=== PATIENT | female | born 1945 | race Caucasian/White ===

== ENCOUNTER 2016-08-26 15:31 | Inpatient (IN) ==
--- NOTE | 2016-08-26 15:42 | Emergency Department Note ---
Disposition Clinical Impression: Atrial fibrillation with RVR Disposition: Admitted As Inpatient Condition: Fair Referrals: Liliana Pedro MD [Primary Care Provider] - Time of Disposition: 17:05 Arrhythmia/Palpitations HPI - General Stated Complaint: [place], tachy Time Seen by Provider: 08/26/16 15:34 Source: patient, family Mode of arrival: ambulatory Limitations: no limitations Nursing Notes Reviewed: Yes Vital Signs Reviewed: Yes - History of Present Illness HPI Narrative: 70-year-old who comes in stating that she hasn't felt well for a day or 2 and she had her a pulse ox on her today and noted her heart rate to be 130s. Had A. fib twice in the past was converted medically. She presents now for evaluation. Pt Subjective Complaint: rapid heart beat Onset (ago): Just BRONC BREAKER Associated symptoms: Reports: shortness of breath - Related Data Home Medications Medication Instructions Recorded Confirmed Aspirin Enteric Coated [Aspirin EC] 81 mg PO DAILY 11/23/14 11/29/15 Cholecalciferol (D-3) [Vitamin D] 2,000 unit PO DAILY 11/23/14 11/29/15 Citalopram Hydrobromide [Celexa] 40 mg PO DAILY 11/23/14 11/29/15 Cyclobenzaprine [Flexeril] 10 mg PO HS 11/23/14 11/29/15 Gabapentin [Neurontin] 300 mg PO TID 11/23/14 11/29/15 Meloxicam [Mobic] 15 mg PO DAILY 11/23/14 11/29/15 Metoprolol [Lopressor] 50 mg PO BID 11/23/14 11/29/15 metFORMIN [Glucophage] 500 mg PO DAILY 11/23/14 11/29/15 [place]-3/Dha/Epa/Fish Oil [Fish Oil 1 each PO DAILY 05/31/15 11/29/15 1,000 mg Softgel] Cetirizine HCl [Zyrtec] 10 mg PO DAILY 05/30/16 05/30/16 Previous Rx's Medication Instructions Recorded Amlodipine/Atorvastatin [Caduet 10 1 each PO DAILY #30 tablet 08/28/15 mg-40 mg Tablet] Clopidogrel [Plavix] 75 mg PO DAILY #30 tablet 08/28/15 Allergies Allergy/AdvReac Type Severity Reaction Status Date / Time Erythromycin Base AdvReac Abdominal Verified 05/31/15 12:06 [From Erythrocin] Pain All systems ED: reviewed and negative except as stated. Constitutional: Denies: fever, chills, weakness, weight change Eyes: Denies: eye pain, eye discharge, vision change ENT ED: Denies: ear pain, throat pain, dental pain, hearing loss, epistaxis, congestion, dysphagia Cardiovascular: Reports: palpitations, dyspnea on exertion. Denies: chest pain , edema, syncope Respiratory: Denies: cough, wheezes, hemoptysis, stridor Gastrointestinal: Denies: abdominal pain, nausea, vomiting, diarrhea, constipation, hematemesis, melena, hematochezia Genitourinary: Denies: dysuria, frequency, hematuria, discharge Musculoskeletal: Denies: back pain, neck pain, arthralgia, myalgia Integumentary: Denies: rash, abrasion, lesions Neurological: Denies: headache, weakness, numbness, paresthesias, confusion, abnormal gait, vertigo Psychiatric: Denies: anxiety, depression, suicidal thoughts, homicidal thoughts , auditory hallucinations, visual hallucinations Endocrine: Denies: fatigue Hematological/Lymphatic: Denies: easy bleeding, easy bruising Allergic/Immunologic: Denies: facial swelling, urticaria Past Medical History - Past Medical History Medical history: Reports: atrial fibrillation, cancer, coronary artery disease, diabetes, hyperlipidemia, hypertension Surgical history: Reports: cholecystectomy, REMINGTON/BSO Psychiatric history: Reports: no psych history - Social History Smoking Status: Former smoker Smokeless Tobacco Status: No Alcohol use: Reports: none Drug use: Reports: none Physical Exam - General Limitations: no limitations General appearance: alert, in no apparent distress - Head Head exam: atraumatic, normocephalic, normal inspection - Eye Eye exam: Present: normal appearance, PERRL, EOMI - ENT ENT exam: normal exam, normal oropharynx, mucous membranes moist - Neck Neck exam: Present: normal inspection, full ROM, trachea midline - Chest Chest inspection: Present: normal inspection, symmetric chest wall rise - Respiratory Respiratory exam: Present: normal lung sounds bilaterally - Cardiovascular Cardiovascular exam: Present: tachycardia, irregular rhythm, normal heart sounds - Abdominal Exam Abdominal exam: Present: soft, Non-Tender. Absent: tenderness, distention, guarding, rebound, rigidity - Extremities Exam Extremities exam: Present: normal inspection, full ROM. Absent: tenderness, pedal edema - Expanded Lower Extremity Exam Neurovascular/Tendon exam: Absent: motor deficit, sensory deficit, tendon deficit Gait: observed and normal - Back Exam Back exam: Present: normal inspection, full ROM. Absent: tenderness - Neurological Exam Neurological exam: Present: alert, oriented X3 - Psychiatric Psychiatric exam: Present: normal affect, normal mood - Skin Skin exam: Present: warm, dry, intact, normal color Course - Reevaluation(s) Reevaluation #1: 70-year-old with a history of A. fib in the past and noticed that she wasn't feeling well last couple of days took her heart rate is in the 130s 140s. EKG does show A. fib RVR she started on a Cardizem drip current heart rate is between 100 and 110. Time: 17:04 - Consultations Consultation #1: Discussed with , admit Time: 17:12 Vital Signs Temperature 97.9 F 08/26/16 15:38 Pulse Rate 138 08/26/16 15:38 Respiratory Rate 18 08/26/16 15:38 Blood Pressure 138/98 08/26/16 15:38 O2 Sat by Pulse Oximetry 95 08/26/16 15:38 Temperature 97.9 F 08/26/16 15:38 Pulse Rate 109 08/26/16 16:30 Respiratory Rate 16 08/26/16 16:30 Blood Pressure 113/94 08/26/16 16:30 O2 Sat by Pulse Oximetry 97 08/26/16 16:30 Oxygen Delivery Oxygen Delivery Room Air Arrhythmia/Palpitations - Lab Data Lab results reviewed: Yes I reviewed the patient's lab results. Result diagrams: 08/26/16 16:07 08/26/16 16:07 Lab Results 08/26/16 08/26/16 08/26/16 Range/Units 16:07 16:07 16:07 WBC 8.9 (4.3-11.1) K/mcL RBC 3.97 (3.82-4.97) M/mcL Hgb 11.7 (11.5-15.4) g/dL Hct 35.7 (35.3-44.9) % MCV 89.9 (83.0-100.0) fL MCH 29.5 (28.0-33.3) pg MCHC 32.8 (31.6-35.5) g/dL RDW 13.3 (11.5-14.5) % Plt Count 264 (140-400) K/mcL MPV 9.1 L (9.4-12.4) fL Immature Gran % 0.5 (0-4) % Seg Neutrophils % 67.0 % Lymphocytes % 25.4 % Monocytes % 5.3 % Eosinophils % 1.2 % Basophils % 0.6 % Neutrophils # 6.0 (1.6-8.9) K/mcL Lymphocytes # 2.3 (0.6-4.6) K/mcL Monocytes # 0.5 (0.0-1.3) K/mcL Eosinophils # 0.1 (0.0-0.6) K/mcL Basophils # 0.1 (0.0-0.2) K/mcL Sodium 139 (136-145) mEq/L Potassium 3.9 (3.5-4.5) mEq/L Chloride 109 (98-109) mEq/L Carbon Dioxide 20 (19-29) mEq/L BUN 15 (7-20) mg/dL Creatinine 0.82 (0.57-1.11) mg/dL Est GFR ( Amer) > 60 (> 60) Est GFR (Non-Af Amer) > 60 (> 60) BUN/Creatinine Ratio 18 (6-26) Glucose 151 H (70-99) mg/dL Calculated Osmolality 292 (280-300) Lactic Acid 1.9 (0.5-2.2) mmol/L Calcium 8.8 (8.6-10.8) mg/dL Troponin I (0-0.03) ng/mL B-Natriuretic Peptide (0-100) pg/mL 08/26/16 08/26/16 Range/Units 16:07 16:07 WBC (4.3-11.1) K/mcL RBC (3.82-4.97) M/mcL Hgb (11.5-15.4) g/dL Hct (35.3-44.9) % MCV (83.0-100.0) fL MCH (28.0-33.3) pg MCHC (31.6-35.5) g/dL RDW (11.5-14.5) % Plt Count (140-400) K/mcL MPV (9.4-12.4) fL Immature Gran % (0-4) % Seg Neutrophils % % Lymphocytes % % Monocytes % % Eosinophils % % Basophils % % Neutrophils # (1.6-8.9) K/mcL Lymphocytes # (0.6-4.6) K/mcL Monocytes # (0.0-1.3) K/mcL Eosinophils # (0.0-0.6) K/mcL Basophils # (0.0-0.2) K/mcL Sodium (136-145) mEq/L Potassium (3.5-4.5) mEq/L Chloride (98-109) mEq/L Carbon Dioxide (19-29) mEq/L BUN (7-20) mg/dL Creatinine (0.57-1.11) mg/dL Est GFR ( Amer) (> 60) Est GFR (Non-Af Amer) (> 60) BUN/Creatinine Ratio (6-26) Glucose (70-99) mg/dL Calculated Osmolality (280-300) Lactic Acid (0.5-2.2) mmol/L Calcium (8.6-10.8) mg/dL Troponin I 0.03 (0-0.03) ng/mL B-Natriuretic Peptide 579 H (0-100) pg/mL - Radiology Data Radiology results reviewed: Yes I reviewed the patient's radiology results. Chest X-Ray 08/26/16 15:34 IMPRESSION: Minimal left basilar atelectasis or pneumonitis. Sequela of granulomatous disease. D/ / Bradley Calderon MD / Bradley Calderon MD Interpreting Provider: Bradley Calderon MD - EKG Data EKG attestation: Yes I reviewed and interpreted this EKG. Rate: tachycardia Rhythm: A.Fib Interpretation: other (A. fib RVR) Critical Care Time Critical Care Time: Yes Total Critical Care Time: 30 Attestation: The high probability of a clinically significant, sudden or life threatening deterioration of the [cardiovascular] system(s) required my full and direct attention, intervention and personal management. The aggregate critical care time was [30] minutes. This time is in addition to time spent performing reported procedures but includes the following: [x] Data Review and interpretation [x] Patient assessment and monitoring of vital signs [x] Documentation [x] Medication orders and management
[2016-08-26 16:16] LABS: Basophils # 0.1 K/mcL (0.0-0.2); Basophils % 0.6 %; Eosinophils # 0.1 K/mcL (0.0-0.6); Eosinophils % 1.2 %; Hematocrit 35.7 % (35.3-44.9); Hemoglobin 11.7 g/dL (11.5-15.4); Immature Granulocytes % 0.5 % (0-4); Lymphocytes # 2.3 K/mcL (0.6-4.6); Lymphocytes % 25.4 %; Mean Corpuscular HGB Conc 32.8 g/dL (31.6-35.5); Mean Corpuscular Hemoglobin 29.5 pg (28.0-33.3); Mean Corpuscular Volume 89.9 fL (83.0-100.0); Mean Platelet Volume 9.1 fL (9.4-12.4); Monocytes # 0.5 K/mcL (0.0-1.3); Monocytes % 5.3 %; Platelet Count 264 K/mcL (140-400); Red Blood Count 3.97 M/mcL (3.82-4.97); Red Cell Distribution Width 13.3 % (11.5-14.5)
[2016-08-26 16:30] LABS: BUN/Creatinine Ratio 18 (6-26); Blood Urea Nitrogen 15 mg/dL (7-20); Calcium 8.8 mg/dL (8.6-10.8); Carbon Dioxide 20 mEq/L (19-29); Chloride 109 mEq/L (98-109); Glucose 151 mg/dL (70-99); Osmolality,Calculated 292 (280-300); Potassium 3.9 mEq/L (3.5-4.5); Sodium 139 mEq/L (136-145); eGFR For African Americans > 60 (> 60); eGFR For Non-African Americans > 60 (> 60)
[2016-08-26] MEDS ORDERED: Naloxone 0.4 MG/ML INJ IVP PRN (17:08)
[2016-08-26] MEDS ORDERED: Ondansetron 4 MG/2 ML VIAL IVP PRN (17:08)
[2016-08-26] MEDS ORDERED: Acetaminophen 325 MG TABLET PO PRN (17:08)
[2016-08-26] MEDS ORDERED: D5% in Water 1,000 ML IVC PRN (20:30)
[2016-08-26] MEDS ORDERED: *HR* Dextrose 50 % in Water (Syg) 50 ML SYRINGE IVP PRN (20:30)
[2016-08-26] MEDS ORDERED: Dextrose Gel 15 GM PO PRN ×2 (20:30)
--- NOTE | 2016-08-26 20:42 | Internal Med History&Physical ---
Date of Encounter: 08/26/16 Time of Encounter: 20:35 Assessment and Plan (1) Atrial fibrillation with RVR Current visit: Yes Status: Acute 1 patient has history of paroxysmal atrial fibrillation which seems to been introduced during chemotherapy. She presented today with A. fib RVR rate of 145 shortness of breath. She was given Cardizem boluses of Cardizem drip. She is normally on metoprolol and aspirin. Presently heart rate is between 90 and jumping to 134 we will continue with Cardizem drip. Continue metoprolol 2 will start heparin gtt 3. Consult Cardiology- patient is followed by Dr. Kumar 4 continuous cardiac monitoring 5 and oxygen as needed to maintain SPO2 greater than 92% 6 cardiac echo (2) Breast cancer Current visit: No Status: Chronic 1patient has a history of breast cancer. She has received chemotherapy and radiation she has been in remission. Outpatient follow-up with oncology as outpatient. Qualifiers: Breast location: unspecified site of breast Patient sex: female Laterality: unspecified laterality Qualified Code(s): C50.919 - Malignant neoplasm of unspecified site of unspecified female breast (3) CAD (coronary artery disease) Current visit: No Status: Acute 1 patient has history of coronary disease with 2 drug-eluting stents. We will continue with dual antiplatelet statin beta saroj Imdur Qualifiers: Coronary Disease-Associated Artery/Lesion type: [place] artery [place] vs. transplanted heart: [place] heart Associated angina: without angina Qualified Code(s): I25.10 - Atherosclerotic heart disease of [place] coronary artery without angina pectoris (4) Hypertension Current visit: No Status: Chronic 1 presents controlled, patient is on Cardizem drip hold amlodipine for now Qualifiers: Hypertension type: essential hypertension Qualified Code(s): I10 - Essential (primary) hypertension (5) Diabetes Current visit: No Status: Chronic 1 patient is on metformin we will hold oral antidiabetics for now Accu-Cheks before meals at bedtime with sliding scale insulin goal postprandial is 180 2 diabetic diet Qualifiers: Diabetes mellitus type: type 2 Diabetes mellitus complication status: without complication Diabetes mellitus correction insulin use: without correction use Qualified Code(s): E11.9 - Type 2 diabetes mellitus without complications (6) DVT prophylaxis Current visit: Yes Status: Acute 1heparin gtt Internal Medicine - H&P: HPI Chief complaint: SOB Admitted From: Emergency Dept Plans for Post Hospital Care: Home History of present illness: Ms. Amin is a 70 year old female with history diabetes high blood pressure ( 1 atrial fibrillation with cancer coronary artery disease with stent placement. According to the patient's experiencing increasing shortness of breath on exertion for the past 3-4 days she denies any chest pain or palpitations. She is also noticed lower extremity swelling as well as a nonproductive cough. Denies any fever or chills or sputum production. Today patient states she was sleeping has been noticing she was breathing strangely. He checked her SPO2 and tenderness that her heart rate was erratic and not registering. She is brought to the ER for evaluation. Upon presentation EKG did reveal atrial fibrillation with RVR heart rate of 145. Patient was given Cardizem bolus as well as started on Cardizem drip which did bring her rate down to 90-100. Lab work was obtained and was unremarkable. Troponins 0.03. Chest x-ray was obtained which revealed minimal blood atelectasis or pneumonitis. Patient was admitted for further workup and evaluation. Presently patient does not appear to be in any respiratory distress. She denies any chest pain or shortness of breath at this time. Her lung sounds are clear heart sounds are irregular S1 and S2 no clicks rubs murmurs or gallops noted. She does have +1 edema to her extremities. Presently she is atrophic on the monitor with a rate of 99-134. Blood pressure systolic 124 Cardizem 7.5 increased to 10. SPO2 is 93% place patient on 2 L nasal cannula.I reviewed this case with Dr Adler who agrees with plan Past Med Surg Social Fam HX - Past Medical History Medical history: atrial fibrillation, cancer, coronary artery disease, diabetes , hyperlipidemia, hypertension Psychiatric history: no psych history - Past Surgical History Surgical History: cholecystectomy, REMINGTON/BSO - Social History Smoking Status: Former smoker Smokeless Tobacco Status: No Alcohol use: none Drug use: none - Family History Mother Age: 86 Living Status: Age at : 86 Cause of : throat cancer Hx Family Cardiac Disorders: Yes (htn) Hx Family Cancer: Yes (throat cancer) Hx Family Endocrine Disorder: Yes (diabetic) Internal Medicine - H&P: Meds Aspirin Enteric Coated [Aspirin EC] 81 mg PO DAILY 11/23/14 [History] Cholecalciferol (D-3) [Vitamin D] 2,000 unit PO DAILY 11/23/14 [History] Citalopram Hydrobromide [Celexa] 40 mg PO DAILY 11/23/14 [History] Cyclobenzaprine [Flexeril] 10 mg PO HS 11/23/14 [History] Gabapentin [Neurontin] 300 mg PO TID 11/23/14 [History] Meloxicam [Mobic] 15 mg PO DAILY 11/23/14 [History] Metoprolol [Lopressor] 50 mg PO BID 11/23/14 [History] metFORMIN [Glucophage] 500 mg PO DAILY 11/23/14 [History] [place]-3/Dha/Epa/Fish Oil [Fish Oil 1,000 mg Softgel] 1 each PO DAILY 05/31/15 [ History] Amlodipine/Atorvastatin [Caduet 10 mg-40 mg Tablet] 1 each PO DAILY #30 tablet 08/28/15 [Rx] Clopidogrel [Plavix] 75 mg PO DAILY #30 tablet 08/28/15 [Rx] Cetirizine HCl [Zyrtec] 10 mg PO DAILY 05/30/16 [History] Isosorbide MONOnitrate (24 HR) [Imdur] 30 mg PO DAILY 08/26/16 [History] Allergies Erythromycin Base [From Erythrocin] Adverse Reaction (Verified 08/26/16 17:53) Gastrointestinal Upset All Systems PM: A 10-system review of systems was performed and is negative for pertinent findings except as documented above in the HPI. - Constitutional Constitutional: no chills, no fever(s), no night sweats - EENT Eyes: no change in vision, no discharge, no pain, no photophobia Nose, mouth and throat: no dysphagia, no nasal discharge, no neck pain, no sore throat - Cardiovascular Cardiovascular ROS IM: dyspnea on exertion, edema - Respiratory Respiratory: cough, dyspnea on exertion - Gastrointestinal Gastrointestinal: no abdominal pain, no diarrhea, no hematemesis, no hematochezia, no melena, no nausea, no vomiting - Genitourinary Genitourinary: no change in urinary stream, no dysuria, no flank pain, no hematuria - Musculoskeletal Musculoskeletal ROS IM: no numbness, no tingling - Integumentary Integumentary IM: no rash, no unusual bruising - Neurological Neurological ROS: no confusion, no convulsions, no focal weakness, no numbness, no tingling, no tremor(s) - Hematologic/Lymphatic Hematologic/Lymphatic: no easy bruising - Constitutional Vitals: Temp Pulse Resp BP Pulse Ox 98.1 F 107 15 129/99 94 08/26/16 17:50 08/26/16 17:50 08/26/16 17:50 08/26/16 17:50 08/26/16 20:13 General appearance: Present: A&O X 3, answers questions appropriately - Head Head exam: Present: atraumatic, normocephalic - Eye Eye exam: Present: PERRL, conjuntiva pink, sclera anicteric Pupils: Present: PERRL - Neck Neck exam general surgery: Present: supple, trachea midline. Absent: lymphadenopathy - Respiratory Respiratory exam: Present: CTAB. Absent: accessory muscle use, rales, rhonchi, wheezes - Cardiovascular Cardiovascular exam: Present: RRR, +S1, +S2. Absent: diastolic murmur, gallop, rubs, systolic murmur - GI/Abdominal GI/Abdominal exam: Present: normal bowel sounds, soft, no peritoneal signs. Absent: distended, tenderness - Extremities Exam Extremities exam: Present: pedal edema, warm, radial pulses palpable and symetrical. Absent: calf tenderness, cyanotic - Neurological Exam Neurological exam: Present: CN II-XII intact, oriented X3, no focal deficits. Absent: pronater drift, facial droop, speech deficit - Skin Skin exam: Present: dry, intact Internal Med - H&P Results - Labs CBC & Chem 7: 08/26/16 16:07 08/26/16 16:07 - EKG Data EKG comments: 08/26/16 20:43 Atrial fibrillation with rapid ventricular response rate [address] changes
[2016-08-26] MEDS ORDERED: *HR* Heparin 5,000 UNIT/ML VIAL IVP ONE (21:02)
[2016-08-26] MEDS ORDERED: *HR* Heparin 5,000 UNIT/ML VIAL IVP PRN (21:02)
[2016-08-26 22:06] LABS: Hematocrit 35.8 % (35.3-44.9); Hemoglobin 11.5 g/dL (11.5-15.4); Mean Corpuscular HGB Conc 32.1 g/dL (31.6-35.5); Mean Corpuscular Hemoglobin 28.8 pg (28.0-33.3); Mean Corpuscular Volume 89.7 fL (83.0-100.0); Mean Platelet Volume 9.1 fL (9.4-12.4); Platelet Count 262 K/mcL (140-400); Red Blood Count 3.99 M/mcL (3.82-4.97); Red Cell Distribution Width 13.2 % (11.5-14.5)
[2016-08-26] MEDS: Insulin LISPRO 300 UNITS/3 ML VIAL SQ SCH (22:14)
[2016-08-26] MEDS: Gabapentin 300 MG CAPSULE PO SCH (22:14)
[2016-08-26 22:15] LABS: INR 1.2; Prothrombin Time 13.1 Seconds (9.4-12.1)
[2016-08-26 22:18] LABS: Activated Partial Thrombo Time 31.7 Seconds (26.0-36.0)
--- NOTE | 2016-08-26 22:27 | Event Note ---
Date of Encounter: 08/26/16 Time of Encounter: 21:45 Patient seen and evaluated along with nurse practitioner. Agree with Detailed assessment and plan according to nurse practitioners H&P, except to the extent set forth below. 70-year-old female with history of paroxysmal atrial fibrillation, breast cancer , was admitted with worsening exertional dyspnea, palpitations, associated with leg swelling and moist cough for the last 2-3 days. Patient was noted to be in atrial fibrillation with rapid ventricular response and received a dose of IV Cardizem push and has been started on IV Cardizem drip in the emergency room. Patient seen and examined at bedside. Awake, alert and oriented 3 Chest-S1, S2 heard, irregular rate and rhythm, tachycardia Lungs are clear to auscultation Bilateral lower extremity 1+ pitting pedal edema Reviewed labs-CBC, BMP within normal limits. BNP slightly elevated at 579. EKG shows narrow complex irregular tachycardia, ventricular rate in 140s Atrial fibrillation with rapid ventricular response-patient did have 2 episodes of atrial fibrillation in the past, that were associated with chemotherapy and radiation and has been previously on anticoagulation with Xarelto which has since been discontinued. Continue IV Cardizem drip for rate control with goal heart rate 90-110. Continue metoprolol. We will start anticoagulation with IV heparin drip, patient is agreeable to this and she does understand the risks and benefits of anticoagulation. Check 2-D echocardiogram and consult cardiology for further recommendations. Right breast invasive ductal cancer-status post lumpectomy and external beam radiation, chemotherapy was aborted due to complications. No further treatments planned at this time, follows with oncology as outpatient. Continue other medications for chronic comorbidities.
[2016-08-26] MEDS: Heparin 25,000 UNIT/500 ML D5W 25,000 UNIT/500 ML MLS IVC SCH (23:12)
[2016-08-27 06:07] LABS: Alanine Aminotransferase 22 Units/L (0-55); Albumin 3.5 g/dL (3.5-5.0); Albumin/Globulin Ratio 1.1 (1.1-2.2); Alkaline Phosphatase 92 Units/L (38-126); Aspartate Amino Transferase 22 Units/L (5-34); BUN/Creatinine Ratio 17 (6-26); Bilirubin,Total 1.3 mg/dL (0.2-1.2); Blood Urea Nitrogen 14 mg/dL (7-20); Calcium 8.8 mg/dL (8.6-10.8); Carbon Dioxide 21 mEq/L (19-29); Chloride 109 mEq/L (98-109); Globulin 3.1 g/dL (2.4-3.5); Glucose 134 mg/dL (70-99); Magnesium 1.8 mg/dL (1.6-2.6); Osmolality,Calculated 294 (280-300); Potassium 3.8 mEq/L (3.5-4.5); Sodium 141 mEq/L (136-145); Total Protein 6.6 g/dL (6.0-8.3); eGFR For African Americans > 60 (> 60); eGFR For Non-African Americans > 60 (> 60)
[2016-08-27 06:09] LABS: Activated Partial Thrombo Time 242.7 Seconds (26.0-36.0)
[2016-08-27 06:16] LABS: Heparin anti-factor XA UFH 1.11 IU/mL (0.30-0.70)
--- NOTE | 2016-08-27 06:43 | Cardiology Consult Note ---
Date of Encounter: 08/27/16 Time of Encounter: 06:40 Assessment and Plan (1) Paroxysmal atrial fibrillation Current Visit: No Status: Chronic Presented with atrial fibrillation with RVR. heart rate as high as 145. Continue to titrate Cardizem drip until rate controlled is obtained. Heart rate currently 100-120. Continue metoprolol. She has a history of developing atrial fibrillation during a chemotherapy treatment that quickly resolved. TTE 2013-EF 65%moderate diastolic dysfunction, mild to moderate aortic regurgitation, mild mitral regurgitation. She has been maintained on metoprolol and aspirin therapy. Mild ankle edema noted. Patient recently started on diuretic an outpatient setting by PCP. Will add Lasix 20 mg PRN edema. CHADS VASc= 5 (gender, age, DM, HTN, CAD). She is high risk for thromboembolism / CVA. Anticoagulation with coumadin or NOAC is recommended. I had a long discussion about anticoagulation including indication, adverse effects, and benefits. She is agreeable to start. TTE ordered. Further recommendation pending results. (2) CAD (coronary artery disease) Current Visit: No Status: Acute History of CAD status post previous PCI. H/o PCI to her Lcx artery and OM in August 2015. Continue aspirin, Plavix, beta saroj, and statin. Will consider stopping plavix to avoid triple therapy. DESx 2 placed one year ago. Troponins are negative 3. She denies chest pain. Previous testing: Cardiac catheterization 08/27/15: EF 60% 15% stenosis in the LMCA, 30% stenosis in the Proximal LAD, 30% stenosis in the Mid LAD. 30% stenosis in the Proximal Circumflex artery, 14 mm long, 99% stenosis in the Mid Circumflex and PTCA/ ALISON recieved.. 10 mm long, 90% stenosis in the 1st Marginal and [employer] ALISON recieved. 90% stenosis in the Ramus. 30% stenosis in the Proximal RCA. 30% stenosis in the Mid RCA. Stress test 07/30/15: Exercise ECG is non-diagnostic due to baseline ST-T changes. Worsening of baseline changes noted, especially in recovery. The exercise capacity was poor. Gated EF = 75%. Small size, moderate intensity, reversible inferolateral defect suggestive of ischemia. Qualifiers: Coronary Disease-Associated Artery/Lesion type: [place] artery [place] vs. transplanted heart: [place] heart Associated angina: without angina Qualified Code(s): I25.10 - Atherosclerotic heart disease of [place] coronary artery without angina pectoris Discussion w patient/family: The assessment and plan as outlined above was discussed with the patient and/or family members who expressed understanding and agreement. All questions were answered. Thank you for involving us in the care of your patient. Please call with any questions. History of Present Illness Consult date: 08/27/16 Requesting physician: Karen Adler Consult reason: afib with RVR Chief complaint: SOB History of present illness: Ms. Amin is a 70 year old female who presented with a complain of tachycardia. She reports overall not feeling well and increasing shortness of breath. Her took a pulse ox at home that showed her heart rate in the 130s. She presented to the ER where she was given IV Cardizem and started on Cardizem drip and heparin drip. She has a history of paroxysmal atrial fibrillation, coronary artery disease status post previous PCI, breast cancer status post chemotherapy and radiation, diabetes, and hypertension. She follows with Dr. Erwin Kumar in the [place] [facility] office. Past Med Surg Social Fam HX - Past Medical History Medical history: atrial fibrillation, cancer, coronary artery disease, diabetes , hyperlipidemia, hypertension Psychiatric history: no psych history - Past Surgical History Surgical History: cholecystectomy, REM[place]/BSO - Social History Smoking Status: Former smoker Smokeless Tobacco Status: No Alcohol use: none Drug use: none - Family History Mother Age: 86 Living Status: Age at : 86 Cause of : throat cancer Hx Family Cardiac Disorders: Yes (htn) Hx Family Cancer: Yes (throat cancer) Hx Family Endocrine Disorder: Yes (diabetic) Medications and Allergies Aspirin Enteric Coated [Aspirin EC] 81 mg PO DAILY 11/23/14 [History] Cholecalciferol (D-3) [Vitamin D] 2,000 unit PO DAILY 11/23/14 [History] Citalopram Hydrobromide [Celexa] 40 mg PO DAILY 11/23/14 [History] Cyclobenzaprine [Flexeril] 10 mg PO HS 11/23/14 [History] Gabapentin [Neurontin] 300 mg PO TID 11/23/14 [History] Meloxicam [Mobic] 15 mg PO DAILY 11/23/14 [History] Metoprolol [Lopressor] 50 mg PO BID 11/23/14 [History] metFORMIN [Glucophage] 500 mg PO DAILY 11/23/14 [History] [place]-3/Dha/Epa/Fish Oil [Fish Oil 1,000 mg Softgel] 1 each PO DAILY 05/31/15 [ History] Amlodipine/Atorvastatin [Caduet 10 mg-40 mg Tablet] 1 each PO DAILY #30 tablet 08/28/15 [Rx] Clopidogrel [Plavix] 75 mg PO DAILY #30 tablet 08/28/15 [Rx] Cetirizine HCl [Zyrtec] 10 mg PO DAILY 05/30/16 [History] Isosorbide MONOnitrate (24 HR) [Imdur] 30 mg PO DAILY 08/26/16 [History] Allergies Erythromycin Base [From Erythrocin] Adverse Reaction (Verified 08/26/16 17:53) Gastrointestinal Upset All Systems Review: A 10-system review of systems was performed and is negative for pertinent findings except as documented above in the HPI. Physical Examination Vital Signs, Last 4 Hours Temp Pulse Resp BP Pulse Ox 08/27/16 04:00 97.9 F 110 18 139/84 94 General: Conversant, No Apparent Distress HEENT: Atraumatic, Normocephaly, Mucus Membranes Moist Neck: No JVD, Normal carotid pulses Cardiac: Other (Irregularly irregular) Lungs: Normal Breath Sounds, No Wheeze, Rales, Rhonchi Neuro: Alert and responsive, No focal deficits noted Abdomen: Soft, Non-Tender Skin: No rashes noted on visualized skin Musculoskeletal: No Chest Wall Tenderness Extremities: No Clubbing, No Cyanosis, Normal Pulses, Other (Trace BLE edema. ) Results 08/26/16 21:22 08/27/16 04:27 Lab Results 08/26/16 08/26/16 08/26/16 21:22 21:22 21:22 WBC 7.6 Hgb 11.5 Hct 35.8 Plt Count 262 INR 1.2 APTT 31.7 Sodium Potassium Chloride Carbon Dioxide BUN Creatinine Glucose Calcium Magnesium Total Bilirubin AST ALT Alkaline Phosphatase Troponin I 0.02 08/27/16 08/27/16 08/27/16 04:27 04:27 04:27 WBC Hgb Hct Plt Count INR APTT 242.7 H* D Sodium 141 Potassium 3.8 Chloride 109 Carbon Dioxide 21 BUN 14 Creatinine 0.82 Glucose 134 H Calcium 8.8 Magnesium 1.8 Total Bilirubin 1.3 H AST 22 ALT 22 Alkaline Phosphatase 92 Troponin I 0.02 Consult Discharge Plan - Plan Referrals: Liliana Pedro MD [Primary Care Provider] -
[2016-08-27] MEDS: Aspirin Enteric Coated 81 MG Tablet PO SCH (07:42)
[2016-08-27] MEDS: Gabapentin 300 MG CAPSULE PO SCH ×3 (07:42→20:25)
[2016-08-27] MEDS: Insulin LISPRO 300 UNITS/3 ML VIAL SQ SCH ×4 (07:42→20:25)
[2016-08-27] MEDS: Isosorbide MONOnitrate (24 HR) 30 MG TAB.ER.24H PO SCH (07:42)
[2016-08-27] MEDS ORDERED: Furosemide 20 MG TABLET PO PRN (08:40)
[2016-08-27] MEDS ORDERED: Furosemide 20 MG TABLET PO ONE (08:45)
--- NOTE | 2016-08-27 10:49 | Internal Med Progress Note ---
<Conner Garza - Last Filed: 08/27/16 11:15> Date of Encounter: 08/27/16 Time of Encounter: 10:47 - Assessment and plan (1) Atrial fibrillation with RVR Current Visit: Yes Status: Resolved Assessment and plan: 70 y/o female presents with sob, and states her HR has been erratic on her home pluse ox. Patient has had a. fib twice in the past when undergoing chemotheraphy which was converted to sinus rhythm medically. Patient was found to be in A. fib RVR with rate of 145. She is on metoprolol at home for CAD. She is not on angicoagulation. Patent was started on heparin and cardizem drip and metoprolol was continued. Troponin within normal limits. BNP 579. Currently patient's rate is between 90 and 110. States her shortness of breath is improved. Echocardiogram pending. Previous TTE: 65% EF with moderate diastolic dysfunction , [id number] aortic regurgitation and mild mitral regurgitation. Appreciate cardiology input: Continue to titrate Cardizem drip until rate less than 85. (Currently at 10 mg an hour) CHADS VASc= 5 for gender, age, DM, HTN, CAD. Continue heparin and transition to NOAC depending on insurance. (2) Paroxysmal atrial fibrillation Current Visit: Yes Status: Chronic Assessment and plan: Titrate Cardizem until HR <85. Transition to NOAC from heparin drip. Continue metoprolol. awaiting echocardiogram CHADS VASc score 5. (3) CAD (coronary artery disease) Current Visit: Yes Status: Acute Assessment and plan: Denies CP, but did have sob on admission which has improved. hx of PCI of in left circumflex arery and OM in 2016 Stress test 07/30/15: Exercise ECG non diagnostic due to baseline ST-T changes: poor exercise capacity, Gated ER: 75% Small size, moderate intensity reversible inferolateral defect suggestive of ischemia. Continue aspirin, Plavix, beta saroj, statin. Cardiology states since patient has had DS 2 placed one year ago, negative troponins and consider discontinuing Plavix when starting anticoagulation for atrial fibrillation. Qualifiers: Coronary Disease-Associated Artery/Lesion type: [place] artery [place] vs. transplanted heart: [place] heart Associated angina: without angina Qualified Code(s): I25.10 - Atherosclerotic heart disease of [place] coronary artery without angina pectoris (4) Breast cancer Current Visit: Yes Status: Chronic Assessment and plan: Patient has right breast invasive ductal adenocarcinoma, status post lumpectomy by Dr. Mcrae in 2013. Status post chemotherapy and radiation. In remission. Followed by Dr. Smyth outpatient. Qualifiers: Breast location: unspecified site of breast Patient sex: female Laterality: unspecified laterality Qualified Code(s): C50.919 - Malignant neoplasm of unspecified site of unspecified female breast (5) Hypertension Current Visit: Yes Status: Chronic Assessment and plan: Controlled. We will hold home amlodipine as patient is on Cardizem drip. Qualifiers: Hypertension type: essential hypertension Qualified Code(s): I10 - Essential (primary) hypertension (6) Diabetes Current Visit: Yes Status: Chronic Assessment and plan: Controlled.on metformin at home. Continue SSI Cardiac ADA diet. Qualifiers: Diabetes mellitus type: type 2 Diabetes mellitus complication status: without complication Diabetes mellitus termite renewal inspector insulin use: without termite renewal inspector use Qualified Code(s): E11.9 - Type 2 diabetes mellitus without complications (7) DVT prophylaxis Current Visit: Yes Status: Acute Assessment and plan: On heparin drip. (8) Diastolic CHF Current Visit: Yes Status: Chronic Assessment and plan: Patient has hx of moderate diastolic CHF. BNP 579. States her shortness of breath improved after resolution of A. fib RVR. Patient put on when necessary Lasix due to history of mild pulmonary edema. Qualifiers: Congestive heart failure chronicity: chronic Qualified Code(s): I50.32 - Chronic diastolic (congestive) heart failure - Subjective Interval history: 70 y/o female admitted for A. fib RVR. Currently she denies chest pain, states her shortness of breath has improved. She does not have any palpitations. She denies nausea, sweating, lower extremity swelling. - Constitutional Vitals: Temp Pulse Resp BP Pulse Ox 97.4 F L 91 18 124/93 94 08/27/16 07:26 08/27/16 09:00 08/27/16 09:00 08/27/16 09:00 08/27/16 09:00 General appearance: Present: A&O X 3, answers questions appropriately - Respiratory Respiratory exam: Present: CTAB. Absent: accessory muscle use, rales, rhonchi, wheezes - Cardiovascular Cardiovascular exam: Present: irregular rhythm, +S1, +S2, tachycardia - GI/Abdominal GI/Abdominal exam: Present: normal bowel sounds, soft, no peritoneal signs. Absent: distended, tenderness - Extremities Exam Extremities exam: Present: warm, radial pulses palpable and symetrical. Absent : calf tenderness, cyanotic, pedal edema - Skin Skin exam: Present: dry, intact Internal Medicine: Result - Labs CBC & Chem 7: 08/26/16 21:22 08/27/16 04:27 Labs: Short CBC 08/26/16 Range/Units 21:22 WBC 7.6 (4.3-11.1) K/mcL Hgb 11.5 (11.5-15.4) g/dL Hct 35.8 (35.3-44.9) % Plt Count 262 (140-400) K/mcL BMP 08/27/16 04:27 Sodium 141 Potassium 3.8 Chloride 109 Carbon Dioxide 21 BUN 14 Creatinine 0.82 Glucose 134 H Calcium 8.8 Cardiac Enzymes 08/26/16 08/27/16 Range/Units 21:22 04:27 Troponin I 0.02 0.02 (0-0.03) ng/mL Liver Function 08/27/16 Range/Units 04:27 Total Bilirubin 1.3 H (0.2-1.2) mg/dL AST 22 (5-34) Units/L ALT 22 (0-55) Units/L Alkaline Phosphatase 92 (38-126) Units/L Albumin 3.5 (3.5-5.0) g/dL - ABG Interpretation ABG results: PT/INR, D-dimer PT 13.1 Seconds (9.4-12.1) H 08/26/16 21:22 Consult Discharge Plan - Plan Referrals: Liliana Pedro MD [Primary Care Provider] - <Mark Benites - Last Filed: 08/27/16 14:14> Date of Encounter: 08/27/16 - Assessment and plan (1) Paroxysmal atrial fibrillation Current Visit: Yes Status: Chronic (2) CAD (coronary artery disease) Current Visit: Yes Status: Acute Qualifiers: Coronary Disease-Associated Artery/Lesion type: [place] artery [place] vs. transplanted heart: [place] heart Associated angina: without angina Qualified Code(s): I25.10 - Atherosclerotic heart disease of [place] coronary artery without angina pectoris (3) Diastolic CHF Current Visit: Yes Status: Chronic Qualifiers: Congestive heart failure chronicity: chronic Qualified Code(s): I50.32 - Chronic diastolic (congestive) heart failure (4) Diabetes Current Visit: Yes Status: Chronic Qualifiers: Diabetes mellitus type: type 2 Diabetes mellitus complication status: without complication Diabetes mellitus termite renewal inspector insulin use: without termite renewal inspector use Qualified Code(s): E11.9 - Type 2 diabetes mellitus without complications (5) Hypertension Current Visit: Yes Status: Chronic Qualifiers: Hypertension type: essential hypertension Qualified Code(s): I10 - Essential (primary) hypertension (6) Breast cancer Current Visit: Yes Status: Chronic Qualifiers: Breast location: unspecified site of breast Patient sex: female Laterality: unspecified laterality Qualified Code(s): C50.919 - Malignant neoplasm of unspecified site of unspecified female breast (7) Obesity (BMI 30-39.9) Current Visit: Yes Status: Chronic - Constitutional Vitals: Temp Pulse Resp BP Pulse Ox 97.5 F L 98 18 136/85 94 08/27/16 11:54 08/27/16 13:23 08/27/16 11:54 08/27/16 13:23 08/27/16 11:54 Internal Medicine: Result - Labs CBC & Chem 7: 08/26/16 21:22 08/27/16 04:27 Labs: Short CBC 08/26/16 Range/Units 21:22 WBC 7.6 (4.3-11.1) K/mcL Hgb 11.5 (11.5-15.4) g/dL Hct 35.8 (35.3-44.9) % Plt Count 262 (140-400) K/mcL BMP 08/27/16 04:27 Sodium 141 Potassium 3.8 Chloride 109 Carbon Dioxide 21 BUN 14 Creatinine 0.82 Glucose 134 H Calcium 8.8 Cardiac Enzymes 08/26/16 08/27/16 Range/Units 21:22 04:27 Troponin I 0.02 0.02 (0-0.03) ng/mL Liver Function 08/27/16 Range/Units 04:27 Total Bilirubin 1.3 H (0.2-1.2) mg/dL AST 22 (5-34) Units/L ALT 22 (0-55) Units/L Alkaline Phosphatase 92 (38-126) Units/L Albumin 3.5 (3.5-5.0) g/dL - ABG Interpretation ABG results: PT/INR, D-dimer PT 13.1 Seconds (9.4-12.1) H 08/26/16 21:22 - Attending Attestation I examined this patient and my medical decision-making was reviewed with the Resident Physician on 08/27/16. I agree with the documented findings, disposition and treatment plan as described except to the extent set forth below. Ms. Amin is currently admitted for acute rapid atrial fibrillation with comorbidities of CAD, DM and CHF. She is moderate to high risk due to potential for worsening cardiac status. Ms. Amin is resting comfortably. Denies chest pain. No fever or chills. Currently on heparin and Cardizem drips. Echo pending. Cardiology input appreciated. Exam Alert. Comfortable Heart irreg and tachy No wheeze Murmur heard I/P 1. Parox a fib - persistent. Rapid. On Cardizem and heparin 2. DM 3. Diastolic CHF Further diagnoses and plan as above.
[2016-08-27] MEDS: *HR* Heparin 5,000 UNIT/ML VIAL IVP PRN (15:02)
[2016-08-27] MEDS: Heparin 25,000 UNIT/500 ML D5W 25,000 UNIT/500 ML MLS IVC SCH (17:10)
--- NOTE | 2016-08-27 19:27 | ECHO - Doppler Report ---
Echocardiogram Name: Lakeshia Amin Date of Study: 08/27/2016 Date: 1945 Ht: 63.0 in Medical Record#: [id number] Age: 70 Wt: 209.0 lb Gender: Female BSA: 1.97 Order #: [id number] Location: [facility] Room #: [id number] Reading Physician: Segundo Wolf MD, [facility] Filter Cloth Maker: Mauro Barajas RDCS Ordering Physician: Veronica Melendez CNP Primary Physician: Liliana Pedro MD Indications: Atrial fibrillation Impressions: LVEF 35-45%, new cardiomyopathy compared to previous EF assessment by ventriculogram on 08/27/2015 Moderate global left ventricular systolic dysfunction. Severely dilated left atrium. No pulmonary hypertension. Left Ventricular Wall Motion: Rest Echo Findings The apex, apical inferior, mid inferior, basal inferior, apical anterior, mid anterior, basal anterior, apical septal, mid inferior septal, basal inferior septal, apical lateral, mid anterior lateral, basal anterior lateral, mid anterior septal, mid inferior lateral, basal anterior septal and basal inferior lateral prince were hypokinetic. Findings: Study Quality * Technically adequate exam. Right Ventricle * Normal right ventricular structure and function. Right Atrium * Normal right atrial size. Aorta * Normally sized aortic root. Pericardium * The pericardium appears normal. Mitral Valve * Mild mitral annular calcification * No mitral stenosis. * Mild mitral regurgitation. Aortic Valve * Normal aortic valve structure. * No aortic stenosis. * Trileaflet aortic valve. * Mild-moderate aortic regurgitation. ECG Findings * Atrial fibrillation. Left Ventricle * Indeterminate diastolic function. * LVEF 35-45%. * Moderate global left ventricular systolic dysfunction. Left Atrium * Severely dilated left atrium. IVC * Normal IVC dimensions and inspiratory collapse. Tricuspid Valve * Trace tricuspid regurgitation. * No tricuspid stenosis. * Estimated RVSP is 24 mmHg. * Estimated RA pressure is 3-5 mmHg. * No pulmonary hypertension. History Hypertension Diabetes Hypercholesteremia Family History of CAD History of CAD/PTCA 11/10/13 a Previous Echo was performed. Measurements: BP: 139/ 84 2D Normal Values RVIDd: 1.72 cm <2.7 cm IVSd: 1.01 cm 0.6 - 1.0 cm LVIDd: 4.58 cm 3.7 - 5.6 cm LVPWd: .94 cm 0.6 - 1.1 cm LVIDs: 3.78 cm 1.5 - 3.6 cm AO: 2.80 cm < 4.0 cm LA: 5.60 cm 2.0 - 4.0cm %FS: 17.50 cm >25 % LA volume: 79 Mitral Valve Peak E:1.00 m/sec Peak E' Lat Cy:12.3 cm/s Peak E' Med Cy:7.29 cm/s E/E' Lat Ratio:8.1 E/E' Med Ratio:13.7 Aortic Valve AI pressure Half-time: 416.00 msec Tricuspid Valve TV Regurg Peak Grad: 24.00mmHg TV Regurg Peak Cy: 2.38m/sec Updated by Segundo Wolf MD, FACC on 08/27/2016 7:13:39 PM electronically signed on 08/27/2016 7:20:35 PM with status of Final Wall Motion [place]: 1=Normal, 2=Hypokinesis, 3=Akinesis, 4=Dyskinesis, 5=Aneurysmal, 6=Hyperkinetic, X=Not Visualized (Blank)=Missing
[2016-08-27 22:30] LABS: Activated Partial Thrombo Time 112.8 Seconds (26.0-36.0)
[2016-08-27 22:33] LABS: Heparin anti-factor XA UFH 0.6 IU/mL (0.30-0.70)
[2016-08-28 06:02] LABS: Basophils % 0.5 %; Eosinophils # 0.1 K/mcL (0.0-0.6); Eosinophils % 1.4 %; Hematocrit 38.5 % (35.3-44.9); Hemoglobin 12.6 g/dL (11.5-15.4); Immature Granulocytes % 0.5 % (0-4); Lymphocytes # 2.4 K/mcL (0.6-4.6); Lymphocytes % 27.9 %; Mean Corpuscular HGB Conc 32.7 g/dL (31.6-35.5); Mean Corpuscular Hemoglobin 29.2 pg (28.0-33.3); Mean Corpuscular Volume 89.3 fL (83.0-100.0); Mean Platelet Volume 9.1 fL (9.4-12.4); Monocytes # 0.5 K/mcL (0.0-1.3); Monocytes % 5.3 %; Neutrophils # 5.5 K/mcL (1.6-8.9); Platelet Count 257 K/mcL (140-400); Red Blood Count 4.31 M/mcL (3.82-4.97); Red Cell Distribution Width 13.4 % (11.5-14.5); Segmented Neutrophils % 64.4 %
[2016-08-28 06:26] LABS: BUN/Creatinine Ratio 16 (6-26); Blood Urea Nitrogen 13 mg/dL (7-20); Carbon Dioxide 24 mEq/L (19-29); Chloride 107 mEq/L (98-109); Glucose 136 mg/dL (70-99); Magnesium 1.5 mg/dL (1.6-2.6); Osmolality,Calculated 292 (280-300); Potassium 3.4 mEq/L (3.5-4.5); Sodium 140 mEq/L (136-145); eGFR For African Americans > 60 (> 60); eGFR For Non-African Americans > 60 (> 60)
[2016-08-28] MEDS: *HR* Heparin 5,000 UNIT/ML VIAL IVP PRN (06:51)
[2016-08-28] MEDS ORDERED: Magnesium Sulfate 1 GM in D5% in Water 100 ML IVPB ONE (09:21)
[2016-08-28] MEDS: Insulin LISPRO 300 UNITS/3 ML VIAL SQ SCH ×4 (09:27→20:23)
[2016-08-28] MEDS: Metoprolol XL (24 HR) Succ 50 MG TAB.ER.24H PO SCH ×2 (09:27→20:19)
[2016-08-28] MEDS: Isosorbide MONOnitrate (24 HR) 30 MG TAB.ER.24H PO SCH (09:27)
[2016-08-28] MEDS: Aspirin Enteric Coated 81 MG Tablet PO SCH (09:27)
[2016-08-28] MEDS: Gabapentin 300 MG CAPSULE PO SCH ×3 (09:27→20:19)
--- NOTE | 2016-08-28 09:48 | Cardiology Progress Note ---
Date of Encounter: 08/28/16 Time of Encounter: 09:45 Assessment and Plan (1) Paroxysmal atrial fibrillation Current Visit: Yes Status: Chronic Presented with atrial fibrillation with RVR. heart rate as high as 145. She has a history of developing atrial fibrillation during a chemotherapy treatment that quickly resolved. Currently avg HR 102 bpm over 24 hours. HR 80-112 this morning. TTE 2013-EF 65%moderate diastolic dysfunction, mild to moderate aortic regurgitation, mild mitral regurgitation. TTE this stay shows new cardiomyoapthy with EF 35-40%, moderate global systolic dysfunction, no pulmonary hypertension. Severely dilated left atrium. She has been maintained on metoprolol and aspirin therapy. D/c cardizem gtt and change lopressor to toprol xl increased at 100 mg BID. Avoid cardizem d/t cardiomyopathy. CHADS VASc= 5 (gender, age, DM, HTN, CAD). She is high risk for thromboembolism / CVA. Anticoagulation with coumadin or NOAC is recommended. I had a long discussion about anticoagulation including indication, adverse effects, and benefits. She is agreeable to start. Eliquis and xarelto both priced checked and not affordable. She is now agreeable to coumadin. Will start with pharmacy to dose. Ok to d/c plavix. Last ALISON over one year ago. INR monitoring per [place] [facility]. I will send referral. If we are unable to obtain rate control I will discuss AMANDA with [facility] with Dr. Wolf. (2) CAD (coronary artery disease) Current Visit: Yes Status: Acute History of CAD status post previous PCI. H/o PCI to her Lcx artery and OM in August 2015. Continue aspirin, beta saroj, and statin. DESx 2 placed one year ago. plavix now stopped. Troponins are negative 3. She denies chest pain. Previous testing: Cardiac catheterization 08/27/15: EF 60% 15% stenosis in the LMCA, 30% stenosis in the Proximal LAD, 30% stenosis in the Mid LAD. 30% stenosis in the Proximal Circumflex artery, 14 mm long, 99% stenosis in the Mid Circumflex and PTCA/ ALISON recieved.. 10 mm long, 90% stenosis in the 1st Marginal and [employer] ALISON recieved. 90% stenosis in the Ramus. 30% stenosis in the Proximal RCA. 30% stenosis in the Mid RCA. Stress test 07/30/15: Exercise ECG is non-diagnostic due to baseline ST-T changes. Worsening of baseline changes noted, especially in recovery. The exercise capacity was poor. Gated EF = 75%. Small size, moderate intensity, reversible inferolateral defect suggestive of ischemia. Qualifiers: Coronary Disease-Associated Artery/Lesion type: [place] artery [place] vs. transplanted heart: [place] heart Associated angina: without angina Qualified Code(s): I25.10 - Atherosclerotic heart disease of [place] coronary artery without angina pectoris (3) Cardiomyopathy Current Visit: Yes Status: Acute TTE shows newly reduced EF at 35-40%. Global systolic dysfunction. EF on [facility] 2015 was 65%. She denies chest pain. Troponins negative. 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 Discussed with Dr. Wolf. Medical management with rate control recommended at this time. Re-evaluate EF in out-pt setting. Lopressor changed to toprol xl at increased dose. Will add lisinopril if b/p allows. Started PRN lasix yesterday for ankle edema. Edema now resolved. CHF education reviewed including low sodium diet and daily weights. Strict I&O during stay. Qualifiers: Cardiomyopathy type: unspecified Qualified Code(s): I42.9 - Cardiomyopathy , unspecified Discussion w patient/family: The assessment and plan as outlined above was discussed with the patient and/or family members who expressed understanding and agreement. All questions were answered. Thank you for involving us in the care of your patient. Please call with any questions. Subjective Principal diagnosis: afib with RVR Interval history: No complaints overnight. BLE edema resolved. Objective Vital Signs, Last 4 Hours Temp Pulse Resp BP Pulse Ox 08/28/16 07:11 97.9 F 96 17 134/110 95 General: Conversant, No Apparent Distress HEENT: Atraumatic, Normocephaly, Mucus Membranes Moist Neck: No JVD, Normal carotid pulses Cardiac: Other (Irregularly irregular) Lungs: Normal Breath Sounds, No Wheeze, Rales, Rhonchi Neuro: Alert and responsive, No focal deficits noted Abdomen: Soft, Non-Tender Skin: No rashes noted on visualized skin Musculoskeletal: No Chest Wall Tenderness Extremities: No Clubbing, No Cyanosis, No Edema, Normal Pulses Results 08/28/16 05:43 08/28/16 05:43 Lab Results 08/27/16 08/27/16 08/28/16 14:17 21:51 05:43 WBC 8.5 Hgb 12.6 Hct 38.5 Plt Count 257 APTT 52.7 H D 112.8 H* D Sodium Potassium Chloride Carbon Dioxide BUN Creatinine Glucose Calcium Magnesium 08/28/16 08/28/16 05:43 05:43 WBC Hgb Hct Plt Count APTT 55.8 H D Sodium 140 Potassium 3.4 L Chloride 107 Carbon Dioxide 24 BUN 13 Creatinine 0.80 Glucose 136 H Calcium 9.0 Magnesium 1.5 L - Imaging and Cardiology Echo: report reviewed - EKG Interpretation EKG results cardiology: other (24 hour telemetry review shos Avg HR 102 bpm. Atrial fibrillation with mild RVR.) Consult Discharge Plan - Plan Referrals: Liliana Pedro MD [Primary Care Provider] -
--- NOTE | 2016-08-28 14:12 | Internal Med Progress Note ---
<Faith Gilbert - Last Filed: 08/28/16 15:34> Date of Encounter: 08/28/16 Time of Encounter: 13:30 - Assessment and plan (1) Paroxysmal atrial fibrillation Current Visit: Yes Status: Chronic Assessment and plan: - With A-fib RVR at rate as high as 145 on initial presentation. - Cardizem was started and rate better controlled but still in A-fib. - Cardiology plans to discontinue Cardizem (due to cardiomyopathy) and change Lopressor to Toprol XL 100 mg BID. - CHADS VASc score 5 (gender, age, DM, HTN & CAD) so anticoagulation with Coumadin or NOAC is recommended. Patient elects to be on Coumadin. - Will start Coumadin pharmacy dosing with routine INR while continuing heparin drip. Will switch heparin to Lovenox if patient is ready to be discharged before she reaches therapeutic INR. - Per cardiology, may consider AMANDA and cardioversion if patient fails rate control. (2) Cardiomyopathy Current Visit: Yes Status: Acute Assessment and plan: - Echo on 08/27/16 found LVEF 35-45% with new cardiomyopathy compared to prior study last year. - Likely tachycardia-induced cardiomyopathy. - No chest pain and negative troponin. - Continue Lasix prn edema - Strict I&O, daily weight, cardiac diet. - Cardiology recommends to add lisinopril if BP allows. Qualifiers: Cardiomyopathy type: unspecified Qualified Code(s): I42.9 - Cardiomyopathy , unspecified (3) CAD (coronary artery disease) Current Visit: Yes Status: Acute Assessment and plan: - Shortness of breath on admission which has improved. Patient denies chest pain. - Stress test 07/30/15: Exercise ECG non diagnostic due to baseline ST-T changes : poor exercise capacity, Gated ER: 75% Small size, moderate intensity reversible inferolateral defect suggestive of ischemia. - C 08/27/15: EF 60%, single vessel CAD with 2 ALISON placed (mid circumflex and OM1). - Continue aspirin, Plavix, beta saroj, statin. - Per cardiology, okay to discontinue Plavix since ALISON 2 were placed one year ago. Qualifiers: Coronary Disease-Associated Artery/Lesion type: craig artery [place] vs. transplanted heart: craig heart Associated angina: without angina Qualified Code(s): I25.10 - Atherosclerotic heart disease of craig coronary artery without angina pectoris (4) Breast cancer Current Visit: Yes Status: Chronic Assessment and plan: - History of right breast invasive ductal adenocarcinoma, status post lumpectomy by Dr. Mcrae in 2014 and radiating therapy. Chemotherapy was aborted due to complication. - Patient sees Dr. Smyth outpatiently - Currently in remission. Qualifiers: Breast location: unspecified site of breast Patient sex: female Laterality: unspecified laterality Qualified Code(s): C50.919 - Malignant neoplasm of unspecified site of unspecified female breast (5) Hypertension Current Visit: Yes Status: Chronic Assessment and plan: - Blood pressure within normal range. - Continue current antihypertensive regimen. Qualifiers: Hypertension type: essential hypertension Qualified Code(s): I10 - Essential (primary) hypertension (6) Diabetes Current Visit: Yes Status: Chronic Assessment and plan: - Controlled with metformin at home. - Continue Cardiac ADA diet and insulin sliding scale with routine glucose monitoring. Qualifiers: Diabetes mellitus type: type 2 Diabetes mellitus complication status: without complication Diabetes mellitus fdc insulin use: without intermediate manager use Qualified Code(s): E11.9 - Type 2 diabetes mellitus without complications (7) DVT prophylaxis Current Visit: Yes Status: Acute Assessment and plan: - On heparin drip. - Subjective Interval history: No significant event noted overnight. Patient was seen and examined this afternoon. Patient has no complaint at this time except occasional shortness of breath and lightheadedness. Patient denies chest pain, palpitation, abdominal pain, nausea, vomiting, diarrhea. Patient is still in A-fib at rate fluctuating between 60s to 120s on bedside monitor. - Constitutional Vitals: Temp Pulse Resp BP Pulse Ox 98.0 F 97 17 124/70 94 08/28/16 11:01 08/28/16 11:01 08/28/16 11:01 08/28/16 11:01 08/28/16 11:01 General appearance: Present: cooperative, A&O X 3, no acute distress, answers questions appropriately - Head Head exam: Present: atraumatic, normocephalic - Eye Eye exam: Present: EOMI, PERRL, conjuntiva pink, sclera anicteric - Neck Neck exam general surgery: Present: supple, trachea midline. Absent: lymphadenopathy - Respiratory Respiratory exam: Present: CTAB. Absent: accessory muscle use, rales, rhonchi, wheezes - Cardiovascular Cardiovascular exam: Present: irregular rhythm, +S1, +S2, tachycardia. Absent: diastolic murmur, gallop, rubs, systolic murmur - GI/Abdominal GI/Abdominal exam: Present: normal bowel sounds, soft, no peritoneal signs. Absent: distended, tenderness - Extremities Exam Extremities exam: Present: warm, radial pulses palpable and symetrical. Absent : calf tenderness, cyanotic, pedal edema - Neurological Exam Neurological exam: Present: CN II-XII intact, oriented X3, no focal deficits. Absent: pronater drift, facial droop, speech deficit - Skin Skin exam: Present: dry, intact, warm Internal Medicine: Result - Labs CBC & Chem 7: 08/28/16 05:43 08/28/16 05:43 Labs: Short CBC 08/28/16 Range/Units 05:43 WBC 8.5 (4.3-11.1) K/mcL Hgb 12.6 (11.5-15.4) g/dL Hct 38.5 (35.3-44.9) % Plt Count 257 (140-400) K/mcL Neutrophils # 5.5 (1.6-8.9) K/mcL BMP 08/28/16 05:43 Sodium 140 Potassium 3.4 L Chloride 107 Carbon Dioxide 24 BUN 13 Creatinine 0.80 Glucose 136 H Calcium 9.0 - ABG Interpretation ABG results: PT/INR, D-dimer PT 13.1 Seconds (9.4-12.1) H 08/26/16 21:22 Consult Discharge Plan - Plan Referrals: Liliana Pedro MD [Primary Care Provider] - <Mark Benites - Last Filed: 08/28/16 16:34> Date of Encounter: 08/28/16 - Assessment and plan (1) Paroxysmal atrial fibrillation Current Visit: Yes Status: Chronic (2) CAD (coronary artery disease) Current Visit: Yes Status: Acute Qualifiers: Coronary Disease-Associated Artery/Lesion type: craig artery [place] vs. transplanted heart: craig heart Associated angina: without angina Qualified Code(s): I25.10 - Atherosclerotic heart disease of craig coronary artery without angina pectoris (3) Diastolic CHF Current Visit: Yes Status: Chronic Qualifiers: Congestive heart failure chronicity: chronic Qualified Code(s): I50.32 - Chronic diastolic (congestive) heart failure (4) Systolic heart failure Current Visit: Yes Status: Acute Qualifiers: Heart failure chronicity: acute on chronic Qualified Code(s): I50.23 - Acute on chronic systolic (congestive) heart failure (5) Diabetes Current Visit: Yes Status: Chronic Qualifiers: Diabetes mellitus type: type 2 Diabetes mellitus complication status: without complication Diabetes mellitus intermediate manager insulin use: without intermediate manager use Qualified Code(s): E11.9 - Type 2 diabetes mellitus without complications (6) Hypertension Current Visit: Yes Status: Chronic Qualifiers: Hypertension type: essential hypertension Qualified Code(s): I10 - Essential (primary) hypertension (7) Breast cancer Current Visit: Yes Status: Chronic Qualifiers: Breast location: unspecified site of breast Patient sex: female Laterality: unspecified laterality Qualified Code(s): C50.919 - Malignant neoplasm of unspecified site of unspecified female breast (8) Obesity (BMI 30-39.9) Current Visit: Yes Status: Chronic (9) Hypomagnesemia Current Visit: Yes Status: Acute Assessment and plan: Replace - Constitutional Vitals: Temp Pulse Resp BP Pulse Ox 97.8 F 105 17 122/84 95 08/28/16 15:51 08/28/16 15:51 08/28/16 15:51 08/28/16 15:51 08/28/16 15:51 Internal Medicine: Result - Labs CBC & Chem 7: 08/28/16 05:43 08/28/16 05:43 Labs: Short CBC 08/28/16 Range/Units 05:43 WBC 8.5 (4.3-11.1) K/mcL Hgb 12.6 (11.5-15.4) g/dL Hct 38.5 (35.3-44.9) % Plt Count 257 (140-400) K/mcL Neutrophils # 5.5 (1.6-8.9) K/mcL BMP 08/28/16 05:43 Sodium 140 Potassium 3.4 L Chloride 107 Carbon Dioxide 24 BUN 13 Creatinine 0.80 Glucose 136 H Calcium 9.0 - ABG Interpretation ABG results: PT/INR, D-dimer PT 13.1 Seconds (9.4-12.1) H 08/26/16 21:22 - Attending Attestation I examined this patient and my medical decision-making was reviewed with the Resident Physician on 08/28/16. I agree with the documented findings, disposition and treatment plan as described except to the extent set forth below. Ms. Amin is currently admitted for acute atrial fib with RVR and echo with decreased EF. She is moderate to high risk due to need for IV medications and heparin. Ms. Amin feels OK today. No new issues overnight. No CP or SOB. No fever or chills. No GI symptoms. Exam alert. Comfortable Heart irreg - intermittently tachy Lungs clear I/P 1. A fib with RVR 2. cardiomyopathy Further diagnoses and plan as above.
--- NOTE | 2016-08-28 14:36 | Cardiology Consult Note ---
Date of Encounter: 08/28/16 Time of Encounter: 14:35 Assessment and Plan (1) Paroxysmal atrial fibrillation Current Visit: Yes Status: Chronic Presented with atrial fibrillation with RVR. Hx of A-Fib during a chemotherapy treatment that quickly resolved. Currently avg HR 103 bpm over 24 hours. HR 80-low 110s at bedside TTE 2013-EF 65%, moderate diastolic dysfunction, mild to moderate aortic regurgitation, mild mitral regurgitation. TTE this stay shows new cardiomyoapthy with EF 35-40%, moderate global systolic dysfunction, severely dilated left atrium. CMP possibly tachycardia induced. Recheck echo as outpt. She has been maintained on metoprolol and aspirin therapy previously. Agree with discontinuing cardizem gtt and change lopressor to toprol xl, increased at 100 mg BID. Avoid cardizem d/t cardiomyopathy. CHADS VASc= 5 (gender, age, DM, HTN, CAD). She is high risk for thromboembolism / CVA. Anticoagulation with coumadin or NOAC is recommended. Eliquis and xarelto both priced checked and not affordable. Agreeable to coumadin. Pharmacy dosing with INR monitoring per [facility] as outpt. On heparin gtt currently. Discussed with Dr. Erwin Kumar. Since pt is currently asymptomatic, recommend rate control and anticoagulation during current stay. If unable to rate control , will proceed with AMANDA/DCCV. Discussion w patient/family: The assessment and plan as outlined above was discussed with the patient and/or family members who expressed understanding and agreement. All questions were answered. Thank you for involving us in the care of your patient. Please call with any questions. I will discuss all the above with Dr. Erwin Kumar and make changes as necessary. History of Present Illness Consult date: 08/28/16 Requesting physician: Sen Moffett Consult reason: A-Fib History of present illness: EP CONSULT NOTE Ms. Amin is a 70 year old female who presented with a complain of tachycardia. She reports overall not feeling well and increasing shortness of breath. Her took a pulse ox at home that showed her heart rate in the 130s. She presented to the ER where she was given IV Cardizem and started on Cardizem drip and heparin drip. She has a history of paroxysmal atrial fibrillation, coronary artery disease status post previous PCI, breast cancer status post chemotherapy and radiation, diabetes, and hypertension. She follows with Dr. Erwin Kumar in the [facility] cardiology office. Cardiology was consulted and has seen the past 2 days. HR not well controlled on Cardizem gtt, requested EP consult for further recommendations. Pt currently denies any cardiac complaints. Echo resulted--EF mildly reduced EF 35-40%, moderate global systolic dysfunction, no pulmonary hypertension. Severely dilated left atrium. This is a new CMP, possibly tachycardia induced. Prior CV testing: TTE 2013-EF 65%, moderate diastolic dysfunction, mild to moderate AR, mild MR. TTE 08/2016 this stay shows new cardiomyoapthy with EF 35-40%, moderate global systolic dysfunction, no pulmonary hypertension. C 08/27/15: EF 60%. Single vessel CAD. Successful PTCA/ALISON to mid circ and OM1. Stress test 07/30/15: Gated EF = 75%. Small size, moderate intensity, reversible inferolateral defect suggestive of ischemia. Past Med Surg Social Fam HX - Past Medical History Medical history: atrial fibrillation, cancer, coronary artery disease, diabetes , hyperlipidemia, hypertension Psychiatric history: no psych history - Past Surgical History Surgical History: cholecystectomy, REMINGTON/BSO - Social History Smoking Status: Former smoker Smokeless Tobacco Status: No Alcohol use: none Drug use: none - Family History Mother Age: 86 Living Status: Age at : 86 Cause of : throat cancer Hx Family Cardiac Disorders: Yes (htn) Hx Family Cancer: Yes (throat cancer) Hx Family Endocrine Disorder: Yes (diabetic) Medications and Allergies Aspirin Enteric Coated [Aspirin EC] 81 mg PO DAILY 11/23/14 [History] Cholecalciferol (D-3) [Vitamin D] 2,000 unit PO DAILY 11/23/14 [History] Citalopram Hydrobromide [Celexa] 40 mg PO DAILY 11/23/14 [History] Cyclobenzaprine [Flexeril] 10 mg PO HS 11/23/14 [History] Gabapentin [Neurontin] 300 mg PO TID 11/23/14 [History] Meloxicam [Mobic] 15 mg PO DAILY 11/23/14 [History] Metoprolol [Lopressor] 50 mg PO BID 11/23/14 [History] metFORMIN [Glucophage] 500 mg PO DAILY 11/23/14 [History] [place]-3/Dha/Epa/Fish Oil [Fish Oil 1,000 mg Softgel] 1 each PO DAILY 05/31/15 [ History] Amlodipine/Atorvastatin [Caduet 10 mg-40 mg Tablet] 1 each PO DAILY #30 tablet 08/28/15 [Rx] Clopidogrel [Plavix] 75 mg PO DAILY #30 tablet 08/28/15 [Rx] Cetirizine HCl [Zyrtec] 10 mg PO DAILY 05/30/16 [History] Isosorbide MONOnitrate (24 HR) [Imdur] 30 mg PO DAILY 08/26/16 [History] Allergies Erythromycin Base [From Erythrocin] Adverse Reaction (Verified 08/26/16 17:53) Gastrointestinal Upset All Systems Review: A 10-system review of systems was performed and is negative for pertinent findings except as documented above in the HPI. - Cardiovascular Cardiovascular: as per HPI Physical Examination Vital Signs, Last 4 Hours Temp Pulse Resp BP Pulse Ox 08/28/16 11:01 98.0 F 97 17 124/70 94 Vital Signs Temp Pulse Resp BP Pulse Ox 08/28/16 11:01 98.0 F 97 17 124/70 94 08/28/16 07:11 97.9 F 96 17 134/110 95 08/28/16 04:00 97.7 F 94 16 149/90 95 08/27/16 20:00 97.6 F 93 16 144/89 95 08/27/16 19:00 94 08/27/16 15:17 97 18 139/95 94 Intake and Output 08/27/16 08/28/16 08/28/16 23:59 07:59 15:59 Intake Total 574.4 / 574.4 118.1 / 118.1 530 / 530 Output Total 500 / 500 800 / 800 900 / 900 Balance 74.4 / 74.4 -681.9 / -681.9 -370 / -370 Intake: IV Fluids 334.4 / 334.4 118.1 / 118.1 50 / 50 Cardizem 125 MG In 62.4 / 62.4 21.1 / 21.1 Dextrose 5% 100 ML @ 5 MG /HR 5 mls/hr IVC .Q24H [facility] Rx#:[id number] Heparin 25,000 UNIT/500 272 / 272 97 / 97 50 / 50 ML D5W 25,000 unit In 500 ml @ 14 UNIT/KG/HR 27. 188 mls/hr IVC .[id number] [place] Rx#:[id number] Oral 240 / 240 480 / 480 Output: Urine 500 / 500 800 / 800 900 / 900 Other: Meal Dinner Lunch Percent of Meal Consumed 100% 100% # Voids 1 1 3 Weight 94.1 kg Blood Glucose* 179 132 217 Patient Weight 08/28/16 23:59 Weight 94.1 kg General: Conversant, No Apparent Distress HEENT: Atraumatic, Normocephaly, Mucus Membranes Moist Neck: No JVD, Normal carotid pulses Cardiac: Other (irregularly irregular) Lungs: Normal Breath Sounds Neuro: Alert and responsive, No focal deficits noted Abdomen: Soft, Non-Tender Skin: No rashes noted on visualized skin Musculoskeletal: No Chest Wall Tenderness Extremities: No Clubbing, No Cyanosis, No Edema, Normal Pulses Results 08/28/16 05:43 08/28/16 05:43 Lab Results 08/27/16 08/27/16 08/28/16 14:17 21:51 05:43 WBC 8.5 Hgb 12.6 Hct 38.5 Plt Count 257 APTT 52.7 H D 112.8 H* D Sodium Potassium Chloride Carbon Dioxide BUN Creatinine Glucose Calcium Magnesium 08/28/16 08/28/16 08/28/16 05:43 05:43 12:22 WBC Hgb Hct Plt Count APTT 55.8 H D 103.9 H D Sodium 140 Potassium 3.4 L Chloride 107 Carbon Dioxide 24 BUN 13 Creatinine 0.80 Glucose 136 H Calcium 9.0 Magnesium 1.5 L Short CBC 08/28/16 Range/Units 05:43 WBC 8.5 (4.3-11.1) K/mcL Hgb 12.6 (11.5-15.4) g/dL Hct 38.5 (35.3-44.9) % Plt Count 257 (140-400) K/mcL Neutrophils # 5.5 (1.6-8.9) K/mcL BMP 08/28/16 Range/Units 05:43 Sodium 140 (136-145) mEq/L Potassium 3.4 L (3.5-4.5) mEq/L Chloride 107 (98-109) mEq/L Carbon Dioxide 24 (19-29) mEq/L BUN 13 (7-20) mg/dL Creatinine 0.80 (0.57-1.11) mg/dL Glucose 136 H (70-99) mg/dL Calcium 9.0 (8.6-10.8) mg/dL Active Medications Acetaminophen (Tylenol) 650 mg PO Q6HR PRN PRN Reason: Mild Pain (1-3) Stop: 02/25/17 17:09 Last Admin: 08/26/16 20:00 Dose: 650 mg Aspirin (Aspirin Ec) 81 mg PO DAILY [facility] Stop: 02/26/17 09:01 Last Admin: 08/28/16 09:27 Dose: 81 mg Citalopram Hydrobromide (Celexa) 40 mg PO DAILY [facility] Stop: 02/26/17 09:01 Last Admin: 08/28/16 09:27 Dose: 40 mg Cyclobenzaprine HCl (Flexeril) 10 mg PO HS [facility] Stop: 02/25/17 21:01 Last Admin: 08/27/16 20:25 Dose: 10 mg Dextrose/Water (Dextrose 50% (Syg)) 25 ml IVP AD PRN PRN Reason: Hypoglycemia Stop: 02/25/17 20:31 Furosemide (Lasix) 20 mg PO DAILY PRN PRN Reason: Edema Stop: 02/26/17 08:41 Gabapentin (Neurontin) 300 mg PO TID [facility] Stop: 02/25/17 21:01 Last Admin: 08/28/16 09:27 Dose: 300 mg Glucagon (Glucagen) 1 mg IM ONCE PRN PRN Reason: Hypoglycemia Stop: 02/25/17 20:31 Glucose (Gluctose) 15 gm PO ONCE PRN PRN Reason: Hypoglycemia Stop: 02/25/17 20:31 Glucose (Gluctose) 30 gm PO ONCE PRN PRN Reason: Hypoglycemia Stop: 02/25/17 20:31 Heparin Sodium (Porcine) (Heparin) 6,800 unit 70 unit/kg (6800 unit) IVP Q6HR PRN PRN Reason: SEE COMMENTS Stop: 02/25/17 21:03 Heparin Sodium (Porcine) (Heparin) 3,400 unit 35 unit/kg (3400 unit) IVP Q6H PRN PRN Reason: SEE COMMENTS Stop: 02/25/17 21:03 Last Admin: 08/28/16 06:51 Dose: 3,400 unit Dextrose (Dextrose 5%) 1,000 mls @ 100 mls/hr IVC .Q10H PRN PRN Reason: HYPOGLYCEMIA Stop: 02/25/17 20:31 Heparin Sodium/Dextrose (Heparin 25,000 Unit/500 Ml D5w) 25,000 unit in 500 mls @ 27.188 mls/hr IVC .[id number] [facility]; 14 UNIT/KG/HR PRN Reason: Protocol Stop: 02/25/17 21:16 Last Titration: 08/28/16 14:31 Dose: 9.93 unit/kg/hr, 19.3 mls/hr Insulin Human Lispro (Humalog) 0 units SQ HS [facility] PRN Reason: Protocol Stop: 02/25/17 21:01 Last Admin: 08/27/16 20:25 Dose: Not Given Insulin Human Lispro (Humalog) 0 units SQ TIDAC [facility] PRN Reason: Protocol Stop: 02/26/17 07:31 Last Admin: 08/28/16 12:25 Dose: 4 units Isosorbide Mononitrate (Imdur) 30 mg PO DAILY [facility] Stop: 02/26/17 09:01 Last Admin: 08/28/16 09:27 Dose: 30 mg Metoprolol Succinate (Toprol Xl) 100 mg PO BID [facility] Stop: 02/27/17 09:01 Last Admin: 08/28/16 09:27 Dose: 100 mg Metoprolol Tartrate (Lopressor) 5 mg IVP Q6HR PRN PRN Reason: Tachycardia Stop: 02/27/17 14:38 Naloxone HCl (Narcan) 0.4 mg IVP Q2MIN PRN PRN Reason: Opioid Reversal Stop: 02/25/17 17:09 Ondansetron HCl (Zofran) 4 mg IVP Q8HR PRN PRN Reason: Nausea And Vomiting Stop: 02/25/17 17:09 Warfarin Sodium (Coumadin Perpt) 1 each PO DAILY [facility] Stop: 02/28/17 09:01 Warfarin Sodium (Coumadin) 2.5 mg PO 1800 ONE Stop: 08/28/16 18:01 - Imaging and Cardiology Stress Test: report reviewed Echo: report reviewed Cardiac cath: report reviewed - EKG Interpretation EKG results cardiology: personally reviewed, other (24 hour tele AVG HR 103, A- Fib) Consult Discharge Plan - Plan Referrals: Liliana Pedro MD [Primary Care Provider] -
[2016-08-28] MEDS ORDERED: *HR* Metoprolol 5 MG/5 ML VIAL IVP PRN (14:37)
[2016-08-28] MEDS: Heparin 25,000 UNIT/500 ML D5W 25,000 UNIT/500 ML MLS IVC SCH (16:46)
--- NOTE | 2016-08-28 16:52 | Electrocardiograph Report ---
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
[2016-08-28] MEDS ORDERED: *HR* Warfarin 2.5 MG TABLET PO ONE (18:00)
[2016-08-29 05:25] LABS: Basophils % 0.5 %; Eosinophils # 0.1 K/mcL (0.0-0.6); Eosinophils % 1.5 %; Hemoglobin 11.7 g/dL (11.5-15.4); Immature Granulocytes % 0.6 % (0-4); Lymphocytes # 2.5 K/mcL (0.6-4.6); Lymphocytes % 29.4 %; Mean Corpuscular HGB Conc 32.5 g/dL (31.6-35.5); Mean Corpuscular Hemoglobin 29.5 pg (28.0-33.3); Mean Corpuscular Volume 90.9 fL (83.0-100.0); Mean Platelet Volume 9.5 fL (9.4-12.4); Monocytes # 0.5 K/mcL (0.0-1.3); Monocytes % 5.8 %; Neutrophils # 5.4 K/mcL (1.6-8.9); Platelet Count 264 K/mcL (140-400); Red Blood Count 3.96 M/mcL (3.82-4.97); Red Cell Distribution Width 13.4 % (11.5-14.5); Segmented Neutrophils % 62.2 %
[2016-08-29 05:30] LABS: INR 1.2
[2016-08-29 05:45] LABS: BUN/Creatinine Ratio 19 (6-26); Blood Urea Nitrogen 14 mg/dL (7-20); Calcium 8.9 mg/dL (8.6-10.8); Carbon Dioxide 21 mEq/L (19-29); Chloride 109 mEq/L (98-109); Glucose 129 mg/dL (70-99); Osmolality,Calculated 290 (280-300); Sodium 139 mEq/L (136-145); eGFR For African Americans > 60 (> 60); eGFR For Non-African Americans > 60 (> 60)
[2016-08-29] MEDS: Metoprolol XL (24 HR) Succ 50 MG TAB.ER.24H PO SCH (08:38)
[2016-08-29] MEDS: Isosorbide MONOnitrate (24 HR) 30 MG TAB.ER.24H PO SCH (08:38)
[2016-08-29] MEDS: Aspirin Enteric Coated 81 MG Tablet PO SCH (08:39)
[2016-08-29] MEDS: Insulin LISPRO 300 UNITS/3 ML VIAL SQ SCH ×3 (08:39→16:28)
[2016-08-29] MEDS: Gabapentin 300 MG CAPSULE PO SCH ×2 (08:40→16:28)
--- NOTE | 2016-08-29 08:42 | Event Note ---
Date of Encounter: 08/29/16 Time of Encounter: 08:39 - Cardiology Event Note See progress note.
[2016-08-29] MEDS ORDERED: Warfarin perPT PO SCH (09:00)
[2016-08-29] MEDS ORDERED: Metoprolol XL (24 HR) Succ 50 MG TAB.ER.24H PO ONE (09:58)
--- NOTE | 2016-08-29 10:05 | Cardiology Progress Note ---
Date of Encounter: 08/29/16 Time of Encounter: 09:59 Assessment and Plan (1) Paroxysmal atrial fibrillation Current Visit: Yes Status: Chronic Presented with atrial fibrillation with RVR. Hx of A-Fib during a chemotherapy treatment that quickly resolved. Currently avg HR 103 bpm over 24 hours. HR 14=200's at bedside. TTE 2013-EF 65%, moderate diastolic dysfunction, mild to moderate aortic regurgitation, mild mitral regurgitation. TTE this stay shows new cardiomyoapthy with EF 35-40%, moderate global systolic dysfunction, severely dilated left atrium. CMP possibly tachycardia induced. Recheck echo as outpt. She has been maintained on metoprolol and aspirin therapy previously. Avoid cardizem d/t cardiomyopathy. CHADS VASc= 5 (gender, age, DM, HTN, CAD). She is high risk for thromboembolism / CVA. Anticoagulation with coumadin or NOAC is recommended. Eliquis and xarelto both priced checked and not affordable. Agreeable to coumadin. Pharmacy dosing with INR monitoring per [facility] as outpt. On heparin gtt currently. Appreciate electrophysiology input. Rate control and anticoagulation is recommended. Will increase toprol XL. May need AMANDA/DCCv if unable to rate control. (2) CAD (coronary artery disease) Current Visit: Yes Status: Acute History of CAD status post previous PCI. H/o PCI to her Lcx artery and OM in August 2015. Continue aspirin, beta saroj, and statin. DESx 2 placed one year ago. plavix now stopped. Troponins are negative 3. She denies chest pain. Previous testing: Cardiac catheterization 08/27/15: EF 60% 15% stenosis in the LMCA, 30% stenosis in the Proximal LAD, 30% stenosis in the Mid LAD. 30% stenosis in the Proximal Circumflex artery, 14 mm long, 99% stenosis in the Mid Circumflex and PTCA/ ALISON recieved.. 10 mm long, 90% stenosis in the 1st Marginal and BUNDLE PERSON ALISON recieved. 90% stenosis in the Ramus. 30% stenosis in the Proximal RCA. 30% stenosis in the Mid RCA. Stress test 07/30/15: Exercise ECG is non-diagnostic due to baseline ST-T changes. Worsening of baseline changes noted, especially in recovery. The exercise capacity was poor. Gated EF = 75%. Small size, moderate intensity, reversible inferolateral defect suggestive of ischemia. Qualifiers: Coronary Disease-Associated Artery/Lesion type: [place] artery [place] vs. transplanted heart: [place] heart Associated angina: without angina Qualified Code(s): I25.10 - Atherosclerotic heart disease of [place] coronary artery without angina pectoris (3) Cardiomyopathy Current Visit: Yes Status: Acute TTE shows newly reduced EF at 35-40%. Global systolic dysfunction. EF on [facility] 2015 was 65%. She denies chest pain. Troponins negative. 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 Discussed with Dr. Wolf. Medical management with rate control recommended at this time. Re-evaluate EF in out-pt setting. Lopressor changed to toprol xl at increased dose. Will add lisinopril if b/p allows after rate controlled. Started PRN lasix for ankle edema. Edema now resolved. CHF education reviewed including low sodium diet and daily weights. Strict I&O during stay. Qualifiers: Cardiomyopathy type: unspecified Qualified Code(s): I42.9 - Cardiomyopathy , unspecified Discussion w patient/family: The assessment and plan as outlined above was discussed with the patient and/or family members who expressed understanding and agreement. All questions were answered. Thank you for involving us in the care of your patient. Please call with any questions. Subjective Principal diagnosis: afib with RVR Interval history: No complaints overnight. Asymptomatic with Afib. Objective Vital Signs, Last 4 Hours Temp Pulse Resp BP Pulse Ox 08/29/16 07:48 98.0 F 99 16 135/87 98 General: Conversant, No Apparent Distress HEENT: Atraumatic, Normocephaly, Mucus Membranes Moist Neck: No JVD, Normal carotid pulses Cardiac: Other (Irregularly irregular. ) Lungs: Normal Breath Sounds, No Wheeze, Rales, Rhonchi Neuro: Alert and responsive, No focal deficits noted Abdomen: Soft, Non-Tender Skin: No rashes noted on visualized skin Musculoskeletal: No Chest Wall Tenderness Extremities: No Clubbing, No Cyanosis, No Edema, Normal Pulses Results 08/29/16 03:52 08/29/16 03:52 Lab Results 08/28/16 08/28/16 08/28/16 12:22 15:51 20:18 WBC Hgb Hct Plt Count INR APTT 103.9 H D 64.7 H Sodium Potassium Chloride Carbon Dioxide BUN Creatinine Glucose Calcium TSH 1.615 08/29/16 08/29/16 08/29/16 03:52 03:52 03:52 WBC 8.6 Hgb 11.7 Hct 36.0 Plt Count 264 INR 1.2 APTT Sodium 139 Potassium 4.0 Chloride 109 Carbon Dioxide 21 BUN 14 Creatinine 0.75 Glucose 129 H Calcium 8.9 TSH 08/29/16 03:52 WBC Hgb Hct Plt Count INR APTT 59.8 H Sodium Potassium Chloride Carbon Dioxide BUN Creatinine Glucose Calcium TSH - Imaging and Cardiology Echo: report reviewed - EKG Interpretation EKG results cardiology: other (24 hour review shows avg HR 103 bpm. HR currently 99-144.) Consult Discharge Plan - Plan Referrals: Liliana Pedro MD [Primary Care Provider] -
--- NOTE | 2016-08-29 10:24 | Internal Med Progress Note ---
<Faith Gilbert - Last Filed: 08/29/16 15:22> Date of Encounter: 08/29/16 Time of Encounter: 10:00 - Assessment and plan (1) Paroxysmal atrial fibrillation Current Visit: Yes Status: Chronic Assessment and plan: - With A-fib RVR at rate as high as 145 on initial presentation. - Cardizem was started on admission and rate better controlled but still in A- fib. - Per cardiology, avoid Cardizem given patient's cardiomyopathy. Will increase Toprol XL to 150 mg BID while weaning off from Cardizem. May consider AMANDA and cardioversion if patient fails rate control - CHADS VASc score 5 (gender, age, DM, HTN & CAD) so anticoagulation with Coumadin or NOAC is recommended. Patient elects to be on Coumadin due to the cost of NOAC. - Continue Coumadin pharmacy dosing with routine INR while continuing heparin drip. INR 1.2 today. Will switch heparin to Lovenox if patient is ready to be discharged before she reaches therapeutic INR. (2) Cardiomyopathy Current Visit: Yes Status: Acute Assessment and plan: - Echo on 08/27/16 found LVEF 35-45% with new cardiomyopathy compared to prior study last year. - Likely tachycardia-induced cardiomyopathy. - No chest pain and negative troponin. - Continue Lasix prn edema - Strict I&O, daily weight, cardiac diet. - Cardiology recommends to add lisinopril if BP allows. Qualifiers: Cardiomyopathy type: unspecified Qualified Code(s): I42.9 - Cardiomyopathy , unspecified (3) CAD (coronary artery disease) Current Visit: Yes Status: Acute Assessment and plan: - Shortness of breath on admission which has improved. Patient denies chest pain. - Stress test 07/30/15: Exercise ECG non diagnostic due to baseline ST-T changes : poor exercise capacity, Gated ER: 75% small size, moderate intensity reversible inferolateral defect suggestive of ischemia. - C 08/27/15: EF 60%, single vessel CAD with 2 ALISON placed (mid circumflex and OM1). - Continue aspirin, Plavix, beta saroj, statin. - Per cardiology, okay to discontinue Plavix since ALISON 2 were placed one year ago. Qualifiers: Coronary Disease-Associated Artery/Lesion type: [place] artery [place] vs. transplanted heart: [place] heart Associated angina: without angina Qualified Code(s): I25.10 - Atherosclerotic heart disease of [place] coronary artery without angina pectoris (4) Breast cancer Current Visit: Yes Status: Chronic Assessment and plan: - History of right breast invasive ductal adenocarcinoma, status post lumpectomy by Dr. Mcrae in 2013 and radiating therapy. Chemotherapy was aborted due to complication. - Patient sees Dr. Smyth outpatiently - Currently in remission. Qualifiers: Breast location: unspecified site of breast Patient sex: female Laterality: unspecified laterality Qualified Code(s): C50.919 - Malignant neoplasm of unspecified site of unspecified female breast (5) Hypertension Current Visit: Yes Status: Chronic Assessment and plan: - Blood pressure within normal range. - Continue current antihypertensive regimen. Qualifiers: Hypertension type: essential hypertension Qualified Code(s): I10 - Essential (primary) hypertension (6) Diabetes Current Visit: Yes Status: Chronic Assessment and plan: - Controlled with metformin at home. - Continue Cardiac ADA diet and insulin sliding scale with routine glucose monitoring. Qualifiers: Diabetes mellitus type: type 2 Diabetes mellitus complication status: without complication Diabetes mellitus usp insulin use: without terminal system operator use Qualified Code(s): E11.9 - Type 2 diabetes mellitus without complications (7) DVT prophylaxis Current Visit: Yes Status: Acute Assessment and plan: - On heparin drip. - Subjective Interval history: No significant event noted overnight. Patient was seen and examined this morning. Patient has no complaint at this time except occasional shortness of breath and lightheadedness on exertion. Patient denies chest pain, palpitation, abdominal pain, nausea, vomiting, diarrhea. Patient is still in A-fib at rate as high as 140s on bedside monitor. - Constitutional Vitals: Temp Pulse Resp BP Pulse Ox 98.0 F 99 16 135/87 98 08/29/16 07:48 08/29/16 07:48 08/29/16 07:48 08/29/16 07:48 08/29/16 07:48 General appearance: Present: cooperative, A&O X 3, no acute distress, answers questions appropriately - Head Head exam: Present: atraumatic, normocephalic - Eye Eye exam: Present: EOMI, PERRL, conjuntiva pink, sclera anicteric - Neck Neck exam general surgery: Present: supple, trachea midline. Absent: lymphadenopathy - Respiratory Respiratory exam: Present: CTAB. Absent: accessory muscle use, rales, rhonchi, wheezes - Cardiovascular Cardiovascular exam: Present: irregular rhythm, +S1, +S2, tachycardia. Absent: diastolic murmur, gallop, rubs, systolic murmur - GI/Abdominal GI/Abdominal exam: Present: normal bowel sounds, soft, no peritoneal signs. Absent: distended, tenderness - Extremities Exam Extremities exam: Present: warm, radial pulses palpable and symetrical. Absent : calf tenderness, cyanotic, pedal edema - Neurological Exam Neurological exam: Present: CN II-XII intact, oriented X3, no focal deficits. Absent: pronater drift, facial droop, speech deficit - Skin Skin exam: Present: dry, intact, warm Internal Medicine: Result - Labs CBC & Chem 7: 08/29/16 03:52 08/29/16 03:52 Labs: Short CBC 08/29/16 Range/Units 03:52 WBC 8.6 (4.3-11.1) K/mcL Hgb 11.7 (11.5-15.4) g/dL Hct 36.0 (35.3-44.9) % Plt Count 264 (140-400) K/mcL Neutrophils # 5.4 (1.6-8.9) K/mcL BMP 08/29/16 03:52 Sodium 139 Potassium 4.0 Chloride 109 Carbon Dioxide 21 BUN 14 Creatinine 0.75 Glucose 129 H Calcium 8.9 - ABG Interpretation ABG results: PT/INR, D-dimer PT 13.0 Seconds (9.4-12.1) H 08/29/16 03:52 Consult Discharge Plan - Plan Referrals: Liliana Pedro MD [Primary Care Provider] - <Saul Pizarro P - Last Filed: 08/29/16 18:13> Date of Encounter: 08/29/16 - Constitutional Vitals: Temp Pulse Resp BP Pulse Ox 97.8 F 88 16 124/87 92 08/29/16 15:50 08/29/16 15:50 08/29/16 15:50 08/29/16 15:50 08/29/16 15:50 Internal Medicine: Result - Labs CBC & Chem 7: 08/29/16 03:52 08/29/16 03:52 Labs: Short CBC 08/29/16 Range/Units 03:52 WBC 8.6 (4.3-11.1) K/mcL Hgb 11.7 (11.5-15.4) g/dL Hct 36.0 (35.3-44.9) % Plt Count 264 (140-400) K/mcL Neutrophils # 5.4 (1.6-8.9) K/mcL BMP 08/29/16 03:52 Sodium 139 Potassium 4.0 Chloride 109 Carbon Dioxide 21 BUN 14 Creatinine 0.75 Glucose 129 H Calcium 8.9 - ABG Interpretation ABG results: PT/INR, D-dimer PT 13.0 Seconds (9.4-12.1) H 08/29/16 03:52 - Attending Attestation I examined this patient and my medical decision-making was reviewed with the HAIR TINTER/PA/Advanced Practice Nurse/Resident Physician. I agree with the documented findings, disposition and treatment plan as described except to the extent set forth below.
[2016-08-29] MEDS ORDERED: *HR* Digoxin 0.5 MG/2 ML AMPUL IVP SCH (12:00)
[2016-08-29] MEDS ORDERED: *HR* Warfarin 5 MG TABLET PO ONE (18:00)
[2016-08-29] MEDS: Heparin 25,000 UNIT/500 ML D5W 25,000 UNIT/500 ML MLS IVC SCH (20:37)
[2016-08-29] MEDS ORDERED: Metoprolol XL (24 HR) Succ 50 MG TAB.ER.24H PO SCH (21:00)
[2016-08-30] MEDS: Gabapentin 300 MG CAPSULE PO SCH ×4 (01:35→22:00)
[2016-08-30] MEDS: Insulin LISPRO 300 UNITS/3 ML VIAL SQ SCH ×5 (01:37→22:00)
[2016-08-30] MEDS ORDERED: Melatonin 3 MG TABLET PO PRN (02:19)
[2016-08-30 04:43] LABS: INR 1.2; Prothrombin Time 13.2 Seconds (9.4-12.1)
[2016-08-30 04:56] LABS: BUN/Creatinine Ratio 24 (6-26); Blood Urea Nitrogen 19 mg/dL (7-20); Calcium 9.7 mg/dL (8.6-10.8); Carbon Dioxide 24 mEq/L (19-29); Chloride 106 mEq/L (98-109); Glucose 130 mg/dL (70-99); Osmolality,Calculated 292 (280-300); Potassium 3.9 mEq/L (3.5-4.5); Sodium 139 mEq/L (136-145); eGFR For African Americans > 60 (> 60); eGFR For Non-African Americans > 60 (> 60)
[2016-08-30] MEDS ORDERED: Metoprolol XL (24 HR) Succ 50 MG TAB.ER.24H PO SCH (08:22)
[2016-08-30] MEDS: Aspirin Enteric Coated 81 MG Tablet PO SCH (09:27)
[2016-08-30] MEDS: Isosorbide MONOnitrate (24 HR) 30 MG TAB.ER.24H PO SCH (09:28)
--- NOTE | 2016-08-30 09:35 | Event Note ---
Date of Encounter: 08/30/16 Time of Encounter: 09:30 - Cardiology Event Note Pt continues to have suboptimal rate control despite increase in toprol XL. Cardizem should be avoided in the setting of cardiomyopathy. Braden cruz/carlos'nancy. I discussed AMANDA/ DCCV with patient. She agrees to proceed today.
[2016-08-30] MEDS ORDERED: 0.9 % Sodium Chloride 1,000 ML ONE (11:24)
[2016-08-30] MEDS ORDERED: *HR* FentaNYL (PF) 250 MCG/5 ML VIAL ONE (11:24)
[2016-08-30] MEDS ORDERED: *HR* Midazolam HCl 5 MG/5 ML VIAL IVP ONE (11:24)
[2016-08-30 11:40] LABS: Magnesium 1.8 mg/dL (1.6-2.6)
--- NOTE | 2016-08-30 11:40 | Internal Med Progress Note ---
<Faith Gilbert - Last Filed: 08/30/16 14:37> Date of Encounter: 08/30/16 Time of Encounter: 09:15 - Assessment and plan (1) Paroxysmal atrial fibrillation Current Visit: Yes Status: Chronic Assessment and plan: - With A-fib RVR at rate as high as 145 on initial presentation. - Cardizem was started on admission and rate better controlled but still in A- fib. - A-fib is still not well-controlled with increase of Toprol XL to 150 mg BID while on Cardizem. Cardiology will perform AMANDA and cardioversion later today. - CHADS VASc score 5 (gender, age, DM, HTN & CAD) so anticoagulation with Coumadin or NOAC is recommended. Patient elects to be on Coumadin due to the cost of NOAC. - Continue Coumadin pharmacy dosing with routine INR while continuing heparin drip. INR 1.2 today. Will switch heparin to Lovenox if patient is ready to be discharged before she reaches therapeutic INR. (2) Cardiomyopathy Current Visit: Yes Status: Acute Assessment and plan: - Echo on 08/27/16 found LVEF 35-45% with new cardiomyopathy compared to prior study last year. - Likely tachycardia-induced cardiomyopathy. - No chest pain and negative troponin. - Continue Lasix prn edema - Strict I&O, daily weight, cardiac diet. - Cardiology recommends to add lisinopril if BP allows. Qualifiers: Cardiomyopathy type: unspecified Qualified Code(s): I42.9 - Cardiomyopathy , unspecified (3) CAD (coronary artery disease) Current Visit: Yes Status: Acute Assessment and plan: - Shortness of breath on admission which has improved. Patient denies chest pain. - Stress test 07/30/15: Exercise ECG non diagnostic due to baseline ST-T changes : poor exercise capacity, Gated ER: 75% small size, moderate intensity reversible inferolateral defect suggestive of ischemia. - C 08/27/15: EF 60%, single vessel CAD with 2 ALISON placed (mid circumflex and OM1). - Continue aspirin, Plavix, beta saroj, statin. - Per cardiology, okay to discontinue Plavix since ALISON 2 were placed one year ago. Qualifiers: Coronary Disease-Associated Artery/Lesion type: [place] artery [place] vs. transplanted heart: [place] heart Associated angina: without angina Qualified Code(s): I25.10 - Atherosclerotic heart disease of [place] coronary artery without angina pectoris (4) Breast cancer Current Visit: Yes Status: Chronic Assessment and plan: - History of right breast invasive ductal adenocarcinoma, status post lumpectomy by Dr. Mcrae in 2013 and radiating therapy. Chemotherapy was aborted due to complication. - Patient sees Dr. Smyth outpatiently - Currently in remission. Qualifiers: Breast location: unspecified site of breast Patient sex: female Laterality: unspecified laterality Qualified Code(s): C50.919 - Malignant neoplasm of unspecified site of unspecified female breast (5) Hypertension Current Visit: Yes Status: Chronic Assessment and plan: - Blood pressure within normal range. - Continue current antihypertensive regimen. Qualifiers: Hypertension type: essential hypertension Qualified Code(s): I10 - Essential (primary) hypertension (6) Diabetes Current Visit: Yes Status: Chronic Assessment and plan: - Controlled with metformin at home. - Continue Cardiac ADA diet and insulin sliding scale with routine glucose monitoring. Qualifiers: Diabetes mellitus type: type 2 Diabetes mellitus complication status: without complication Diabetes mellitus chcf insulin use: without petroleum terminal plant operator use Qualified Code(s): E11.9 - Type 2 diabetes mellitus without complications (7) DVT prophylaxis Current Visit: Yes Status: Acute Assessment and plan: - On heparin drip. - Subjective Interval history: No significant event noted overnight. Patient was seen and examined this morning. Patient still has few shortness of breath and lightheadedness on exertion but otherwise no complaint. Patient denies chest pain, palpitation, abdominal pain, nausea, vomiting, diarrhea. Patient is still in A-fib at rate as high as 120s on bedside monitor. - Constitutional Vitals: Temp Pulse Resp BP Pulse Ox 98.0 F 89 18 140/103 97 08/30/16 07:00 08/30/16 07:00 08/30/16 07:00 08/30/16 07:00 08/30/16 07:00 General appearance: Present: cooperative, A&O X 3, no acute distress, answers questions appropriately - Head Head exam: Present: atraumatic, normocephalic - Eye Eye exam: Present: EOMI, PERRL, conjuntiva pink, sclera anicteric - Neck Neck exam general surgery: Present: supple, trachea midline. Absent: lymphadenopathy - Respiratory Respiratory exam: Present: CTAB. Absent: accessory muscle use, rales, rhonchi, wheezes - Cardiovascular Cardiovascular exam: Present: RRR, +S1, +S2. Absent: diastolic murmur, gallop, rubs, systolic murmur - GI/Abdominal GI/Abdominal exam: Present: normal bowel sounds, soft, no peritoneal signs. Absent: distended, tenderness - Extremities Exam Extremities exam: Present: warm, radial pulses palpable and symetrical. Absent : calf tenderness, cyanotic, pedal edema - Neurological Exam Neurological exam: Present: CN II-XII intact, oriented X3, no focal deficits. Absent: pronater drift, facial droop, speech deficit - Skin Skin exam: Present: dry, intact, warm Internal Medicine: Result - Labs CBC & Chem 7: 08/29/16 03:52 08/30/16 04:04 Labs: BMP 08/30/16 04:04 Sodium 139 Potassium 3.9 Chloride 106 Carbon Dioxide 24 BUN 19 Creatinine 0.78 Glucose 130 H Calcium 9.7 - ABG Interpretation ABG results: PT/INR, D-dimer PT 13.2 Seconds (9.4-12.1) H 08/30/16 04:04 Consult Discharge Plan - Plan Referrals: Liliana Pedro MD [Primary Care Provider] - <Saul Pizarro P - Last Filed: 08/30/16 16:36> Date of Encounter: 08/30/16 - Constitutional Vitals: Temp Pulse Resp BP Pulse Ox 97.6 F 59 18 126/72 98 08/30/16 15:32 08/30/16 15:32 08/30/16 15:32 08/30/16 15:32 08/30/16 15:32 Internal Medicine: Result - Labs CBC & Chem 7: 08/29/16 03:52 08/30/16 04:04 Labs: BMP 08/30/16 04:04 Sodium 139 Potassium 3.9 Chloride 106 Carbon Dioxide 24 BUN 19 Creatinine 0.78 Glucose 130 H Calcium 9.7 - ABG Interpretation ABG results: PT/INR, D-dimer PT 13.2 Seconds (9.4-12.1) H 08/30/16 04:04 - Attending Attestation I examined this patient and my medical decision-making was reviewed with the RADIAL SAW OPERATOR/PA/Advanced Practice Nurse/Resident Physician. I agree with the documented findings, disposition and treatment plan as described except to the extent set forth below.
--- NOTE | 2016-08-30 12:21 | ECHO - Doppler Report ---
Transesophageal Echocardiogram Name: Lakeshia Amin Date of Study: 08/30/2016 Date: 1945 Ht: 63.0in Medical Record#: [id number] Age: 70 Wt: 204.0lb Gender: Female BSA: 1.95 Order #: [id number] Location: [facility] Room #: [id number] Reading Physician: Beena Hubbard DO [place]: Saulo Hurtado RN Ordering Physician: Sen Moffett CNP Primary Physician: Liliana Pedro MD Indications: Arrhythmia Impressions: Successful DCCV of atrial fibrillation to normal sinus rhythm after 1 attempt using 200J. Thrombus was not present in LA or NORA. Spontaneous echocontrast is visualized in the LA. Reduced flow velocities of the NORA. No patient complications. Medication Given: Time Medication Dose Units Route 11:36 Versed 2 mg IV 11:36 Fentanyl 25 mcg IV 11:39 Versed 2 mg IV 11:39 Fentanyl 25 mcg IV Findings: Study Quality * Technically adequate exam. Left Atrium * Dilated left atrium. * No thrombus present. * The LA appendage flow velocity is reduced. Thrombus is not present in NORA. * There is spontaneous echo contrast present in the left atrium. Right Atrium * Dilated right atrium. Procedure Summary: After explaining the risks, benefits, and alternatives of the procedure to the patient in detail and answering all questions to satisfaction, an informed consent was obtained in writing. The patient was NPO for the six hours prior to the procedure. The patient denied dysphagia, odynophagia, and loose teeth. The patient was monitored with periodic automated blood pressures and continuous pulse oximetry and telemetry. Continuous oxygen was administered by NM. The patient was placed in the left lateral decubitus position. The posterior oropharynx was anesthetized. A bite block was placed in the patient's mouth. IV sedation was administered. Once adequate sedation was achieved, a well-lubricated anteflexed multipoint intraesophageal echocardiographic probe was inserted into the midline posterior oropharynx. Gentle pressure was applied as the patient swallowed and the esophagus was intubated without difficulty. The scope was advanced to the mid esophagus without encountering resistance. Images were obtained from the mid and upper esophagus. Images from the gastric globe were not obtained. The scope was then slowly withdrawn as the patient was continually suctioned. After completion of AMANDA and under sedation, cardioversion in the AP approach was performed using 200 Joules of biphasic energy. Normal sinus rhythm was restored after 1 attempt(s). The patient was monitored for the standard 30 minutes post procedure. Patient able to move all 4 extremities after completion of procedure. No patient complications. Attempt # 1 200 joules Complications: None History: Hypertension Diabetes Hypercholesteremia Family History of CAD History of CAD/PTCA Previous Echo08/27/2016 BP 130 / 82 Updated by Beena Hubbard on 08/30/2016 12:11:22 PM electronically signed on 08/30/2016 12:14:20 PM with status of Final [employer] [place]: 1=Normal, 2=Hypokinesis, 3=Akinesis, 4=Dyskinesis, 5=Aneurysmal, 6=Hyperkinetic, X=Not Visualized (Blank)=Missing
--- NOTE | 2016-08-30 13:38 | Event Note ---
Date of Encounter: 08/30/16 Time of Encounter: 14:24 - Cardiology Event Note Mrs. Amin underwent successful cardioversion after AMANDA showed no thrombus. She is currently sinus bradycardia HR in the mid 50's with PAC. I discussed POC with Dr. Kumar. She is not likely to maintain SR. Sotalol therapy 80 mg BID is recommended. Sotalol therapy will require her to stay for monitoring with the first 5 doses. I attempted to discuss with the patient but she is drowsy from her sedation she received this morning. I will discuss again later today.
[2016-08-30 14:35] LABS: Activated Partial Thrombo Time 259.3 Seconds (26.0-36.0)
[2016-08-30 14:41] LABS: Heparin anti-factor XA UFH 0.86 IU/mL (0.30-0.70)
[2016-08-30] MEDS ORDERED: *HR* Warfarin 5 MG TABLET PO ONE (18:00)
[2016-08-30] MEDS: Heparin 25,000 UNIT/500 ML D5W 25,000 UNIT/500 ML MLS IVC SCH (21:56)
[2016-08-31 04:49] LABS: INR 2.2; Prothrombin Time 24.3 Seconds (9.4-12.1)
[2016-08-31 04:52] LABS: Activated Partial Thrombo Time 70.4 Seconds (26.0-36.0)
[2016-08-31 05:05] LABS: BUN/Creatinine Ratio 23 (6-26); Blood Urea Nitrogen 18 mg/dL (7-20); Calcium 8.8 mg/dL (8.6-10.8); Carbon Dioxide 23 mEq/L (19-29); Chloride 107 mEq/L (98-109); Glucose 121 mg/dL (70-99); Osmolality,Calculated 289 (280-300); Potassium 4.1 mEq/L (3.5-4.5); Sodium 138 mEq/L (136-145); eGFR For African Americans > 60 (> 60); eGFR For Non-African Americans > 60 (> 60)
[2016-08-31] MEDS: Aspirin Enteric Coated 81 MG Tablet PO SCH (07:58)
[2016-08-31] MEDS: Isosorbide MONOnitrate (24 HR) 30 MG TAB.ER.24H PO SCH (07:58)
[2016-08-31] MEDS: Metoprolol XL (24 HR) Succ 50 MG TAB.ER.24H PO SCH (07:59)
[2016-08-31] MEDS: Insulin LISPRO 300 UNITS/3 ML VIAL SQ SCH ×4 (07:59→20:05)
[2016-08-31] MEDS: Gabapentin 300 MG CAPSULE PO SCH ×3 (07:59→20:04)
--- NOTE | 2016-08-31 10:08 | Cardiology Progress Note ---
Date of Encounter: 08/31/16 Time of Encounter: 09:30 Assessment and Plan (1) Paroxysmal atrial fibrillation Current Visit: Yes Status: Chronic Per cardiology: -Presented with atrial fibrillation with RVR. Hx of A-Fib during a chemotherapy treatment that quickly resolved. -Patient underwent AMANDA/cardioversion yesterday, with successful conversion to sinus rhythm. Patient was started on sotalol 80mg BID. Patient has received 2 doses of sotalol. -Currently avg HR 63, sinus rhythm. -TTE 2013-EF 65%, moderate diastolic dysfunction, mild to moderate aortic regurgitation, mild mitral regurgitation. -TTE this stay shows new cardiomyoapthy with EF 35-40%, moderate global systolic dysfunction, severely dilated left atrium. CMP possibly tachycardia induced. Recheck echo as outpt. -She has been maintained on metoprolol and aspirin therapy previously. -Avoid cardizem d/t cardiomyopathy. -CHADS VASc= 5 (gender, age, DM, HTN, CAD). She is high risk for thromboembolism / CVA. Anticoagulation with coumadin or NOAC is recommended. On coumadin. Pharmacy dosing with INR monitoring per [place] [facility] as outpt. On heparin gtt currently. -INR today therapeutic at 2.2. -ECG today with sinus rhythm, HR 63. Qt 411. Qtc 428. -Patient will remain inpatient for a total of 5 sotalol doses (5th doses schedule for 09/01 at 1600). Can consider discharge at that time pending vital signs and ECG. -Will discontinue heparin drip as INR is therapeutic. -Will hamilton check sotalol for patient at her preferred pharmacy at [facility] in [place]. -ECG ordered for tomorrow. -Will continue to monitor. (2) CAD (coronary artery disease) Current Visit: Yes Status: Chronic Per cardiology: -History of CAD status post previous PCI. H/o PCI to her Lcx artery and OM in August 2015. -Continue aspirin, beta saroj, and statin. DESx 2 placed one year ago. plavix now stopped. -Troponins are negative 3. -She denies chest pain. Previous testing: Cardiac catheterization 08/27/15: EF 60% 15% stenosis in the LMCA, 30% stenosis in the Proximal LAD, 30% stenosis in the Mid LAD. 30% stenosis in the Proximal Circumflex artery, 14 mm long, 99% stenosis in the Mid Circumflex and PTCA/ ALISON recieved.. 10 mm long, 90% stenosis in the 1st Marginal and DICTAPHONE TECHNICIAN ALISON recieved. 90% stenosis in the Ramus. 30% stenosis in the Proximal RCA. 30% stenosis in the Mid RCA. Stress test 07/30/15: Exercise ECG is non-diagnostic due to baseline ST-T changes. Worsening of baseline changes noted, especially in recovery. The exercise capacity was poor. Gated EF = 75%. Small size, moderate intensity, reversible inferolateral defect suggestive of ischemia. Qualifiers: Coronary Disease-Associated Artery/Lesion type: [place] artery [place] vs. transplanted heart: [place] heart Associated angina: without angina Qualified Code(s): I25.10 - Atherosclerotic heart disease of [place] coronary artery without angina pectoris (3) Hypertension Current Visit: Yes Status: Chronic Per cardiology: -KNown hypertension. -On beta saroj. -BPs 120-140s. -Will continue to monitor. Qualifiers: Hypertension type: essential hypertension Qualified Code(s): I10 - Essential (primary) hypertension (4) Cardiomyopathy Current Visit: Yes Status: Acute Per cardiology: -TTE shows newly reduced EF at 35-40%. Global systolic dysfunction. EF on [facility] 2015 was 65%. She denies chest pain. Troponins negative. 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 -Discussed with Dr. Wolf. Medical management with rate control recommended at this time. Re-evaluate EF in out-pt setting. -Lopressor changed to toprol xl at increased dose. -Started PRN lasix for ankle edema. Edema now resolved. -CHF education reviewed including low sodium diet and daily weights. -Strict I&O during stay. -Currently net negative 2600ml this admission. -BPS currently 120-140s systolic. -Will add lisinopril 2.5mg daily. -Will continue to monitor. Qualifiers: Cardiomyopathy type: unspecified Qualified Code(s): I42.9 - Cardiomyopathy , unspecified Discussion w patient/family: The assessment and plan as outlined above was discussed with the patient who expressed understanding and agreement. All questions were answered. Thank you for involving us in the care of your patient. Please call with any questions. Discussed and reviewed with . Subjective Principal diagnosis: afib with RVR Interval history: Patient admitted with atrial fibrillation with RVR. Patient underwent cardioversion x1 yesterday at 200 joules, successful. Patient was started on sotalol yesterday for anti-arrythmic. Patient was not kept on cardizem due to cardiomyopathy. Patient reports she is feeling much better today. Patient denies palpitations/fluttering. Patient denies bleeding/blood loss. Patient has received 2 total doses of sotalol. Objective Vital Signs, Last 4 Hours Temp Pulse Resp BP Pulse Ox 08/31/16 07:05 98.3 F 69 15 140/74 93 General: Conversant, No Apparent Distress HEENT: Atraumatic, Normocephaly, Mucus Membranes Moist Neck: No JVD, Normal carotid pulses Cardiac: Reg Rate and Rhythm, Normal S1 and S2, No Murmur Lungs: Normal Breath Sounds, No Wheeze, Rales, Rhonchi Neuro: Alert and responsive, No focal deficits noted Abdomen: Soft, Non-Tender Skin: No rashes noted on visualized skin Musculoskeletal: No Chest Wall Tenderness Extremities: No Clubbing, No Cyanosis, No Edema, Normal Pulses Results 08/29/16 03:52 08/31/16 04:21 Lab Results Active Medications Acetaminophen (Tylenol) 650 mg PO Q6HR PRN PRN Reason: Mild Pain (1-3) Stop: 02/25/17 17:09 Last Admin: 08/26/16 20:00 Dose: 650 mg Aspirin (Aspirin Ec) 81 mg PO DAILY BENJAMIN Stop: 02/26/17 09:01 Last Admin: 08/31/16 07:58 Dose: 81 mg Citalopram Hydrobromide (Celexa) 40 mg PO DAILY BENJAMIN Stop: 02/26/17 09:01 Last Admin: 08/31/16 07:59 Dose: 40 mg Cyclobenzaprine HCl (Flexeril) 10 mg PO HS BENJAMIN Stop: 02/25/17 21:01 Last Admin: 08/30/16 22:00 Dose: 10 mg Dextrose/Water (Dextrose 50% (Syg)) 25 ml IVP AD PRN PRN Reason: Hypoglycemia Stop: 02/25/17 20:31 Furosemide (Lasix) 20 mg PO DAILY PRN PRN Reason: Edema Stop: 02/26/17 08:41 Gabapentin (Neurontin) 300 mg PO TID BENJAMIN Stop: 02/25/17 21:01 Last Admin: 08/31/16 07:59 Dose: 300 mg Glucagon (Glucagen) 1 mg IM ONCE PRN PRN Reason: Hypoglycemia Stop: 02/25/17 20:31 Glucose (Gluctose) 15 gm PO ONCE PRN PRN Reason: Hypoglycemia Stop: 02/25/17 20:31 Glucose (Gluctose) 30 gm PO ONCE PRN PRN Reason: Hypoglycemia Stop: 02/25/17 20:31 Heparin Sodium (Porcine) (Heparin) 6,800 unit 70 unit/kg (6800 unit) IVP Q6HR PRN PRN Reason: SEE COMMENTS Stop: 02/25/17 21:03 Last Admin: 08/30/16 06:31 Dose: 6,800 unit Heparin Sodium (Porcine) (Heparin) 3,400 unit 35 unit/kg (3400 unit) IVP Q6H PRN PRN Reason: SEE COMMENTS Stop: 02/25/17 21:03 Last Admin: 08/28/16 06:51 Dose: 3,400 unit Dextrose (Dextrose 5%) 1,000 mls @ 100 mls/hr IVC .Q10H PRN PRN Reason: HYPOGLYCEMIA Stop: 02/25/17 20:31 Heparin Sodium/Dextrose (Heparin 25,000 Unit/500 Ml D5w) 25,000 unit in 500 mls @ 27.188 mls/hr IVC .[id number] BENJAMIN; 14 UNIT/KG/HR PRN Reason: Protocol Stop: 02/25/17 21:16 Last Titration: 08/31/16 05:20 Dose: 8.9 unit/kg/hr, 17.3 mls/hr Insulin Human Lispro (Humalog) 0 units SQ HS [facility] PRN Reason: Protocol Stop: 02/25/17 21:01 Last Admin: 08/30/16 22:00 Dose: Not Given Insulin Human Lispro (Humalog) 0 units SQ TIDAC [facility] PRN Reason: Protocol Stop: 02/26/17 07:31 Last Admin: 08/31/16 07:59 Dose: Not Given Isosorbide Mononitrate (Imdur) 30 mg PO DAILY [facility] Stop: 02/26/17 09:01 Last Admin: 08/31/16 07:58 Dose: 30 mg Melatonin (Melatonin) 6 mg PO HS PRN PRN Reason: Insomnia Stop: 03/01/17 02:20 Metoprolol Succinate (Toprol Xl) 150 mg PO DAILY [facility] Stop: 03/02/17 09:01 Last Admin: 08/31/16 07:59 Dose: 150 mg Metoprolol Tartrate (Lopressor) 5 mg IVP Q6HR PRN PRN Reason: Tachycardia Stop: 02/27/17 14:38 Naloxone HCl (Narcan) 0.4 mg IVP Q2MIN PRN PRN Reason: Opioid Reversal Stop: 02/25/17 17:09 Sotalol HCl (Betapace) 80 mg PO Q12H [facility] Stop: 03/01/17 16:01 Last Admin: 08/31/16 05:32 Dose: 80 mg Warfarin Sodium (Coumadin Perpt) 1 each PO DAILY [facility] Stop: 02/28/17 09:01 Laboratory Tests 08/27/16 08/28/16 08/29/16 04:27 15:51 03:52 Hgb 11.7 INR Potassium Creatinine Magnesium Troponin I 0.02 TSH 1.615 08/30/16 08/31/16 08/31/16 04:04 04:21 04:21 Hgb INR 2.2 D Potassium 4.1 Creatinine 0.78 Magnesium 1.8 Troponin I TSH - Imaging and Cardiology Chest Xray: report reviewed Echo: report reviewed - EKG Interpretation EKG results cardiology: personally reviewed (ECG 08/31/16 with sinus rhythm, HR 68. Qt 411, Qtc 428.), other (Telemetry reviewed with average HR 63, sinus rhythm. 1 short run of atrial tachycardia noted. PACs noted.) Consult Discharge Plan - Plan Referrals: Liliana Pedro MD [Primary Care Provider] -
--- NOTE | 2016-08-31 11:16 | Internal Med Progress Note ---
<Faith Gilbert - Last Filed: 08/31/16 13:41> Date of Encounter: 08/31/16 Time of Encounter: 09:00 - Assessment and plan (1) Paroxysmal atrial fibrillation Current Visit: Yes Status: Chronic Assessment and plan: - With A-fib RVR at rate as high as 145 on initial presentation. - Cardizem was started on admission and rate better controlled but still in A- fib. - Multiple attempt of rate control with PO metoprolol when weaning off from Cardizem drip and no success. - Status post AMANDA and cardioversion on 08/30/16 and has been normal sinus rhythm since. - Cardiology on board and started patient on Sotalol. Continue Sotalol and close monitor using telemetry and EKG for total 5 doses (5th doses scheduled on 09/01 afternoon). Possible discharge after if patient is doing well. - CHADS VASc score 5 (gender, age, DM, HTN & CAD) so anticoagulation with Coumadin or NOAC is recommended. Patient elects to be on Coumadin due to the cost of NOAC. - Continue Coumadin pharmacy dosing with routine INR. INR 2.2 today and heparin discontinued. (2) Cardiomyopathy Current Visit: Yes Status: Acute Assessment and plan: - Echo on 08/27/16 found LVEF 35-45% with new cardiomyopathy compared to prior study last year. - Likely tachycardia-induced cardiomyopathy. - No chest pain and negative troponin. - Strict I&O, daily weight, cardiac diet. - Continue Lasix prn edema - Start lisinopril. Qualifiers: Cardiomyopathy type: unspecified Qualified Code(s): I42.9 - Cardiomyopathy , unspecified (3) CAD (coronary artery disease) Current Visit: Yes Status: Chronic Assessment and plan: - Shortness of breath on admission which has improved. Patient denies chest pain. - Stress test 07/30/15: Exercise ECG non diagnostic due to baseline ST-T changes : poor exercise capacity, Gated ER: 75% small size, moderate intensity reversible inferolateral defect suggestive of ischemia. - C 08/27/15: EF 60%, single vessel CAD with 2 ALISON placed (mid circumflex and OM1). - Continue aspirin, Plavix, beta saroj, statin. - Per cardiology, okay to discontinue Plavix since ALISON 2 were placed one year ago. Qualifiers: Coronary Disease-Associated Artery/Lesion type: [place] artery [place] vs. transplanted heart: [place] heart Associated angina: without angina Qualified Code(s): I25.10 - Atherosclerotic heart disease of [place] coronary artery without angina pectoris (4) Breast cancer Current Visit: Yes Status: Chronic Assessment and plan: - History of right breast invasive ductal adenocarcinoma, status post lumpectomy by Dr. Mcrae in 2013 and radiating therapy. Chemotherapy was aborted due to complication. - Patient sees Dr. Smyth outpatiently - Currently in remission. Qualifiers: Breast location: unspecified site of breast Patient sex: female Laterality: unspecified laterality Qualified Code(s): C50.919 - Malignant neoplasm of unspecified site of unspecified female breast (5) Hypertension Current Visit: Yes Status: Chronic Assessment and plan: - Blood pressure within normal range. - Continue current antihypertensive regimen. Qualifiers: Hypertension type: essential hypertension Qualified Code(s): I10 - Essential (primary) hypertension (6) Diabetes Current Visit: Yes Status: Chronic Assessment and plan: - Controlled with metformin at home. - Continue Cardiac ADA diet and insulin sliding scale with routine glucose monitoring. Qualifiers: Diabetes mellitus type: type 2 Diabetes mellitus complication status: without complication Diabetes mellitus long term acute care registered nurse insulin use: without snf use Qualified Code(s): E11.9 - Type 2 diabetes mellitus without complications (7) DVT prophylaxis Current Visit: Yes Status: Acute Assessment and plan: - On Coumadin and INR 2.2 today. - Subjective Interval history: No significant event noted overnight. Patient was seen and examined this morning. Patient had AMANDA and cardioversion yesterday and reports shortness of breath and lightheadedness on exertion improve since. Patient denies chest pain , palpitation, abdominal pain, nausea, vomiting, diarrhea. - Constitutional Vitals: Temp Pulse Resp BP Pulse Ox 98.3 F 69 15 140/74 93 08/31/16 07:05 08/31/16 07:05 08/31/16 07:05 08/31/16 07:05 08/31/16 07:05 General appearance: Present: cooperative, A&O X 3, no acute distress, answers questions appropriately - Head Head exam: Present: atraumatic, normocephalic - Eye Eye exam: Present: EOMI, PERRL, conjuntiva pink, sclera anicteric - Neck Neck exam general surgery: Present: supple, trachea midline. Absent: lymphadenopathy - Respiratory Respiratory exam: Present: CTAB. Absent: accessory muscle use, rales, rhonchi, wheezes - Cardiovascular Cardiovascular exam: Present: RRR, +S1, +S2. Absent: diastolic murmur, gallop, rubs, systolic murmur - GI/Abdominal GI/Abdominal exam: Present: normal bowel sounds, soft, no peritoneal signs. Absent: distended, tenderness - Extremities Exam Extremities exam: Present: warm, radial pulses palpable and symetrical. Absent : calf tenderness, cyanotic, pedal edema - Neurological Exam Neurological exam: Present: CN II-XII intact, oriented X3, no focal deficits. Absent: pronater drift, facial droop, speech deficit - Skin Skin exam: Present: dry, intact, warm Internal Medicine: Result - Labs CBC & Chem 7: 08/29/16 03:52 08/31/16 04:21 Labs: BMP 08/31/16 04:21 Sodium 138 Potassium 4.1 Chloride 107 Carbon Dioxide 23 BUN 18 Creatinine 0.78 Glucose 121 H Calcium 8.8 - ABG Interpretation ABG results: PT/INR, D-dimer PT 24.3 Seconds (9.4-12.1) H D 08/31/16 04:21 Consult Discharge Plan - Plan Referrals: Liliana Pedro MD [Primary Care Provider] - <Saul Pizarro - Last Filed: 08/31/16 17:52> Date of Encounter: 08/31/16 - Constitutional Vitals: Temp Pulse Resp BP Pulse Ox 98.2 F 103 14 141/73 98 08/31/16 16:00 08/31/16 16:00 08/31/16 16:00 08/31/16 16:00 08/31/16 16:00 Internal Medicine: Result - Labs CBC & Chem 7: 08/29/16 03:52 08/31/16 04:21 Labs: BMP 08/31/16 04:21 Sodium 138 Potassium 4.1 Chloride 107 Carbon Dioxide 23 BUN 18 Creatinine 0.78 Glucose 121 H Calcium 8.8 - ABG Interpretation ABG results: PT/INR, D-dimer PT 24.3 Seconds (9.4-12.1) H D 08/31/16 04:21 - Attending Attestation I examined this patient and my medical decision-making was reviewed with the BELL CLERK/PA/Advanced Practice Nurse/Resident Physician. I agree with the documented findings, disposition and treatment plan as described except to the extent set forth below.
--- NOTE | 2016-08-31 11:35 | Event Note ---
Date of Encounter: 08/31/16 Time of Encounter: 11:34 - Cardiology Event Note Sotalol hamilton checked, $6.60/month, which is affordable. Continue to follow.
--- NOTE | 2016-08-31 13:07 | Electrocardiograph Report ---
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
[2016-09-01 05:30] LABS: INR 2.8
[2016-09-01] MEDS: Insulin LISPRO 300 UNITS/3 ML VIAL SQ SCH ×4 (08:17→21:13)
[2016-09-01] MEDS: Metoprolol XL (24 HR) Succ 50 MG TAB.ER.24H PO SCH (08:19)
[2016-09-01] MEDS: Gabapentin 300 MG CAPSULE PO SCH ×3 (08:19→20:27)
[2016-09-01] MEDS: Aspirin Enteric Coated 81 MG Tablet PO SCH (08:19)
[2016-09-01] MEDS: Isosorbide MONOnitrate (24 HR) 30 MG TAB.ER.24H PO SCH (08:19)
--- NOTE | 2016-09-01 11:11 | Cardiology Progress Note ---
Date of Encounter: 09/01/16 Time of Encounter: 09:30 Assessment and Plan (1) Paroxysmal atrial fibrillation Current Visit: Yes Status: Chronic Per cardiology: -Presented with atrial fibrillation with RVR. Hx of A-Fib during a chemotherapy treatment that quickly resolved. -Patient underwent AMANDA/cardioversion yesterday, with successful conversion to sinus rhythm. Patient was started on sotalol 80mg BID. Patient has received 4 doses of sotalol. -Currently avg HR 68, sinus rhythm. -TTE 2013-EF 65%, moderate diastolic dysfunction, mild to moderate aortic regurgitation, mild mitral regurgitation. -TTE this stay shows new cardiomyoapthy with EF 35-40%, moderate global systolic dysfunction, severely dilated left atrium. CMP possibly tachycardia induced. Recheck echo as outpt. -She has been maintained on metoprolol and aspirin therapy previously. -Avoid cardizem d/t cardiomyopathy. -CHADS VASc= 5 (gender, age, DM, HTN, CAD). She is high risk for thromboembolism / CVA. Anticoagulation with coumadin or NOAC is recommended. On coumadin. Pharmacy dosing with INR monitoring per [place] [facility] as outpt. -INR today therapeutic at 2.8. -ECG today with sinus rhythm, HR 69, Qt 503, Qtc 523. ECGs reviewed and discussed with Dr.John Kumar. -Per discussion with Dr.John Kumar will hold tonight's dose of sotalol, Will repeat ECG in am, will start sotalol 40mg BID starting tomorrow morning. -Can consider switching antidepressant due ot celexa's side effect of QTC prolongation. -Recommend close monitoring due to prolonged QT/QTC. -Will continue to monitor. -Patient states understanding and agrees with plan. (2) CAD (coronary artery disease) Current Visit: Yes Status: Chronic Per cardiology: -History of CAD status post previous PCI. H/o PCI to her Lcx artery and OM in August 2015. -Continue aspirin, beta saroj, and statin. DESx 2 placed one year ago. plavix now stopped. -Troponins are negative 3. -She denies chest pain. Previous testing: Cardiac catheterization 08/27/15: EF 60% 15% stenosis in the LMCA, 30% stenosis in the Proximal LAD, 30% stenosis in the Mid LAD. 30% stenosis in the Proximal Circumflex artery, 14 mm long, 99% stenosis in the Mid Circumflex and PTCA/ ALISON recieved.. 10 mm long, 90% stenosis in the 1st Marginal and [employer] ALISON recieved. 90% stenosis in the Ramus. 30% stenosis in the Proximal RCA. 30% stenosis in the Mid RCA. Stress test 07/30/15: Exercise ECG is non-diagnostic due to baseline ST-T changes. Worsening of baseline changes noted, especially in recovery. The exercise capacity was poor. Gated EF = 75%. Small size, moderate intensity, reversible inferolateral defect suggestive of ischemia. Qualifiers: Coronary Disease-Associated Artery/Lesion type: [place] artery [place] vs. transplanted heart: [place] heart Associated angina: without angina Qualified Code(s): I25.10 - Atherosclerotic heart disease of [place] coronary artery without angina pectoris (3) Hypertension Current Visit: Yes Status: Chronic Per cardiology: -KNown hypertension. -On beta saroj and trupti inhibitor. -BPs 130-160s. -WIll continue to monitor. -Can consider further titration of anti-hypertensives. Qualifiers: Hypertension type: essential hypertension Qualified Code(s): I10 - Essential (primary) hypertension (4) Cardiomyopathy Current Visit: Yes Status: Acute Per cardiology: -TTE shows newly reduced EF at 35-40%. Global systolic dysfunction. EF on [facility] 2015 was 65%. She denies chest pain. Troponins negative. 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 -Discussed with Dr. Wolf. Medical management with rate control recommended at this time. Re-evaluate EF in out-pt setting. -Lopressor changed to toprol xl at increased dose. -Started PRN lasix for ankle edema. Edema now resolved. -CHF education reviewed including low sodium diet and daily weights. -Strict I&O during stay. -Currently net negative 3545ml this admission. -On beta saroj and trupti inhibitor and lasix PRN. -Will continue to monitor. -Will repeat echocardiogram in outpatient setting once patient's medications have been optimized. Qualifiers: Cardiomyopathy type: unspecified Qualified Code(s): I42.9 - Cardiomyopathy , unspecified Discussion w patient/family: The assessment and plan as outlined above was discussed with the patient who expressed understanding and agreement. All questions were answered. Thank you for involving us in the care of your patient. Please call with any questions. Discussed and reviewed with and Dr.John Kumar. Subjective Principal diagnosis: afib with RVR Interval history: Patient admitted with atrial fibrillation with RVR. Patient underwent cardioversion x1 08/30/16 at 200 joules, successful. Patient was started on sotalol yesterday for anti-arrythmic. Patient was not kept on cardizem due to cardiomyopathy. Patient reports she is feeling much better today. Patient denies palpitations/fluttering. Patient denies bleeding/blood loss. Patient has received 4 total doses of sotalol. Objective Vital Signs, Last 4 Hours Temp Pulse Resp BP Pulse Ox 09/01/16 08:26 97 09/01/16 07:52 98.2 F 73 16 150/85 97 General: Conversant, No Apparent Distress HEENT: Atraumatic, Normocephaly, Mucus Membranes Moist Neck: No JVD, Normal carotid pulses Cardiac: Reg Rate and Rhythm, Normal S1 and S2, No Murmur Lungs: Normal Breath Sounds, No Wheeze, Rales, Rhonchi Neuro: Alert and responsive, No focal deficits noted Abdomen: Soft, Non-Tender Skin: No rashes noted on visualized skin Musculoskeletal: No Chest Wall Tenderness Extremities: No Clubbing, No Cyanosis, No Edema, Normal Pulses Results 08/29/16 03:52 08/31/16 04:21 Lab Results Active Medications Acetaminophen (Tylenol) 650 mg PO Q6HR PRN PRN Reason: Mild Pain (1-3) Stop: 02/25/17 17:09 Last Admin: 08/26/16 20:00 Dose: 650 mg Aspirin (Aspirin Ec) 81 mg PO DAILY [facility] Stop: 02/26/17 09:01 Last Admin: 09/01/16 08:19 Dose: 81 mg Citalopram Hydrobromide (Celexa) 40 mg PO DAILY [facility] Stop: 02/26/17 09:01 Last Admin: 09/01/16 08:19 Dose: 40 mg Cyclobenzaprine HCl (Flexeril) 10 mg PO HS [facility] Stop: 02/25/17 21:01 Last Admin: 08/31/16 20:04 Dose: 10 mg Dextrose/Water (Dextrose 50% (Syg)) 25 ml IVP AD PRN PRN Reason: Hypoglycemia Stop: 02/25/17 20:31 Furosemide (Lasix) 20 mg PO DAILY PRN PRN Reason: Edema Stop: 02/26/17 08:41 Gabapentin (Neurontin) 300 mg PO TID [facility] Stop: 02/25/17 21:01 Last Admin: 09/01/16 08:19 Dose: 300 mg Glucagon (Glucagen) 1 mg IM ONCE PRN PRN Reason: Hypoglycemia Stop: 02/25/17 20:31 Glucose (Gluctose) 15 gm PO ONCE PRN PRN Reason: Hypoglycemia Stop: 02/25/17 20:31 Glucose (Gluctose) 30 gm PO ONCE PRN PRN Reason: Hypoglycemia Stop: 02/25/17 20:31 Dextrose (Dextrose 5%) 1,000 mls @ 100 mls/hr IVC .Q10H PRN PRN Reason: HYPOGLYCEMIA Stop: 02/25/17 20:31 Insulin Human Lispro (Humalog) 0 units SQ HS [facility] PRN Reason: Protocol Stop: 02/25/17 21:01 Last Admin: 08/31/16 20:05 Dose: Not Given Insulin Human Lispro (Humalog) 0 units SQ TIDAC [facility] PRN Reason: Protocol Stop: 02/26/17 07:31 Last Admin: 09/01/16 08:17 Dose: Not Given Isosorbide Mononitrate (Imdur) 30 mg PO DAILY [facility] Stop: 02/26/17 09:01 Last Admin: 09/01/16 08:19 Dose: 30 mg Lisinopril (Zestril) 2.5 mg PO DAILY [facility] PRN Reason: Protocol Stop: 03/02/17 10:46 Last Admin: 09/01/16 08:19 Dose: 2.5 mg Melatonin (Melatonin) 6 mg PO HS PRN PRN Reason: Insomnia Stop: 03/01/17 02:20 Metoprolol Succinate (Toprol Xl) 150 mg PO DAILY [facility] Stop: 03/02/17 09:01 Last Admin: 09/01/16 08:19 Dose: 150 mg Metoprolol Tartrate (Lopressor) 5 mg IVP Q6HR PRN PRN Reason: Tachycardia Stop: 02/27/17 14:38 Naloxone HCl (Narcan) 0.4 mg IVP Q2MIN PRN PRN Reason: Opioid Reversal Stop: 02/25/17 17:09 Sotalol HCl (Betapace) 80 mg PO Q12H [facility] Stop: 03/01/17 16:01 Last Admin: 09/01/16 04:17 Dose: 80 mg Warfarin Sodium (Coumadin Perpt) 1 each PO DAILY [facility] Stop: 02/28/17 09:01 Laboratory Tests 09/01/16 03:17 INR 2.8 - Imaging and Cardiology Chest Xray: report reviewed Echo: report reviewed - EKG Interpretation EKG results cardiology: personally reviewed (ECG today with Sinus rhythm, HR 69. Qt 503ms, Qtc 523ms), other (Telemetry reviewed with average HR previous 12 hours noted to be 68, sinsu rhythm. PVCS and PACs noted.) Consult Discharge Plan - Plan Referrals: Liliana Pedro MD [Primary Care Provider] -
--- NOTE | 2016-09-01 13:13 | Internal Med Progress Note ---
<Saul Pizarro P - Last Filed: 09/01/16 13:38> Date of Encounter: 09/01/16 - Constitutional Vitals: Temp Pulse Resp BP Pulse Ox 98.6 F 57 16 123/63 97 09/01/16 12:12 09/01/16 12:12 09/01/16 07:52 09/01/16 12:12 09/01/16 08:26 Internal Medicine: Result - Labs CBC & Chem 7: 08/29/16 03:52 08/31/16 04:21 - ABG Interpretation ABG results: PT/INR, D-dimer PT 31.0 Seconds (9.4-12.1) H 09/01/16 03:17 Consult Discharge Plan - Plan Referrals: Liliana Pedro MD [Primary Care Provider] - - Attending Attestation I examined this patient and my medical decision-making was reviewed with the VISION CARE ASSOCIATE/PA/Advanced Practice Nurse/Resident Physician. I agree with the documented findings, disposition and treatment plan as described except to the extent set forth below. <Faith Gilbert - Last Filed: 09/01/16 13:44> Date of Encounter: 09/01/16 Time of Encounter: 09:15 - Assessment and plan (1) Paroxysmal atrial fibrillation Current Visit: Yes Status: Chronic Assessment and plan: - With A-fib RVR at rate as high as 145 on initial presentation. - Cardizem was started on admission and rate better controlled but still in A- fib. - Multiple attempt of rate control with PO metoprolol when weaning off from Cardizem drip and no success. - Status post AMANDA and cardioversion on 08/30/16 and has been normal sinus rhythm since. - Currently on Sotalol. EKG today suggests prolonged QTc. Per cardiology, will hold tonight's dose of sotalol, repeat EKG in am and start sotalol 40 mg BID tomorrow morning. - CHADS VASc score 5 (gender, age, DM, HTN & CAD) so anticoagulation with Coumadin or NOAC is recommended. Patient elects to be on Coumadin due to the cost of NOAC. - Continue Coumadin pharmacy dosing with routine INR. INR 2.8 today. (2) Cardiomyopathy Current Visit: Yes Status: Acute Assessment and plan: - Echo on 5/21/17 found LVEF 35-45% with new cardiomyopathy compared to prior study last year. - Likely tachycardia-induced cardiomyopathy. - No chest pain and negative troponin. - Strict I&O, daily weight, cardiac diet. - Continue Lasix prn edema - Continue lisinopril. Qualifiers: Cardiomyopathy type: unspecified Qualified Code(s): I42.9 - Cardiomyopathy , unspecified (3) CAD (coronary artery disease) Current Visit: Yes Status: Chronic Assessment and plan: - Shortness of breath on admission which has improved. Patient denies chest pain. - Stress test 07/30/15: Exercise ECG non diagnostic due to baseline ST-T changes : poor exercise capacity, Gated ER: 75% small size, moderate intensity reversible inferolateral defect suggestive of ischemia. - C 08/27/15: EF 60%, single vessel CAD with 2 ALISON placed (mid circumflex and OM1). - Continue aspirin, Plavix, beta saroj, statin. - Per cardiology, okay to discontinue Plavix since ALISON 2 were placed one year ago. Qualifiers: Coronary Disease-Associated Artery/Lesion type: [place] artery [place] vs. transplanted heart: [place] heart Associated angina: without angina Qualified Code(s): I25.10 - Atherosclerotic heart disease of [place] coronary artery without angina pectoris (4) Breast cancer Current Visit: Yes Status: Chronic Assessment and plan: - History of right breast invasive ductal adenocarcinoma, status post lumpectomy by Dr. Mcrae in 2013 and radiating therapy. Chemotherapy was aborted due to complication. - Patient sees Dr. Smyth outpatiently - Currently in remission. Qualifiers: Breast location: unspecified site of breast Patient sex: female Laterality: unspecified laterality Qualified Code(s): C50.919 - Malignant neoplasm of unspecified site of unspecified female breast (5) Hypertension Current Visit: Yes Status: Chronic Assessment and plan: - Blood pressure within normal range. - Continue current antihypertensive regimen. Qualifiers: Hypertension type: essential hypertension Qualified Code(s): I10 - Essential (primary) hypertension (6) Diabetes Current Visit: Yes Status: Chronic Assessment and plan: - Controlled with metformin at home. - Continue Cardiac ADA diet and insulin sliding scale with routine glucose monitoring. Qualifiers: Diabetes mellitus type: type 2 Diabetes mellitus complication status: without complication Diabetes mellitus penitentiary insulin use: without long winder tender use Qualified Code(s): E11.9 - Type 2 diabetes mellitus without complications (7) DVT prophylaxis Current Visit: Yes Status: Acute Assessment and plan: - On Coumadin and INR 2.8 today. - Subjective Interval history: No significant event noted overnight. Patient was seen and examined this morning. Patient reports no more shortness of breath or lightheadedness on exertion. Patient denies chest pain, palpitation, abdominal pain, nausea, vomiting, diarrhea. - Constitutional Vitals: Temp Pulse Resp BP Pulse Ox 98.6 F 57 16 123/63 97 09/01/16 12:12 09/01/16 12:12 09/01/16 07:52 09/01/16 12:12 09/01/16 08:26 General appearance: Present: cooperative, A&O X 3, no acute distress, answers questions appropriately - Head Head exam: Present: atraumatic, normocephalic - Eye Eye exam: Present: EOMI, PERRL, conjuntiva pink, sclera anicteric - Neck Neck exam general surgery: Present: supple, trachea midline. Absent: lymphadenopathy - Respiratory Respiratory exam: Present: CTAB. Absent: accessory muscle use, rales, rhonchi, wheezes - Cardiovascular Cardiovascular exam: Present: RRR, +S1, +S2. Absent: diastolic murmur, gallop, rubs, systolic murmur - GI/Abdominal GI/Abdominal exam: Present: normal bowel sounds, soft, no peritoneal signs. Absent: distended, tenderness - Extremities Exam Extremities exam: Present: warm, radial pulses palpable and symetrical. Absent : calf tenderness, cyanotic, pedal edema - Neurological Exam Neurological exam: Present: CN II-XII intact, oriented X3, no focal deficits. Absent: pronater drift, facial droop, speech deficit - Skin Skin exam: Present: dry, intact, warm Internal Medicine: Result - Labs CBC & Chem 7: 08/29/16 03:52 08/31/16 04:21 - ABG Interpretation ABG results: PT/INR, D-dimer PT 31.0 Seconds (9.4-12.1) H 09/01/16 03:17
--- NOTE | 2016-09-01 14:03 | Event Note ---
Date of Encounter: 09/01/16 Time of Encounter: 14:01 - Cardiology Event Note Per further discussion with Dr.John Kumar, will stop sotalol. Will re-check ECG in am. If QTC normalizes, will begin amiodarone 200mg BID starting tomorrow evening. If QTC not normalized, will hold off on amiodarone until Sunday. Patient updated on change of plans.
--- NOTE | 2016-09-01 16:43 | Electrocardiograph Report ---
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
[2016-09-01] MEDS ORDERED: *HR* Warfarin 2 MG TABLET PO ONE (18:00)
[2016-09-02 04:43] LABS: Hematocrit 37.5 % (35.3-44.9); Hemoglobin 12.2 g/dL (11.5-15.4)
[2016-09-02 04:44] LABS: INR 2.2; Prothrombin Time 24.6 Seconds (9.4-12.1)
[2016-09-02 04:54] LABS: BUN/Creatinine Ratio 21 (6-26); Blood Urea Nitrogen 16 mg/dL (7-20); Carbon Dioxide 24 mEq/L (19-29); Chloride 106 mEq/L (98-109); Glucose 121 mg/dL (70-99); Osmolality,Calculated 290 (280-300); Potassium 3.7 mEq/L (3.5-4.5); Sodium 139 mEq/L (136-145); eGFR For African Americans > 60 (> 60); eGFR For Non-African Americans > 60 (> 60)
[2016-09-02] MEDS: Metoprolol XL (24 HR) Succ 50 MG TAB.ER.24H PO SCH (09:41)
[2016-09-02] MEDS: Aspirin Enteric Coated 81 MG Tablet PO SCH (09:41)
[2016-09-02] MEDS: Isosorbide MONOnitrate (24 HR) 30 MG TAB.ER.24H PO SCH (09:41)
[2016-09-02] MEDS: Insulin LISPRO 300 UNITS/3 ML VIAL SQ SCH ×4 (09:42→20:20)
[2016-09-02] MEDS: Gabapentin 300 MG CAPSULE PO SCH ×3 (09:42→20:19)
--- NOTE | 2016-09-02 10:09 | Cardiology Progress Note ---
Date of Encounter: 09/02/16 Time of Encounter: 09:30 Assessment and Plan (1) Paroxysmal atrial fibrillation Current Visit: Yes Status: Chronic Per cardiology: -Presented with atrial fibrillation with RVR. Hx of A-Fib during a chemotherapy treatment that quickly resolved. -Patient underwent AMANDA/cardioversion, with successful conversion to sinus rhythm. -Patient was started on sotalol, however had QTC prolongation. -Currently avg HR 67 sinus rhythm. -TTE 2013-EF 65%, moderate diastolic dysfunction, mild to moderate aortic regurgitation, mild mitral regurgitation. -TTE this stay shows new cardiomyoapthy with EF 35-40%, moderate global systolic dysfunction, severely dilated left atrium. CMP possibly tachycardia induced. Recheck echo as outpt. -Avoid cardizem d/t cardiomyopathy. -CHADS VASc= 5 (gender, age, DM, HTN, CAD). She is high risk for thromboembolism / CVA. Anticoagulation with coumadin or NOAC is recommended. On coumadin. Pharmacy dosing with INR monitoring per [place] [facility] as outpt. -INR today therapeutic at 2.2. -ECG today with sinus rhythm, HR 66, Qt 405, Qtc 419. -Per previous discussion with Dr.John Kumar will start amiodarone 200mg BID to start tonight. -Will check ECG in am. -Patient states understanding and agrees with plan. (2) CAD (coronary artery disease) Current Visit: Yes Status: Chronic Per cardiology: -History of CAD status post previous PCI. H/o PCI to her Lcx artery and OM in August 2015. -Continue aspirin, beta saroj, and statin. DESx 2 placed one year ago. plavix now stopped. -Troponins are negative 3. -She denies chest pain. Previous testing: Cardiac catheterization 08/27/15: EF 60% 15% stenosis in the LMCA, 30% stenosis in the Proximal LAD, 30% stenosis in the Mid LAD. 30% stenosis in the Proximal Circumflex artery, 14 mm long, 99% stenosis in the Mid Circumflex and PTCA/ ALISON recieved.. 10 mm long, 90% stenosis in the 1st Marginal and [employer] ALISON recieved. 90% stenosis in the Ramus. 30% stenosis in the Proximal RCA. 30% stenosis in the Mid RCA. Stress test 07/30/15: Exercise ECG is non-diagnostic due to baseline ST-T changes. Worsening of baseline changes noted, especially in recovery. The exercise capacity was poor. Gated EF = 75%. Small size, moderate intensity, reversible inferolateral defect suggestive of ischemia. Qualifiers: Coronary Disease-Associated Artery/Lesion type: [place] artery [place] vs. transplanted heart: [place] heart Associated angina: without angina Qualified Code(s): I25.10 - Atherosclerotic heart disease of [place] coronary artery without angina pectoris (3) Hypertension Current Visit: Yes Status: Chronic Per cardiology: -KNown hypertension. -On beta saroj and trupti inhibitor. -BPs 140-160s. -WIll continue to monitor. -Can consider further titration of anti-hypertensives. Qualifiers: Hypertension type: essential hypertension Qualified Code(s): I10 - Essential (primary) hypertension (4) Cardiomyopathy Current Visit: Yes Status: Acute Per cardiology: -TTE shows newly reduced EF at 35-40%. Global systolic dysfunction. EF on [facility] 2015 was 65%. She denies chest pain. Troponins negative. 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 -Previous recommendations noted to re-evaluate EF in out-pt setting. -Started PRN lasix for ankle edema. Edema now resolved. -CHF education reviewed including low sodium diet and daily weights. -Strict I&O during stay. -On beta saroj and trupti inhibitor and lasix PRN. -Will continue to monitor. -Will repeat echocardiogram in outpatient setting once patient's medications have been optimized. Qualifiers: Cardiomyopathy type: unspecified Qualified Code(s): I42.9 - Cardiomyopathy , unspecified Discussion w patient/family: The assessment and plan as outlined above was discussed with the patient who expressed understanding and agreement. All questions were answered. Thank you for involving us in the care of your patient. Please call with any questions. Discussed and reviewed with . Subjective Principal diagnosis: afib with RVR Interval history: Patient admitted with atrial fibrillation with RVR. Patient underwent cardioversion x1 08/30/16 at 200 joules, successful. Patient was started on sotalol for anti-arrythmic, however had QTC prolongation and sotalol was stopped. Patient was not kept on cardizem due to cardiomyopathy. Patient reports she is feeling much better today. Patient denies palpitations/ fluttering. Patient denies bleeding/blood loss. Patient was discussed and reviewed with Dr.John Kumar who recommended patient be placed on amiodarone this evening. Objective Vital Signs, Last 4 Hours Temp Pulse Resp BP Pulse Ox 09/02/16 08:00 97 09/02/16 06:27 97.7 F 59 15 156/84 97 General: Conversant, No Apparent Distress HEENT: Atraumatic, Normocephaly, Mucus Membranes Moist Neck: No JVD, Normal carotid pulses Cardiac: Reg Rate and Rhythm, Normal S1 and S2, No Murmur Lungs: Normal Breath Sounds, No Wheeze, Rales, Rhonchi Neuro: Alert and responsive, No focal deficits noted Abdomen: Soft, Non-Tender Skin: No rashes noted on visualized skin Musculoskeletal: No Chest Wall Tenderness Extremities: No Clubbing, No Cyanosis, No Edema, Normal Pulses Results 09/02/16 03:28 09/02/16 03:28 Lab Results Active Medications Acetaminophen (Tylenol) 650 mg PO Q6HR PRN PRN Reason: Mild Pain (1-3) Stop: 02/25/17 17:09 Last Admin: 08/26/16 20:00 Dose: 650 mg Amiodarone HCl (Cordarone) 200 mg PO BID [facility] Stop: 03/04/17 21:01 Aspirin (Aspirin Ec) 81 mg PO DAILY [facility] Stop: 02/26/17 09:01 Last Admin: 09/02/16 09:41 Dose: 81 mg Citalopram Hydrobromide (Celexa) 40 mg PO DAILY [facility] Stop: 02/26/17 09:01 Last Admin: 09/02/16 09:42 Dose: 40 mg Cyclobenzaprine HCl (Flexeril) 10 mg PO HS [facility] Stop: 02/25/17 21:01 Last Admin: 09/01/16 20:26 Dose: 10 mg Dextrose/Water (Dextrose 50% (Syg)) 25 ml IVP AD PRN PRN Reason: Hypoglycemia Stop: 02/25/17 20:31 Furosemide (Lasix) 20 mg PO DAILY PRN PRN Reason: Edema Stop: 02/26/17 08:41 Gabapentin (Neurontin) 300 mg PO TID [facility] Stop: 02/25/17 21:01 Last Admin: 09/02/16 09:42 Dose: 300 mg Glucagon (Glucagen) 1 mg IM ONCE PRN PRN Reason: Hypoglycemia Stop: 02/25/17 20:31 Glucose (Gluctose) 15 gm PO ONCE PRN PRN Reason: Hypoglycemia Stop: 02/25/17 20:31 Glucose (Gluctose) 30 gm PO ONCE PRN PRN Reason: Hypoglycemia Stop: 02/25/17 20:31 Dextrose (Dextrose 5%) 1,000 mls @ 100 mls/hr IVC .Q10H PRN PRN Reason: HYPOGLYCEMIA Stop: 02/25/17 20:31 Insulin Human Lispro (Humalog) 0 units SQ HS [facility] PRN Reason: Protocol Stop: 02/25/17 21:01 Last Admin: 09/01/16 21:13 Dose: Not Given Insulin Human Lispro (Humalog) 0 units SQ TIDAC [facility] PRN Reason: Protocol Stop: 02/26/17 07:31 Last Admin: 09/02/16 09:42 Dose: Not Given Isosorbide Mononitrate (Imdur) 30 mg PO DAILY [facility] Stop: 02/26/17 09:01 Last Admin: 09/02/16 09:41 Dose: 30 mg Lisinopril (Zestril) 2.5 mg PO DAILY [facility] PRN Reason: Protocol Stop: 03/02/17 10:46 Last Admin: 09/02/16 09:42 Dose: 2.5 mg Melatonin (Melatonin) 6 mg PO HS PRN PRN Reason: Insomnia Stop: 03/01/17 02:20 Metoprolol Succinate (Toprol Xl) 150 mg PO DAILY [facility] Stop: 03/02/17 09:01 Last Admin: 09/02/16 09:41 Dose: 150 mg Metoprolol Tartrate (Lopressor) 5 mg IVP Q6HR PRN PRN Reason: Tachycardia Stop: 02/27/17 14:38 Naloxone HCl (Narcan) 0.4 mg IVP Q2MIN PRN PRN Reason: Opioid Reversal Stop: 02/25/17 17:09 Warfarin Sodium (Coumadin Perpt) 1 each PO DAILY [facility] Stop: 02/28/17 09:01 Laboratory Tests 0509/02/16 09/02/16 03:28 03:28 03:28 Hgb 12.2 Hct 37.5 INR 2.2 Potassium 3.7 Creatinine 0.75 - Imaging and Cardiology Chest Xray: report reviewed Echo: report reviewed Cardiac cath: report reviewed - EKG Interpretation EKG results cardiology: personally reviewed (ECG reviewed today with SR, HR 66. QT 405, QTC 419.), other (Telemetry reviewed with average HR 67, sinus rhythm. PVCs noted. 7 short runs of atrial tachycardia noted. PACs noted.) Consult Discharge Plan - Plan Instructions: Heart Failure (DC), Atrial Fibrillation (DC), Pacemaker (DC), Diabetes Mellitus Type 2 in Adults (DC), Chronic Hypertension (DC) Referrals: Liliana Pedro MD [Primary Care Provider] -
--- NOTE | 2016-09-02 10:49 | Internal Med Progress Note ---
Date of Encounter: 09/02/16 Time of Encounter: 10:47 - Assessment and plan (1) Paroxysmal atrial fibrillation Current Visit: Yes Status: Chronic Assessment and plan: - With A-fib RVR at rate as high as 145 on initial presentation. - Cardizem was started on admission and rate better controlled but still in A- fib. - Multiple attempt of rate control with PO metoprolol when weaning off from Cardizem drip and no success. - Status post AMANDA and cardioversion on 08/30/16 and has been normal sinus rhythm since. - Currently on Sotalol. EKG today suggests prolonged QTc. Per cardiology, will hold tonight's dose of sotalol, repeat EKG in am and start sotalol 40 mg BID tomorrow morning. - CHADS VASc score 5 (gender, age, DM, HTN & CAD) so anticoagulation with Coumadin or NOAC is recommended. Patient elects to be on Coumadin due to the cost of NOAC. - Continue Coumadin pharmacy dosing with routine INR. INR 2.8 today. 09/02/2016 Heart rate is well controlled. Patient denies palpitation. We will continue present medication. (2) Cardiomyopathy Current Visit: Yes Status: Acute Assessment and plan: - Echo on 08/27/16 found LVEF 35-45% with new cardiomyopathy compared to prior study last year. - Likely tachycardia-induced cardiomyopathy. - No chest pain and negative troponin. - Strict I&O, daily weight, cardiac diet. - Continue Lasix prn edema - Continue lisinopril. 09/02/2016 Patient denies palpitation. Presently on lisinopril. Minimal trace edema. Qualifiers: Cardiomyopathy type: unspecified Qualified Code(s): I42.9 - Cardiomyopathy , unspecified (3) CAD (coronary artery disease) Current Visit: Yes Status: Chronic Assessment and plan: - Shortness of breath on admission which has improved. Patient denies chest pain. - Stress test 07/30/15: Exercise ECG non diagnostic due to baseline ST-T changes : poor exercise capacity, Gated ER: 75% small size, moderate intensity reversible inferolateral defect suggestive of ischemia. - LHC 08/27/15: EF 60%, single vessel CAD with 2 ALISON placed (mid circumflex and OM1). - Continue aspirin, Plavix, beta saroj, statin. - Per cardiology, okay to discontinue Plavix since ALISON 2 were placed one year ago. Qualifiers: Coronary Disease-Associated Artery/Lesion type: [place] artery [place] vs. transplanted heart: [place] heart Associated angina: without angina Qualified Code(s): I25.10 - Atherosclerotic heart disease of [place] coronary artery without angina pectoris (4) Hypertension Current Visit: Yes Status: Chronic Assessment and plan: - Blood pressure within normal range. - Continue current antihypertensive regimen. Qualifiers: Hypertension type: essential hypertension Qualified Code(s): I10 - Essential (primary) hypertension (5) Diabetes Current Visit: Yes Status: Chronic Qualifiers: Diabetes mellitus type: type 2 Diabetes mellitus complication status: without complication Diabetes mellitus long lines operator insulin use: without intermediate use Qualified Code(s): E11.9 - Type 2 diabetes mellitus without complications (6) DVT prophylaxis Current Visit: Yes Status: Acute Assessment and plan: - On Coumadin and INR 2.8 today. - Subjective Interval history: Seen and examined. Chart reviewed. Patient is comfortably sitting up in chair and reading a book. Patient denies any complaints. - Constitutional Vitals: Temp Pulse Resp BP Pulse Ox 97.7 F 59 15 156/84 97 09/02/16 06:27 09/02/16 06:27 09/02/16 06:27 09/02/16 06:27 09/02/16 08:00 General appearance: Present: cooperative, A&O X 3, no acute distress, answers questions appropriately - Head Head exam: Present: atraumatic, normocephalic - Eye Eye exam: Present: PERRL, conjuntiva pink, sclera anicteric Pupils: Present: PERRL - Neck Neck exam general surgery: Present: supple, trachea midline. Absent: lymphadenopathy - Respiratory Respiratory exam: Present: CTAB. Absent: accessory muscle use, rales, rhonchi, wheezes - Cardiovascular Cardiovascular exam: Present: RRR, +S1, +S2. Absent: diastolic murmur, gallop, rubs, systolic murmur - GI/Abdominal GI/Abdominal exam: Present: normal bowel sounds, soft, no peritoneal signs. Absent: distended, tenderness - Extremities Exam Extremities exam: Present: warm, radial pulses palpable and symetrical. Absent : calf tenderness, cyanotic, pedal edema - Neurological Exam Neurological exam: Present: CN II-XII intact, oriented X3, no focal deficits. Absent: pronater drift, facial droop, speech deficit - Skin Skin exam: Present: dry, intact Internal Medicine: Result - Labs CBC & Chem 7: 09/02/16 03:28 09/02/16 03:28 Labs: Short CBC 09/02/16 Range/Units 03:28 Hgb 12.2 (11.5-15.4) g/dL Hct 37.5 (35.3-44.9) % BMP 09/02/16 03:28 Sodium 139 Potassium 3.7 Chloride 106 Carbon Dioxide 24 BUN 16 Creatinine 0.75 Glucose 121 H Calcium 9.0 - ABG Interpretation ABG results: PT/INR, D-dimer PT 24.6 Seconds (9.4-12.1) H 09/02/16 03:28 Consult Discharge Plan - Plan Instructions: Heart Failure (DC), Atrial Fibrillation (DC), Pacemaker (DC), Diabetes Mellitus Type 2 in Adults (DC), Chronic Hypertension (DC) Referrals: Liliana Pedro MD [Primary Care Provider] -
[2016-09-02] MEDS ORDERED: *HR* Warfarin 2 MG TABLET PO ONE (18:00)
[2016-09-02] MEDS: *HR* Amiodarone 200 MG TABLET PO SCH (20:19)
[2016-09-03 05:37] LABS: Basophils # 0.1 K/mcL (0.0-0.2); Basophils % 0.8 %; Eosinophils # 0.2 K/mcL (0.0-0.6); Eosinophils % 1.8 %; Hematocrit 38.6 % (35.3-44.9); Hemoglobin 12.4 g/dL (11.5-15.4); Immature Granulocytes % 0.8 % (0-4); Immature Platelets 1.5 % (1.1-6.1); Lymphocytes # 2.4 K/mcL (0.6-4.6); Lymphocytes % 26.2 %; Mean Corpuscular HGB Conc 32.1 g/dL (31.6-35.5); Mean Corpuscular Volume 90.2 fL (83.0-100.0); Mean Platelet Volume 8.9 fL (9.4-12.4); Monocytes # 0.6 K/mcL (0.0-1.3); Monocytes % 6.9 %; Neutrophils # 5.7 K/mcL (1.6-8.9); Platelet Count 310 K/mcL (140-400); Red Blood Count 4.28 M/mcL (3.82-4.97); Red Cell Distribution Width 13.3 % (11.5-14.5); Segmented Neutrophils % 63.5 %
[2016-09-03 05:41] LABS: INR 2.3; Prothrombin Time 25.5 Seconds (9.4-12.1)
[2016-09-03 05:55] LABS: Alanine Aminotransferase 33 Units/L (0-55); Albumin 3.3 g/dL (3.5-5.0); Alkaline Phosphatase 94 Units/L (38-126); Aspartate Amino Transferase 24 Units/L (5-34); BUN/Creatinine Ratio 25 (6-26); Bilirubin,Total 0.9 mg/dL (0.2-1.2); Blood Urea Nitrogen 19 mg/dL (7-20); Calcium 9.1 mg/dL (8.6-10.8); Carbon Dioxide 25 mEq/L (19-29); Chloride 106 mEq/L (98-109); Globulin 3.4 g/dL (2.4-3.5); Glucose 128 mg/dL (70-99); Osmolality,Calculated 292 (280-300); Potassium 4.1 mEq/L (3.5-4.5); Sodium 139 mEq/L (136-145); Total Protein 6.7 g/dL (6.0-8.3); eGFR For African Americans > 60 (> 60); eGFR For Non-African Americans > 60 (> 60)
[2016-09-03 07:40] VITALS: BP 130/94
[2016-09-03] MEDS: Insulin LISPRO 300 UNITS/3 ML VIAL SQ SCH ×2 (07:52→12:07)
[2016-09-03] MEDS: Isosorbide MONOnitrate (24 HR) 30 MG TAB.ER.24H PO SCH (09:33)
[2016-09-03] MEDS: Aspirin Enteric Coated 81 MG Tablet PO SCH (09:34)
[2016-09-03] MEDS: Gabapentin 300 MG CAPSULE PO SCH (09:34)
[2016-09-03] MEDS: *HR* Amiodarone 200 MG TABLET PO SCH (09:34)
[2016-09-03] MEDS: Metoprolol XL (24 HR) Succ 50 MG TAB.ER.24H PO SCH (09:34)
--- NOTE | 2016-09-03 10:07 | Cardiology Progress Note ---
Date of Encounter: 09/03/16 Time of Encounter: 09:00 Assessment and Plan (1) Paroxysmal atrial fibrillation Current Visit: Yes Status: Chronic Per cardiology: -Presented with atrial fibrillation with RVR. Hx of A-Fib during a chemotherapy treatment that quickly resolved. -Patient underwent AMANDA/cardioversion, with successful conversion to sinus rhythm. -Patient was started on sotalol, however had QTC prolongation. -Currently avg HR 67 sinus rhythm. -TTE 2013-EF 65%, moderate diastolic dysfunction, mild to moderate aortic regurgitation, mild mitral regurgitation. -TTE this stay shows new cardiomyoapthy with EF 35-40%, moderate global systolic dysfunction, severely dilated left atrium. CMP possibly tachycardia induced. Recheck echo as outpt. -Avoid cardizem d/t cardiomyopathy. -CHADS VASc= 5 (gender, age, DM, HTN, CAD). She is high risk for thromboembolism / CVA. Anticoagulation with coumadin or NOAC is recommended. On coumadin. Pharmacy dosing with INR monitoring per [place] [facility] as outpt. -INR today therapeutic at 2.3. -ECG today with sinus bradycardia, HR 57. Qt 429, Qtc 424. -Amiodarone started yesterday evening at 200mg BID. -Recommend amiodarone 200mg BID for 1 week then decrease to 200mg daily. Patient educated on when to switch amio to daily. Patient states understanding and agrees with plan. -Recommend continuing coumadin. Patient has been set up for coumadin to be managed by coumadin clinic. -Cardiology will sign off and will follow in outpatient setting. Follow up set. (2) CAD (coronary artery disease) Current Visit: Yes Status: Chronic Per cardiology: -History of CAD status post previous PCI. H/o PCI to her Lcx artery and OM in August 2015. -Continue aspirin, beta saroj, and statin. DESx 2 placed one year ago. plavix now stopped. -Troponins are negative 3. -She denies chest pain. -Cardiology will continue to follow in outpatient setting. Previous testing: Cardiac catheterization 08/27/15: EF 60% 15% stenosis in the LMCA, 30% stenosis in the Proximal LAD, 30% stenosis in the Mid LAD. 30% stenosis in the Proximal Circumflex artery, 14 mm long, 99% stenosis in the Mid Circumflex and PTCA/ ALISON recieved.. 10 mm long, 90% stenosis in the 1st Marginal and [employer]BI[employer]IST ALISON recieved. 90% stenosis in the Ramus. 30% stenosis in the Proximal RCA. 30% stenosis in the Mid RCA. Stress test 07/30/15: Exercise ECG is non-diagnostic due to baseline ST-T changes. Worsening of baseline changes noted, especially in recovery. The exercise capacity was poor. Gated EF = 75%. Small size, moderate intensity, reversible inferolateral defect suggestive of ischemia. Qualifiers: Coronary Disease-Associated Artery/Lesion type: [place] artery [place] vs. transplanted heart: [place] heart Associated angina: without angina Qualified Code(s): I25.10 - Atherosclerotic heart disease of [place] coronary artery without angina pectoris (3) Hypertension Current Visit: Yes Status: Chronic Per cardiology: -KNown hypertension. -On beta saroj and trupti inhibitor. -BPs 130-160s. -Will continue to monitor in outpatient setting. -Can consider further titration of anti-hypertensives in outpatient setting. Qualifiers: Hypertension type: essential hypertension Qualified Code(s): I10 - Essential (primary) hypertension (4) Cardiomyopathy Current Visit: Yes Status: Acute Per cardiology: -TTE shows newly reduced EF at 35-40%. Global systolic dysfunction. EF on [facility] 2015 was 65%. She denies chest pain. Troponins negative. 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 -Previous recommendations noted to re-evaluate EF in out-pt setting. -Started PRN lasix for ankle edema. Edema now resolved. Euvolemic on exam. -CHF education reviewed including low sodium diet and daily weights. -Strict I&O during stay. -On beta saroj and trupti inhibitor and lasix PRN. -Will continue to monitor in outpatient setting. -Will repeat echocardiogram in outpatient setting once patient's medications have been optimized. Qualifiers: Cardiomyopathy type: unspecified Qualified Code(s): I42.9 - Cardiomyopathy , unspecified Discussion w patient/family: The assessment and plan as outlined above was discussed with the patient who expressed understanding and agreement. All questions were answered. Thank you for involving us in the care of your patient. Please call with any questions. Discussed and reviewed with . Subjective Principal diagnosis: afib with RVR Interval history: Patient admitted with atrial fibrillation with RVR. Patient underwent cardioversion x1 08/30/16 at 200 joules, successful. Patient was started on sotalol for anti-arrythmic, however had QTC prolongation and sotalol was stopped. Patient was not kept on cardizem due to cardiomyopathy. Patient was started on amiodarone. Patient reports she is feeling much better today. Patient denies palpitations/fluttering. Patient denies bleeding/blood loss. Patient complains of right eye redness and drainage, hospitalist service made aware. Objective Vital Signs, Last 4 Hours Temp Pulse Resp BP Pulse Ox 09/03/16 09:00 94 09/03/16 07:36 97.7 F 55 15 130/94 94 General: Conversant, No Apparent Distress HEENT: Atraumatic, Normocephaly, Mucus Membranes Moist Neck: No JVD, Normal carotid pulses Cardiac: Reg Rate and Rhythm, Normal S1 and S2, No Murmur Lungs: Normal Breath Sounds, No Wheeze, Rales, Rhonchi Neuro: Alert and responsive, No focal deficits noted Abdomen: Soft, Non-Tender Skin: No rashes noted on visualized skin Musculoskeletal: No Chest Wall Tenderness Extremities: No Clubbing, No Cyanosis, No Edema, Normal Pulses Results 09/03/16 05:02 09/03/16 05:02 Lab Results Active Medications Acetaminophen (Tylenol) 650 mg PO Q6HR PRN PRN Reason: Mild Pain (1-3) Stop: 02/25/17 17:09 Last Admin: 08/26/16 20:00 Dose: 650 mg Amiodarone HCl (Cordarone) 200 mg PO BID [facility] Stop: 03/04/17 21:01 Last Admin: 09/03/16 09:34 Dose: 200 mg Aspirin (Aspirin Ec) 81 mg PO DAILY [facility] Stop: 02/26/17 09:01 Last Admin: 09/03/16 09:34 Dose: 81 mg Citalopram Hydrobromide (Celexa) 40 mg PO DAILY [facility] Stop: 02/26/17 09:01 Last Admin: 09/03/16 09:34 Dose: 40 mg Cyclobenzaprine HCl (Flexeril) 10 mg PO HS [facility] Stop: 02/25/17 21:01 Last Admin: 09/02/16 20:18 Dose: 10 mg Dextrose/Water (Dextrose 50% (Syg)) 25 ml IVP AD PRN PRN Reason: Hypoglycemia Stop: 02/25/17 20:31 Furosemide (Lasix) 20 mg PO DAILY PRN PRN Reason: Edema Stop: 02/26/17 08:41 Gabapentin (Neurontin) 300 mg PO TID [facility] Stop: 02/25/17 21:01 Last Admin: 09/03/16 09:34 Dose: 300 mg Glucagon (Glucagen) 1 mg IM ONCE PRN PRN Reason: Hypoglycemia Stop: 02/25/17 20:31 Glucose (Gluctose) 15 gm PO ONCE PRN PRN Reason: Hypoglycemia Stop: 02/25/17 20:31 Glucose (Gluctose) 30 gm PO ONCE PRN PRN Reason: Hypoglycemia Stop: 02/25/17 20:31 Dextrose (Dextrose 5%) 1,000 mls @ 100 mls/hr IVC .Q10H PRN PRN Reason: HYPOGLYCEMIA Stop: 02/25/17 20:31 Insulin Human Lispro (Humalog) 0 units SQ HS [facility] PRN Reason: Protocol Stop: 02/25/17 21:01 Last Admin: 09/02/16 20:20 Dose: Not Given Insulin Human Lispro (Humalog) 0 units SQ TIDAC [facility] PRN Reason: Protocol Stop: 02/26/17 07:31 Last Admin: 09/03/16 07:52 Dose: Not Given Isosorbide Mononitrate (Imdur) 30 mg PO DAILY [facility] Stop: 02/26/17 09:01 Last Admin: 09/03/16 09:33 Dose: 30 mg Lisinopril (Zestril) 2.5 mg PO DAILY [facility] PRN Reason: Protocol Stop: 03/02/17 10:46 Last Admin: 09/03/16 09:34 Dose: 2.5 mg Melatonin (Melatonin) 6 mg PO HS PRN PRN Reason: Insomnia Stop: 03/01/17 02:20 Metoprolol Succinate (Toprol Xl) 150 mg PO DAILY [facility] Stop: 03/02/17 09:01 Last Admin: 09/03/16 09:34 Dose: 150 mg Metoprolol Tartrate (Lopressor) 5 mg IVP Q6HR PRN PRN Reason: Tachycardia Stop: 02/27/17 14:38 Naloxone HCl (Narcan) 0.4 mg IVP Q2MIN PRN PRN Reason: Opioid Reversal Stop: 02/25/17 17:09 Warfarin Sodium (Coumadin Perpt) 1 each PO DAILY [facility] Stop: 02/28/17 09:01 Laboratory Tests 09/03/16 09/03/16 09/03/16 05:02 05:02 05:02 Hgb 12.4 INR 2.3 Potassium 4.1 Creatinine 0.76 - Imaging and Cardiology Chest Xray: report reviewed Echo: report reviewed Cardiac cath: report reviewed - EKG Interpretation EKG results cardiology: personally reviewed (ECG today with Sinus bradycardia, HR 58. Qt 429, Qtc 424.), other (Telemetry reviewed with average HR 62, sinus rhythm. PACs noted. 3 runs of atrial tachycardia noted, longest lasting 8 beats. ) Consult Discharge Plan - Plan Instructions: Heart Failure (DC), Atrial Fibrillation (DC), Pacemaker (DC), Diabetes Mellitus Type 2 in Adults (DC), Chronic Hypertension (DC) Referrals: Liliana Pedro MD [Primary Care Provider] -
--- NOTE | 2016-09-03 11:50 | Discharge Summary ---
Date of Encounter: 09/03/16 Time of Encounter: 11:40 - Discharge Diagnosis (1) Paroxysmal atrial fibrillation Priority: Primary Status: Chronic (2) Cardiomyopathy Priority: Primary Status: Acute Qualifiers: Cardiomyopathy type: unspecified Qualified Code(s): I42.9 - Cardiomyopathy , unspecified (3) CAD (coronary artery disease) Priority: Secondary Status: Chronic Qualifiers: Coronary Disease-Associated Artery/Lesion type: [place] artery [place] vs. transplanted heart: [place] heart Associated angina: without angina Qualified Code(s): I25.10 - Atherosclerotic heart disease of [place] coronary artery without angina pectoris (4) Hypertension Priority: Secondary Status: Chronic Qualifiers: Hypertension type: essential hypertension Qualified Code(s): I10 - Essential (primary) hypertension (5) Diabetes Priority: Secondary Status: Chronic Qualifiers: Diabetes mellitus type: type 2 Diabetes mellitus complication status: without complication Diabetes mellitus manager terminal insulin use: without manager terminal use Qualified Code(s): E11.9 - Type 2 diabetes mellitus without complications (6) DVT prophylaxis Priority: Secondary Status: Acute - Discharge Medications Prescriptions: Amiodarone [Cordarone] 200 mg PO BID #60 tablet Furosemide [Lasix] 20 mg PO DAILY PRN #30 tablet PRN Reason: Edema Lisinopril [Zestril] 2.5 mg PO DAILY #60 tablet Metoprolol XL (24 HR) Succ [Toprol Xl] 150 mg PO DAILY #60 tab.er.24h Warfarin [Coumadin] 2 mg PO 1800 #30 tablet Home Medications: Aspirin Enteric Coated [Aspirin EC] 81 mg PO DAILY 11/23/14 [History] Cholecalciferol (D-3) [Vitamin D] 2,000 unit PO DAILY 11/23/14 [History] Citalopram Hydrobromide [Celexa] 40 mg PO DAILY 11/23/14 [History] Cyclobenzaprine [Flexeril] 10 mg PO HS 11/23/14 [History] Gabapentin [Neurontin] 300 mg PO TID 11/23/14 [History] Meloxicam [Mobic] 15 mg PO DAILY 11/23/14 [History] metFORMIN [Glucophage] 500 mg PO DAILY 11/23/14 [History] [place]-3/Dha/Epa/Fish Oil [Fish Oil 1,000 mg Softgel] 1 each PO DAILY 05/31/15 [ History] Amlodipine/Atorvastatin [Caduet 10 mg-40 mg Tablet] 1 each PO DAILY #30 tablet 08/28/15 [Rx] Clopidogrel [Plavix] 75 mg PO DAILY #30 tablet 08/28/15 [Rx] Cetirizine HCl [Zyrtec] 10 mg PO DAILY 05/30/16 [History] Isosorbide MONOnitrate (24 HR) [Imdur] 30 mg PO DAILY 08/26/16 [History] Amiodarone [Cordarone] 200 mg PO BID #60 tablet 09/03/16 [Rx] Furosemide [Lasix] 20 mg PO DAILY PRN #30 tablet 09/03/16 [Rx] Lisinopril [Zestril] 2.5 mg PO DAILY #60 tablet 09/03/16 [Rx] Metoprolol XL (24 HR) Succ [Toprol Xl] 150 mg PO DAILY #60 tab.er.24h 09/03/16 [ Rx] Warfarin [Coumadin] 2 mg PO 1800 #30 tablet 09/03/16 [Rx] Allergies/Adverse Reactions: Allergies Erythromycin Base [From Erythrocin] Adverse Reaction (Verified 08/26/16 17:53) Gastrointestinal Upset Procedures/tests Complete & Pending: Procedures Performed prior 72 hours Category Date Time Status ECG 12 lead ECG [ECG] AM 0600 Y 09/03/16 06:00 Ordered ECG 12 lead ECG [ECG] Timed Y 09/02/16 05:00 Ordered EKG [ECG 12 lead ECG] [ECG] AM 0600 Y 09/01/16 06:00 Completed Date of admission: 08/26/16 17:25 Primary care physician: Liliana Pedro MD Consults: 08/26/16 21:03 Consult to Cardiology [CONS] Routine Comment: Consulting Provider: Cardiology Ellie Reason for Consult: afib RVR Time Notified: 21:04 Call Completed: Yes 08/28/16 13:35 Consult to Electrophysiology (EP) [CONS] Routine Consulting Provider: Electrophysiology Ellie Reason for Consult: ATrial fibrillation with RVR Call Completed: Yes Discharging clinician: Saul Pizarro - Patient Status Disposition: Home, Self-Care Condition: Fair Functional capacity at discharge: independent ambulation Overall status at discharge: patient is progressing back to baseline - Discharge Instructions Instructions: Heart Failure (DC), Atrial Fibrillation (DC), Pacemaker (DC), Diabetes Mellitus Type 2 in Adults (DC), Chronic Hypertension (DC) Follow Up With: Liliana Pedro MD [Primary Care Provider] - Forms: ED Satisfaction Letter - Diet and Activity Activity: increase activity as tolerated Diet: diabetic diet Interval History: Ms. Amin is a 70 year old female with history diabetes high blood pressure ( 1 atrial fibrillation with cancer coronary artery disease with stent placement. According to the patient's experiencing increasing shortness of breath on exertion for the past 3-4 days she denies any chest pain or palpitations. She is also noticed lower extremity swelling as well as a nonproductive cough. Denies any fever or chills or sputum production. Today patient states she was sleeping has been noticing she was breathing strangely. He checked her SPO2 and tenderness that her heart rate was erratic and not registering. She is brought to the ER for evaluation. Upon presentation EKG did reveal atrial fibrillation with RVR heart rate of 145. Patient was given Cardizem bolus as well as started on Cardizem drip which did bring her rate down to 90-100. Lab work was obtained and was unremarkable. Troponins 0.03. Chest x-ray was obtained which revealed minimal blood atelectasis or pneumonitis. Patient was admitted for further workup and evaluation. Presently patient does not appear to be in any respiratory distress. She denies any chest pain or shortness of breath at this time. Her lung sounds are clear heart sounds are irregular S1 and S2 no clicks rubs murmurs or gallops noted. She does have +1 edema to her extremities. Presently she is atrophic on the monitor with a rate of 99-134. Blood pressure systolic 124 Cardizem 7.5 increased to 10. SPO2 is 93% place patient on 2 L nasal cannula Hospital course: Patient was hospitalized. Cardiology was consulted. Cardiology note is to below to understand the course in the hospital. This is copy and paste text from cardiology note for better understanding of course during hospitalization "-Presented with atrial fibrillation with RVR. Hx of A-Fib during a chemotherapy treatment that quickly resolved. -Patient underwent AMANDA/cardioversion, with successful conversion to sinus rhythm. -Patient was started on sotalol, however had QTC prolongation. -Currently avg HR 67 sinus rhythm. -TTE 2013-EF 65%, moderate diastolic dysfunction, mild to moderate aortic regurgitation, mild mitral regurgitation. -TTE this stay shows new cardiomyoapthy with EF 35-40%, moderate global systolic dysfunction, severely dilated left atrium. CMP possibly tachycardia induced. Recheck echo as outpt. -Avoid cardizem d/t cardiomyopathy. -CHADS VASc= 5 (gender, age, DM, HTN, CAD). She is high risk for thromboembolism / CVA. Anticoagulation with coumadin or NOAC is recommended. On coumadin. Pharmacy dosing with INR monitoring per [place] [facility] as outpt. -INR today therapeutic at 2.3. -ECG today with sinus bradycardia, HR 57. Qt 429, Qtc 424. -Amiodarone started yesterday evening at 200mg BID. -Recommend amiodarone 200mg BID for 1 week then decrease to 200mg daily. Patient educated on when to switch amio to daily. Patient states understanding and agrees with plan. -Recommend continuing coumadin. Patient has been set up for coumadin to be managed by coumadin clinic. -Cardiology will sign off and will follow in outpatient setting. Follow up set. Plan: Patient can go home today. PRESCRIPTIONS given. Patient will follow up with PCP in 1-2 weeks. Patient will follow up with cardiology in 1-2 weeks. All questions answered. The time of discharge patient does not have any questions, concerns, update or recommendations. - Time Spent with Patient Total time spent providing and/or coordinating discharge services: - Constitutional Vitals: Temp Pulse Resp BP Pulse Ox 97.7 F 55 15 130/94 94 09/03/16 07:36 09/03/16 07:36 09/03/16 07:36 09/03/16 07:36 09/03/16 09:00 General appearance: Present: cooperative, A&O X 3, no acute distress, answers questions appropriately - Head Head exam: Present: atraumatic, normocephalic - Eye Eye exam: Present: PERRL, conjuntiva pink, sclera anicteric Pupils: Present: PERRL - Neck Neck exam general surgery: Present: supple, trachea midline. Absent: lymphadenopathy - Respiratory Respiratory exam: Present: CTAB. Absent: accessory muscle use, rales, rhonchi, wheezes - Cardiovascular Cardiovascular exam: Present: RRR, +S1, +S2. Absent: diastolic murmur, gallop, rubs, systolic murmur - GI/Abdominal GI/Abdominal exam: Present: normal bowel sounds, soft, no peritoneal signs. Absent: distended, tenderness - Extremities Exam Extremities exam: Present: warm, radial pulses palpable and symetrical. Absent : calf tenderness, cyanotic, pedal edema - Neurological Exam Neurological exam: Present: CN II-XII intact, oriented X3, no focal deficits. Absent: pronater drift, facial droop, speech deficit - Skin Skin exam: Present: dry, intact
[2016-09-03] MEDS ORDERED: *HR* Warfarin 2 MG TABLET PO ONE (18:00)
--- NOTE | 2016-09-05 07:24 | Electrocardiograph Report ---
[address] [place], [place] [address] Test Date: 2016-09-03 Pat Name: Lakeshia Amin Department: 111 Room: 2NE20 Gender: F Wire Strander: : 1945 Requested By: Rakel Lopez Order Number: [id number] Reading MD: Segundo Wolf MD Measurements Intervals [place] Rate: 57 P: 60 [place]: 181 QRS: -3 QRSD: 93 T: 94 QT: 429 QTc: 424 Interpretive Statements SINUS BRADYCARDIA ANTERIOR ISCHEMIA Electronically Signed On 09-05-2016 7:23:21 EDT by Segundo Wolf MD
--- NOTE | 2016-09-05 17:09 | Electrocardiograph Report ---
[place] [address] Test Date: 2016-09-02 Pat Name: Lakeshia Amin Department: 111 Room: 2N0 Gender: F Document Image Technician: GIL : 1945 Requested By: Rakel Lopez Order Number: [id number] Reading MD: Erwin Kumar Measurements Intervals [place] Rate: 66 P: 60 [place]: 186 QRS: -3 QRSD: 88 T: 111 QT: 405 QTc: 419 Interpretive Statements SINUS RHYTHM ANTERIOR ST \T\ T-WAVE ABNORMALITY Electronically Signed On 09-05-2016 17:08:07 EDT by Erwin Kumar
== END 2016-09-03 15:08 | disposition home or self-care (01) | DRG 308 ==
LOC: 2NENU 15:31 → EMEROO 15:31 → SUATTDRO 17:25 → 2NENU 17:44
PROVIDERS: ADMIT Internal Medicine Sleep Medicine; ATTEND Internal Medicine

== ENCOUNTER 2017-05-14 22:29 | Observation (INO) ==
[2017-05-14] MEDS ORDERED: Nitroglycerin 0.4 MG TAB.SUBL SL ONE (22:49)
[2017-05-14] MEDS ORDERED: Nitroglycerin 1 INCH/GM PACKET TP ONE (22:52)
--- NOTE | 2017-05-14 22:53 | Emergency Department Note ---
Disposition Clinical Impression: NSTEMI (non-ST elevated myocardial infarction) Disposition: Admitted As Inpatient Condition: Fair Time of Disposition: 23:33 Chest Pain HPI - General Chief Complaint: ED Chest Pain Stated Complaint: "Told to Come Per Family Doc/Elevated Enzymes" Time Seen by Provider: 05/14/17 22:41 Source: patient Mode of arrival: ambulatory Limitations: no limitations Vital Signs Reviewed: Yes Nursing Notes Reviewed: Yes - History of Present Illness HPI Narrative: 71-year-old female history of ACS status post stents, hypertension, diabetes, A. fib on Coumadin presents for evaluation of abnormal labs. Patient states she went to her primary care doctor earlier today and had basic lab work and was called stating come to the ER. Patient notes left earache started last night and has been intermittent since then. Patient denies any rhinorrhea or fevers or throat or URI symptoms. Patient denies any other pain. States that she does not have any earache or pain currently. Denies any short of breath. No nausea vomiting or diaphoresis. Reports that she has had a heart attack approximately 2 years ago. Severity scale (1-10): 0 - Related Data Home Medications Medication Instructions Recorded Confirmed Aspirin Enteric Coated [Aspirin EC] 81 mg PO DAILY 11/23/14 05/15/17 Cholecalciferol (D-3) [Vitamin D] 2,000 unit PO DAILY 11/23/14 05/15/17 Cyclobenzaprine [Flexeril] 10 mg PO BID 11/23/14 05/15/17 Gabapentin [Neurontin] 300 mg PO TID 11/23/14 05/15/17 metFORMIN [Glucophage] 500 mg PO DAILY 11/23/14 05/15/17 [place]-3/Dha/Epa/Fish Oil [Fish Oil 1 each PO DAILY 05/31/15 05/15/17 1,000 mg Softgel] Cetirizine HCl [Zyrtec] 10 mg PO DAILY 05/30/16 05/15/17 Isosorbide MONOnitrate (24 HR) 30 mg PO DAILY 08/26/16 05/15/17 [Imdur] Warfarin [Coumadin] 1 mg PO TUTHSA 12/11/16 05/15/17 Warfarin [Coumadin] 2 mg PO DAILY 12/11/16 05/15/17 Buspirone HCl [Buspar] 7.5 mg PO BID 01/09/17 05/15/17 Tramadol HCl [Ultram] 50 mg PO BID PRN 01/09/17 05/15/17 Amiodarone [Cordarone] 200 mg PO DAILY 05/15/17 05/15/17 Metoprolol XL (24 HR) Succ [Toprol 100 mg PO TID 05/15/17 05/15/17 Xl] Previous Rx's Medication Instructions Recorded Amlodipine/Atorvastatin [Caduet 10 1 each PO DAILY #30 tablet 08/28/15 mg-40 mg Tablet] Clopidogrel [Plavix] 75 mg PO DAILY #30 tablet 08/28/15 Furosemide [Lasix] 20 mg PO DAILY PRN #30 tablet 09/03/16 Lisinopril [Zestril] 2.5 mg PO DAILY #60 tablet 09/03/16 Allergies Allergy/AdvReac Type Severity Reaction Status Date / Time Erythromycin Base AdvReac Gastrointestinal Verified 12/10/16 21:40 [From Erythrocin] Upset All systems ED: reviewed and negative except as stated. Constitutional: Reports: as per HPI. Denies: fever ENT ED: Reports: ear pain. Denies: throat pain Cardiovascular: Denies: chest pain, palpitations Respiratory: Denies: cough, dyspnea Gastrointestinal: Denies: nausea, vomiting Chest Pain PMH - Past Medical History Medical history: Reports: atrial fibrillation, cancer, other Surgical history: Reports: cholecystectomy, REMINGTON/BSO Psychiatric history: Reports: no psych history - Social History Smoking Status: Never smoker Alcohol use: Reports: none Drug use: Reports: none Physical Exam - General Limitations: no limitations General appearance: alert, in no apparent distress - Head Head exam: atraumatic, normocephalic, normal inspection - Eye Eye exam: Present: normal appearance, PERRL, EOMI - ENT ENT exam: normal exam, normal oropharynx, mucous membranes moist - Expanded ENT Exam TM/Canal: Hemotympanum: Left TM, Erythema: Left TM, Bulging: Left TM, Effusion: Left TM, Perforation: Left TM Nose exam: negative: rhinorrhea Mouth exam: Present: normal external inspection Teeth exam: Present: normal inspection Throat exam: Present: normal inspection - Neck Neck exam: Present: normal inspection, trachea midline - Chest Chest inspection: Present: normal inspection, symmetric chest wall rise - Respiratory Respiratory exam: Present: normal lung sounds bilaterally - Cardiovascular Cardiovascular exam: Present: regular rate, normal rhythm. Absent: systolic murmur - Abdominal Exam Abdominal exam: Present: soft, Non-Tender - Extremities Exam Extremities exam: Present: normal inspection. Absent: pedal edema - Back Exam Back exam: Present: normal inspection - Neurological Exam Neurological exam: Present: alert, oriented X3, CN II-XII intact - Skin Skin exam: Present: warm, dry, intact, normal color Course Course Narrative: Patient seen and examined. Patient does have an elevated troponin from outpatient labs earlier today. It is possibly ACS equivalent with left ear pain. Patient will get basic lab work as well as EKG chest x-ray. Disposition likely admission. - Reevaluation(s) Reevaluation #1: Patient seen and examined. Patient's in no acute distress. Patient is updated on plan of care. Troponin came back elevated. Given EKG changes was alleged troponin patient be admitted to the hospitalist service for further evaluation. The patient's anticoagulate on Coumadin. Time: 23:32 Vital Signs Temperature 98.1 F 05/14/17 22:31 Pulse Rate 73 05/14/17 22:31 Respiratory Rate 16 05/14/17 22:31 Blood Pressure 181/84 05/14/17 22:31 O2 Sat by Pulse Oximetry 98 05/14/17 22:31 Temperature 97.9 F 05/15/17 03:40 Pulse Rate 61 05/15/17 03:40 Respiratory Rate 16 05/15/17 03:40 Blood Pressure 142/69 05/15/17 03:40 O2 Sat by Pulse Oximetry 97 05/15/17 03:40 Oxygen Delivery Oxygen Delivery Room Air Chest Pain - Lab Data Result diagrams: 05/15/17 03:04 05/15/17 03:04 Lab Results 05/14/17 05/14/17 05/14/17 Range/Units 22:59 22:59 22:59 WBC 10.2 (4.3-11.1) K/mcL RBC 4.17 (3.82-4.97) M/mcL Hgb 12.5 (11.5-15.4) g/dL Hct 37.5 (35.3-44.9) % MCV 89.9 (83.0-100.0) fL MCH 30.0 (28.0-33.3) pg MCHC 33.3 (31.6-35.5) g/dL RDW 13.1 (11.5-14.5) % Plt Count 272 (140-400) K/mcL MPV 9.1 L (9.4-12.4) fL Immature Gran % 0.3 (0-4) % Seg Neutrophils % 67.2 % Lymphocytes % 25.1 % Monocytes % 6.3 % Eosinophils % 0.5 % Basophils % 0.6 % Neutrophils # 6.9 (1.6-8.9) K/mcL Lymphocytes # 2.6 (0.6-4.6) K/mcL Monocytes # 0.6 (0.0-1.3) K/mcL Eosinophils # 0.1 (0.0-0.6) K/mcL Basophils # 0.1 (0.0-0.2) K/mcL PT 34.3 H (9.4-12.1) Seconds INR 3.1 APTT 46.6 H (26.0-36.0) Seconds Sodium (136-145) mEq/L Potassium (3.5-5.1) mEq/L Chloride (98-107) mEq/L Carbon Dioxide (23-29) mEq/L BUN (8-23) mg/dL Creatinine (0.60-1.20) mg/dL Est GFR ( Amer) (> 60) Est GFR (Non-Af Amer) (> 60) BUN/Creatinine Ratio (6-26) Glucose (70-105) mg/dL Calculated Osmolality (280-300) Calcium (8.6-10.3) mg/dL Troponin I (< 0.04) ng/mL B-Natriuretic Peptide 156 H (Less than 100) pg/mL 05/14/17 05/14/17 Range/Units 22:59 22:59 WBC (4.3-11.1) K/mcL RBC (3.82-4.97) M/mcL Hgb (11.5-15.4) g/dL Hct (35.3-44.9) % MCV (83.0-100.0) fL MCH (28.0-33.3) pg MCHC (31.6-35.5) g/dL RDW (11.5-14.5) % Plt Count (140-400) K/mcL MPV (9.4-12.4) fL Immature Gran % (0-4) % Seg Neutrophils % % Lymphocytes % % Monocytes % % Eosinophils % % Basophils % % Neutrophils # (1.6-8.9) K/mcL Lymphocytes # (0.6-4.6) K/mcL Monocytes # (0.0-1.3) K/mcL Eosinophils # (0.0-0.6) K/mcL Basophils # (0.0-0.2) K/mcL PT (9.4-12.1) Seconds INR APTT (26.0-36.0) Seconds Sodium 136 (136-145) mEq/L Potassium 3.5 (3.5-5.1) mEq/L Chloride 103 (98-107) mEq/L Carbon Dioxide 25 (23-29) mEq/L BUN 18 (8-23) mg/dL Creatinine 1.49 H (0.60-1.20) mg/dL Est GFR ( Amer) 42 L (> 60) Est GFR (Non-Af Amer) 34 L (> 60) BUN/Creatinine Ratio 12 (6-26) Glucose 159 H (70-105) mg/dL Calculated Osmolality 287 (280-300) Calcium 8.9 (8.6-10.3) mg/dL Troponin I 0.04 H* (< 0.04) ng/mL B-Natriuretic Peptide (Less than 100) pg/mL - EKG Data EKG attestation: Yes I reviewed and interpreted this EKG. EKG shows normal: sinus rhythm Rate: normal Rhythm: NSR [place]/QRS: normal T wave inversions noted in: I, aVL Interpretation: no acute changes, nonspecific ST-T wave changes Heart Score - Score History: Moderately Suspicious EKG: Non Specific repolarisation Disturbance Age: Greater than 65 Risk Factors: Equal/Greater than 3 risk factor or history of atherosclerotic disease Troponin: 1-3x normal limit HEART Score Total: 7 S.B.A.R. - S.B.A.R. Situation: Demographics Background: Presenting Complaint Assessment: Vital Signs, Course and respsone to treatment Recommendation: Barrier(s) to disposition, Recommendation based on pending studies, treatments, or consults S.B.A.R. Report Given to: Dr. Arias S.[email or web address]. Repor Time: 23:55 Attestation Statement - Attestation Attestation: I examined this patient and my medical decision-making was reviewed with the Resident Physician. I agree with the documented findings, disposition and treatment plan as described except to the extent set forth below. Elevated cardiac biomarkers. No evidence of chest pain. EKG nondiagnostic. Patient has isolated ear pain. We will admit for further evaluation and turning of cardiac biomarkers. I did not perform critical care time on this patient
[2017-05-14] MEDS ORDERED: Aspirin 81 MG TAB.CHEW PO ONE (22:55)
[2017-05-14 23:07] LABS: Basophils # 0.1 K/mcL (0.0-0.2); Basophils % 0.6 %; Eosinophils # 0.1 K/mcL (0.0-0.6); Eosinophils % 0.5 %; Hematocrit 37.5 % (35.3-44.9); Hemoglobin 12.5 g/dL (11.5-15.4); Immature Granulocytes % 0.3 % (0-4); Lymphocytes # 2.6 K/mcL (0.6-4.6); Lymphocytes % 25.1 %; Mean Corpuscular HGB Conc 33.3 g/dL (31.6-35.5); Mean Corpuscular Volume 89.9 fL (83.0-100.0); Mean Platelet Volume 9.1 fL (9.4-12.4); Monocytes # 0.6 K/mcL (0.0-1.3); Monocytes % 6.3 %; Neutrophils # 6.9 K/mcL (1.6-8.9); Platelet Count 272 K/mcL (140-400); Red Blood Count 4.17 M/mcL (3.82-4.97); Red Cell Distribution Width 13.1 % (11.5-14.5); Segmented Neutrophils % 67.2 %
[2017-05-14 23:13] LABS: INR 3.1; Prothrombin Time 34.3 Seconds (9.4-12.1)
[2017-05-14 23:15] LABS: Activated Partial Thrombo Time 46.6 Seconds (26.0-36.0)
[2017-05-14 23:21] LABS: Calcium 8.9 mg/dL (8.6-10.3); Potassium 3.5 mEq/L (3.5-5.1)
[2017-05-15] MEDS ORDERED: Naloxone 0.4 MG/ML INJ IVP PRN (01:23)
[2017-05-15] MEDS ORDERED: Dextrose Gel 15 GM/37.5 ML TUBE PO PRN ×2 (01:37)
[2017-05-15] MEDS ORDERED: *HR* Dextrose 50 % in Water (Syg) 50 ML SYRINGE IVP PRN (01:37)
[2017-05-15] MEDS ORDERED: D5% in Water 1,000 ML IVC PRN (01:37)
--- NOTE | 2017-05-15 01:47 | Internal Med History&Physical ---
Date of Encounter: 05/15/17 Time of Encounter: 00:30 Assessment and Plan (1) Elevated troponin Current visit: No Status: Acute Pt has ear ache, ER consider angina equivalent, mild elevated troponin. Pt seems has chronic elevated troponin. - Cont cardiac monitoring - Echo - Cont CAD meds - Not start heparin drip as pt's INR supratherapeutic now - Pt has unsuccessful stress test and doesn't want another stress test, will consult cardio for further recommendations (2) Acute renal failure Current visit: Yes Status: Acute Cr 1.49, elevated from baseline 0.98. Give IVF, f/u renal function, hold lisinopril and lasix, avoid nephrotoxic meds. Qualifiers: Acute renal failure type: unspecified Qualified Code(s): N17.9 - Acute kidney failure, unspecified (3) Ear ache Current visit: Yes Status: Acute Etiology is undetermined. Exam shows no acute infection/inflammation. It was considered angina equivalent as pt has elevated troponin. Cont closely monitor pain. (4) Breast cancer Current visit: No Status: Chronic F/U as outpatient Qualifiers: Breast location: unspecified site of breast Estrogen receptor status: unspecified Laterality: unspecified laterality Qualified Code(s): C50.919 - Malignant neoplasm of unspecified site of unspecified female breast (5) Paroxysmal atrial fibrillation Current visit: No Status: Chronic NSR now. Cont amiodarone and metoprolol for rate control and coumadin for AC (6) CAD (coronary artery disease) Current visit: No Status: Chronic Hx of CAD s/p Stent 2 years ago. Cont ASA, plavix, BB, and statin. Qualifiers: Coronary Disease-Associated Artery/Lesion type: enterprise artery [place] vs. transplanted heart: enterprise heart Associated angina: without angina Qualified Code(s): I25.10 - Atherosclerotic heart disease of enterprise coronary artery without angina pectoris (7) Hypertension Current visit: No Status: Chronic Cont home medication. Qualifiers: Hypertension type: essential hypertension Qualified Code(s): I10 - Essential (primary) hypertension (8) Diabetes Current visit: No Status: Chronic Place pt on SSI Qualifiers: Diabetes mellitus type: type 2 Diabetes mellitus complication status: without complication Diabetes mellitus director long term care insulin use: without intermediate use Qualified Code(s): E11.9 - Type 2 diabetes mellitus without complications (9) DVT prophylaxis Current visit: No Status: Acute Pt is on coumadin (10) LAUREL (obstructive sleep apnea) Current visit: Yes Status: Acute Cont CPAP at bed time Internal Medicine - H&P: HPI Chief complaint: Abnormal lab result Admitted From: Home Plans for Post Hospital Care: Home History of present illness: Ms. Amin is a 71 year old female with Hx of DM, HTN, PAF on coumadin, CAD s/ p stent, breast cancer, LAUREL on CPAP, called by PCP to ER b/o elevated troponin. Pt has left ear ache since yesterday and see PCP today. She was checked troponin which shows positive 0.05. Pt was called to go to ER and was admitted as NSTEMI. Pt denies fever, runny nose. Her earache is sharp pain, 4-5/10, last about several second and has intermittent pain every 10-15 minutes. Pt denies hearing loss or vertigo. Pt denies SOB, nausea,, or diaphoresis. In ER, EKG shows NSR, with I and avl T wave shallow inversion. Vitals stable and pt is in NAD. Past Med Surg Social Fam HX - Past Medical History Medical history: atrial fibrillation, cancer, other Psychiatric history: no psych history - Past Surgical History Surgical History: cholecystectomy, REMINGTON/BSO - Social History Smoking Status: Never smoker Smokeless Tobacco Status: No Alcohol use: none Drug use: none - Family History Mother Adopted: No Family Member Ethnicity: Non- Living Status: Hx Family Cardiac Disorders: Yes (htn) Hx Family Respiratory Disorders: No Hx Family Cancer: Yes (throat cancer) Hx Family GI Disorders: No Hx Family Endocrine Disorder: Yes (diabetic) Hx Family Neuromuscular Disorders: No Hx Family Neurologic Disorders: No Hx Family HEENT Disorders: No Hx Family Autoimmune Disorders: No Internal Medicine - H&P: Meds Aspirin Enteric Coated [Aspirin EC] 81 mg PO DAILY 11/23/14 [History] Cholecalciferol (D-3) [Vitamin D] 2,000 unit PO DAILY 11/23/14 [History] Cyclobenzaprine [Flexeril] 10 mg PO HS 11/23/14 [History] Gabapentin [Neurontin] 300 mg PO TID 11/23/14 [History] metFORMIN [Glucophage] 500 mg PO DAILY 11/23/14 [History] [place]-3/Dha/Epa/Fish Oil [Fish Oil 1,000 mg Softgel] 1 each PO DAILY 05/31/15 [ History] Amlodipine/Atorvastatin [Caduet 10 mg-40 mg Tablet] 1 each PO DAILY #30 tablet 08/28/15 [Rx] Clopidogrel [Plavix] 75 mg PO DAILY #30 tablet 08/28/15 [Rx] Cetirizine HCl [Zyrtec] 10 mg PO DAILY 05/30/16 [History] Isosorbide MONOnitrate (24 HR) [Imdur] 30 mg PO DAILY 08/26/16 [History] Furosemide [Lasix] 20 mg PO DAILY PRN #30 tablet 09/03/16 [Rx] Lisinopril [Zestril] 2.5 mg PO DAILY #60 tablet 09/03/16 [Rx] Warfarin [Coumadin] 1 mg PO TUTHSA 12/11/16 [History] Warfarin [Coumadin] 2 mg PO SUMOWEFR 12/11/16 [History] Buspirone HCl [Buspar] 7.5 mg PO BID 01/09/17 [History] Tramadol HCl [Ultram] 50 mg PO DAILY PRN 01/09/17 [History] Amiodarone [Cordarone] 200 mg PO DAILY 05/15/17 [History] Metoprolol XL (24 HR) Succ [Toprol Xl] 100 mg PO TID 05/15/17 [History] 3 Allergy/AdvReac Type Severity Reaction Status Date / Time Erythromycin Base AdvReac Gastrointestinal Verified 12/10/16 21:40 [From Erythrocin] Upset All Systems PM: A 10-system review of systems was performed and is negative for pertinent findings except as documented above in the HPI. - Constitutional Constitutional: no chills, no fever(s), no night sweats - EENT Eyes: no change in vision, no discharge, no pain, no photophobia Ears: ear pain, no ear discharge, no tinnitus Nose, mouth and throat: no dysphagia, no nasal discharge, no neck pain, no sore throat - Cardiovascular Cardiovascular ROS IM: no chest pain, no diaphoresis, no dyspnea, no lightheadedness, no palpitations, no syncope - Respiratory Respiratory: no cough, no dyspnea, no wheezing, no excessive phlegm production - Gastrointestinal Gastrointestinal: no abdominal pain, no diarrhea, no hematemesis, no hematochezia, no melena, no nausea, no vomiting - Genitourinary Genitourinary: no change in urinary stream, no dysuria, no flank pain, no hematuria - Musculoskeletal Musculoskeletal ROS IM: no numbness, no tingling - Integumentary Integumentary IM: no rash, no unusual bruising - Neurological Neurological ROS: no confusion, no convulsions, no focal weakness, no numbness, no tingling, no tremor(s) - Hematologic/Lymphatic Hematologic/Lymphatic: no easy bruising - Constitutional Vitals: Temp Pulse Resp BP Pulse Ox 98.1 F 61 14 143/69 97 05/14/17 22:31 05/14/17 22:57 05/15/17 00:41 05/15/17 00:41 05/15/17 00:40 General appearance: Present: A&O X 3, no acute distress, answers questions appropriately - Head Head exam: Present: atraumatic, normocephalic - Eye Eye exam: Present: PERRL, conjuntiva pink, sclera anicteric Pupils: Present: PERRL - ENT ENT exam: Present: normal external ear exam, TM's normal bilaterally - Neck Neck exam general surgery: Present: supple, trachea midline. Absent: lymphadenopathy - Respiratory Respiratory exam: Present: CTAB. Absent: accessory muscle use, rales, rhonchi, wheezes - Cardiovascular Cardiovascular exam: Present: RRR, +S1, +S2. Absent: diastolic murmur, gallop, rubs, systolic murmur - GI/Abdominal GI/Abdominal exam: Present: normal bowel sounds, soft, no peritoneal signs. Absent: distended, tenderness - Extremities Exam Extremities exam: Present: warm, radial pulses palpable and symmetrical. Absent : calf tenderness, cyanotic, pedal edema - Neurological Exam Neurological exam: Present: CN II-XII intact, oriented X3, no focal deficits. Absent: pronater drift, facial droop, speech deficit - Skin Skin exam: Present: dry, intact Internal Med - H&P Results - Labs CBC & Chem 7: 05/14/17 22:59 05/14/17 22:59 - EKG Data -: EKG Interpreted by Myself (With I and AVL T wave shallow inversion) EKG shows normal: sinus rhythm Rate: normal
[2017-05-15] MEDS ORDERED: traMADol 50 MG TABLET PO PRN (02:01)
[2017-05-15] MEDS: 0.9 % Sodium Chloride 1,000 ML IVC SCH ×2 (02:04→12:16)
[2017-05-15 03:43] LABS: Basophils # 0.1 K/mcL (0.0-0.2); Basophils % 0.6 %; Eosinophils # 0.1 K/mcL (0.0-0.6); Eosinophils % 1.1 %; Hematocrit 35.6 % (35.3-44.9); Hemoglobin 11.9 g/dL (11.5-15.4); Immature Granulocytes % 0.5 % (0-4); Lymphocytes # 2.7 K/mcL (0.6-4.6); Mean Corpuscular HGB Conc 33.4 g/dL (31.6-35.5); Mean Corpuscular Hemoglobin 29.6 pg (28.0-33.3); Mean Corpuscular Volume 88.6 fL (83.0-100.0); Mean Platelet Volume 9.2 fL (9.4-12.4); Monocytes # 0.6 K/mcL (0.0-1.3); Monocytes % 6.8 %; Neutrophils # 5.4 K/mcL (1.6-8.9); Platelet Count 243 K/mcL (140-400); Red Blood Count 4.02 M/mcL (3.82-4.97)
[2017-05-15 03:45] LABS: Calcium 8.8 mg/dL (8.6-10.3); Magnesium 1.6 mg/dL (1.6-2.6); Potassium 3.4 mEq/L (3.5-5.1)
[2017-05-15 04:15] LABS: INR 3.3; Prothrombin Time 36.9 Seconds (9.4-12.1)
[2017-05-15] MEDS: Isosorbide MONOnitrate (24 HR) 30 MG TAB.ER.24H PO SCH (08:41)
[2017-05-15] MEDS: *HR* Amiodarone 200 MG TABLET PO SCH (08:41)
[2017-05-15] MEDS: amLODIPine 5 MG TABLET PO SCH (08:41)
[2017-05-15] MEDS: Loratadine 10 MG TABLET PO SCH (08:41)
[2017-05-15] MEDS: Insulin LISPRO 300 UNITS/3 ML VIAL SQ SCH ×3 (08:42→17:15)
[2017-05-15] MEDS: Cholecalciferol (D-3) 1,000 UNIT TABLET PO SCH (08:49)
--- NOTE | 2017-05-15 08:52 | Cardiology Consult Note ---
Date of Encounter: 05/15/17 Time of Encounter: 08:47 Assessment and Plan (1) Elevated troponin Current Visit: Yes Status: Acute Troponins are borderline 0.05, 0.04, 0.04 in setting of LEONEL with creatinine 1.49 on admission, improved to 1.30 today. Suspect demand ischemia, nondiagnostic for ACS. Pt reports intermittent left ear pain since yesterday, not similar to her prior anginal equivalent. EKG on admission compared to EKG 12/12/16 is without acute change. Pt had new CMP with EF 35-45% 08/2016, thought to be tachycardia induced at that time secondary to A-Fib RVR. Pt has been in SR since successful AMANDA/DCCV 08/2016. No repeat echo has been done since that time. Repeat echo. If EF has improved, do not anticipate any further cardiac work-up as inpt. However, if EF remains reduced, will need to consider LHC. Will discuss and review with Dr. Wolf. (2) Cardiomyopathy Current Visit: No Status: Acute CMP was a new diagnosis 08/2016 EF 35-45%, previously normal. Was thought to be tachycardia induced from A-Fib RVR at that time. Recheck echo. Pt euvolemic on exam. Continue BB. No ACEi due to LEONEL. Qualifiers: Cardiomyopathy type: unspecified Qualified Code(s): I42.9 - Cardiomyopathy , unspecified (3) CAD (coronary artery disease) Current Visit: Yes Status: Chronic LHC 08/27/15: Single vessel CAD. S/P successful PTCA/ALISON in mLCx and OM1. ASA, Plavix, Statin, BB, Nitrates. Qualifiers: Coronary Disease-Associated Artery/Lesion type: [place] artery [place] vs. transplanted heart: [place] heart Associated angina: without angina Qualified Code(s): I25.10 - Atherosclerotic heart disease of [place] coronary artery without angina pectoris (4) Paroxysmal atrial fibrillation Current Visit: No Status: Chronic Known hx of PAF. Successful AMANDA/DCCV 08/2016, maintained SR since that time on Amiodarone 200mg daily. Anticoagulated on Coumadin, INR 3.3. Discussion w patient/family: The assessment and plan as outlined above was discussed with the patient and/or family members who expressed understanding and agreement. All questions were answered. Thank you for involving us in the care of your patient. Please call with any questions. I will discuss all the above with Dr. Wolf and make changes as necessary. History of Present Illness Consult date: 05/15/17 Requesting physician: Mykel Hooks Consult reason: Elevated troponin Chief complaint: left ear pain History of present illness: Ms. Amin is a 71 year old female with PMH of DM, HTN, PAF on coumadin, CAD s/ p stent, CMP, breast cancer, LAUREL on CPAP that saw her PCP yesterday for left ear pain. Outpt troponin was checked, 0.05 and pt was instructed to report to ED. Troponins 0.05, 0.04, 0.04. LEONEL with creatinine 1.49 initially, 1.30 today. Reports ear pain is sharp pain, 4-5/10, lasts seconds that was intermittent pain every 10-15 minutes. Pt denies hearing loss or vertigo. Pt denies SOB, nausea,, or diaphoresis. Pt denies chest pain. Ear pain not her prior anginal equivalent. Echo 08/27/16 EF was reduced 35-45%, new CMP, thought to be tachycardia induced at that time. No repeat echo has been done since then. Prior CV testing: TTE 08/27/16: Impressions: LVEF 35-45%, new cardiomyopathy compared to previous EF assessment by ventriculogram on 08/27/2015 Moderate global left ventricular systolic dysfunction. Severely dilated left atrium. No pulmonary hypertension. AMANDA/DCCV 08/30/16: Impressions: Successful DCCV of atrial fibrillation to normal sinus rhythm after 1 attempt using 200J. Thrombus was not present in LA or NORA. Spontaneous echocontrast is visualized in the LA. Reduced flow velocities of the NORA. No patient complications. [facility] 08/27/15: Impressions: Single vessel coronary artery disease. The left ventricle is normal and has normal contractility EF 60% Patient had successful PTCA/Drug-Eluting Stent placement in the mid Circ. Patient had successful PTCA/Drug-Eluting Stent placement in the OM1. Past Med Surg Social Fam HX - Past Medical History Medical history: atrial fibrillation, cancer, cardiomyopathy, coronary artery disease, diabetes, other Psychiatric history: no psych history - Past Surgical History Surgical History: angioplasty/stent, cholecystectomy, REMINGTON/BSO - Social History Smoking Status: Never smoker Smokeless Tobacco Status: No Alcohol use: none Drug use: none - Family History Father Family Member Ethnicity: Non- Living Status: Hx Family Cardiac Disorders: Yes Hx Family Endocrine Disorder: Yes (Diabetic) Mother Adopted: No Family Member Ethnicity: Non- Living Status: Hx Family Cardiac Disorders: Yes (htn) Hx Family Respiratory Disorders: No Hx Family Cancer: Yes (throat cancer) Hx Family GI Disorders: No Hx Family Endocrine Disorder: Yes (diabetic) Hx Family Neuromuscular Disorders: No Hx Family Neurologic Disorders: No Hx Family HEENT Disorders: No Hx Family Autoimmune Disorders: No Medications and Allergies Aspirin Enteric Coated [Aspirin EC] 81 mg PO DAILY 11/23/14 [History] Cholecalciferol (D-3) [Vitamin D] 2,000 unit PO DAILY 11/23/14 [History] Cyclobenzaprine [Flexeril] 10 mg PO BID 11/23/14 [History] Gabapentin [Neurontin] 300 mg PO TID 11/23/14 [History] metFORMIN [Glucophage] 500 mg PO BID 11/23/14 [History] Martin-3/Dha/Epa/Fish Oil [Fish Oil 1,000 mg Softgel] 1 each PO DAILY 05/31/15 [ History] Clopidogrel [Plavix] 75 mg PO DAILY #30 tablet 08/28/15 [Rx] Cetirizine HCl [Zyrtec] 10 mg PO DAILY 05/30/16 [History] Isosorbide MONOnitrate (24 HR) [Imdur] 30 mg PO DAILY 08/26/16 [History] Furosemide [Lasix] 20 mg PO DAILY PRN #30 tablet 09/03/16 [Rx] Lisinopril [Zestril] 2.5 mg PO DAILY #60 tablet 09/03/16 [Rx] Warfarin [Coumadin] 1 mg PO SUMOTUWEFRSA 12/11/16 [History] Warfarin [Coumadin] 2 mg PO TH 12/11/16 [History] Buspirone HCl [Buspar] 7.5 mg PO BID 01/09/17 [History] Tramadol HCl [Ultram] 50 mg PO BID PRN 01/09/17 [History] Amiodarone [Cordarone] 200 mg PO BID 05/15/17 [History] Amlodipine/Atorvastatin [Caduet 10 mg-80 mg Tablet] 1 cap PO DAILY 05/15/17 [ History] Metoprolol [Lopressor] 50 mg PO TID 05/15/17 [History] 3 Allergy/AdvReac Type Severity Reaction Status Date / Time Erythromycin Base AdvReac Gastrointestinal Verified 12/10/16 21:40 [From Erythrocin] Upset All Systems Review: A 10-system review of systems was performed and is negative for pertinent findings except as documented above in the HPI. - EENT Ears: left: ear pain Physical Examination Vital Signs, Last 4 Hours Temp Pulse Resp BP Pulse Ox 05/15/17 07:36 98.6 F 58 16 152/77 96 Vital Signs Temp Pulse Resp BP Pulse Ox 05/15/17 07:36 98.6 F 58 16 152/77 96 05/15/17 03:40 97.9 F 61 16 142/69 97 05/15/17 02:21 97.6 F 60 16 131/86 92 05/15/17 00:41 14 143/69 05/15/17 00:40 97 05/14/17 22:57 61 14 159/83 95 05/14/17 22:31 98.1 F 73 16 181/84 98 Intake and Output 05/14/17 05/15/17 05/15/17 23:59 07:59 15:59 Intake Total 240 / 240 Balance 240 / 240 Intake: Oral 240 / 240 Other: Meal Breakfast Percent of Meal Consumed 100% # Voids 1 1 Weight 89.811 kg Blood Glucose* 120 General: Conversant, No Apparent Distress HEENT: Atraumatic, Normocephaly, Mucus Membranes Moist Neck: No JVD, Normal carotid pulses Cardiac: Reg Rate and Rhythm, Normal S1 and S2, No Murmur Lungs: Normal Breath Sounds, No Wheeze, Rales, Rhonchi Neuro: Alert and responsive, No focal deficits noted Abdomen: Soft, Non-Tender Skin: No rashes noted on visualized skin Musculoskeletal: No Chest Wall Tenderness Extremities: No Clubbing, No Cyanosis, No Edema, Normal Pulses Results 05/15/17 03:04 05/15/17 03:04 Lab Results 05/15/17 05/15/17 05/15/17 03:04 03:04 03:04 WBC 8.9 Hgb 11.9 Hct 35.6 Plt Count 243 INR Sodium 142 Potassium 3.4 L Chloride 105 Carbon Dioxide 26 BUN 20 Creatinine 1.30 H Glucose 119 H Calcium 8.8 Magnesium 1.6 Troponin I 0.04 H* 05/15/17 03:04 WBC Hgb Hct Plt Count INR 3.3 Sodium Potassium Chloride Carbon Dioxide BUN Creatinine Glucose Calcium Magnesium Troponin I Short CBC 05/15/17 05/14/17 Range/Units 03:04 22:59 WBC 8.9 10.2 (4.3-11.1) K/mcL Hgb 11.9 12.5 (11.5-15.4) g/dL Hct 35.6 37.5 (35.3-44.9) % Plt Count 243 272 (140-400) K/mcL Neutrophils # 5.4 6.9 (1.6-8.9) K/mcL BMP 05/15/17 05/14/17 Range/Units 03:04 22:59 Sodium 142 136 (136-145) mEq/L Potassium 3.4 L 3.5 (3.5-5.1) mEq/L Chloride 105 103 (98-107) mEq/L Carbon Dioxide 26 25 (23-29) mEq/L BUN 20 18 (8-23) mg/dL Creatinine 1.30 H 1.49 H (0.60-1.20) mg/dL Glucose 119 H 159 H (70-105) mg/dL Calcium 8.8 8.9 (8.6-10.3) mg/dL Cardiac Enzymes 05/15/17 05/15/17 05/14/17 Range/Units 08:04 03:04 22:59 Troponin I 0.05 H* 0.04 H* 0.04 H* (< 0.04) ng/mL Impressions Chest X-Ray 05/14/17 22:50 IMPRESSION: No acute cardiopulmonary abnormality. D/ / Faraz Irizarry / Faraz Irizarry Interpreting Provider: Faraz Irizarry Active Medications Amiodarone HCl (Cordarone) 200 mg PO DAILY [facility] Stop: 11/14/17 09:01 Last Admin: 05/15/17 08:41 Dose: 200 mg Amlodipine Besylate (Norvasc) 10 mg PO DAILY [facility] Stop: 11/14/17 09:01 Last Admin: 05/15/17 08:41 Dose: 10 mg Aspirin (Aspirin Ec) 81 mg PO DAILY [facility] Stop: 11/14/17 09:01 Last Admin: 05/15/17 08:53 Dose: 81 mg Atorvastatin Calcium (Lipitor) 40 mg PO DAILY [facility] Stop: 11/14/17 09:01 Last Admin: 05/15/17 08:42 Dose: 40 mg Buspirone HCl (Buspar) 7.5 mg PO BID [facility] Stop: 11/14/17 09:01 Last Admin: 05/15/17 08:41 Dose: 7.5 mg Clopidogrel Bisulfate (Plavix) 75 mg PO DAILY [facility] Stop: 11/14/17 09:01 Last Admin: 05/15/17 08:41 Dose: 75 mg Dextrose/Water (Dextrose 50% (Syg)) 25 ml IVP AD PRN PRN Reason: Hypoglycemia Stop: 11/14/17 01:38 Glucagon (Glucagen) 1 mg IM ONCE PRN PRN Reason: Hypoglycemia Stop: 11/14/17 01:38 Glucose (Gluctose) 15 gm PO ONCE PRN PRN Reason: Hypoglycemia Stop: 11/14/17 01:38 Glucose (Gluctose) 30 gm PO ONCE PRN PRN Reason: Hypoglycemia Stop: 11/14/17 01:38 Sodium Chloride (0.9 % Sodium Chloride) 1,000 mls @ 100 mls/hr IVC .Q10H [facility] Stop: 05/15/17 21:29 Last Admin: 05/15/17 02:04 Dose: 100 mls/hr Dextrose (Dextrose 5%) 1,000 mls @ 100 mls/hr IVC .Q10H PRN PRN Reason: HYPOGLYCEMIA Stop: 11/14/17 01:38 Insulin Human Lispro (Humalog) 0 units SQ HS [facility] PRN Reason: Protocol Stop: 11/14/17 21:01 Insulin Human Lispro (Humalog) 0 units SQ TIDAC [facility] PRN Reason: Protocol Stop: 11/14/17 07:31 Last Admin: 05/15/17 08:42 Dose: Not Given Isosorbide Mononitrate (Imdur) 30 mg PO DAILY [facility] Stop: 11/14/17 09:01 Last Admin: 05/15/17 08:41 Dose: 30 mg Loratadine (Claritin) 10 mg PO DAILY [facility] Stop: 11/14/17 09:01 Last Admin: 05/15/17 08:41 Dose: 10 mg Metoprolol Tartrate (Lopressor) 50 mg PO Q8H [facility] Stop: 11/14/17 01:46 Last Admin: 05/15/17 08:42 Dose: 50 mg Naloxone HCl (Narcan) 0.4 mg IVP Q2MIN PRN PRN Reason: SEE COMMENTS Stop: 11/14/17 01:24 Tramadol HCl (Ultram) 50 mg PO BID PRN PRN Reason: Pain Stop: 11/14/17 02:02 Vitamin D (Vitamin D) 1,000 unit PO DAILY [facility] Stop: 11/14/17 09:01 Last Admin: 05/15/17 08:49 Dose: 1,000 unit Warfarin Sodium (Coumadin Perpt) 1 each PO DAILY@1800 PRN PRN Reason: SEE COMMENTS Stop: 11/14/17 18:01 - Imaging and Cardiology Echo: report reviewed Cardiac cath: report reviewed - EKG Interpretation EKG results cardiology: personally reviewed, other (12 hr tele AVG HR 59, no significant pauses or arrhythmias) Consult Discharge Plan - Plan Referrals: Thelma Latif CNP [Primary Care Provider] - Liliana Pedro MD [Family Provider] -
[2017-05-15] MEDS: Aspirin Enteric Coated 81 MG Tablet PO SCH (08:53)
--- NOTE | 2017-05-15 15:34 | Event Note ---
Date of Encounter: 05/15/17 Time of Encounter: 15:31 Cardiology saw the patient saw afternoon and ordered an echocardiogram. Their thoughts are if there is no improvement in her cardiac output from previous echocardiogram with EF 35-45%, would consider left heart
[2017-05-15] MEDS ORDERED: Warfarin perPT PO PRN (18:00)
[2017-05-15] MEDS ORDERED: Insulin LISPRO 300 UNITS/3 ML VIAL SQ SCH (21:00)
--- NOTE | 2017-05-15 21:02 | Electrocardiograph Report ---
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
[2017-05-16 06:50] LABS: INR 2.2; Prothrombin Time 23.6 Seconds (9.4-12.1)
[2017-05-16] MEDS: Insulin LISPRO 300 UNITS/3 ML VIAL SQ SCH ×2 (08:13→11:21)
[2017-05-16] MEDS: Loratadine 10 MG TABLET PO SCH (09:07)
[2017-05-16] MEDS: Cholecalciferol (D-3) 1,000 UNIT TABLET PO SCH (09:07)
[2017-05-16] MEDS: amLODIPine 5 MG TABLET PO SCH (09:07)
[2017-05-16] MEDS: Isosorbide MONOnitrate (24 HR) 30 MG TAB.ER.24H PO SCH (09:07)
[2017-05-16] MEDS: Aspirin Enteric Coated 81 MG Tablet PO SCH (09:07)
[2017-05-16] MEDS: *HR* Amiodarone 200 MG TABLET PO SCH (09:07)
--- NOTE | 2017-05-16 09:10 | Cardiology Progress Note ---
Date of Encounter: 05/16/17 Time of Encounter: 09:07 Assessment and Plan (1) Elevated troponin Current Visit: Yes Status: Acute Troponins are borderline 0.05, 0.04, 0.04 in setting of LEONEL with creatinine 1.49 on admission, improved to 1.30 yesterday. Suspect demand ischemia, nondiagnostic for ACS. Pt reports intermittent left ear pain for 2 days, not similar to her prior anginal equivalent. Ear pain is sharp, not associated with exertion and is worse when "air hits it" . Pt denies chest pain or dyspnea, or any symptoms similar to prior anginal equivalent. EKG on admission compared to EKG 12/12/16 is without acute change. Pt had new CMP with EF 35-45% 08/2016, thought to be tachycardia induced at that time secondary to A-Fib RVR. Pt has been in SR since successful AMANDA/DCCV 08/2016. Echo repeated and EF has improved, now 60%. No wall motion abnormalities. Moderate AR, mild-moderate MR. No further ischemic evaluation is warranted as inpt. Cardiology signing off. Reconsult PRN. Will coordinate outpt follow-up in 2 weeks. (2) Cardiomyopathy Current Visit: No Status: Resolved CMP was a new diagnosis 08/2016 EF 35-45%, previously normal. Was thought to be tachycardia induced from A-Fib RVR at that time. Echo rechecked yesterday--EF has now normalized, 60% with normal wall motion. Continue BB. No ACEi due to LEONEL. Qualifiers: Cardiomyopathy type: unspecified Qualified Code(s): I42.9 - Cardiomyopathy , unspecified (3) CAD (coronary artery disease) Current Visit: Yes Status: Chronic LHC 08/27/15: Single vessel CAD. S/P successful PTCA/ALISON in mLCx and OM1. ASA, Plavix, Statin, BB, Nitrates. Qualifiers: Coronary Disease-Associated Artery/Lesion type: [place] artery [place] vs. transplanted heart: [place] heart Associated angina: without angina Qualified Code(s): I25.10 - Atherosclerotic heart disease of [place] coronary artery without angina pectoris (4) Paroxysmal atrial fibrillation Current Visit: No Status: Chronic Known hx of PAF. Successful AMANDA/DCCV 08/2016, maintained SR since that time on Amiodarone 200mg daily. Continue BB. Anticoagulated on Coumadin, INR 2.2. Discussion w patient/family: The assessment and plan as outlined above was discussed with the patient and/or family members who expressed understanding and agreement. All questions were answered. Thank you for involving us in the care of your patient. Please call with any questions. I will discuss all the above with Dr. Wolf and make changes as necessary. Subjective Principal diagnosis: Ear pain Interval history: Pt reports left ear pain continues to be intermittent, sharp in nature, worse when air hits her ear. As prior consult note mentioned, this is not similar to her past anginal equivalent. Denies chest pain or dyspnea overnight. Ear pain is not associated with exertion. Echo resulted--EF has improved/normalized 60% since last echo. No wall motion abnormalities. Diastolic dysfunction, moderate AR, mild-moderate MR. Objective Vital Signs, Last 4 Hours Temp Pulse Resp BP Pulse Ox 05/16/17 08:05 97.7 F 54 18 152/83 95 Vital Signs Temp Pulse Resp BP Pulse Ox 05/16/17 08:05 97.7 F 54 18 152/83 95 05/15/17 23:43 98.1 F 63 12 151/81 98 05/15/17 19:14 97.9 F 63 14 152/72 94 05/15/17 15:37 98.2 F 61 18 149/64 97 05/15/17 11:18 98.6 F 65 16 127/68 95 Intake and Output 05/15/17 05/16/17 05/16/17 23:59 07:59 15:59 Other: Blood Glucose* 129 130 General: Conversant, No Apparent Distress HEENT: Atraumatic, Normocephaly, Mucus Membranes Moist Neck: No JVD, Normal carotid pulses Cardiac: Reg Rate and Rhythm, Normal S1 and S2, No Murmur Lungs: Normal Breath Sounds, No Wheeze, Rales, Rhonchi Neuro: Alert and responsive, No focal deficits noted Abdomen: Soft, Non-Tender Skin: No rashes noted on visualized skin Musculoskeletal: No Chest Wall Tenderness Extremities: No Clubbing, No Cyanosis, No Edema, Normal Pulses Results 05/15/17 03:04 05/15/17 03:04 Lab Results Impressions Echocardiogram 05/15/17 08:45 Impressions: LVEF 60%. Diastolic dysfunction with elevated filling pressure. Normal right ventricular structure and function. Moderate aortic regurgitation. Mild-moderate mitral regurgitation. No pulmonary hypertension by TR gradient, 29 mmHg. IVC is not well visualized. Ascending aorta is not well visualized. Left Ventricular Wall Motion: Rest Echo Findings All wall segments showed normal motion. Findings: Study Quality * Technically adequate exam. ECG Findings * Normal sinus rhythm. Left Ventricle * LVEF 60%. * Normal LV chamber size, wall thickness and function. * Diastolic dysfunction with elevated filling pressure. Right Ventricle * Normal right ventricular structure and function. Left Atrium * Moderately dilated left atrium. Right Atrium * Normal right atrial size. Aortic Valve * Aortic valve not well visualized. * No aortic stenosis. * Moderate aortic regurgitation. Mitral Valve * Normal mitral valve structure. * No mitral stenosis. * Mild mitral annular calcification * Mild-moderate mitral regurgitation. Tricuspid Valve * Normal tricuspid valve structure. * Trace tricuspid regurgitation. Pulmonic Valve * Pulmonic valve is not well visualized. * No pulmonic stenosis. * Trace pulmonic regurgitation. Pulmonary Artery * Pulmonary artery not well visualized. Aorta * Normally sized aortic root. * Ascending aorta not well visualized. Pericardium * There is no pericardial effusion present. Interatrial Septum * Interatrial septum not well evaluated. IVC * The IVC is not well evaluated. Active Medications Amiodarone HCl (Cordarone) 200 mg PO DAILY [facility] Stop: 11/14/17 09:01 Last Admin: 05/15/17 08:41 Dose: 200 mg Amlodipine Besylate (Norvasc) 10 mg PO DAILY [facility] Stop: 11/14/17 09:01 Last Admin: 05/15/17 08:41 Dose: 10 mg Aspirin (Aspirin Ec) 81 mg PO DAILY [facility] Stop: 11/14/17 09:01 Last Admin: 05/15/17 08:53 Dose: 81 mg Atorvastatin Calcium (Lipitor) 40 mg PO DAILY [facility] Stop: 11/14/17 09:01 Last Admin: 05/15/17 08:42 Dose: 40 mg Buspirone HCl (Buspar) 7.5 mg PO BID [facility] Stop: 11/14/17 09:01 Last Admin: 05/15/17 22:10 Dose: 7.5 mg Clopidogrel Bisulfate (Plavix) 75 mg PO DAILY [facility] Stop: 11/14/17 09:01 Last Admin: 05/15/17 08:41 Dose: 75 mg Dextrose/Water (Dextrose 50% (Syg)) 25 ml IVP AD PRN PRN Reason: Hypoglycemia Stop: 11/14/17 01:38 Glucagon (Glucagen) 1 mg IM ONCE PRN PRN Reason: Hypoglycemia Stop: 11/14/17 01:38 Glucose (Gluctose) 15 gm PO ONCE PRN PRN Reason: Hypoglycemia Stop: 11/14/17 01:38 Glucose (Gluctose) 30 gm PO ONCE PRN PRN Reason: Hypoglycemia Stop: 11/14/17 01:38 Dextrose (Dextrose 5%) 1,000 mls @ 100 mls/hr IVC .Q10H PRN PRN Reason: HYPOGLYCEMIA Stop: 11/14/17 01:38 Insulin Human Lispro (Humalog) 0 units SQ HS [facility] PRN Reason: Protocol Stop: 11/14/17 21:01 Last Admin: 05/15/17 22:08 Dose: Not Given Insulin Human Lispro (Humalog) 0 units SQ TIDAC [facility] PRN Reason: Protocol Stop: 11/14/17 07:31 Last Admin: 05/16/17 08:13 Dose: Not Given Isosorbide Mononitrate (Imdur) 30 mg PO DAILY [facility] Stop: 11/14/17 09:01 Last Admin: 05/15/17 08:41 Dose: 30 mg Loratadine (Claritin) 10 mg PO DAILY [facility] Stop: 11/14/17 09:01 Last Admin: 05/15/17 08:41 Dose: 10 mg Metoprolol Tartrate (Lopressor) 50 mg PO Q8H [facility] Stop: 11/14/17 01:46 Last Admin: 05/16/17 00:30 Dose: 50 mg Naloxone HCl (Narcan) 0.4 mg IVP Q2MIN PRN PRN Reason: SEE COMMENTS Stop: 11/14/17 01:24 Tramadol HCl (Ultram) 50 mg PO BID PRN PRN Reason: Pain Stop: 11/14/17 02:02 Vitamin D (Vitamin D) 1,000 unit PO DAILY [facility] Stop: 11/14/17 09:01 Last Admin: 05/15/17 08:49 Dose: 1,000 unit Warfarin Sodium (Coumadin Perpt) 1 each PO DAILY@1800 PRN PRN Reason: SEE COMMENTS Stop: 11/14/17 18:01 05/15/17 05/16/17 08:04 06:30 INR 2.2 Troponin I 0.05 H* - Imaging and Cardiology Echo: report reviewed - EKG Interpretation EKG results cardiology: other (12 hr tele AVG HR 60, SR. No significant pauses or arrhythmias noted.) Consult Discharge Plan - Plan Referrals: Thelma Latif CNP [Primary Care Provider] - 05/30/17 1:30 pm Liliana Pedro MD [Family Provider] -
[2017-05-16 11:24] VITALS: BP 135/71
--- NOTE | 2017-05-16 13:13 | Discharge Summary ---
Date of Encounter: 05/16/17 Time of Encounter: 13:11 - Discharge Diagnosis (1) Breast cancer Priority: Secondary Status: Chronic Comments: F/U as outpatient Qualifiers: Breast location: unspecified site of breast Estrogen receptor status: unspecified Laterality: unspecified laterality Qualified Code(s): C50.919 - Malignant neoplasm of unspecified site of unspecified female breast (2) CAD (coronary artery disease) Priority: Primary Status: Chronic Comments: Cardiology saw the patient and reported left heart catheter from 08/27/15 showed signal vessel CAD status post successful PTCA/drug-eluting stent in the MLCx and OM1 Echo was rechecked and showed a normalized EF of 60% with normal wall motion Recommend to continue the beta saroj, no Edouard secondary to AK I Qualifiers: Coronary Disease-Associated Artery/Lesion type: [place] artery [place] vs. transplanted heart: [place] heart Associated angina: without angina Qualified Code(s): I25.10 - Atherosclerotic heart disease of [place] coronary artery without angina pectoris (3) Cardiomyopathy Priority: Secondary Status: Resolved Comments: As per cardiology the cardiomyopathy with a new diagnosis from August 2016 with a EF of 35-45% which was previously normal. Was thought to be tachycardia induced from A. fib with rapid ventricular response at that time, echo was rechecked and the EF has normalized Qualifiers: Cardiomyopathy type: unspecified Qualified Code(s): I42.9 - Cardiomyopathy , unspecified (4) Ear ache Priority: Primary Status: Acute Comments: Her has been checked by her PCP before hospitalization, in the ER by the physician, and by myself. No obvious findings. Recommend ENT as an outpatient , the patient is willing so an appointment was made for her to see ENT (5) Elevated troponin Priority: Primary Status: Acute Comments: Cardiology consult Troponins were borderline 0.05, 0.04, 0.04 and a setting of acute kidney injury with creatinine 1.49 on admission which improved to 1.30. Cardiology suspected demand ischemia nondiagnostic for acute coronary syndrome. Ear pain is sharp and associated with air hitting it. Not associated with exertion so not likely an anginal equivalent EKG J was unchanged from previous EF improved on repeat echo Cardiology felt no further ischemic elevation was warranted as an inpatient She is to follow-up outpatient in 2 weeks (6) Paroxysmal atrial fibrillation Priority: Secondary Status: Chronic Comments: Currently in a sinus rhythm, continuehome meds and Coumadin for AC (7) Acute renal failure Priority: Primary Status: Acute Comments: Patient was given IV fluids and her Lasix and lisinopril was held Avoid nephrotoxic meds creatinine improved Follow-up with primary care physician as scheduled Qualifiers: Acute renal failure type: unspecified Qualified Code(s): N17.9 - Acute kidney failure, unspecified - Discharge Medications Home Medications: Aspirin Enteric Coated [Aspirin EC] 81 mg PO DAILY 11/23/14 [History] Cholecalciferol (D-3) [Vitamin D] 2,000 unit PO DAILY 11/23/14 [History] Cyclobenzaprine [Flexeril] 10 mg PO BID 11/23/14 [History] Gabapentin [Neurontin] 300 mg PO TID 11/23/14 [History] metFORMIN [Glucophage] 500 mg PO BID 11/23/14 [History] [place]-3/Dha/Epa/Fish Oil [Fish Oil 1,000 mg Softgel] 1 each PO DAILY 05/31/15 [ History] Clopidogrel [Plavix] 75 mg PO DAILY #30 tablet 08/28/15 [Rx] Cetirizine HCl [Zyrtec] 10 mg PO DAILY 05/30/16 [History] Isosorbide MONOnitrate (24 HR) [Imdur] 30 mg PO DAILY 08/26/16 [History] Furosemide [Lasix] 20 mg PO DAILY PRN #30 tablet 09/03/16 [Rx] Lisinopril [Zestril] 2.5 mg PO DAILY #60 tablet 09/03/16 [Rx] Warfarin [Coumadin] 1 mg PO SUMOTUWEFRSA 12/11/16 [History] Warfarin [Coumadin] 2 mg PO TH 12/11/16 [History] Buspirone HCl [Buspar] 7.5 mg PO BID 01/09/17 [History] Tramadol HCl [Ultram] 50 mg PO BID PRN 01/09/17 [History] Amiodarone [Cordarone] 200 mg PO BID 05/15/17 [History] Amlodipine/Atorvastatin [Caduet 10 mg-80 mg Tablet] 1 cap PO DAILY 05/15/17 [ History] Metoprolol [Lopressor] 50 mg PO TID 05/15/17 [History] Allergies/Adverse Reactions: 3 Allergy/AdvReac Type Severity Reaction Status Date / Time Erythromycin Base AdvReac Gastrointestinal Verified 12/10/16 21:40 [From Erythrocin] Upset Procedures/tests Complete & Pending: Procedures Performed prior 72 hours Category Date Time Status EV echocardiogram Routine Y 05/15/17 08:45 Completed Date of admission: 05/15/17 00:00 Primary care physician: Thelma Latif CNP Consults: 05/15/17 01:38 Consult to Cardiology [CONS] Routine Comment: Consulting Provider: Cardiology Ellie Reason for Consult: Elevated troponin, sent by PCP considering NSTEMI Call Completed: No Discharging clinician: Patsy Warren Anticipated date of discharge: 05/16/17 - Patient Status Disposition: Home, Self-Care Condition: Good Functional capacity at discharge: independent ambulation Overall status at discharge: patient is back to baseline - Discharge Instructions Instructions: Warfarin (By mouth), Myocardial Infarction (DC), Atrial Fibrillation (DC), Pacemaker (DC), Diabetes Mellitus Type 2 in Adults (DC), Chronic Hypertension (DC) Follow Up With: [facility] Argueta [Provider Group] - 05/21/17 1:45 pm (Tasneem Saha OCEAN EXPORT COORDINATOR) Thelma Latif CNP [Primary Care Provider] - 05/30/17 1:30 pm Liliana Pedro MD [Family Provider] - - Diet and Activity Activity: resume usual activities as tolerated Diet: advance to your usual diet Hospital course: Ms. Amin is a 71 year old female - Time Spent with Patient Total time spent providing and/or coordinating discharge services: - Constitutional Vitals: Temp Pulse Resp BP Pulse Ox 98.0 F 54 16 135/71 98 05/16/17 11:20 05/16/17 11:20 05/16/17 11:20 05/16/17 11:20 05/16/17 11:20 General appearance: Present: A&O X 3, no acute distress, answers questions appropriately
[2017-05-16] MEDS ORDERED: *HR* Warfarin 1 MG TABLET PO ONE (18:00)
== END 2017-05-16 13:57 | disposition home or self-care (01) ==
LOC: EMEROO 22:29 → 3BNU 22:29
PROVIDERS: ADMIT Internal Medicine; ATTEND Registered Nurse

== ENCOUNTER 2018-04-27 14:18 | Observation (INO) ==
--- NOTE | 2018-04-27 14:43 | Emergency Department Note ---
Disposition Clinical Impression: Delirium due to general medical condition, Elevated troponin Disposition: Admitted As Inpatient Condition: Fair Referrals: Thelma Latif CNP [Primary Care Provider] - Forms: ED Satisfaction Letter Altered Mental Status HPI - General Chief Complaint: ED Altered Mental Status Stated Complaint: AMS Time Seen by Provider: 04/27/18 14:29 Source: patient, family Mode of arrival: private vehicle Limitations: altered mental status Nursing Notes Reviewed: Yes Vital Signs Reviewed: Yes - History of Present Illness HPI Narrative: 72-year-old female history of atrial fibrillation on Coumadin, diabetes, hypertension, CAD with 2 stents previously presents today due to altered mental status. History is obtained from as the patient is unable to fully declare why she is here. He reports that she has recently had muscle spasms. She sought attention for this and received a prescription for baclofen. She took one 20 mg tablet on afternoon. He states that she slept the majority of evening as well as Sunday only getting up to use the bathroom. States she woke up this morning and was confused at home and acting inappropriately laughing. He denies any head injury that he is aware of. States yesterday she had a primary care appointment for which she her underwear outside of her jeans. Denies a prior history of stroke. No other new medications recently. No other complaints. MD complaint: altered mental status Onset (ago): day(s) Timing confirmed by: family member Consistency of Symptoms: constant Associated symptoms: Reports: denies other symptoms - Related Data Home Medications Medication Instructions Recorded Confirmed Aspirin Enteric Coated [Aspirin EC] 81 mg PO DAILY 11/23/14 04/27/18 Cholecalciferol (D-3) [Vitamin D] 2,000 unit PO DAILY 11/23/14 04/27/18 metFORMIN [Glucophage] 500 mg PO DAILY 11/23/14 04/27/18 [place]-3/Dha/Epa/Fish Oil [Fish Oil 1 each PO DAILY 05/31/15 04/27/18 1,000 mg Softgel] Cetirizine HCl [Zyrtec] 10 mg PO DAILY 05/30/16 04/27/18 Isosorbide MONOnitrate (24 HR) 30 mg PO DAILY 08/26/16 04/27/18 [Imdur] Warfarin [Coumadin] 1 mg PO SUMOWEFRSA 12/11/16 04/27/18 Warfarin [Coumadin] 2 mg PO TUTH 12/11/16 04/27/18 Tramadol HCl [Ultram] 50 mg PO BID PRN 01/09/17 04/27/18 Amiodarone [Cordarone] 200 mg PO BID 05/15/17 04/27/18 Metoprolol [Lopressor] 50 mg PO TID 05/15/17 04/27/18 Baclofen 20 mg PO Q8HR 04/27/18 04/27/18 Cyclobenzaprine HCl 10 mg PO BID 04/27/18 04/27/18 Gabapentin 600 mg PO TID 04/27/18 04/27/18 Lisinopril [Zestril] 40 mg PO DAILY 04/27/18 04/27/18 Previous Rx's Medication Instructions Recorded Clopidogrel [Plavix] 75 mg PO DAILY #30 tablet 08/28/15 Furosemide [Lasix] 20 mg PO DAILY PRN #30 tablet 09/03/16 Allergies Allergy/AdvReac Type Severity Reaction Status Date / Time Erythromycin Base AdvReac Gastrointestinal Verified 04/27/18 16:40 [From Erythrocin] Upset All systems ED: reviewed and negative except as stated. Cardiovascular: Denies: chest pain Respiratory: Denies: dyspnea Gastrointestinal: Reports: vomiting. Denies: abdominal pain, nausea Neurological: Denies: headache, numbness, paresthesias Past Medical History - Past Medical History Attestation: Yes The following information was validated with the patient. Source: patient Medical history: Reports: atrial fibrillation, cancer, cardiomyopathy, coronary artery disease, diabetes, hypertension, other Surgical history: Reports: angioplasty/stent, cholecystectomy, REMINGTON/BSO Psychiatric history: Reports: no psych history TARIFF COMPILER history: Reports: no TARIFF COMPILER history - Social History Smoking Status: Never smoker Smokeless Tobacco Status: No Alcohol use: Reports: rarely Drug use: Reports: none Physical Exam - General Limitations: altered mental status General appearance: alert, in no apparent distress - Head Head exam: atraumatic, normocephalic, normal inspection - Eye Eye exam: Present: normal appearance, PERRL, EOMI - ENT ENT exam: normal exam - Neck Neck exam: Present: normal inspection - Chest Chest inspection: Present: normal inspection, symmetric chest wall rise - Respiratory Respiratory exam: Present: normal lung sounds bilaterally - Cardiovascular Cardiovascular exam: Present: regular rate, normal rhythm, normal heart sounds - Abdominal Exam Abdominal exam: Present: soft, Non-Tender. Absent: tenderness, distention, rigidity - Extremities Exam Extremities exam: Present: normal inspection, full ROM - Expanded Upper Extremity Exam Shoulder exam: Present: normal inspection, full ROM Arm exam: Present: normal inspection, full ROM Elbow exam: Present: normal inspection, full ROM Forearm/Wrist exam: Present: normal inspection, full ROM Hand exam: Present: normal inspection, full ROM - Expanded Lower Extremity Exam Hip/Pelvis exam: Present: normal inspection, full ROM Upper leg exam: Present: normal inspection, full ROM Knee exam: Present: normal inspection, full ROM Lower leg exam: Present: normal inspection, full ROM Ankle exam: Present: normal inspection, full ROM Foot/toe exam: Present: normal inspection, full ROM Neurovascular/Tendon exam: Absent: motor deficit, sensory deficit - Neurological Exam Neurological exam: Present: alert, CN II-XII intact. Absent: oriented X3, motor sensory deficit - Expanded Neurological Exam Patient oriented to: Present: person Speech: Present: expressive aphasia Cranial nerves: EOM function (II, III, IV, ): Normal, facial sensation (V): Normal, spinal accessory function (XI): Normal, tongue deviation (XII): Normal Cerebellar function: finger to nose: Normal Motor strength - LUE: 5/5 Motor strength - RUE: 5/5 Motor strength - LLE: 5/5 Motor strength - RLE: 5/5 Sensory exam upper extremity: light touch: Normal Sensory exam lower extremity: light touch: Normal Coma Scale Eye Opening: Spontaneous Coma Scale Motor Response: Obeys Commands Coma Scale Verbal Response: Confused Coma Scale Total: 14 - Psychiatric Psychiatric exam: Absent: normal affect - Skin Skin exam: Present: warm, dry Course Course Narrative: Patient seen and examined. Vital signs reviewed. She is alert and oriented 1 here. No focal deficits. Plan for an EKG, CT head, labs, urinalysis. Discussed with the patient's . She warrants admission at this time due to her profound altered mental status. - Reevaluation(s) Reevaluation #1: Discussed results of imaging labs with the patient and family. They are comfortable with the current plan. She is noted to have an elevated troponin without EKG changes. Aspirin ordered. She also reports a mild headache at this time and would like something for that. Tylenol ordered as well. Plan to admit. Vital Signs Temperature 97.7 F 04/27/18 14:21 Pulse Rate 71 04/27/18 14:21 Respiratory Rate 18 04/27/18 14:21 Blood Pressure 188/74 04/27/18 14:21 O2 Sat by Pulse Oximetry 100 04/27/18 14:21 Temperature 97.7 F 04/27/18 14:31 Pulse Rate 51 04/27/18 16:45 Respiratory Rate 18 04/27/18 16:45 Blood Pressure 157/67 04/27/18 16:45 O2 Sat by Pulse Oximetry 100 04/27/18 16:45 Oxygen Delivery Oxygen Delivery Room Air Altered Mental Status - MDM Narrative Medical decision making narrative: 72-year-old female with altered mental status since evening. She was started on baclofen however has only had 1 dose and seems to have symptoms disproportionate to 1 pill. She is alert and oriented 1 here. She has no focal deficits. Imaging reviewed showing old lacunar infarcts. Labs demonstrated an elevated troponin of 0.11. EKG is nonischemic. Urinalysis de monstrates nitrates and leukocyte Estrace without bacteria or WBC. Given her current symptomatology we will begin treatment with Rocephin with culture pending. Patient admitted to the hospitalist service. - Lab Data Lab results reviewed: Yes I reviewed the patient's lab results. Result diagrams: 04/27/18 14:35 04/27/18 14:35 Lab Results 04/27/18 04/27/18 04/27/18 Range/Units 14:35 14:35 14:35 WBC 11.4 H (4.3-11.1) K/mcL RBC 5.43 H (3.82-4.97) M/mcL Hgb 16.1 H (11.5-15.4) g/dL Hct 48.7 H (35.3-44.9) % MCV 89.7 (83.0-100.0) fL MCH 29.7 (28.0-33.3) pg MCHC 33.1 (31.6-35.5) g/dL RDW 14.4 (11.5-14.5) % Plt Count 358 (140-400) K/mcL MPV 9.4 (9.4-12.4) fL Immature Gran % 0.4 (0-4) % Seg Neutrophils % 71.3 % Lymphocytes % 20.5 % Monocytes % 7.2 % Eosinophils % 0.1 % Basophils % 0.5 % Neutrophils # 8.1 (1.6-8.9) K/mcL Lymphocytes # 2.3 (0.6-4.6) K/mcL Monocytes # 0.8 (0.0-1.3) K/mcL Eosinophils # 0.0 (0.0-0.6) K/mcL Basophils # 0.1 (0.0-0.2) K/mcL PT 17.0 H (9.4-12.1) Seconds INR 1.5 APTT 39.2 H (26.0-36.0) Seconds Sodium 144 (136-145) mEq/L Potassium 3.5 (3.5-5.1) mEq/L Chloride 105 (98-107) mEq/L Carbon Dioxide 23 (23-29) mEq/L BUN 15 (8-23) mg/dL Creatinine 0.86 (0.60-1.20) mg/dL Est GFR ( Amer) > 60 (> 60) Est GFR (Non-Af Amer) > 60 (> 60) BUN/Creatinine Ratio 17 (6-26) Glucose 138 H (70-105) mg/dL Calculated Osmolality 301 H (280-300) Calcium 10.0 (8.6-10.3) mg/dL Total Bilirubin 1.8 H (0.3-1.0) mg/dL Direct Bilirubin 0.4 H (0.0-0.2) mg/dL Indirect Bilirubin 1.4 H (0.0-1.2) mg/dL AST 64 H (13-39) Units/L ALT 61 H (7-52) Units/L Alkaline Phosphatase 98 (34-104) Units/L Ammonia (16-53) mcmol/L Troponin I 0.11 H* (< 0.04) ng/mL Serum Total Protein 7.5 (6.4-8.9) g/dL Albumin 4.4 (3.5-5.7) g/dL Globulin 3.1 (2.4-3.5) g/dL Albumin/Globulin Ratio 1.4 (1.1-2.2) TSH 5.655 H (0.340-5.600) mcIU/mL Urine Color (Yellow) Urine Clarity (Clear) Urine pH (5.0-8.0) pH Units Ur Specific [place] (1.010-1.025) Urine Protein (Neg-Trace) mg/dL Urine Glucose (UA) (Normal) mg/dL Urine Ketones (Negative) mg/dL Urine Blood (Negative) Urine Nitrite (Negative) Urine Bilirubin (Negative) Urine Urobilinogen (Normal) mg/dL Ur Leukocyte Esterase (Negative) Urine Microscopic RBC (0-3) per hpf Urine Microscopic WBC (0-3) per hpf Ur Squamous Epith Cells (None-Few) per lpf Urine Bacteria (None-Few) per hpf Hyaline Casts (None-Few) per lpf Ur Culture Indicated? (NO) Urine Opiates Screen (Iyleqo=918) ng/mL Ur Barbiturates Screen (Qvocyd=463) ng/mL Ur Phencyclidine Scrn (Cutoff=25) ng/mL Ur Amphetamines Screen (Hdvsnl=0793) ng/mL U Benzodiazepines Scrn (Dmztmb=589) ng/mL Urine Cocaine Screen (Cutoff= 300) ng/mL U Marijuana (THC) Screen (Cutoff = 50) ng/mL Ur Drug Screen Interp Ethyl Alcohol < 10 (Less than 10) mg/dL 04/27/18 04/27/18 04/27/18 Range/Units 14:44 14:51 14:51 WBC (4.3-11.1) K/mcL RBC (3.82-4.97) M/mcL Hgb (11.5-15.4) g/dL Hct (35.3-44.9) % MCV (83.0-100.0) fL MCH (28.0-33.3) pg MCHC (31.6-35.5) g/dL RDW (11.5-14.5) % Plt Count (140-400) K/mcL MPV (9.4-12.4) fL Immature Gran % (0-4) % Seg Neutrophils % % Lymphocytes % % Monocytes % % Eosinophils % % Basophils % % Neutrophils # (1.6-8.9) K/mcL Lymphocytes # (0.6-4.6) K/mcL Monocytes # (0.0-1.3) K/mcL Eosinophils # (0.0-0.6) K/mcL Basophils # (0.0-0.2) K/mcL PT (9.4-12.1) Seconds INR APTT (26.0-36.0) Seconds Sodium (136-145) mEq/L Potassium (3.5-5.1) mEq/L Chloride (98-107) mEq/L Carbon Dioxide (23-29) mEq/L BUN (8-23) mg/dL Creatinine (0.60-1.20) mg/dL Est GFR ( Amer) (> 60) Est GFR (Non-Af Amer) (> 60) BUN/Creatinine Ratio (6-26) Glucose (70-105) mg/dL Calculated Osmolality (280-300) Calcium (8.6-10.3) mg/dL Total Bilirubin (0.3-1.0) mg/dL Direct Bilirubin (0.0-0.2) mg/dL Indirect Bilirubin (0.0-1.2) mg/dL AST (13-39) Units/L ALT (7-52) Units/L Alkaline Phosphatase (34-104) Units/L Ammonia 37 (16-53) mcmol/L Troponin I (< 0.04) ng/mL Serum Total Protein (6.4-8.9) g/dL Albumin (3.5-5.7) g/dL Globulin (2.4-3.5) g/dL Albumin/Globulin Ratio (1.1-2.2) TSH (0.340-5.600) mcIU/mL Urine Color [place] A (Yellow) Urine Clarity Clear (Clear) Urine pH 6.5 (5.0-8.0) pH Units Ur Specific [place] 1.022 (1.010-1.025) Urine Protein >=1000 H (Neg-Trace) mg/dL Urine Glucose (UA) Normal (Normal) mg/dL Urine Ketones Trace H (Negative) mg/dL Urine Blood Negative (Negative) Urine Nitrite Positive A (Negative) Urine Bilirubin Moderate H (Negative) Urine Urobilinogen 2.0 H (Normal) mg/dL Ur Leukocyte Esterase Small H (Negative) Urine Microscopic RBC 5-15 H (0-3) per hpf Urine Microscopic WBC 0-3 (0-3) per hpf Ur Squamous Epith Cells Many H (None-Few) per lpf Urine Bacteria None Seen (None-Few) per hpf Hyaline Casts Moderate H (None-Few) per lpf Ur Culture Indicated? NO. A (NO) Urine Opiates Screen Negative (Atyniy=120) ng/mL Ur Barbiturates Screen Negative (Dzryoy=340) ng/mL Ur Phencyclidine Scrn Negative (Cutoff=25) ng/mL Ur Amphetamines Screen Negative (Zelnmu=2243) ng/mL U Benzodiazepines Scrn Negative (Ejhllv=016) ng/mL Urine Cocaine Screen Negative (Cutoff= 300) ng/mL U Marijuana (THC) Screen Negative (Cutoff = 50) ng/mL Ur Drug Screen Interp See Below Ethyl Alcohol (Less than 10) mg/dL - Radiology Data Radiology results reviewed: Yes I reviewed the patient's radiology results. Chest X-Ray 04/27/18 14:35 IMPRESSION: No acute cardiopulmonary process D/ / 04/27/2018 15:31:32 Nolan Parrish MD / yaneth Interpreting Provider: Nolan Parrish MD Head CT 04/27/18 14:36 IMPRESSION: Tiny prior lacunar infarcts are suggested in the genu of the internal capsule on the right and left lentiform nucleus. No acute infarct, mass or hemorrhage D/ / German Bean / German Bean Interpreting Provider: German Bean - EKG Data EKG attestation: Yes I reviewed and interpreted this EKG. EKG results narrative: EKG demonstrates sinus rhythm with a rate of 62 bpm. Normal axis. Normal intervals. Normal R-wave progression. No gross ST elevations or depressions. No acute ischemic findings. No significant changes from previous EKG dated 02/24. TPA Checklist - LKW: 3-4.5 hrs Add. Warnings/Precautions Patient/family understanding: The patient/family members have been counseled and understood the risk, benefit, and alternatives of treatment. S.B.A.R. - S.B.A.R. Situation: Demographics, MOA Background: Presenting Complaint, Relevant PMH, Meds, & Allergies Assessment: Vital Signs, Course and respsone to treatment, Exam Concerns, Patient/Family Expectation, Pertinant Lab Results Recommendation: Barrier(s) to disposition, Recommendation based on pending studies, treatments, or consults Suzy Report Given to: Dr. Sahra Almonte Repor Time: 16:48
--- NOTE | 2018-04-27 14:46 | Emergency Department Note ---
Disposition Clinical Impression: Delirium due to general medical condition Disposition: Still a Patient Forms: ED Satisfaction Letter General Adult HPI - General Chief complaint: ED Altered Mental Status Stated complaint: AMS Time Seen by Provider: 04/27/18 14:29 Source: patient, family Mode of arrival: private vehicle Limitations: altered mental status Nursing Notes Reviewed: Yes Vital Signs Reviewed: Yes - History of Present Illness HPI Narrative: ED ATTESTATION NOTE: I examined this patient and my medical decision-making was reviewed with the Resident Physician/EVIDENCE CUSTODIAN/PA/Student. I have personally performed a face to face evaluation on this patient & I agree with the documented findings, disposition and treatment plan as described except to the extent set forth below. Patient was seen with emergency medicine resident Dr. GRAZYNA MACIAS please see copy of his note for details of this encounter BRIEFLY: 72-year-old female history of coronary artery disease 2 stents hypertension hyperlipidemia presents with her ambulatory for altered mental status. The past 3 days despite taking 1 dose of baclofen on patient slept most of to Sunday she is not making sense just smiling a lot having slow speech but no slurred speech patient is a and O 1 here in the ED. No external signs of trauma EKG shows a sinus rhythm without acute ischemic changes. Patient patient is on Coumadin for A. fib patient will undergo CT scan of the head screening labs urinalysis chest x-ray. Admission anticipated. Providing 35 minutes critical care service this patient. Disposition pending Pain Scale: 0 - Related Data Home Medications Medication Instructions Recorded Confirmed Aspirin Enteric Coated [Aspirin EC] 81 mg PO DAILY 11/23/14 02/11/18 Cholecalciferol (D-3) [Vitamin D] 2,000 unit PO DAILY 11/23/14 02/11/18 Cyclobenzaprine [Flexeril] 10 mg PO BID 11/23/14 02/11/18 Gabapentin [Neurontin] 300 mg PO TID 11/23/14 02/11/18 metFORMIN [Glucophage] 500 mg PO BID 11/23/14 02/11/18 [place]-3/Dha/Epa/Fish Oil [Fish Oil 1 each PO DAILY 05/31/15 02/11/18 1,000 mg Softgel] Cetirizine HCl [Zyrtec] 10 mg PO DAILY 05/30/16 02/11/18 Isosorbide MONOnitrate (24 HR) 30 mg PO DAILY 08/26/16 02/11/18 [Imdur] Warfarin [Coumadin] 1 mg PO SUMOTUWEFRSA 12/11/16 02/11/18 Warfarin [Coumadin] 2 mg PO TH 12/11/16 02/11/18 Tramadol HCl [Ultram] 50 mg PO BID PRN 01/09/17 02/11/18 Amiodarone [Cordarone] 200 mg PO BID 05/15/17 02/11/18 Metoprolol [Lopressor] 50 mg PO TID 05/15/17 02/11/18 Previous Rx's Medication Instructions Recorded Clopidogrel [Plavix] 75 mg PO DAILY #30 tablet 08/28/15 Furosemide [Lasix] 20 mg PO DAILY PRN #30 tablet 09/03/16 Lisinopril [Zestril] 2.5 mg PO DAILY #60 tablet 09/03/16 Amlodipine Besylate 1 tab PO DAILY #30 tablet 01/08/18 Allergies Allergy/AdvReac Type Severity Reaction Status Date / Time Erythromycin Base AdvReac Gastrointestinal Verified 02/11/18 13:22 [From Erythrocin] Upset Past Medical History - Past Medical History Medical history: Reports: atrial fibrillation, cancer, cardiomyopathy, coronary artery disease, diabetes, hypertension, other Surgical history: Reports: angioplasty/stent, cholecystectomy, REMINGTON/BSO Psychiatric history: Reports: no psych history FAN ENGINE ENGINEER history: Reports: no FAN ENGINE ENGINEER history - Social History Smoking Status: Never smoker Smokeless Tobacco Status: No Alcohol use: Reports: rarely Drug use: Reports: none Physical Exam - General Limitations: altered mental status General appearance: alert, in no apparent distress Course Vital Signs Temperature 97.7 F 04/27/18 14:21 Pulse Rate 71 04/27/18 14:21 Respiratory Rate 18 04/27/18 14:21 Blood Pressure 188/74 04/27/18 14:21 O2 Sat by Pulse Oximetry 100 04/27/18 14:21 Temperature 97.7 F 04/27/18 14:31 Pulse Rate 63 04/27/18 14:31 Respiratory Rate 18 04/27/18 14:31 Blood Pressure 217/95 04/27/18 14:31 O2 Sat by Pulse Oximetry 99 04/27/18 14:31 Oxygen Delivery Oxygen Delivery Room Air
[2018-04-27 14:55] LABS: Basophils # 0.1 K/mcL (0.0-0.2); Basophils % 0.5 %; Eosinophils % 0.1 %; Hematocrit 48.7 % (35.3-44.9); Hemoglobin 16.1 g/dL (11.5-15.4); Immature Granulocytes % 0.4 % (0-4); Lymphocytes # 2.3 K/mcL (0.6-4.6); Lymphocytes % 20.5 %; Mean Corpuscular HGB Conc 33.1 g/dL (31.6-35.5); Mean Corpuscular Hemoglobin 29.7 pg (28.0-33.3); Mean Corpuscular Volume 89.7 fL (83.0-100.0); Mean Platelet Volume 9.4 fL (9.4-12.4); Monocytes # 0.8 K/mcL (0.0-1.3); Monocytes % 7.2 %; Neutrophils # 8.1 K/mcL (1.6-8.9); Platelet Count 358 K/mcL (140-400); Red Blood Count 5.43 M/mcL (3.82-4.97); Red Cell Distribution Width 14.4 % (11.5-14.5); Segmented Neutrophils % 71.3 %
[2018-04-27 15:03] LABS: INR 1.5
[2018-04-27 15:03] LABS: Bilirubin,Urine Moderate (Negative); Blood,Urine Negative (Negative); Clarity,Urine Clear (Clear); Color,Urine Orange (Yellow); Glucose,Urine (UA) Normal (Normal); Ketones,Urine Trace mg/dL (Negative); Leukocyte Esterase,Urine Small (Negative); Nitrite,Urine Positive (Negative); PH,Urine 6.5 pH Units (5.0-8.0); Protein,Urine >=1000 mg/dL (Neg-Trace); Specific Gravity,Urine 1.022 (1.010-1.025)
[2018-04-27 15:05] LABS: Bacteria,Urine None Seen per hpf (None-Few); Hyaline Casts,Urine Moderate per lpf (None-Few); Squamous Epithelial Cell,Urine Many per lpf (None-Few); WBC,Urine 0-3 per hpf (0-3)
[2018-04-27 15:05] LABS: Activated Partial Thrombo Time 39.2 Seconds (26.0-36.0)
[2018-04-27 15:12] LABS: Amphetamine Screen,Urine Negative ng/mL (Cutoff=1000); Barbiturate Screen,Urine Negative ng/mL (Cutoff=200); Benzodiazepines Screen,Urine Negative ng/mL (Cutoff=200); Cannabinoid Screen,Urine Negative ng/mL (Cutoff = 50); Cocaine Screen,Urine Negative ng/mL (Cutoff= 300); Opiate Screen,Urine Negative ng/mL (Cutoff=300); Phencyclidine Screen,Urine Negative ng/mL (Cutoff=25)
[2018-04-27 15:18] LABS: Alanine Aminotransferase 61 Units/L (7-52); Albumin 4.4 g/dL (3.5-5.7); Albumin/Globulin Ratio 1.4 (1.1-2.2); Alkaline Phosphatase 98 Units/L (34-104); Aspartate Amino Transferase 64 Units/L (13-39); BUN/Creatinine Ratio 17 (6-26); Bilirubin,Direct 0.4 mg/dL (0.0-0.2); Bilirubin,Indirect 1.4 mg/dL (0.0-1.2); Bilirubin,Total 1.8 mg/dL (0.3-1.0); Blood Urea Nitrogen 15 mg/dL (8-23); Carbon Dioxide 23 mEq/L (23-29); Chloride 105 mEq/L (98-107); Ethanol < 10 mg/dL (Less than 10); Globulin 3.1 g/dL (2.4-3.5); Glucose 138 mg/dL (70-105); Osmolality,Calculated 301 (280-300); Potassium 3.5 mEq/L (3.5-5.1); Sodium 144 mEq/L (136-145); Total Protein 7.5 g/dL (6.4-8.9); eGFR For Non-African Americans > 60 (> 60)
[2018-04-27 15:21] LABS: Troponin I 0.11 ng/mL (< 0.04)
[2018-04-27 15:30] LABS: Thyroid Stimulating Hormone 5.655 mcIU/mL (0.340-5.600)
[2018-04-27] MEDS ORDERED: cefTRIAXone 1,000 MG in Water for inj. (sterile) 20 ML 10 ML IVP ONE (15:34)
[2018-04-27] MEDS ORDERED: Aspirin 325 MG TABLET PO ONE (16:15)
[2018-04-27] MEDS ORDERED: Naloxone 0.4 MG/ML INJ IVP PRN (17:35)
[2018-04-27] MEDS ORDERED: Acetaminophen 325 MG TABLET PO PRN (17:38)
--- NOTE | 2018-04-27 17:57 | Internal Med History&Physical ---
Date of Encounter: 04/27/18 Time of Encounter: 17:41 Internal Medicine - H&P: HPI Chief complaint: AMS Admitted From: Home Plans for Post Hospital Care: Home History of present illness: Ms. Amin is a 72 year old female afib on coumadin, diabetes, hypertension, CAD with 2 stents, breast and uterine cancer s/p chemo radiation ad hysterectomy presents today due to altered mental status. as per and daughter at bedside she was at her baseline health state until 2 days prior to admission. on 04/25/18 she took one pill of baclofen that was prescribed by her "back doctor" and went to dinner with her family upon returning she was extremmely drowsy and fell asleep. her helped her up to bed at 1 Am on sunday morning and she slept well. woke up on sunday and was dressed with her underwear over her jeans. her helped her get dressed and she drove by herself to the PCP office and back home. she again went straight to bed. and woke up on 04/27 ( admission morning) more confused. as per family at bedside she was unable to recall basic information and had difficulty finding words. they did not notice a facial droop and she had no difficulty ambulating. due to the worsening confusion she was br ought to the ED for further evaluation. while in the ED she also complained of seeing "dots" on the prince. however as per family her mental status has improved since she has been evaluated in the ED . currently the patient reports that she believe that she is more confused lately and cannot recall some information. when asked about her date and year she quickly looks at her family and laughs inappropriately. she denies loss of function of her extremitis, denies loss of bowel or bladder h as not have any abnormal movement of her extremities, denies head trauma, falls, or syncopal episodes. has had no chest pain, SOB, N/V/D, denies URTI. as per she has had cold sore before last time is unknown. he also reports that she had an episode of confusion after taking another muscle relaxant at home 2 weeks ago where she though strangers where in her room however she stopped taking the medication and her symptoms resolved so they blamed it on darrell muscle relaxant Past Med Surg Social Fam HX - Past Medical History Medical history: atrial fibrillation, cancer, cardiomyopathy, coronary artery disease, diabetes, hypertension, other Additional medical history: breast and uterine cancer. sleep apnea Psychiatric history: no psych history - Past Surgical History Surgical History: angioplasty/stent, cholecystectomy, REMINGTON/BSO Additional surgical history: carpel tunnel surgery right. R breast lumpectomy. stents x2 - Social History Smoking Status: Never smoker Smokeless Tobacco Status: No Alcohol use: rarely Drug use: none - Family History Father Family Member Ethnicity: Non- Living Status: Hx Family Cardiac Disorders: Yes Hx Family Endocrine Disorder: Yes (Diabetic) Mother Adopted: No Family Member Ethnicity: Non- Living Status: Hx Family Cardiac Disorders: Yes (htn) Hx Family Respiratory Disorders: No Hx Family Cancer: Yes (throat cancer) Hx Family GI Disorders: No Hx Family Endocrine Disorder: Yes (diabetic) Hx Family Neuromuscular Disorders: No Hx Family Neurologic Disorders: No Hx Family HEENT Disorders: No Hx Family Autoimmune Disorders: No Internal Medicine - H&P: Meds Aspirin Enteric Coated [Aspirin EC] 81 mg PO DAILY 11/23/14 [History] Cholecalciferol (D-3) [Vitamin D] 2,000 unit PO DAILY 11/23/14 [History] metFORMIN [Glucophage] 500 mg PO DAILY 11/23/14 [History] [place]-3/Dha/Epa/Fish Oil [Fish Oil 1,000 mg Softgel] 1 each PO DAILY 05/31/15 [ History] Clopidogrel [Plavix] 75 mg PO DAILY #30 tablet 08/28/15 [Rx] Cetirizine HCl [Zyrtec] 10 mg PO DAILY 05/30/16 [History] Isosorbide MONOnitrate (24 HR) [Imdur] 30 mg PO DAILY 08/26/16 [History] Furosemide [Lasix] 20 mg PO DAILY PRN #30 tablet 09/03/16 [Rx] Warfarin [Coumadin] 1 mg PO SUMOWEFRSA 12/11/16 [History] Warfarin [Coumadin] 2 mg PO TUTH 12/11/16 [History] Tramadol HCl [Ultram] 50 mg PO BID PRN 01/09/17 [History] Amiodarone [Cordarone] 200 mg PO BID 05/15/17 [History] Metoprolol [Lopressor] 50 mg PO TID 05/15/17 [History] Baclofen 20 mg PO Q8HR 04/27/18 [History] Cyclobenzaprine HCl 10 mg PO BID 04/27/18 [History] Gabapentin 600 mg PO TID 04/27/18 [History] Lisinopril [Zestril] 40 mg PO DAILY 04/27/18 [History] Allergy/AdvReac Type Severity Reaction Status Date / Time Erythromycin Base AdvReac Gastrointestinal Verified 04/27/18 16:40 [From Erythrocin] Upset All Systems PM: A 10-system review of systems was performed and is negative for pertinent findings except as documented above in the HPI. - Constitutional Vitals: Temp Pulse Resp BP Pulse Ox 97.7 F 51 18 157/67 100 04/27/18 14:31 04/27/18 16:45 04/27/18 16:45 04/27/18 16:45 04/27/18 16:45 Exam: General: Patient is alert, oriented, no acute distress, Head: atraumatic, normocephalic, Eye: normal appearance, PERRL, no scleral icterus, no conjunctival injection ENT: mucous membranes moist, normal external ear exam Neck: normal inspection, trachea midline, full ROM, no carotid bruits Chest: normal inspection, symmetric chest rise Respiratory: Good respiratory effort. Bilateral breath sounds are clear without wheezing, crackles, or rhonchi. Cardiovascular: bradycardic s1 and s2 No clicks, rubs, gallops, or murmors. Abdomen: Bowel sounds present normoactive x-4 quadrants. Abdomen is soft, nondistended. no Epigastric tenderness. No guarding or rebound. No organomegaly noted, obese musculoskeletal: Spontaneously moving all extremities. no edema, no calf tenderness, left calf bigger than right calf ( chronic as per ) Skin: warm, dry, intact. Neuro: Alert and oriented x to person, and place not time ( cannot recall date or time), unable to sign her signature on darrell paper, rapid hand movements intact, heel to zelaya intact, CN2-12 intact, no nystagmus Psych: Patient's affect is normal Internal Med - H&P Results - Labs CBC & Chem 7: 04/27/18 14:35 04/27/18 14:35 Labs: Short CBC 04/27/18 Range/Units 14:35 WBC 11.4 H (4.3-11.1) K/mcL Hgb 16.1 H (11.5-15.4) g/dL Hct 48.7 H (35.3-44.9) % Plt Count 358 (140-400) K/mcL Neutrophils # 8.1 (1.6-8.9) K/mcL BMP 04/27/18 14:35 Sodium 144 Potassium 3.5 Chloride 105 Carbon Dioxide 23 BUN 15 Creatinine 0.86 Glucose 138 H Calcium 10.0 Cardiac Enzymes 04/27/18 Range/Units 14:35 Troponin I 0.11 H* (< 0.04) ng/mL Liver Function 04/27/18 Range/Units 14:35 Total Bilirubin 1.8 H (0.3-1.0) mg/dL Direct Bilirubin 0.4 H (0.0-0.2) mg/dL AST 64 H (13-39) Units/L ALT 61 H (7-52) Units/L Alkaline Phosphatase 98 (34-104) Units/L Albumin 4.4 (3.5-5.7) g/dL Urine 04/27/18 Range/Units 14:51 Urine Color [place] A (Yellow) Urine Clarity Clear (Clear) Urine pH 6.5 (5.0-8.0) pH Units Ur Specific [place] 1.022 (1.010-1.025) Urine Protein >=1000 H (Neg-Trace) mg/dL Urine Glucose (UA) Normal (Normal) mg/dL - EKG Data -: EKG Interpreted by Myself EKG shows normal: sinus rhythm (sinus rhythm , LVH with repolrization abnormality, prolonged QT ) - Impressions ITS Impressions Chest X-Ray 04/27/18 14:35 IMPRESSION: No acute cardiopulmonary process D/ / 04/27/2018 15:31:32 Nolan Parrish MD / [facility] Interpreting Provider: Nolan Parrish MD Head CT 04/27/18 14:36 IMPRESSION: Tiny prior lacunar infarcts are suggested in the genu of the internal capsule on the right and left lentiform nucleus. No acute infarct, mass or hemorrhage D/ / German Bean / [facility] Interpreting Provider: German [facility] - Assessment and plan (1) Acute encephalopathy Current Visit: Yes Status: Acute Assessment and plan: most likely medication related ( baclofen and amiodarone toxicity) vs infectious ( UTI) vs metabolic ( elevated TSH) vs hypertensive encephalopathy less likely viral encephalitis ( no fever, headache) ruled out stroke received ASA 325 mg in the ED neurochecks as per protocol follow lipid panel, T4 and A1c in Am will follow ucx - on ceftriaxone for UTI amiodarone stopped- rest of the management as below neurology consulted i discussed case with Dr. Haley who also agrees that viral encephalopathy is less likely given no fever or headache. since MRI and CT head negative will resume coumadin for Afib Ct head: IMPRESSION: Tiny prior lacunar infarcts are suggested in the genu of the internal capsule on the right and left lentiform nucleus. No acute infarct, mass or hemorrhage MRI head: IMPRESSION: 1. No acute intracranial abnormality. No acute infarct. 2. Minimal chronic microvascular ischemic change. 3. Unremarkable MRA of the head. CXr: IMPRESSION: No acute cardiopulmonary process (2) Amiodarone toxicity Current Visit: Yes Status: Acute Assessment and plan: has extremely prolonged QT 673 has elevated TSH has transaminitis i discussed with psychologist experimental software validation technician will fold amiodarone for now place pads on patient as she is high risk for arrhythmias monitor QT Q4H continue tele monitoring (3) Transaminitis Current Visit: Yes Status: Acute Assessment and plan: most likely secondary to amiodarone vs fatty liver LFts elevated since 07/04/17 hold amiodarone avoid hepatotoxic medications [facility] 02/13/2018 IMPRESSION: Hepatic steatosis without focal mass or other acute abnormality. (4) Elevated troponin Current Visit: Yes Status: Acute Assessment and plan: chronically elevated currently not complaining of any chest pain will follow troponin Q6H along with EKG most likely secondary to uncontrolled BP has taken her AM dose of asa and plavix and was loaded with ASA in the ED cardiology consulted and discussed case with Dr. Villareal on ASA, plavix and coumadin as per as per she follows with Dr. Kumar. - will continue ASA in the AM plavix to be continued as per cardiology discretion cardiology consulted follow recommendations. i discussed that she has had elevated troponin ranging in 0.04 to 0.07 endorsed to night team to follow troponin with EKG TTE in 05/2017- LVEF 60% Diastolic dysfunction with elevated filling pressure. Normal right ventricular structure and function. Moderate aortic regurgitation. Mild-moderate mitral regurgitation. No pulmonary hypertension by TR gradient, 29 mmHg. IVC is not well visualized. Ascending aorta is not well visualized. cardiac cath 2016- Single vessel coronary artery disease. The left ventricle is normal and has normal contractility EF 60% Patient had successful PTCA/Drug-Eluting Stent placement in the mid Circ. Patient had successful PTCA/Drug-Eluting Stent placement in the OM1. * Left Main Coronary Artery There is a 15% stenosis in the LMCA. * Left Anterior Descending There is a 30% stenosis in the Proximal LAD. There is a 30% stenosis in the Mid LAD. * Circumflex There is a 30% stenosis in the Proximal Circumflex. stress test 2016- Stress test 07/30/15: Impression: Exercise ECG is non-diagnostic due to baseline ST-T changes. Worsening of baseline changes noted, especially in recovery. The exercise capacity was poor. Gated EF = 75%. Small size, moderate intensity, reversible inferolateral defect suggestive of ischemia. (5) Paroxysmal atrial fibrillation Current Visit: No Status: Chronic Assessment and plan: paroxysmal Afib on coumadin currently in sinus with slow ventricular rate ( holding metoprolol and amiodarone) hold amiodarone - as it appears that she has ?amiodarone toxicity. i discussed with Dr. Villareal will continue with coumadin as MRI / Ct negative for ICH or acute stroke TTE in AM (6) Uncontrolled hypertension Current Visit: Yes Status: Acute Assessment and plan: restarted home medications as per pharmacy the lisinopril dose had been increased however she has not received it in the mail from online pharmacy (7) UTI (urinary tract infection) Current Visit: Yes Status: Acute Assessment and plan: started on ceftriaxone follow ucx Qualifiers: Urinary tract infection type: acute cystitis Hematuria presence: with hematuria Qualified Code(s): N30.01 - Acute cystitis with hematuria (8) Elevated TSH Current Visit: Yes Status: Acute Assessment and plan: most likely secondary to amiodarone toxicity follow T4 (9) Prolonged QT interval Current Visit: Yes Status: Acute Assessment and plan: QTC 673 magnesium STAT follow EKgs Q4H continues tele monitoring will place pads on the patient as she is high risk for fatal arrhythmia will give night team check out (10) Subtherapeutic anticoagulation Current Visit: Yes Status: Acute Assessment and plan: sub therapeutic INR restarted coumadin missed dose on 04/26 follow INR in am (11) Obesity (BMI 30-39.9) Current Visit: No Status: Chronic Assessment and plan: consider nurtrition consult (12) DVT prophylaxis Current Visit: Yes Status: Acute Assessment and plan: scds - Time Spent With Patient Total time spent is greater than 50% in coordination of care (as documented) at patient's floor/unit and/or counseling patient:
[2018-04-27] MEDS ORDERED: Furosemide 20 MG TABLET PO PRN (19:02)
[2018-04-27 19:04] LABS: Magnesium 1.8 mg/dL (1.6-2.6)
[2018-04-27] MEDS ORDERED: Nitroglycerin 0.4 MG TAB.SUBL SL PRN (19:06)
[2018-04-27] MEDS ORDERED: Warfarin perPT PO PRN ×2 (19:41→20:00)
[2018-04-27] MEDS ORDERED: amLODIPine 5 MG TABLET PO ONE (19:45)
[2018-04-27] MEDS ORDERED: Furosemide 20 MG/2 ML VIAL IVP ONE (19:46)
[2018-04-27] MEDS ORDERED: *HR* Warfarin 2 MG TABLET PO ONE (19:59)
[2018-04-27 20:03] LABS: Magnesium 1.9 mg/dL (1.6-2.6); Potassium 3.6 mEq/L (3.5-5.1)
[2018-04-27] MEDS: Ipratropium/Albuterol Neb 3 ML IH SCH (20:48)
[2018-04-27 22:32] LABS: Troponin I 0.12 ng/mL (< 0.04)
[2018-04-28] MEDS: Ipratropium/Albuterol Neb 3 ML IH SCH ×3 (00:33→07:22)
[2018-04-28 03:56] LABS: Alanine Aminotransferase 55 Units/L (7-52); Albumin 3.9 g/dL (3.5-5.7); Albumin/Globulin Ratio 1.3 (1.1-2.2); Alkaline Phosphatase 73 Units/L (34-104); Aspartate Amino Transferase 58 Units/L (13-39); BUN/Creatinine Ratio 24 (6-26); Blood Urea Nitrogen 24 mg/dL (8-23); Calcium 9.3 mg/dL (8.6-10.3); Carbon Dioxide 23 mEq/L (23-29); Chloride 104 mEq/L (98-107); Chol/HDL Ratio 4.9 (0-4.9); Cholesterol 226 mg/dL (< 200); Glucose 124 mg/dL (70-105); HDL Cholesterol 46 mg/dL (40-59); LDL Cholesterol,Calculated 150 mg/dL (0-99); Osmolality,Calculated 295 (280-300); Phosphorous 4.6 mg/dL (2.7-4.5); Potassium 3.4 mEq/L (3.5-5.1); Sodium 140 mEq/L (136-145); Total Protein 6.9 g/dL (6.4-8.9); Triglycerides 152 mg/dL (< 150); eGFR For Non-African Americans 54 (> 60)
[2018-04-28] MEDS ORDERED: Ibuprofen 800 MG TABLET PO ONE (03:59)
[2018-04-28 04:14] LABS: Activated Partial Thrombo Time 37.2 Seconds (26.0-36.0); Basophils # 0.1 K/mcL (0.0-0.2); Basophils % 0.4 %; Eosinophils % 0.2 %; Hematocrit 44.5 % (35.3-44.9); Hemoglobin 14.6 g/dL (11.5-15.4); INR 1.4; Immature Granulocytes % 0.6 % (0-4); Lymphocytes # 3.1 K/mcL (0.6-4.6); Lymphocytes % 25.2 %; Mean Corpuscular HGB Conc 32.8 g/dL (31.6-35.5); Mean Corpuscular Hemoglobin 29.5 pg (28.0-33.3); Mean Corpuscular Volume 89.9 fL (83.0-100.0); Mean Platelet Volume 9.6 fL (9.4-12.4); Monocytes # 1.1 K/mcL (0.0-1.3); Monocytes % 8.6 %; Neutrophils # 8.1 K/mcL (1.6-8.9); Platelet Count 347 K/mcL (140-400); Prothrombin Time 16.2 Seconds (9.4-12.1); Red Blood Count 4.95 M/mcL (3.82-4.97); Red Cell Distribution Width 14.7 % (11.5-14.5)
[2018-04-28 07:10] LABS: Estimated Average Glucose 117 mg/dl; Hemoglobin A1C 5.7 %
[2018-04-28] MEDS ORDERED: amLODIPine 5 MG TABLET PO ONE (07:55)
[2018-04-28] MEDS: Cholecalciferol (D-3) 1,000 UNIT TABLET PO SCH (08:46)
[2018-04-28] MEDS: Isosorbide MONOnitrate (24 HR) 30 MG TAB.ER.24H PO SCH (08:46)
[2018-04-28] MEDS: Aspirin Enteric Coated 81 MG Tablet PO SCH (08:46)
[2018-04-28] MEDS: cefTRIAXone 2,000 MG in 0.9 % Sodium Chloride Mini Bag 100 ML IVPB SCH (08:47)
[2018-04-28] MEDS ORDERED: NON-FORMULARY MEDICATION 1 EACH EACH (Omega-3/Dha/Epa/Fish Oil [Fish Oil 1,000 Mg Softgel] PO SCH (09:00)
[2018-04-28] MEDS ORDERED: Lisinopril 20 MG TABLET PO SCH (09:00)
[2018-04-28] MEDS ORDERED: Ipratropium/Albuterol Neb 3 ML IH PRN (11:14)
--- NOTE | 2018-04-28 11:19 | Cardiology Consult Note ---
Date of Encounter: 04/28/18 Time of Encounter: 11:14 Assessment and Plan (1) Paroxysmal atrial fibrillation Current Visit: No Status: Chronic Continue rate control and Coumadin for stroke risk reduction (2) CAD (coronary artery disease) Current Visit: No Status: Chronic Mildly elevated troponins slightly above her baseline levels. Recent PCI in 2016 to the circumflex obtuse marginal in the setting of multiple cardiac risk factors a chemical stress test seems reasonable. Qualifiers: Coronary Disease-Associated Artery/Lesion type: [place] artery [place] vs. transplanted heart: [place] heart Associated angina: without angina Qualified Code(s): I25.10 - Atherosclerotic heart disease of [place] coronary artery without angina pectoris Discussion w patient/family: The assessment and plan as outlined above was discussed with the patient and/or family members who expressed understanding and agreement. All questions were answered. Thank you for involving us in the care of your patient. Please call with any questions. History of Present Illness Consult reason: Elevated troponins Chief complaint: Confusion History of present illness: Ms. Amin is a 72 year old female with history of diabetes, hypertension, hyperlipidemia, coronary artery disease status post-stents in the past and a survivor of both uterine and breast cancer. Patient has been on chemotherapy and has been placed on muscle relaxants and pain pills according to documentation some altered mental status changes. Her troponins were noted to be 0.12 and 0.11 however they are chronically abnormal. Patient's last heart catheter and PCI was in 2016 to the circumflex and obtuse marginal 1. As she is currently asymptomatic denying any chest pain I do believe a chemical stress te st is reasonable to rule out ischemia in the setting of her multiple cardiac risk factors and slightly higher than normal troponin levels. Past Med Surg Social Fam HX - Past Medical History Medical history: atrial fibrillation, cancer, cardiomyopathy, coronary artery disease, diabetes, hypertension, other Additional medical history: breast and uterine cancer. sleep apnea Psychiatric history: no psych history - Past Surgical History Surgical History: angioplasty/stent, cholecystectomy, REMINGTON/BSO Additional surgical history: carpel tunnel surgery right. R breast lumpectomy. stents x2 - Social History Smoking Status: Never smoker Smokeless Tobacco Status: No Alcohol use: rarely Drug use: none - Family History Father Family Member Ethnicity: Non- Living Status: Hx Family Cardiac Disorders: Yes Hx Family Endocrine Disorder: Yes (Diabetic) Mother Adopted: No Family Member Ethnicity: Non- Living Status: Hx Family Cardiac Disorders: Yes (htn) Hx Family Respiratory Disorders: No Hx Family Cancer: Yes (throat cancer) Hx Family GI Disorders: No Hx Family Endocrine Disorder: Yes (diabetic) Hx Family Neuromuscular Disorders: No Hx Family Neurologic Disorders: No Hx Family HEENT Disorders: No Hx Family Autoimmune Disorders: No Medications and Allergies Aspirin Enteric Coated [Aspirin EC] 81 mg PO DAILY 11/23/14 [History] Cholecalciferol (D-3) [Vitamin D] 2,000 unit PO DAILY 11/23/14 [History] metFORMIN [Glucophage] 500 mg PO DAILY 11/23/14 [History] Era-3/Dha/Epa/Fish Oil [Fish Oil 1,000 mg Softgel] 1 each PO DAILY 05/31/15 [History] Clopidogrel [Plavix] 75 mg PO DAILY #30 tablet 08/28/15 [Rx] Cetirizine HCl [Zyrtec] 10 mg PO DAILY 05/30/16 [History] Isosorbide MONOnitrate (24 HR) [Imdur] 30 mg PO DAILY 08/26/16 [History] Furosemide [Lasix] 20 mg PO DAILY PRN #30 tablet 09/03/16 [Rx] Warfarin [Coumadin] 1 mg PO SUMOWEFRSA 12/11/16 [History] Warfarin [Coumadin] 2 mg PO TUTH 12/11/16 [History] Tramadol HCl [Ultram] 50 mg PO BID PRN 01/09/17 [History] Amiodarone [Cordarone] 200 mg PO BID 05/15/17 [History] Metoprolol [Lopressor] 50 mg PO TID 05/15/17 [History] Baclofen 20 mg PO Q8HR 04/27/18 [History] Cyclobenzaprine HCl 10 mg PO BID 04/27/18 [History] Gabapentin 600 mg PO TID 04/27/18 [History] Lisinopril [Zestril] 40 mg PO DAILY 04/27/18 [History] Allergy/AdvReac Type Severity Reaction Status Date / Time Erythromycin Base AdvReac Gastrointestinal Verified 04/27/18 16:40 [From Erythrocin] Upset All Systems Review: The remainder of the systems were reviewed and are negative Physical Examination Vital Signs, Last 4 Hours Temp Pulse Resp BP Pulse Ox 04/28/18 10:54 97.5 F L 64 15 153/74 93 General: Conversant, No Apparent Distress HEENT: Atraumatic, Normocephaly, Mucus Membranes Moist Neck: No JVD, Normal carotid pulses Cardiac: Reg Rate and Rhythm, Normal S1 and S2, No Murmur Lungs: Normal Breath Sounds, No Wheeze, Rales, Rhonchi Neuro: Alert and responsive, No focal deficits noted Abdomen: Soft, Non-Tender Skin: No rashes noted on visualized skin Musculoskeletal: No Chest Wall Tenderness Extremities: No Clubbing, No Cyanosis, No Edema, Normal Pulses Results 04/28/18 02:41 04/28/18 02:41 Lab Results 04/27/18 04/27/18 04/27/18 14:35 14:35 14:35 WBC 11.4 H Hgb 16.1 H Hct 48.7 H Plt Count 358 INR 1.5 APTT 39.2 H Sodium 144 Potassium 3.5 Chloride 105 Carbon Dioxide 23 BUN 15 Creatinine 0.86 Glucose 138 H Calcium 10.0 Magnesium 1.8 Total Bilirubin 1.8 H AST 64 H ALT 61 H Alkaline Phosphatase 98 Troponin I 0.11 H* TSH 5.655 H 04/27/18 04/28/18 04/28/18 19:36 02:41 02:41 WBC 12.4 H Hgb 14.6 D Hct 44.5 Plt Count 347 INR APTT Sodium Potassium 3.6 Chloride Carbon Dioxide BUN Creatinine Glucose Calcium Magnesium 1.9 Total Bilirubin AST ALT Alkaline Phosphatase Troponin I 0.12 H* 0.11 H* TSH 04/28/18 04/28/18 02:41 02:41 WBC Hgb Hct Plt Count INR 1.4 APTT 37.2 H Sodium 140 Potassium 3.4 L Chloride 104 Carbon Dioxide 23 BUN 24 H Creatinine 1.01 Glucose 124 H Calcium 9.3 Magnesium 2.0 Total Bilirubin 1.0 AST 58 H ALT 55 H Alkaline Phosphatase 73 Troponin I TSH Consult Discharge Plan - Plan Referrals: Thelma Latif CNP [Primary Care Provider] -
--- NOTE | 2018-04-28 12:51 | Neurology - Consult Note ---
Date of Encounter: 04/28/18 Time of Encounter: 12:43 Assessment and Plan (1) Hypertensive encephalopathy Current Visit: Yes Status: Acute I believe that the transient alteration in mental status is very likely due to hypertensive encephalopathy. Patient had blood pressures in the range of greater than 200 systolic associated headache and confusion. Currently she is back to her baseline status. She does make note of intention tremor that has been involving prior to this hospitalization. I do not however feel the tremors in all associated with the reason for hospitalization. Her neurologic workup and examination are both negative. At this point you may discharge her at your discretion. I will reevaluate her at your request. History of Present Illness HPI: The chart was reviewed, patient was seen and examined. Patient is a very pleasant 72-year-old woman who is seen for neurologic evaluation secondary to a transient confusion. Apparently she had developed this mental status change about 2 days or so prior to admission. Apparently she had seen another provider about the back pain started her on baclofen. Upon admission however her blood pressure was extremely elevated. One reading was 217/95, another reading was 222/88. She did complain of mild headache. At this time however her confusion has resolved. Her only complaint is of a mild essential tremor bilaterally. MRI scan of the brain was completed upon admission along with MRA. MRI scan reveals microvascular ischemic change, MRA scan of the brain was negative for evidence of vasculitis or intracranial stenosis. Past Med Surg Social Fam HX - Past Medical History Medical history: atrial fibrillation, cancer, cardiomyopathy, coronary artery disease, diabetes, hypertension, other Additional medical history: breast and uterine cancer. sleep apnea Psychiatric history: no psych history - Past Surgical History Surgical History: angioplasty/stent, cholecystectomy, REMINGTON/BSO Additional surgical history: carpel tunnel surgery right. R breast lumpectomy. stents x2 - Social History Smoking Status: Never smoker Smokeless Tobacco Status: No Alcohol use: rarely Drug use: none - Family History Father Family Member Ethnicity: Non- Living Status: Hx Family Cardiac Disorders: Yes Hx Family Endocrine Disorder: Yes (Diabetic) Mother Adopted: No Family Member Ethnicity: Non- Living Status: Hx Family Cardiac Disorders: Yes (htn) Hx Family Respiratory Disorders: No Hx Family Cancer: Yes (throat cancer) Hx Family GI Disorders: No Hx Family Endocrine Disorder: Yes (diabetic) Hx Family Neuromuscular Disorders: No Hx Family Neurologic Disorders: No Hx Family HEENT Disorders: No Hx Family Autoimmune Disorders: No Medications and Allergies Aspirin Enteric Coated [Aspirin EC] 81 mg PO DAILY 11/23/14 [History] Cholecalciferol (D-3) [Vitamin D] 2,000 unit PO DAILY 11/23/14 [History] metFORMIN [Glucophage] 500 mg PO DAILY 11/23/14 [History] [place]-3/Dha/Epa/Fish Oil [Fish Oil 1,000 mg Softgel] 1 each PO DAILY 05/31/15 [H istory] Clopidogrel [Plavix] 75 mg PO DAILY #30 tablet 08/28/15 [Rx] Cetirizine HCl [Zyrtec] 10 mg PO DAILY 05/30/16 [History] Isosorbide MONOnitrate (24 HR) [Imdur] 30 mg PO DAILY 08/26/16 [History] Furosemide [Lasix] 20 mg PO DAILY PRN #30 tablet 09/03/16 [Rx] Warfarin [Coumadin] 1 mg PO SUMOWEFRSA 12/11/16 [History] Warfarin [Coumadin] 2 mg PO TUTH 12/11/16 [History] Tramadol HCl [Ultram] 50 mg PO BID PRN 01/09/17 [History] Amiodarone [Cordarone] 200 mg PO BID 05/15/17 [History] Metoprolol [Lopressor] 50 mg PO TID 05/15/17 [History] Baclofen 20 mg PO Q8HR 04/27/18 [History] Cyclobenzaprine HCl 10 mg PO BID 04/27/18 [History] Gabapentin 600 mg PO TID 04/27/18 [History] Lisinopril [Zestril] 40 mg PO DAILY 04/27/18 [History] Allergy/AdvReac Type Severity Reaction Status Date / Time Erythromycin Base AdvReac Gastrointestinal Verified 04/27/18 16:40 [From Erythrocin] Upset All Systems: The remainder of the systems were reviewed and are negative Review of Systems: The balance of the systems review is negative Physical Examination - Vital Signs Vital Signs: Initial Vital Signs Temp Pulse Resp BP Pulse Ox 97.7 F 71 18 188/74 100 04/27/18 14:21 04/27/18 14:21 04/27/18 14:21 04/27/18 14:21 04/27/18 14:21 - Exam Exam: General Examination: *CONSTITUTIONAL: normal *GENERAL APPEARANCE OF PATIENT appears healthy and well groomed *EYES: pupils equal, round, reactive to light and accommodation, conjunctiva clear without masses or ulcerations, fundi normal. *CARDIOVASCULAR no peripheral edema, distal temperature normal, dorsalis pedis pulses normal. Refer to vital signs Musculoskeletal: *GAIT AND STATION normal, with normal Romberg testing, no abnormalities such as broad base gait or spasticity *ASSESSMENT OF MUSCLE STRENGTH IN THE UPPER AND LOWER EXTREMITIES deltoid, bicep, tricep, helpdesk analyst strength, hip flexors ,anterior tibialis, dorsoflexion of the foot normal. *MUSCLE TONE IN THE UPPER AND LOWER EXTREMITIES normal. Mild intention tremor present of both upper extremities, fasciculations or atrophy identified. Neurological: *ORIENTATION to time and place *RECURRENT AND REMOTE MEMORY intact *ATTENTION AND CONCENTRATION are normal *LANGUAGE FUNCTION no significant aphasia or dysarthia was noted. *FUND OF KNOWLEDGE aware of current events, past history, vocabulary *MENTAL attention span and concentration normal. *CN II optic fundi were normal, no papilledema noted. *CN III,IV, PERRLA extraocular eye movements were full, no nystagmus and no ptosis noted. *CN V shows normal sensation and jaw opens symmetrically. *CN VII shows normal facial movement symmetrically, upper and lower bilaterally. *CN VIII shows no significant hearing loss on examination in the office. *CN IX,,X palate elevated symmetrically and normal gag reflex was noted. *CN XI normal strength in the sternocleidomastoid muscles, symmetrical shoulder shrugging. *CN XII tongue protruded in the midline, with normal strength and movement. *SENSORY EXAMINATION pinprick sensation intact, and light touch(vibration sense). *REFLEXES: deep tendon reflexes were normal and symmetrical , grade 2/4 diffusely, no pathological reflexes were noted. *CEREBELLAR TESTING normal finger to nose, heel/knee/zelaya, and tandem walk. *PAIN LEVEL 0 Results - Laboratory Findings CBC and BMP: 04/28/18 02:41 04/28/18 02:41 Abnormal lab findings: Abnormal lab results WBC 12.4 K/mcL (4.3-11.1) H 04/28/18 02:41 RDW 14.7 % (11.5-14.5) H 04/28/18 02:41 PT 16.2 Seconds (9.4-12.1) H 04/28/18 02:41 APTT 37.2 Seconds (26.0-36.0) H 04/28/18 02:41 Potassium 3.4 mEq/L (3.5-5.1) L 04/28/18 02:41 BUN 24 mg/dL (8-23) H 04/28/18 02:41 Est GFR (Non-Af Amer) 54 (> 60) L 04/28/18 02:41 Glucose 124 mg/dL (70-105) H 04/28/18 02:41 POC Glucose 138 mg/dL (70-99) H 04/27/18 22:37 Hemoglobin A1c 5.7 % (-5.6) H 04/28/18 02:41 Phosphorus 4.6 mg/dL (2.7-4.5) H 04/28/18 02:41 Direct Bilirubin 0.4 mg/dL (0.0-0.2) H 04/27/18 14:35 Indirect Bilirubin 1.4 mg/dL (0.0-1.2) H 04/27/18 14:35 AST 58 Units/L (13-39) H 04/28/18 02:41 ALT 55 Units/L (7-52) H 04/28/18 02:41 Troponin I 0.11 ng/mL (< 0.04) H* 04/28/18 02:41 Triglycerides 152 mg/dL (< 150) H 04/28/18 02:41 Cholesterol 226 mg/dL (< 200) H 04/28/18 02:41 LDL Cholesterol, Calc 150 mg/dL (0-99) H 04/28/18 02:41 TSH 5.655 mcIU/mL (0.340-5.600) H 04/27/18 14:35 Urine Color [place] (Yellow) A 04/27/18 14:51 Urine Protein >=1000 mg/dL (Neg-Trace) H 04/27/18 14:51 Urine Ketones Trace mg/dL (Negative) H 04/27/18 14:51 Urine Nitrite Positive (Negative) A 04/27/18 14:51 Urine Bilirubin Moderate (Negative) H 04/27/18 14:51 Urine Urobilinogen 2.0 mg/dL (Normal) H 04/27/18 14:51 Ur Leukocyte Esterase Small (Negative) H 04/27/18 14:51 Urine Microscopic RBC 5-15 per hpf (0-3) H 04/27/18 14:51 Ur Squamous Epith Cells Many per lpf (None-Few) H 04/27/18 14:51 Hyaline Casts Moderate per lpf (None-Few) H 04/27/18 14:51 Ur Culture Indicated? NO. (NO) A 04/27/18 14:51 Consult Discharge Plan - Plan Referrals: hTelma Latif, FOUR SLIDE MACHINE SETTER [Primary Care Provider] -
--- NOTE | 2018-04-28 13:07 | Internal Med Progress Note ---
Hospitalist Progress Note - Encounter Date of Encounter: 04/28/18 Time of Encounter: 13:04 - Subjective Interval History: Pt feels OK, is able to do recall, but pt is not able to reall the year correctl. - Exam Vitals: Temp Pulse Resp BP Pulse Ox 97.5 F L 64 15 153/74 93 04/28/18 10:54 04/28/18 10:54 04/28/18 10:54 04/28/18 10:54 04/28/18 10:54 Exam: General: Patient is alert, oriented, no acute distress, Head: atraumatic, normocephalic, Eye: normal appearance, PERRL, no scleral icterus, no conjunctival injection ENT: mucous membranes moist, normal external ear exam Neck: normal inspection, trachea midline, full ROM, no carotid bruits Chest: normal inspection, symmetric chest rise Respiratory: Good respiratory effort. Bilateral breath sounds are clear without wheezing, crackles, or rhonchi. Cardiovascular: bradycardic s1 and s2 No clicks, rubs, gallops, or murmors. Abdomen: Bowel sounds present normoactive x-4 quadrants. Abdomen is soft, nondistended. no Epigastric tenderness. No guarding or rebound. No organomegaly noted, obese musculoskeletal: Spontaneously moving all extremities. no edema, no calf tenderness, left calf bigger than right calf ( chronic as per ) Skin: warm, dry, intact. Neuro: Alert and oriented x to person, and place not time ( cannot recall date or time), unable to sign her signature on darrell paper, rapid hand movements intact, heel to zelaya intact, CN2-12 intact, no nystagmus Psych: Patient's affect is normal - Summary of Assessment and Plan Summary of Assessment and Plan: This is a 72 yof who came in with confusion. Apparetly tp took balcofen in a ddition to felxril at home Family stated that there was a previous epiosode 1) confusion: seem to be resolving pt had MRI, CT that were all negative Pt should be off neurotin, flexril and balcofen 2)NSTEMI: defferd to card pt is getting stress test probably doesn't need heparin at this point 3)esentialy hypertension: at this point, pt's vivian been disconintued, pt can go back on VIVIAN upondischarge, mean while, we will do hdyralazien 50 PO TID --hydralazien 50 PO TID 4)diet: cardiac diet 5)dispo: If stress test negative, pt can probably be discharged TIme: 35 min - Time Spent with Patient Total time spent is greater than 50% in coordination of care (as documented) at patient's floor/unit and/or counseling patient: Internal Medicine: Result - Labs CBC & Chem 7: 04/28/18 02:41 04/28/18 02:41 Labs: Short CBC 04/27/18 04/28/18 Range/Units 14:35 02:41 WBC 11.4 H 12.4 H (4.3-11.1) K/mcL Hgb 16.1 H 14.6 D (11.5-15.4) g/dL Hct 48.7 H 44.5 (35.3-44.9) % Plt Count 358 347 (140-400) K/mcL Neutrophils # 8.1 8.1 (1.6-8.9) K/mcL BMP 04/27/18 04/27/18 04/28/18 14:35 19:36 02:41 Sodium 144 140 Potassium 3.5 3.6 3.4 L Chloride 105 104 Carbon Dioxide 23 23 BUN 15 24 H Creatinine 0.86 1.01 Glucose 138 H 124 H Calcium 10.0 9.3 Cardiac Enzymes 04/27/18 04/27/18 04/28/18 Range/Units 14:35 19:36 02:41 Troponin I 0.11 H* 0.12 H* 0.11 H* (< 0.04) ng/mL Liver Function 04/27/18 04/28/18 Range/Units 14:35 02:41 Total Bilirubin 1.8 H 1.0 (0.3-1.0) mg/dL Direct Bilirubin 0.4 H (0.0-0.2) mg/dL AST 64 H 58 H (13-39) Units/L ALT 61 H 55 H (7-52) Units/L Alkaline Phosphatase 98 73 (34-104) Units/L Albumin 4.4 3.9 (3.5-5.7) g/dL Urine 04/27/18 Range/Units 14:51 Urine Color [place] A (Yellow) Urine Clarity Clear (Clear) Urine pH 6.5 (5.0-8.0) pH Units Ur Specific [place] 1.022 (1.010-1.025) Urine Protein >=1000 H (Neg-Trace) mg/dL Urine Glucose (UA) Normal (Normal) mg/dL - ABG Interpretation ABG results: PT/INR, D-dimer PT 16.2 Seconds (9.4-12.1) H 04/28/18 02:41 - Impressions Impressions Chest X-Ray 04/27/18 14:35 IMPRESSION: No acute cardiopulmonary process D/ / 04/27/2018 15:31:32 Nolan Parrish MD / yaneth Interpreting Provider: Nolan Parrish MD Head CT 04/27/18 14:36 IMPRESSION: Tiny prior lacunar infarcts are suggested in the genu of the internal capsule on the right and left lentiform nucleus. No acute infarct, mass or hemorrhage D/ / German Bean / German Bean Interpreting Provider: German Bean Brain MRI 04/27/18 16:47 IMPRESSION: 1. No acute intracranial abnormality. No acute infarct. 2. Minimal chronic microvascular ischemic change. 3. Unremarkable MRA of the head. D/ / Wilson Hernandez MD / Wilson Hernandez MD Interpreting Provider: Wilson Hernandez MD Head MRA 04/27/18 17:26 IMPRESSION: 1. No acute intracranial abnormality. No acute infarct. 2. Minimal chronic microvascular ischemic change. 3. Unremarkable MRA of the head. D/ / Wilson Hernandez MD / Wilson Hernandez MD Interpreting Provider: Wilson Hernandez MD Echocardiogram 04/28/18 17:39 Impressions: LVEF 55%. Moderate concentric left ventricular hypertrophy. Moderate left ventricular diastolic dysfunction. Normal right ventricular structure and function. No evidence of PFO with agitated saline contrast. Mild aortic regurgitation. No evidence of pulmonary hypertension. Left Ventricular Wall Motion: Rest Echo Findings All wall segments showed normal motion. Findings: Study Quality * Technically adequate exam. ECG Findings * Normal sinus rhythm. Left Ventricle * LVEF 55%. * Moderate concentric left ventricular hypertrophy. * Moderate left ventricular diastolic dysfunction. Right Ventricle * Normal right ventricular structure and function. Left Atrium * Normal left atrial size. Right Atrium * Normal right atrial size. Interatrial Septum * No evidence of PFO with agitated saline contrast. Aortic Valve * Trileaflet aortic valve. * Mild aortic regurgitation. * No aortic stenosis. Mitral Valve * Trace mitral regurgitation. * No mitral stenosis. * Normal mitral valve structure. Tricuspid Valve * No tricuspid regurgitation. * No tricuspid stenosis. * Normal tricuspid valve structure. * No evidence of pulmonary hypertension. Pulmonic Valve * Pulmonic valve is not well visualized. Aorta * Normally sized aortic root. Pericardium * The pericardium appears normal. IVC * Normal IVC dimensions and inspiratory collapse. Pulmonary Artery * Pulmonary artery not well visualized. Consult Discharge Plan - Plan Referrals: Thelma Latif SOUP PERSON [Primary Care Provider] -
[2018-04-28] MEDS ORDERED: *HR* Dextrose 50 % in Water (Syg) 50 ML SYRINGE IVP PRN (13:24)
[2018-04-28] MEDS ORDERED: D5% in Water 1,000 ML IVC PRN (13:24)
[2018-04-28] MEDS ORDERED: Dextrose Gel 15 GM/37.5 ML TUBE PO PRN ×2 (13:24)
[2018-04-28] MEDS: Insulin LISPRO 300 UNITS/3 ML VIAL SQ SCH ×2 (14:55→18:13)
[2018-04-28] MEDS: hydrALAZINE 25 MG TABLET PO SCH ×2 (16:01→20:33)
[2018-04-28] MEDS ORDERED: *HR* Warfarin 1 MG TABLET PO ONE (18:00)
[2018-04-28] MEDS ORDERED: *HR* Warfarin 3 MG TABLET PO ONE (18:00)
[2018-04-29 03:34] LABS: INR 1.7; Prothrombin Time 18.8 Seconds (9.4-12.1)
[2018-04-29 06:59] LABS: Basophils # 0.1 K/mcL (0.0-0.2); Basophils % 0.6 %; Eosinophils # 0.1 K/mcL (0.0-0.6); Eosinophils % 0.6 %; Hematocrit 44.2 % (35.3-44.9); Hemoglobin 14.3 g/dL (11.5-15.4); Immature Granulocytes % 0.5 % (0-4); Lymphocytes # 1.7 K/mcL (0.6-4.6); Lymphocytes % 20.3 %; Mean Corpuscular HGB Conc 32.4 g/dL (31.6-35.5); Mean Corpuscular Hemoglobin 29.4 pg (28.0-33.3); Mean Corpuscular Volume 90.9 fL (83.0-100.0); Mean Platelet Volume 9.6 fL (9.4-12.4); Monocytes # 0.6 K/mcL (0.0-1.3); Monocytes % 7.5 %; Platelet Count 301 K/mcL (140-400); Red Blood Count 4.86 M/mcL (3.82-4.97); Red Cell Distribution Width 14.6 % (11.5-14.5); Segmented Neutrophils % 70.5 %
[2018-04-29 07:11] LABS: BUN/Creatinine Ratio 27 (6-26); Blood Urea Nitrogen 22 mg/dL (8-23); Calcium 9.3 mg/dL (8.6-10.3); Carbon Dioxide 24 mEq/L (23-29); Chloride 108 mEq/L (98-107); Glucose 143 mg/dL (70-105); Osmolality,Calculated 298 (280-300); Potassium 3.5 mEq/L (3.5-5.1); Sodium 141 mEq/L (136-145); eGFR For Non-African Americans > 60 (> 60)
[2018-04-29] MEDS: Insulin LISPRO 300 UNITS/3 ML VIAL SQ SCH ×2 (08:10→12:57)
[2018-04-29] MEDS: cefTRIAXone 2,000 MG in 0.9 % Sodium Chloride Mini Bag 100 ML IVPB SCH (09:41)
--- NOTE | 2018-04-29 10:34 | Discharge Summary ---
- NOTES TO OUTPATIENT PROVIDER Notes to Outpatient Provider: PCP 2- 5 days, card in 1-3 sheree for discussion of triple anticoagulation Orders not resulted at time of discharge: Pending orders 04/30/18 04:00 PT/INR [Prothrombin Time INR] [COAG] AM 0400 05/01/18 04:00 PT/INR [Prothrombin Time INR] [COAG] AM 0400 05/02/18 04:00 PT/INR [Prothrombin Time INR] [COAG] AM 0400 05/03/18 04:00 PT/INR [Prothrombin Time INR] [COAG] AM 0400 Date of Encounter: 04/29/18 Time of Encounter: 10:30 - Discharge Diagnosis (1) Acute encephalopathy Priority: Primary Status: Acute Assessment and Plan: [facility] Hospital course: Ms. Amin is a 72 year old female afib on coumadin, diabetes, hypertension, CAD with 2 stents, breast and uterine cancer s/p chemo radiation ad hysterectomy presents today due to altered mental status. as per and daughter at bedside she was at her baseline health state until 2 days prior to admission. on 04/25/18 she took one pill of baclofen that was prescribed by her "back doctor" and went to dinner with her family upon returning she was extremmely drowsy and fell asleep. her helped her up to bed at 1 Am on sunday morning and she slept well. woke up on sunday and was dressed with her underwear over her jeans. her helped her get dressed and she drove by herself to the PCP office and back home. she again went straight to bed. and woke up on 04/27 ( admission morning) more confused. as per family at bedside she was unable to recall basic information and had difficulty finding words. they did not notice a facial droop and she had no difficulty ambulating. due to the worsening confusion she was brought to the ED for further evaluation. Pt was kept in the hospitl and pt was given MRI and CT head that were essentially normal. Pt had neurolgoy seen her and thought it was hypertenion mediated, the stated that she took balcofen and was sleepy for a day and half. Pt is now slowly coming back to normal, trop mil elevation will get a stress test if that was negaive, pt then will be discharged. Time: 35min - Time Spent with Patient Total time spent providing and/or coordinating discharge services: - Discharge Medications Home Medications: Aspirin Enteric Coated [Aspirin EC] 81 mg PO DAILY 11/23/14 [History] Cholecalciferol (D-3) [Vitamin D] 2,000 unit PO DAILY 11/23/14 [History] metFORMIN [Glucophage] 500 mg PO DAILY 11/23/14 [History] [place]-3/Dha/Epa/Fish Oil [Fish Oil 1,000 mg Softgel] 1 each PO DAILY 05/31/15 [History] Clopidogrel [Plavix] 75 mg PO DAILY #30 tablet 08/28/15 [Rx] Cetirizine HCl [Zyrtec] 10 mg PO DAILY 05/30/16 [History] Isosorbide MONOnitrate (24 HR) [Imdur] 30 mg PO DAILY 08/26/16 [History] Furosemide [Lasix] 20 mg PO DAILY PRN #30 tablet 09/03/16 [Rx] Warfarin [Coumadin] 1 mg PO SUMOWEFRSA 12/11/16 [History] Warfarin [Coumadin] 2 mg PO TUTH 12/11/16 [History] Tramadol HCl [Ultram] 50 mg PO BID PRN 01/09/17 [History] Metoprolol [Lopressor] 50 mg PO TID 05/15/17 [History] Gabapentin 600 mg PO TID 04/27/18 [History] Lisinopril [Zestril] 40 mg PO DAILY 04/27/18 [History] Allergies/Adverse Reactions: Allergy/AdvReac Type Severity Reaction Status Date / Time Erythromycin Base AdvReac Gastrointestinal Verified 04/27/18 16:40 [From Erythrocin] Upset Date of admission: 04/28/18 08:25 Primary care physician: Thelma Latif CNP Consults: 04/27/18 17:38 Consult to Neurology [CONS] Routine Consulting Provider: [facility] Reason for Consult: ?stroke vs encephalopathy Call Completed: Yes 04/27/18 19:01 Consult to Cardiology [CONS] Routine Comment: Consulting Provider: Card[facility] Reason for Consult: prolonged QT, on AMiodarone- stopped, has elevated troponin with EKG changes Call Completed: Yes - Constitutional Vitals: Temp Pulse Resp BP Pulse Ox 98.2 F 81 16 166/90 94 04/29/18 06:49 04/29/18 06:49 04/29/18 06:49 04/29/18 06:49 04/29/18 06:49 Exam: General: Patient is alert, oriented, no acute distress, Head: atraumatic, normocephalic, Eye: normal appearance, PERRL, no scleral icterus, no conjunctival injection ENT: mucous membranes moist, normal external ear exam Neck: normal inspection, trachea midline, full ROM, no carotid bruits Chest: normal inspection, symmetric chest rise Respiratory: Good respiratory effort. Bilateral breath sounds are clear without wheezing, crackles, or rhonchi. Cardiovascular: bradycardic s1 and s2 No clicks, rubs, gallops, or murmors. Abdomen: Bowel sounds present normoactive x-4 quadrants. Abdomen is soft, nondistended. no Epigastric tenderness. No guarding or rebound. No organomegaly noted, obese musculoskeletal: Spontaneously moving all extremities. no edema, no calf tenderness, left calf bigger than right calf ( chronic as per ) Skin: warm, dry, intact. Neuro: Alert and oriented x to person, and place not time ( cannot recall date or time), unable to sign her signature on darrell paper, rapid hand movements intact, heel to zelaya intact, CN2-12 intact, no nystagmus Psych: Patient's affect is normal - Patient Status Disposition: Home, Self-Care Condition: Fair - Discharge Instructions Follow Up With: Thelma Latif BLOCK SEALER [Primary Care Provider] -
[2018-04-29 11:14] VITALS: BP 176/79
[2018-04-29] MEDS: Aspirin Enteric Coated 81 MG Tablet PO SCH (11:31)
[2018-04-29] MEDS: Isosorbide MONOnitrate (24 HR) 30 MG TAB.ER.24H PO SCH (11:31)
[2018-04-29] MEDS: Cholecalciferol (D-3) 1,000 UNIT TABLET PO SCH (11:31)
[2018-04-29] MEDS: hydrALAZINE 25 MG TABLET PO SCH ×2 (11:31→15:20)
--- NOTE | 2018-04-29 12:08 | Event Note ---
Date of Encounter: 04/29/18 Time of Encounter: 12:04 - Cardiology Event Note EKGs reviewed with Dr. Erwin Kumar given prolonged QTc. Appears QTc is overestimated and expect QTc prolongation on Amiodarone. Dr. Kumar recommends resuming Amiodarone 200mg daily and home BB--Lopressor 50mg TID. TTE resulted--LVEF 55%. Moderate cLVH. Moderate LVDD. Normal RV structure and function. No evidence of PFO with agitated saline contrast. Mild AR. No evidence of phtn. Mild troponin elevation--0.11, 0.12, 0.11 in setting of AMS. Hx of chronically elevated troponins. Denies chest pain. Hx CAD and PCI in 2016. Initial recommendation was for inpt stress test, but seems reasonable to be done as outpt. Cardiology signing off. Reconsult PRN. Will coordinate outpt follow-up in 2-3 weeks.
[2018-04-29] MEDS ORDERED: *HR* Amiodarone 200 MG TABLET PO SCH (12:15)
--- NOTE | 2018-04-29 17:26 | Electrocardiograph Report ---
[place] [address] Test Date: 2018-04-27 Pat Name: Lakeshia Amin Department: [id number] Room: 2NE18 Gender: F Seniour Insight Manager: : 1945 Requested By: Vic Reyes Order Number: [id number] Reading MD: Katherine Briceno Measurements Intervals [place] Rate: 62 P: 214 CA: 165 QRS: 9 QRSD: 105 T: 135 QT: 469 QTc: 477 Interpretive Statements Sinus or ectopic atrial rhythm LVH with secondary repolarization abnormality Prolonged QT interval Electronically Signed On 04-29-2018 17:24:34 EST by Katherine Briceno
--- NOTE | 2018-04-29 17:32 | Electrocardiograph Report ---
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
--- NOTE | 2018-04-29 17:32 | Electrocardiograph Report ---
[address] [place], [place] [address] Test Date: 2018-04-27 Pat Name: Lakeshia Amin Department: 111 Room: 2NE18 Gender: F Otr Driver: [id number] : 1945 Requested By: Geno Torrez Order Number: [id number] Reading MD: Katherine Briceno Measurements Intervals [place] Rate: 53 P: 45 MA: 179 QRS: -16 QRSD: 98 T: 137 QT: 418 QTc: 401 Interpretive Statements SINUS BRADYCARDIA LEFT VENTRICULAR HYPERTROPHY AND ST-T CHANGE Electronically Signed On 04-29-2018 17:31:27 EST by Katherine Briceno
--- NOTE | 2018-04-29 17:48 | Electrocardiograph Report ---
[place] [address] Test Date: 2018-04-27 Pat Name: Lakeshia Amin Department: 111 Room: 2NE18 Gender: F Cut Off Saw Operator: [id number] : 1945 Requested By: Emanuel Wong Order Number: [id number] Reading MD: Katherine Briceno Measurements Intervals [place] Rate: 61 P: 86 AL: 166 QRS: -13 QRSD: 120 T: 127 QT: 448 QTc: 452 Interpretive Statements SINUS RHYTHM LEFT VENTRICULAR HYPERTROPHY AND ST-T CHANGE Electronically Signed On 04-29-2018 17:47:11 EST by Katherine Briceno
--- NOTE | 2018-04-29 17:52 | Electrocardiograph Report ---
[address] [address] Test Date: 2018-04-28 Pat Name: Lakeshia Amin Department: 111 Room: 2NE18 Gender: F Knitted Cloth Examiner: [id number] : 1945 Requested By: Emanuel Wong Order Number: [id number] Reading MD: Katherine Briceno Measurements Intervals [place] Rate: 65 P: 85 HI: 166 QRS: -12 QRSD: 111 T: 96 QT: 544 QTc: 556 Interpretive Statements SINUS RHYTHM LEFT VENTRICULAR HYPERTROPHY AND ST-T CHANGE Electronically Signed On 04-29-2018 17:51:20 EST by Katherine Briceno
[2018-04-29] MEDS ORDERED: *HR* Warfarin 1 MG TABLET PO ONE (18:00)
--- NOTE | 2018-04-29 18:00 | Electrocardiograph Report ---
[address] [address] Test Date: 2018-04-28 Pat Name: Lakeshia Amin Department: 111 Room: 2NE18 Gender: F Doctor Of Podiatry: [id number] : 1945 Requested By: Emanuel Wong Order Number: [id number] Reading MD: Katherine Briceno Measurements Intervals [place] Rate: 60 P: 55 HI: 165 QRS: -14 QRSD: 101 T: 130 QT: 400 QTc: 402 Interpretive Statements SINUS RHYTHM LEFT VENTRICULAR HYPERTROPHY AND ST-T CHANGE Electronically Signed On 04-29-2018 17:58:59 EST by Katherine Briceno
--- NOTE | 2018-04-29 21:31 | Electrocardiograph Report ---
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
--- NOTE | 2018-04-30 17:23 | Electrocardiograph Report ---
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
--- NOTE | 2018-04-30 17:27 | Electrocardiograph Report ---
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
== END 2018-04-29 15:56 | disposition home or self-care (01) | DRG 77 ==
LOC: 2NENU 14:18 → EMEROOARM 14:18 → SUATTDRO 17:07 → 2NENU 18:08
PROVIDERS: ADMIT Hospitalist; ATTEND Internal Medicine

== ENCOUNTER 2018-10-27 19:59 | Inpatient (IN) ==
[2018-10-27 23:48] LABS: Basophils # 0.1 K/mcL (0.0-0.2); Basophils % 0.5 %; Eosinophils # 0.1 K/mcL (0.0-0.6); Eosinophils % 0.7 %; Hematocrit 41.2 % (35.3-44.9); Hemoglobin 12.9 g/dL (11.5-15.4); Lymphocytes # 2.1 K/mcL (0.6-4.6); Lymphocytes % 16.6 %; Mean Corpuscular HGB Conc 31.3 g/dL (31.6-35.5); Mean Corpuscular Hemoglobin 29.9 pg (28.0-33.3); Mean Corpuscular Volume 95.4 fL (83.0-100.0); Mean Platelet Volume 9.2 fL (9.4-12.4); Monocytes # 0.9 K/mcL (0.0-1.3); Monocytes % 6.8 %; Neutrophils # 9.5 K/mcL (1.6-8.9); Platelet Count 293 K/mcL (140-400); Red Blood Count 4.32 M/mcL (3.82-4.97); Red Cell Distribution Width 12.5 % (11.5-14.5); Segmented Neutrophils % 74.4 %; White Blood Count 12.7 K/mcL (4.3-11.1)
[2018-10-27 23:51] LABS: Alanine Aminotransferase 71 Units/L (7-52); Albumin 3.8 g/dL (3.5-5.7); Albumin/Globulin Ratio 1.5 (1.1-2.2); Alkaline Phosphatase 72 Units/L (34-104); Aspartate Amino Transferase 94 Units/L (13-39); BUN/Creatinine Ratio 20 (6-26); Bilirubin,Total 0.8 mg/dL (0.3-1.0); Blood Urea Nitrogen 20 mg/dL (8-23); Calcium 9.1 mg/dL (8.6-10.3); Carbon Dioxide 24 mEq/L (23-29); Chloride 106 mEq/L (98-107); Globulin 2.6 g/dL (2.4-3.5); Glucose 123 mg/dL (70-105); Osmolality,Calculated 294 (280-300); Potassium 3.9 mEq/L (3.5-5.1); Sodium 140 mEq/L (136-145); Total Protein 6.4 g/dL (6.4-8.9); eGFR For African Americans > 60 (> 60); eGFR For Non-African Americans 54 (> 60)
[2018-10-28] MEDS ORDERED: Naloxone 0.4 MG/ML INJ IVP PRN (01:35)
[2018-10-28] MEDS ORDERED: Ondansetron 4 MG/2 ML VIAL IVP PRN (01:35)
[2018-10-28 01:58] LABS: INR 1.8; Prothrombin Time 20.5 Seconds (9.4-12.1)
[2018-10-28 02:01] LABS: Activated Partial Thrombo Time 41.7 Seconds (26.0-36.0)
[2018-10-28] MEDS ORDERED: *HR* Heparin 5,000 UNIT/ML VIAL IVP PRN ×2 (02:09)
--- NOTE | 2018-10-28 02:24 | Internal Med History&Physical ---
Date of Encounter: 10/28/18 Time of Encounter: 00:45 Internal Medicine - H&P: HPI Chief complaint: Right ankle pain d/t fall Admitted From: Hospital to Hospital Transfer Plans for Post Hospital Care: Home History of present illness: Ms. Amin is a 72 year old female w/PMH of atrial fibrillation, cardiomyopathy, CAD, diabetes, HTN, HLD, LAUREL, and previous breast and uterine cancer presents from [facility] w/pain in right ankle d/t bimalleolar fracture w/50% subluxation sustained from a fall yesterday evening. Patient reports she was coming out of the bathroom and her feet became tangled causing her to fall. Patient denies striking head, LOC, or injury to other parts of her body. Reports 5-6/10 pain in right ankle. Pt. also reports chronic back pain. Pt. has hx of stents x2. Patient denies recent illness, fever, chills, nausea, vomiting, headache, changes in vision, unusual bleeding, CP, SOB, abdominal pain, diarrhea, constipation, numbness, tingling, dizziness, lightheadedness, pre-syncope, or syncope. Past Med Surg Social Fam HX - Past Medical History Source: patient, old records reviewed, obtained from family Medical history: atrial fibrillation, cancer (Breast and uterine - No longer taking txs), cardiomyopathy, coronary artery disease, diabetes, hyperlipidemia, hypertension, other Additional medical history: breast and uterine cancer. sleep apnea Psychiatric history: no psych history - Past Surgical History Surgical History: angioplasty/stent (x2), cancer surgery, cholecystectomy, REMINGTON/BSO Additional surgical history: carpel tunnel surgery right. R breast lumpectomy. stents x2 - Social History Smoking Status: Former smoker Packs per day: 1 PPD - Reports quitting 30 years ago Smokeless Tobacco Status: No Alcohol use: rarely Drug use: none Current living situation: Home, With Family Activity Level: Independent ambulation Recent Out of Country Travel Within the Last 8 Weeks: No Exposure or Possible Exposure to Illness During Travel: No - Family History Father Race: Family Member Ethnicity: Non- Living Status: Age at : 70 Cause of : CAD Hx Family Cardiac Disorders: Yes (CAD) Hx Family Endocrine Disorder: Yes (Diabetic) Mother Adopted: No Race: Family Member Ethnicity: Non- Living Status: Age at : 80 Cause of : Throat cancer Hx Family Cardiac Disorders: Yes (htn) Hx Family Cancer: Yes (Throat cancer) Hx Family Endocrine Disorder: Yes (diabetic) Sister Race: Family Member Ethnicity: Non- Living Status: Age at : 60 Cause of : Suicide Hx Family Psychosocial Disorders: Yes (Suicide) Internal Medicine - H&P: Meds Aspirin Enteric Coated [Aspirin EC] 81 mg PO QAM 11/23/14 [History] Cholecalciferol (D-3) [Vitamin D] 2,000 unit PO QAM 11/23/14 [History] [place]-3/Dha/Epa/Fish Oil [Fish Oil 1,000 mg Softgel] 300 mg PO QAM 05/31/15 [History] Cetirizine HCl [Zyrtec] 10 mg PO QAM 05/30/16 [History] Warfarin [Coumadin] 1 mg PO MOWEFR 12/11/16 [History] Warfarin [Coumadin] 2 mg PO SUTUTHSA 12/11/16 [History] Gabapentin 600 mg PO TID 04/27/18 [History] Carvedilol [Coreg] 6.25 mg PO BIDWM #60 tablet 05/18/18 [Rx] Baclofen [Lioresal] 20 mg PO Q8HR PRN 07/05/18 [History] Amlodipine Besylate 10 mg PO QAM 07/07/18 [History] Chlorthalidone 25 mg PO QAM 07/07/18 [History] Hydralazine HCl 50 mg PO TID 07/07/18 [History] Amiodarone [Cordarone] 200 mg PO QAM 10/27/18 [History] Clopidogrel [Plavix] 75 mg PO QAM 10/27/18 [History] Fluticasone Propionate Nasal [Flonase] 2 spray NS DAILY 10/27/18 [History] Isosorbide MONOnitrate (24 HR) [Imdur] 30 mg PO QAM 10/27/18 [History] Pravastatin Sodium [Pravachol] 40 mg PO HS 10/27/18 [History] Losartan [Cozaar] 100 mg PO QAM 10/28/18 [History] Allergy/AdvReac Type Severity Reaction Status Date / Time Erythromycin Base AdvReac Gastrointestinal Verified 07/07/18 10:21 [From Erythrocin] Upset All Systems PM: A 10-system review of systems was performed and is negative for pertinent findings except as documented above in the HPI. - Constitutional Constitutional: as per HPI, no chills, no fever(s), no night sweats - EENT Eyes: no change in vision, no discharge, no pain, no photophobia Ears: no ear discharge, no ear pain, no tinnitus Nose, mouth and throat: no dysphagia, no nasal discharge, no neck pain, no sore throat - Breasts Breasts: as per HPI - Cardiovascular Cardiovascular ROS IM: as per HPI, irregular heart rhythm, no chest pain, no diaphoresis, no dyspnea, no lightheadedness, no palpitations, no syncope - Respiratory Respiratory: no cough, no dyspnea, no wheezing, no excessive phlegm production - Gastrointestinal Gastrointestinal: no abdominal pain, no diarrhea, no hematemesis, no hematochezia, no melena, no nausea, no vomiting - Genitourinary Genitourinary: no change in urinary stream, no dysuria, no flank pain, no hematuria Menstruation: as per HPI - Musculoskeletal Musculoskeletal ROS IM: as per HPI, back pain, no numbness, no tingling - Integumentary Integumentary IM: no rash, no unusual bruising - Neurological Neurological ROS: no confusion, no convulsions, no focal weakness, no numbness, no tingling, no tremor(s) - Psychiatric Psychiatric: as per HPI ( ) - Endocrine Endocrine IM: as per HPI - Hematologic/Lymphatic Hematologic/Lymphatic: no easy bruising - Allergic/Immunologic Allergic/Immunologic: as per HPI - Constitutional Vitals: Temp Pulse Resp BP Pulse Ox 98.3 F 63 17 159/69 99 10/27/18 22:20 10/27/18 22:20 10/27/18 22:20 10/27/18 22:20 10/27/18 23:17 General appearance: Present: cooperative, mild distress (Right ankle pain and back pain/spasms), A&O X 3, pleasant, obese, answers questions appropriately Exam: Patient examined at bedside. Pts. present. Pt. reports pain of 5-6/10 in right ankle. Patient denies any other symptoms or complaints on exam. VS: 98.3F temp, HR 63, RR 17, BP 159/69, SPO2 99% on room air. - Head Head exam: Present: atraumatic, normocephalic - Eye Eye exam: Present: PERRL, conjuntiva pink, sclera anicteric Pupils: Present: PERRL - ENT ENT exam: Present: normal exam - Neck Neck exam general surgery: Present: normal inspection, supple, trachea midline. Absent: lymphadenopathy - Respiratory Respiratory exam: Present: CTAB. Absent: accessory muscle use, rales, rhonchi, wheezes - Cardiovascular Cardiovascular exam: Present: RRR, +S1, +S2. Absent: diastolic murmur, gallop, rubs, systolic murmur - GI/Abdominal GI/Abdominal exam: Present: normal bowel sounds, soft, no peritoneal signs. Absent: distended, tenderness - Rectal Rectal exam: Present: deferred - Additional comments: exam deferred. - Extremities Exam Extremities exam: Present: pedal edema, warm, radial pulses palpable and symmetrical. Absent: calf tenderness, cyanotic - Back Exam Back exam: Present: normal inspection - Neurological Exam Neurological exam: Present: alert, CN II-XII intact, oriented X3, no focal deficits. Absent: pronater drift, facial droop, speech deficit - Psychiatric Psychiatric exam: Present: normal affect, normal mood - Skin Skin exam: Present: dry, intact Internal Med - H&P Results - Labs CBC & Chem 7: 10/28/18 01:37 10/27/18 23:16 Labs: Short CBC 10/27/18 Range/Units 23:16 WBC 12.7 H (4.3-11.1) K/mcL Hgb 12.9 (11.5-15.4) g/dL Hct 41.2 (35.3-44.9) % Plt Count 293 (140-400) K/mcL Neutrophils # 9.5 H (1.6-8.9) K/mcL BMP 10/27/18 23:16 Sodium 140 Potassium 3.9 Chloride 106 Carbon Dioxide 24 BUN 20 Creatinine 1.01 Glucose 123 H Calcium 9.1 Liver Function 10/27/18 Range/Units 23:16 Total Bilirubin 0.8 (0.3-1.0) mg/dL AST 94 H (13-39) Units/L ALT 71 H (7-52) Units/L Alkaline Phosphatase 72 (34-104) Units/L Albumin 3.8 (3.5-5.7) g/dL - EKG Data EKG shows normal: sinus rhythm - EKG Data Prior EKG available for review: no - Diagnostic Studies Other Images Additional comments: XR of the right ankle at [facility] shows bimalleolar fracture with 50% subluxation, posterior laterally of the talus on distal tibia. Post- reduction film shows successful reduction. - Assessment and Plan (1) Bimalleolar fracture of right ankle Current Visit: Yes Status: Acute Assessment and plan: Acute bimalleolar fracture of the right ankle. Patient reports she was coming out of the bathroom and her feet became tangled causing her to fall. Patient denies striking head, LOC, or injury to other parts of her body. Reports 5-6/10 pain in right ankle. XR of the right ankle at [facility] shows bimalleolar fracture with 50% subluxation, posterior laterally of the talus on distal tibia. Post-reduction film shows successful reduction. Cardioversion with AMANDA on 07/08/18 showed successful direct current cardioversion of atrial fibrillation. No thrombus in the ZAMBIAN RLE appendage. LVEF of 50%. Moderate concentric left ventricular hypertrophy. Normal RV size and systolic function. Moderately dilated LA. Mild dilated RA. Mild aortic regurgitation. Dr. Casey consulted by [facility] prior to transfer. I discussed the patient w/Dr. Casey early this morning regarding surgical time and pts. use of Coumadin. As always , I appreciate the consult and recommendations. INR 1.8 on admission. Holding Coumadin and standard dose heparin gtt started w/o bolus. Stair-step pain medications for pain mgmt. PT/OT consults for rehabilitation evaluation post-surgery. Bedrest now. NPO now for surgical intervention. Falls/safety precautions and up with assist post-surgery. Patient is high risk for further morbidity and complications d/t hx of paroxysmal Afib, hx of CAD w/stents x2, current fx of the right ankle; and current risk factors of DM, HTN, HLD, cardiomyopathy, and obesity. Inpatient. Qualifiers: Encounter type: initial encounter Fracture type: closed Qualified Code(s ): S82.841A - Displaced bimalleolar fracture of right lower leg, initial encounter for closed fracture (2) HTN (hypertension) Current Visit: Yes Status: Chronic Assessment and plan: Hx of chronic HTN. Monitor pt. and VS. Continue pts. Hydralazine, Cozaar, hydralazine, chlorthalidone, Coreg, and amlodipine. Qualifiers: Hypertension type: essential hypertension Qualified Code(s): I10 - Essential (primary) hypertension (3) HLD (hyperlipidemia) Current Visit: Yes Status: Chronic Assessment and plan: Hx of chronic HLD. Lipid panel in a.m. labs. Continue patient's Pravachol. Qualifiers: Hyperlipidemia type: pure hypercholesterolemia Qualified Code(s): E78.00 - Pure hypercholesterolemia, unspecified; E78.0 - Pure hypercholesterolemia (4) CAD (coronary artery disease) Current Visit: Yes Status: Chronic Assessment and plan: Hx of chronic CAD. Stents x2. Hx of HTN and HLD. Continuous cardiac telemetry. Continue patient's amiodarone, amlodipine, ASA, Coreg, chlorthalidone, h ydralazine, Imdur, Cozaar, and Pravachol. Qualifiers: Coronary Disease-Associated Artery/Lesion type: [place] artery [place] vs. transplanted heart: [place] heart Associated angina: without angina Qualified Code(s): I25.10 - Atherosclerotic heart disease of [place] coronary artery without angina pectoris (5) Paroxysmal atrial fibrillation Current Visit: Yes Status: Chronic Assessment and plan: Hx of paroxysmal atrial fibrillation. Continuous cardiac telemetry. We will continue patient's Coumadin with pharmacy dosing post surgery when appropriate. Continue patient's amiodarone. (6) Diabetes Current Visit: Yes Status: Chronic Assessment and plan: Hx of chronic diabetes controlled w/o insulin or oral antihyperglycemic medications. Low-dose correction sliding scale insulin with hypoglycemic protocol. A1c in a.m. labs. BG checks and insulin every 6 while nothing by mouth. Will change to before meals at bedtime coverage and BG checks when patient has diet ordered. Qualifiers: Diabetes mellitus type: type 2 Diabetes mellitus custodial insulin use: without exterminator helper termite use Diabetes mellitus complication status: without complication Qualified Code(s): E11.9 - Type 2 diabetes mellitus without complications (7) Obesity (BMI 30-39.9) Current Visit: Yes Status: Chronic Assessment and plan: Hx of chronic obesity. Encouraged lifestyle and dietary modifications. (8) LAUREL (obstructive sleep apnea) Current Visit: Yes Status: Chronic Assessment and plan: Hx of chronic LAUREL. Supplemental O2 w/titration via NC overnight. Will transition to BiPAP/CPAP if needed. (9) Back pain Current Visit: Yes Status: Chronic Assessment and plan: Hx of chronic back pain. Stair-step pain medications for pain mgmt. Flexeril for back spasms. Will try lidocaine patches if further intervention required. Qualifiers: Back pain location: low back pain Chronicity: chronic Back pain laterality: bilateral Sciatica presence: unspecified whether sciatica present Qualified Code(s): M54.5 - Low back pain; G89.29 - Other chronic pain (10) DVT prophylaxis Current Visit: Yes Status: Acute Assessment and plan: SCD on LLE when admitted. Pts. last Coumadin dosing was Sunday night. INR 1.8 on admission. Standard dose heparin gtt started w/o initial bolus. Will check heparin Xa factors. Monitor pt. for signs of bleeding. - Time Spent With Patient Total time spent is greater than 50% in coordination of care (as documented) at patient's floor/unit and/or counseling patient: Greater than 35 minutes
[2018-10-28 02:25] LABS: Hematocrit 39.5 % (35.3-44.9); Hemoglobin 12.6 g/dL (11.5-15.4); Heparin anti-factor XA UFH 0.05 IU/mL (0.30-0.70); Mean Corpuscular HGB Conc 31.9 g/dL (31.6-35.5); Mean Corpuscular Hemoglobin 29.7 pg (28.0-33.3); Mean Corpuscular Volume 93.2 fL (83.0-100.0); Mean Platelet Volume 9.4 fL (9.4-12.4); Platelet Count 313 K/mcL (140-400); Red Blood Count 4.24 M/mcL (3.82-4.97); Red Cell Distribution Width 12.8 % (11.5-14.5); White Blood Count 11.6 K/mcL (4.3-11.1)
[2018-10-28] MEDS ORDERED: D5% in Water 1,000 ML IVC PRN (02:25)
[2018-10-28] MEDS ORDERED: Dextrose Gel 15 GM/37.5 ML TUBE PO PRN ×2 (02:25)
[2018-10-28] MEDS ORDERED: *HR* Dextrose 50 % in Water (Syg) 50 ML SYRINGE IVP PRN (02:25)
[2018-10-28 02:33] LABS: Cholesterol 154 mg/dL (< 200); HDL Cholesterol 52 mg/dL (40-59); LDL Cholesterol,Calculated 84 mg/dL (0-99); Magnesium 2.1 mg/dL (1.6-2.6); Triglycerides 92 mg/dL (< 150)
[2018-10-28] MEDS: Heparin 25,000 UNIT/250 ML D5W 25,000 UNIT/250 ML IV.SOLN IVC SCH (03:14)
[2018-10-28] MEDS: Insulin LISPRO 300 UNITS/3 ML VIAL SQ SCH ×3 (06:22→18:43)
[2018-10-28] MEDS: hydrALAZINE 25 MG TABLET PO SCH ×3 (08:18→20:43)
[2018-10-28] MEDS: Loratadine 10 MG TABLET PO SCH (08:19)
[2018-10-28] MEDS: amLODIPine 5 MG TABLET PO SCH (08:19)
[2018-10-28] MEDS: Aspirin Enteric Coated 81 MG Tablet PO SCH (08:19)
[2018-10-28] MEDS: *HR* Amiodarone 200 MG TABLET PO SCH (08:19)
[2018-10-28] MEDS: Isosorbide MONOnitrate (24 HR) 30 MG TAB.ER.24H PO SCH (08:19)
[2018-10-28] MEDS: Gabapentin 300 MG CAPSULE PO SCH ×3 (08:20→20:43)
[2018-10-28] MEDS: Fluticasone Propionate Nasal 50 MCG/SPRAY BOTTLE NS SCH (08:23)
--- NOTE | 2018-10-28 09:34 | Event Note ---
Date of Encounter: 10/28/18 Time of Encounter: 09:34 Patient admitted overnight for right bimalleolar ankle fracture. Currently patient has a splint. Patient hemodynamically stable. Denies any other complaints besides pain. Patient started on heparin drip she appears to be likely for A. fib. Orthopedics has been consulted. Patient is nothing by mouth. Cardiovascular exam unremarkable. We can continue current management. However post surgery patient likely does not need bridge if on anticoagulation only for A. fib. We will review patient's charts for detail.
[2018-10-28] MEDS: *HR* OxyCODONE Immed Rel 5 MG TABLET PO PRN ×2 (13:16→20:43)
--- NOTE | 2018-10-28 14:31 | Electrocardiograph Report ---
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
[2018-10-28] MEDS: traMADol 50 MG TABLET PO PRN (18:57)
--- NOTE | 2018-10-28 21:10 | Orthopedic Consult Note ---
Date of Encounter: 10/28/18 Time of Encounter: 21:06 History of Present Illness Chief complaint: Right ankle pain HPI: Ms. Amin is a 72 year old female sustained an injury to her right ankle when she fell at home in the bathroom. She had immediate pain and deformity. She was seen initially at [facility] were x-rays taken revealed evidence of a fracture dislocation of the right ankle. She was treated with reduction of the dislocation and splinting followed by transferred to [facility] for definitive management. Patient denies neurovascular injuries. Denies blackouts dizziness vertigo etc. Denies any other injuries. I reviewed the patient's completed medical record as well as the images obtained at [facility]. Pertinent orthopedic examination is a pleasant 72-year-old woman in minimal distress lying in the hospital bed. Right lower extremity is in a long posterior leg splint. Distal neurosensory exam is intact. I reviewed x-rays from [facility]. These reveal a trimalleolar fracture dislocation with postreduction x-rays revealing a successful reduction of the tibiotalar dislocation. Laboratory data includes a hemoglobin of 12.6 with a normal platelet count. Pro time is 20.5 with an INR of 1.8. Impression: Trimalleolar fracture/dislocation right ankle Recommendation: With the patient's pro time elevated at 20.5 would hold off on surgery until it has become more normalized. Discussed with the patient that I would give this probably 48 hours. Discussed that this fracture is unstable and would recommend proceeding with open reduction internal fixation of the fracture including plating of the lateral malleolus and stabilization the medial side of the ankle. Typically the posterior malleolar fragment does not need to be addressed. We discussed the surgical procedure including potential risks and complications of bleeding, infection, stiffness, blood clots, nerve injury as well as malunion or nonunion. Patient understands and agrees with the plan of care as noted. Anticipate proceeding with surgery in 48 hours when operating time is available and the patient's prothrombin time has more normalized. Thank you very much for allowing me to see and care for Mrs. Amin. Sincerely, Delgado Casey,DO Past Med Surg Social Fam HX - Past Medical History Medical history: atrial fibrillation, cancer (Breast and uterine - No longer taking txs), cardiomyopathy, coronary artery disease, diabetes, hyperlipidemia, hypertension, other Additional medical history: breast and uterine cancer. sleep apnea Psychiatric history: no psych history - Past Surgical History Surgical History: angioplasty/stent (x2), cancer surgery, cholecystectomy, REMINGTON/BSO Additional surgical history: carpel tunnel surgery right. R breast lumpectomy. stents x2 - Social History Smoking Status: Former smoker Packs per day: 1 PPD - Reports quitting 30 years ago Smokeless Tobacco Status: No Alcohol use: rarely Drug use: none - Family History Father Race: Family Member Ethnicity: Non- Living Status: Age at : 70 Cause of : CAD Hx Family Cardiac Disorders: Yes (CAD) Hx Family Endocrine Disorder: Yes (Diabetic) Sister Race: Family Member Ethnicity: Non- Living Status: Age at : 60 Cause of : Suicide Hx Family Psychosocial Disorders: Yes (Suicide) Mother Adopted: No Race: Family Member Ethnicity: Non- Living Status: Age at : 80 Cause of : Throat cancer Hx Family Cardiac Disorders: Yes (htn) Hx Family Respiratory Disorders: No Hx Family Cancer: Yes (Throat cancer) Hx Family GI Disorders: No Hx Family Endocrine Disorder: Yes (diabetic) Hx Family Neuromuscular Disorders: No Hx Family Neurologic Disorders: No Hx Family HEENT Disorders: No Hx Family Autoimmune Disorders: No Medications and Allergies Aspirin Enteric Coated [Aspirin EC] 81 mg PO QAM 11/23/14 [History] Cholecalciferol (D-3) [Vitamin D] 2,000 unit PO QAM 11/23/14 [History] [place]-3/Dha/Epa/Fish Oil [Fish Oil 1,000 mg Softgel] 300 mg PO QAM 05/31/15 [History] Cetirizine HCl [Zyrtec] 10 mg PO QAM 05/30/16 [History] Warfarin [Coumadin] 1 mg PO MOWEFR 12/11/16 [History] Warfarin [Coumadin] 2 mg PO SUTUTHSA 12/11/16 [History] Gabapentin 600 mg PO TID 04/27/18 [History] Carvedilol [Coreg] 6.25 mg PO BIDWM #60 tablet 05/18/18 [Rx] Baclofen [Lioresal] 20 mg PO Q8HR PRN 07/05/18 [History] Amlodipine Besylate 10 mg PO QAM 07/07/18 [History] Chlorthalidone 25 mg PO QAM 07/07/18 [History] Hydralazine HCl 50 mg PO TID 07/07/18 [History] Amiodarone [Cordarone] 200 mg PO QAM 10/27/18 [History] Clopidogrel [Plavix] 75 mg PO QAM 10/27/18 [History] Fluticasone Propionate Nasal [Flonase] 2 spray NS DAILY 10/27/18 [History] Isosorbide MONOnitrate (24 HR) [Imdur] 30 mg PO QAM 10/27/18 [History] Pravastatin Sodium [Pravachol] 40 mg PO HS 10/27/18 [History] Losartan [Cozaar] 100 mg PO QAM 10/28/18 [History] Allergy/AdvReac Type Severity Reaction Status Date / Time Erythromycin Base AdvReac Gastrointestinal Verified 07/07/18 10:21 [From Erythrocin] Upset All Systems Reviewed: The remainder of the systems were reviewed and are negative Physical Exam - Constitutional Vitals: Temp Pulse Resp BP Pulse Ox 100.1 F H 54 15 100/55 94 10/28/18 18:49 10/28/18 18:49 10/28/18 18:49 10/28/18 18:49 10/28/18 18:49 Results - Labs Result Diagrams: 10/28/18 01:37 10/27/18 23:16 Labs: Abnormal lab results WBC 11.6 K/mcL (4.3-11.1) H 10/28/18 01:37 MCHC 31.3 g/dL (31.6-35.5) L 10/27/18 23:16 MPV 9.2 fL (9.4-12.4) L 10/27/18 23:16 Neutrophils # 9.5 K/mcL (1.6-8.9) H 10/27/18 23:16 PT 20.5 Seconds (9.4-12.1) H 10/28/18 01:37 APTT 41.7 Seconds (26.0-36.0) H 10/28/18 01:37 Heparin Anti-Xa, Unfract 0.05 IU/mL (0.30-0.70) L 10/28/18 01:37 Est GFR (Non-Af Amer) 54 (> 60) L 10/27/18 23:16 Glucose 123 mg/dL (70-105) H 10/27/18 23:16 POC Glucose 158 mg/dL (70-99) H 10/28/18 06:16 AST 94 Units/L (13-39) H 10/27/18 23:16 ALT 71 Units/L (7-52) H 10/27/18 23:16 H & H 10/27/18 10/28/18 Range/Units 23:16 01:37 Hgb 12.9 12.6 (11.5-15.4) g/dL Hct 41.2 39.5 (35.3-44.9) % All other labs normal. - Diagnostic results Ankle/Foot x-ray: image reviewed Consult Discharge Plan - Plan Referrals: NONE,PCP [Primary Care Provider] -
[2018-10-28 21:33] LABS: INR 1.9; Prothrombin Time 21.7 Seconds (9.4-12.1)
[2018-10-29] MEDS: Insulin LISPRO 300 UNITS/3 ML VIAL SQ SCH ×5 (00:26→23:45)
[2018-10-29] MEDS: Acetaminophen 325 MG TABLET PO PRN ×2 (00:54→18:53)
--- NOTE | 2018-10-29 09:29 | Internal Med Progress Note ---
Hospitalist Progress Note - Encounter Date of Encounter: 10/29/18 Time of Encounter: 09:29 - Subjective Interval History: GEN and examined this morning and was within acute overnight events. Pain is controlled. Denies any nausea vomiting or diarrhea. Denies chest pain headache dizziness or difficulty breathing. - Exam Vitals: Temp Pulse Resp BP Pulse Ox 98.8 F 59 16 123/66 96 10/29/18 06:38 10/29/18 06:38 10/29/18 06:38 10/29/18 06:38 10/29/18 06:38 Exam: General: In no acute distress. Respiratory exam: CTAB. no accessory muscle use, rales, rhonchi, wheezes Cardiovascular exam: RRR, +S1, +S2. no murmur, gallop, rubs. GI/Abdominal exam: Non-tender, Non-distended, normal bowel sounds, soft, no peritoneal signs. Extremities exam: no pedal edema, no calf tenderness. Rt Leg splint Neurological exam: CN II-XII intact, AO X3, no focal deficits. Skin exam: No skin rash - Assessment and Plan (1) Paroxysmal atrial fibrillation Current Visit: Yes Status: Chronic (2) CAD (coronary artery disease) Current Visit: Yes Status: Chronic (3) Diabetes Current Visit: Yes Status: Chronic (4) Obesity (BMI 30-39.9) Current Visit: Yes Status: Chronic (5) LAUREL (obstructive sleep apnea) Current Visit: Yes Status: Chronic (6) DVT prophylaxis Current Visit: Yes Status: Acute (7) Bimalleolar fracture of right ankle Current Visit: Yes Status: Acute (8) HTN (hypertension) Current Visit: Yes Status: Chronic (9) HLD (hyperlipidemia) Current Visit: Yes Status: Chronic (10) Back pain Current Visit: Yes Status: Chronic - Summary of Assessment and Plan Summary of Assessment and Plan: Assessment Acute Bimalleolar Rt ankle fracture Chronic HTN HLD CAD Afib DM Obesity Plan - Plan for surgery when INR normalized. Ortho following. f/u INR. If still not downtrending will give small dose of vitamin K. - Currently on Heparin drip for afib. continue for now. However No other coagulopathy risk factors. will resume home coumadin without bridging after surgery. continue amiodarone. - Hold amlodipine, chlorthalidone , hydralazine and losartan given BP on lower end. - c/w losartan - accuchecks and SSI. Not on diabetes meds at home. Internal Medicine: Result - Labs CBC & Chem 7: 10/28/18 01:37 10/27/18 23:16 - ABG Interpretation ABG results: PT/INR, D-dimer PT 21.7 Seconds (9.4-12.1) H 10/28/18 19:37 Consult Discharge Plan - Plan Referrals: NONE,PCP [Primary Care Provider] - (2) CAD (coronary artery disease) Qualifiers: Coronary Disease-Associated Artery/Lesion type: [place] artery [place] vs. transplanted heart: [place] heart Associated angina: without angina Qualified Code(s): I25.10 - Atherosclerotic heart disease of [place] coronary artery without angina pectoris (3) Diabetes Qualifiers: Diabetes mellitus type: type 2 Diabetes mellitus technician terminal and repeater insulin use: witho ut correction use Diabetes mellitus complication status: without complication Qualified Code(s): E11.9 - Type 2 diabetes mellitus without complications (7) Bimalleolar fracture of right ankle Qualifiers: Encounter type: initial encounter Fracture type: closed Qualified Code(s): S82.841A - Displaced bimalleolar fracture of right lower leg, initial encounter for closed fracture (8) HTN (hypertension) Qualifiers: Hypertension type: essential hypertension Qualified Code(s): I10 - Essential (primary) hypertension (9) HLD (hyperlipidemia) Qualifiers: Hyperlipidemia type: pure hypercholesterolemia Qualified Code(s): E78.00 - Pure hypercholesterolemia, unspecified; E78.0 - Pure hypercholesterolemia (10) Back pain Qualifiers: Back pain location: low back pain Chronicity: chronic Back pain laterality: bilateral Sciatica presence: unspecified whether sciatica present Qualified Code(s): M54.5 - Low back pain; G89.29 - Other chronic pain
[2018-10-29] MEDS: amLODIPine 5 MG TABLET PO SCH (09:33)
[2018-10-29] MEDS: hydrALAZINE 25 MG TABLET PO SCH (09:33)
[2018-10-29] MEDS: Gabapentin 300 MG CAPSULE PO SCH ×3 (09:33→22:16)
[2018-10-29] MEDS: *HR* OxyCODONE Immed Rel 5 MG TABLET PO PRN (09:33)
[2018-10-29] MEDS: *HR* Amiodarone 200 MG TABLET PO SCH (09:34)
[2018-10-29] MEDS: Loratadine 10 MG TABLET PO SCH (09:34)
[2018-10-29] MEDS: Isosorbide MONOnitrate (24 HR) 30 MG TAB.ER.24H PO SCH (09:34)
[2018-10-29] MEDS: Aspirin Enteric Coated 81 MG Tablet PO SCH (09:34)
[2018-10-29] MEDS: Fluticasone Propionate Nasal 50 MCG/SPRAY BOTTLE NS SCH (10:26)
[2018-10-29 11:03] LABS: Hematocrit 35.3 % (35.3-44.9); Hemoglobin 11.5 g/dL (11.5-15.4); Mean Corpuscular HGB Conc 32.6 g/dL (31.6-35.5); Mean Corpuscular Hemoglobin 29.7 pg (28.0-33.3); Mean Corpuscular Volume 91.2 fL (83.0-100.0); Mean Platelet Volume 9.5 fL (9.4-12.4); Platelet Count 271 K/mcL (140-400); Red Blood Count 3.87 M/mcL (3.82-4.97); Red Cell Distribution Width 13.2 % (11.5-14.5); White Blood Count 12.3 K/mcL (4.3-11.1)
[2018-10-29 11:14] LABS: Estimated Average Glucose 126 mg/dl
[2018-10-29 11:22] LABS: INR 1.6; Prothrombin Time 18.2 Seconds (9.4-12.1)
[2018-10-29 11:24] LABS: Calcium 8.7 mg/dL (8.6-10.3); Potassium 3.6 mEq/L (3.5-5.1)
[2018-10-29] MEDS: Heparin 25,000 UNIT/250 ML D5W 25,000 UNIT/250 ML IV.SOLN IVC SCH ×2 (19:16)
--- NOTE | 2018-10-29 21:41 | Orthopedics Progress Note ---
Date of Encounter: 10/29/18 Time of Encounter: 21:39 Subjective Principal diagnosis: Right trimalleolar ankle fracture/dislocation Interval history: 10/29/2018. Patient is feeling well. Pain management adequate. Vital signs are stable. Patient is afebrile. Dressings remain intact. Hemoglobin 11.5. Pro time 18.2 with an INR of 1.6. Impression: Trimalleolar fracture/dislocation right ankle Plan: Anticipate proceeding with surgery tomorrow. Discuss his surgical procedure as well as potential risks and complications including but not limited to bleeding, infection, blood clots, nerve injury, stiffness, malunion and nonunion as well as the high risk for posttraumatic arthritic changes of the ankle. Patient understands and agrees. She has signed informed consent for surgery. Anticipate proceeding with surgery tomorrow when operating time is available. We will need to stop heparin at least 4 hours prior to surgery. Nothing by mouth after breakfast. Objective Vital signs: Vital Signs Temp Pulse Resp BP Pulse Ox 10/29/18 18:38 100.4 F H 64 17 116/69 93 10/29/18 15:21 99.9 F H 60 18 100/52 94 10/29/18 11:15 99.2 F 56 18 110/55 94 10/29/18 06:38 98.8 F 59 16 123/66 96 10/29/18 04:52 101/58 10/29/18 04:18 99/58 10/29/18 03:31 99.0 F 48 17 91/56 95 10/28/18 23:05 100.3 F H 55 16 100/57 96 Intake and Output 10/29/18 10/29/18 10/29/18 07:59 15:59 23:59 Intake Total 250 / 940 320 / 940 370 / 940 Balance 250 / 940 320 / 940 370 / 940 Intake: IV Fluids 250 / 500 250 / 500 Heparin 25,000 UNIT/250 ML D5W 250 / 500 250 / 500 25,000 unit In 250 ml @ 14 UNIT /KG/HR 13.244 mls/hr IVC . [id number] BENJAMIN Rx#:[id number] Oral 320 / 440 120 / 440 Other: Meal Lunch Dinner Percent of Meal Consumed 25% 20% # Voids 2 1 Weight 94.5 kg Blood Glucose* 111 136 133 Patient Weight 10/29/18 23:59 Weight 94.5 kg - Labs CBC & BMP: 10/29/18 10:42 10/29/18 10:42 Labs: Abnormal lab results WBC 12.3 K/mcL (4.3-11.1) H 10/29/18 10:42 MCHC 31.3 g/dL (31.6-35.5) L 10/27/18 23:16 MPV 9.2 fL (9.4-12.4) L 10/27/18 23:16 Neutrophils # 9.5 K/mcL (1.6-8.9) H 10/27/18 23:16 PT 18.2 Seconds (9.4-12.1) H 10/29/18 10:42 APTT 41.7 Seconds (26.0-36.0) H 10/28/18 01:37 Heparin Anti-Xa, Unfract 0.05 IU/mL (0.30-0.70) L 10/28/18 01:37 BUN 31 mg/dL (8-23) H 10/29/18 10:42 Creatinine 1.46 mg/dL (0.60-1.20) H 10/29/18 10:42 Est GFR ( Amer) 42 (> 60) L 10/29/18 10:42 Est GFR (Non-Af Amer) 35 (> 60) L 10/29/18 10:42 Glucose 126 mg/dL (70-105) H 10/29/18 10:42 POC Glucose 111 mg/dL (70-99) H 10/29/18 06:10 Hemoglobin A1c 6.0 % (-5.6) H 10/29/18 10:42 AST 94 Units/L (13-39) H 10/27/18 23:16 ALT 71 Units/L (7-52) H 10/27/18 23:16 Consult Discharge Plan - Plan Referrals: NONE,PCP [Primary Care Provider] -
[2018-10-29] MEDS: traMADol 50 MG TABLET PO PRN (22:16)
[2018-10-29] MEDS: Ringers Solution, Lactated 1,000 ML IVC SCH (22:18)
[2018-10-30] MEDS: *HR* OxyCODONE Immed Rel 5 MG TABLET PO PRN ×2 (03:12→12:54)
[2018-10-30] MEDS: Insulin LISPRO 300 UNITS/3 ML VIAL SQ SCH ×2 (05:53→12:55)
[2018-10-30] MEDS: traMADol 50 MG TABLET PO PRN (06:34)
[2018-10-30] MEDS: Aspirin Enteric Coated 81 MG Tablet PO SCH (08:10)
[2018-10-30] MEDS: Gabapentin 300 MG CAPSULE PO SCH ×2 (08:11→16:33)
[2018-10-30] MEDS: Isosorbide MONOnitrate (24 HR) 30 MG TAB.ER.24H PO SCH (08:11)
[2018-10-30] MEDS: Loratadine 10 MG TABLET PO SCH (08:11)
[2018-10-30] MEDS: *HR* Amiodarone 200 MG TABLET PO SCH (08:11)
[2018-10-30] MEDS: Ringers Solution, Lactated 1,000 ML IVC SCH (08:20)
[2018-10-30 08:24] LABS: INR 1.4
--- NOTE | 2018-10-30 09:32 | Internal Med Progress Note ---
Hospitalist Progress Note - Encounter Date of Encounter: 10/30/18 Time of Encounter: 09:28 - Subjective Interval History: Patient seen and examined this child. No acute overnight events. Denies new complaint. Pain is controlled. She is nothing by mouth for surgery today. - Exam Vitals: Temp Pulse Resp BP Pulse Ox 99.2 F 63 18 128/70 96 10/30/18 06:22 10/30/18 06:22 10/30/18 06:22 10/30/18 06:22 10/30/18 06:22 Exam: General: In no acute distress. Respiratory exam: CTAB. no accessory muscle use, rales, rhonchi, wheezes Cardiovascular exam: RRR, +S1, +S2. no murmur, gallop, rubs. GI/Abdominal exam: Non-tender, Non-distended, normal bowel sounds, soft, no peritoneal signs. Extremities exam: no pedal edema, no calf tenderness. Rt Leg splint. sensation intact Neurological exam: CN II-XII intact, AO X3, no focal deficits. Skin exam: No skin rash - Assessment and Plan (1) Paroxysmal atrial fibrillation Current Visit: Yes Status: Chronic (2) CAD (coronary artery disease) Current Visit: Yes Status: Chronic (3) Diabetes Current Visit: Yes Status: Chronic (4) Obesity (BMI 30-39.9) Current Visit: Yes Status: Chronic (5) LAUREL (obstructive sleep apnea) Current Visit: Yes Status: Chronic (6) DVT prophylaxis Current Visit: Yes Status: Acute (7) Bimalleolar fracture of right ankle Current Visit: Yes Status: Acute (8) HTN (hypertension) Current Visit: Yes Status: Chronic (9) HLD (hyperlipidemia) Current Visit: Yes Status: Chronic (10) Back pain Current Visit: Yes Status: Chronic - Summary of Assessment and Plan Summary of Assessment and Plan: Assessment Acute Bimalleolar Rt ankle fracture Chronic HTN HLD CAD Afib DM Obesity Plan - Plan for surgery today. INR 1.4. Ortho following. heparin stopped. However No other coagulopathy risk factors. will resume home coumadin without bridging after surgery when ok with ortho. continue amiodarone. - Hold amlodipine, chlorthalidone , hydralazine and losartan given BP on lower end. - accuchecks and SSI. Not on diabetes meds at home. Internal Medicine: Result - Labs CBC & Chem 7: 10/29/18 10:42 10/29/18 10:42 Labs: Short CBC 10/29/18 Range/Units 10:42 WBC 12.3 H (4.3-11.1) K/mcL Hgb 11.5 (11.5-15.4) g/dL Hct 35.3 (35.3-44.9) % Plt Count 271 (140-400) K/mcL BMP 10/29/18 10:42 Sodium 138 Potassium 3.6 Chloride 101 Carbon Dioxide 28 BUN 31 H Creatinine 1.46 H Glucose 126 H Calcium 8.7 - ABG Interpretation ABG results: PT/INR, D-dimer PT 16.0 Seconds (9.4-12.1) H 10/30/18 08:07 Consult Discharge Plan - Plan Referrals: NONE,PCP [Primary Care Provider] - (2) CAD (coronary artery disease) Qualifiers: Coronary Disease-Associated Artery/Lesion type: [place] artery [place] vs. transplanted heart: [place] heart Associated angina: without angina Qualified Code(s): I25.10 - Atherosclerotic heart disease of [place] coronary artery without angina pectoris (3) Diabetes Qualifiers: Diabetes mellitus type: type 2 Diabetes mellitus terminal superintendent insulin use: without terminal superintendent use Diabetes mellitus complication status: without complication Qualified Code(s): E11.9 - Type 2 diabetes mellitus without complications (7) Bimalleolar fracture of right ankle Qualifiers: Encounter type: initial encounter Fracture type: closed Qualified Code(s): S82.841A - Displaced bimalleolar fracture of right lower leg, initial encounter for closed fracture (8) HTN (hypertension) Qualifiers: Hypertension type: essential hypertension Qualified Code(s): I10 - Essential (primary) hypertension (9) HLD (hyperlipidemia) Qualifiers: Hyperlipidemia type: pure hypercholesterolemia Qualified Code(s): E78.00 - Pure hypercholesterolemia, unspecified; E78.0 - Pure hypercholesterolemia (10) Back pain Qualifiers: Back pain location: low back pain Chronicity: chronic Back pain laterality: bilateral Sciatica presence: unspecified whether sciatica present Qualified Code(s): M54.5 - Low back pain; G89.29 - Other chronic pain
[2018-10-30] MEDS: Fluticasone Propionate Nasal 50 MCG/SPRAY BOTTLE NS SCH (10:16)
--- NOTE | 2018-10-30 14:28 | Anesthesia Evaluation PreOp ---
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 History: Denies Any Significant HX Other Medical History: Renal (CKD, ?LEONEL), Diabetes Type II, Other (OBESITY) Anesthesia History: No Prior Anesthetic Complications, Past Anesthesia Alcohol Use: rarely Drug use: none Medications and Allergies Aspirin Enteric Coated [Aspirin EC] 81 mg PO QAM 11/23/14 [History] Cholecalciferol (D-3) [Vitamin D] 2,000 unit PO QAM 11/23/14 [History] [place]-3/Dha/Epa/Fish Oil [Fish Oil 1,000 mg Softgel] 300 mg PO QAM 05/31/15 [History] Cetirizine HCl [Zyrtec] 10 mg PO QAM 05/30/16 [History] Warfarin [Coumadin] 1 mg PO MOWEFR 12/11/16 [History] Warfarin [Coumadin] 2 mg PO SUTUTHSA 12/11/16 [History] Gabapentin 600 mg PO TID 04/27/18 [History] Carvedilol [Coreg] 6.25 mg PO BIDWM #60 tablet 05/18/18 [Rx] Baclofen [Lioresal] 20 mg PO Q8HR PRN 07/05/18 [History] Amlodipine Besylate 10 mg PO QAM 07/07/18 [History] Chlorthalidone 25 mg PO QAM 07/07/18 [History] Hydralazine HCl 50 mg PO TID 07/07/18 [History] Amiodarone [Cordarone] 200 mg PO QAM 10/27/18 [History] Clopidogrel [Plavix] 75 mg PO QAM 10/27/18 [History] Fluticasone Propionate Nasal [Flonase] 2 spray NS DAILY 10/27/18 [History] Isosorbide MONOnitrate (24 HR) [Imdur] 30 mg PO QAM 10/27/18 [History] Pravastatin Sodium [Pravachol] 40 mg PO HS 10/27/18 [History] Losartan [Cozaar] 100 mg PO QAM 10/28/18 [History] Allergy/AdvReac Type Severity Reaction Status Date / Time Erythromycin Base AdvReac Gastrointestinal Verified 07/07/18 10:21 [From Erythrocin] Upset - Meds/Allergy Pre-op Review Medications Reviewed: Yes (PLAVIX, HEPARIN GTT STOPPED 1216, LAST COUMADIN 10/26 ) Allergies Reviewed: Yes Beta Blockers on Current Med List: Yes If Beta Blockers taken, Date/Time (Last Dose taken): 810 Anesthesia Results - Labs 10/29/18 10:42 10/29/18 10:42 Laboratory Tests 10/29/18 10/29/18 10/30/18 10:42 10:42 08:07 PT 16.0 H INR 1.4 Est GFR (Non-Af Amer) 35 L Hemoglobin A1c 6.0 H Calcium 8.7 Anesthesia Exam Vital Signs/O2 Sat/Glucose, Most Recent Temp Pulse Resp BP Pulse Ox 99.3 F 55 18 117/61 95 10/30/18 11:25 10/30/18 11:25 10/30/18 11:25 10/30/18 11:25 10/30/18 11:25 Blood Glucose* 123 Weight: 94 KG - BMI 37 NPO (# of Hours): 8 <Yani Davis - Last Filed: 10/30/18 19:40> Date of Encounter: 10/30/18 - Past History Cardiac History: Arrhythmia, Cardiac Stent, Other Anesthesia Results - Labs 10/29/18 10:42 10/30/18 16:09 - Imaging EKG: report reviewed (nterpretive Statements SINUS RHYTHM BASELINE ARTIFACT Electronically Signed On 10-28-2018 14:29:23 EDT by Segundo Wolf) Anesthesia Exam Vital Signs/O2 Sat, Most Current Temp Pulse Resp BP Pulse Ox 99.7 F H 64 16 121/67 93 10/30/18 16:38 10/30/18 16:38 10/30/18 16:38 10/30/18 16:38 10/30/18 16:38 - HEENT Pupil (Motor): Pupils equal, EOMI Mallampati: II Teeth: Normal Oral Opening: Greater than 3 - 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
[2018-10-30 16:46] LABS: Calcium 8.5 mg/dL (8.6-10.3); Potassium 3.8 mEq/L (3.5-5.1)
[2018-10-30] MEDS ORDERED: Acetaminophen IV 1,000 MG/100 ML INFUS..BTL ONE (19:43)
[2018-10-30] MEDS ORDERED: *HR* Propofol 200 MG/20 ML VIAL IVP ONE (19:47)
[2018-10-30] MEDS ORDERED: *HR* FentaNYL (PF) 100 MCG/2 ML VIAL ONE ×2 (19:47→21:32)
[2018-10-30] MEDS ORDERED: Lidocaine -MPF 4% 5 ML AMPUL ONE (19:47)
[2018-10-30] MEDS ORDERED: *HR* Rocuronium Bromide 50 MG/5 ML VIAL ONE (19:47)
[2018-10-30] MEDS ORDERED: Lidocaine -MPF 2% 2 ML VIAL ONE ×2 (19:47→19:48)
[2018-10-30] MEDS ORDERED: *HR* Meperidine 25 MG/ML SYRINGE IVP PRN (19:55)
[2018-10-30] MEDS ORDERED: Ondansetron 4 MG/2 ML VIAL IVP ONE ×2 (19:55→22:58)
[2018-10-30] MEDS ORDERED: *HR* OxyCODONE Immed Rel 5 MG TABLET PO PRN (19:55)
[2018-10-30] MEDS ORDERED: *HR* FentaNYL (PF) 100 MCG/2 ML VIAL IVP PRN (19:55)
[2018-10-30] MEDS ORDERED: Ringers Solution, Lactated 1,000 ML IVC SCH ×2 (20:00→22:58)
[2018-10-30] MEDS ORDERED: Ondansetron 4 MG/2 ML VIAL ONE (20:45)
[2018-10-30] MEDS ORDERED: Dexamethasone 4 MG/ML VIAL ONE (20:45)
[2018-10-30] MEDS ORDERED: Neostigmine Methylsulfate 3 MG/3 ML SYRINGE ONE (21:49)
--- NOTE | 2018-10-30 22:33 | Operative Note ---
Date of procedure: 10/30/18 Pre-op diagnosis: Trimalleolar fracture/dislocation right ankle Post-op diagnosis: same Procedure: 1. Open reduction internal fixation trimalleolar fracture right ankle 2. Fluoroscopic guidance for ORIF right ankle Implants: Synthes 4 hole right distal fibular LCP and 4 hole one third tubular plate and screws Complications: None Anesthesia: PAUL Surgeon: Delgado Casey Was there an foundation assistant present: No Estimated blood loss (cc): 5 Tourniquet Time (Minutes): 57 Specimen: None Condition: stable (None) Disposition: PACU Procedure in Detail: Gross findings: Preoperative x-rays revealed a trimalleolar fracture with tibiotalar dislocation that had the dislocation reduced. This at the patient with a trimalleolar fracture. Medial malleolus was markedly comminuted. 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 Lateral side revealed some comminution with a widely displaced fracture fragment. Intraoperative findings revealed marked amount of soft tissue hematoma and periosteal stripping consistent with the dislocation. The lateral malleolar fracture was 3 major fracture fragments were able to be reduced and stabilized with a distal fibular LCP plate and screws. The plate was shifted somewhat proximal for optimal fit on the fibula. Medial side was able to be reduced with massive amount of comminution especially the medial cortex. 2 medial malleolar screws were placed as well as utilizing a one third tubular plate to buttress the medial cortex. Posterior lip fragment was small and reduced when the medial and lateral sides of the ankle were reduced and stabilized. Fluoroscopy was used during the surgical procedure to verify reduction and excellent position of fracture implants. Procedure: Patient was taken the operating room placed in supine position on the operating table. Patient now had a general anesthesia administered. Once adequate level of anesthesia have been obtained the right lower extremity was prepped and draped in normal standard fashion with a tourniquet placed about the proximal calf. That was not exsanguinated utilizing Esmarch and tourniquet was inflated. A slightly extended lateral incision was created. Dissection was carried to the markedly bloodstained subcutaneous tissues with a marked amount of fracture hematoma encountered and evacuated. Extensive soft tissue stripping had occurred from the proximal fragment. Limited subperiosteal dissection was performed of the lateral fragment just enough to allow for fracture identification and reduction. Dr. site was cleaned of clot and debris. Fracture was now reduced and held in reduced position with bone-holding clamp. Fluoroscopic views are taken verifying the fracture was well reduced. At this time the formal distal fibular LCP was positioned on the fibula. The distal locking screws were placed followed by lagging the plate proximal and then locking the plate proximally on the fibular shaft. Bone-holding clamps are removed. Fluoroscopic views revealed excellent reduction of the fracture and placement of the implants. The plate was slightly posterior proximal due to the thinness of the fibula and some bone. Attention was turned medial. A slightly more extended medial incision was made. Again extensive soft tissue hematoma was encountered and evacuated and massive amount of fragmentation and fracture hematoma was encountered in the fracture site proper. The fracture was quite comminuted with a marked amount of comminution of the medial cortex. The ankle joint was exposed through the fracture site and it was irrigated and any potential intra-articular fragments were removed. At this time the fracture was reduced and temporarily held in place with bone-holding clamps. A single 4.0 mm x 50 mm cancellus screw was now placed. This is followed by placing the one third tubular plate aligned for it to buttress the medial cortex. This was secured with 23.5 mm cortical screws placed across the tibia. This is followed now by placing the second malleolar screw, this also a 4.0 mm x 50 mm screw. Excellent purchase was obtained. At this time final fluoroscopic views are taken in multiple planes verifying reduction of the fracture and position of the implants. Wounds are irrigated and then closed with combination of 201 2-0 undyed Vicryl placed in the subcutaneous tissue and then skin approximation with stainless steel clips. Sterile dressings consisting of Xeroform, 4 x 4's, cast padding posterior fiberglass splint applied and secured with Edouard wraps. Tourniquet was deflated. Patient was now awakened from anesthesia, expanding operating room and then transferred to the postanesthesia care unit in stable and satisfactory condition. All sponge needle and isthmic counts are correct. No specimens are sent for pathology.
--- NOTE | 2018-10-30 22:42 | Anesthesia Evaluation Post Op ---
Date of Encounter: 10/30/18 Time of Encounter: 22:42 - Vital Signs Vital Signs: Vital Signs/O2 Sat, Most Current Temp Pulse Resp BP Pulse Ox 97.3 F L 67 16 121/54 94 10/30/18 22:15 10/30/18 22:35 10/30/18 22:35 10/30/18 22:35 10/30/18 22:35 - Lungs Lungs: Clear Ascult./Percussion - Airway Airway: Non-obstructed - Cardiovascular Regular Rate - Mental Status Mental Status: Alert & Oriented, Answers Appropriately - Pain Pain Scale: 0 Pain Scale used: Numeric (1 - 10) - Nausea Vomiting Nausea Vomiting: Not Present - Hydration Hydration: Tolerates oral liquids - Discharge PostOp Status: Transfer Patient to floor
[2018-10-30] MEDS ORDERED: Acetaminophen 325 MG TABLET PO PRN (22:58)
[2018-10-30] MEDS ORDERED: Dextrose Gel 15 GM/37.5 ML TUBE PO PRN ×2 (22:58)
[2018-10-30] MEDS ORDERED: D5% in Water 1,000 ML IVC PRN (22:58)
[2018-10-30] MEDS ORDERED: Ondansetron 4 MG/2 ML VIAL IVP PRN (22:58)
[2018-10-30] MEDS ORDERED: Naloxone 0.4 MG/ML INJ IVP PRN (22:58)
[2018-10-30] MEDS ORDERED: *HR* Dextrose 50 % in Water (Syg) 50 ML SYRINGE IVP PRN (22:58)
[2018-10-31] MEDS ORDERED: Insulin LISPRO 300 UNITS/3 ML VIAL SQ SCH
[2018-10-31] MEDS: traMADol 50 MG TABLET PO PRN (04:02)
--- NOTE | 2018-10-31 07:58 | Internal Med Progress Note ---
Hospitalist Progress Note - Encounter Date of Encounter: 10/31/18 Time of Encounter: 07:30 - Subjective Interval History: Patient seen and examined this morning in the center. No acute overnight events. Denies any fever or chills nausea vomiting or diarrhea. Right leg Pain is controlled. Status post ORIF day 1. - Exam Vitals: Temp Pulse Resp BP Pulse Ox 98.2 F 58 18 135/77 94 10/31/18 07:30 10/31/18 07:30 10/31/18 07:30 10/31/18 07:30 10/31/18 07:30 Exam: General: In no acute distress. Respiratory exam: CTAB. no accessory muscle use, rales, rhonchi, wheezes Cardiovascular exam: RRR, +S1, +S2. no murmur, gallop, rubs. GI/Abdominal exam: Non-tender, Non-distended, normal bowel sounds, soft, no peritoneal signs. Extremities exam: no pedal edema, no calf tenderness. Rt Leg with splint sensation intact Neurological exam: CN II-XII intact, AO X3, no focal deficits. Skin exam: No skin rash - Assessment and Plan (1) Paroxysmal atrial fibrillation Current Visit: Yes Status: Chronic (2) CAD (coronary artery disease) Current Visit: Yes Status: Chronic (3) Diabetes Current Visit: Yes Status: Chronic (4) Obesity (BMI 30-39.9) Current Visit: Yes Status: Chronic (5) LAUREL (obstructive sleep apnea) Current Visit: Yes Status: Chronic (6) DVT prophylaxis Current Visit: Yes Status: Acute (7) Bimalleolar fracture of right ankle Current Visit: Yes Status: Acute (8) HTN (hypertension) Current Visit: Yes Status: Chronic (9) HLD (hyperlipidemia) Current Visit: Yes Status: Chronic (10) Back pain Current Visit: Yes Status: Chronic (11) LEONEL (acute kidney injury) Current Visit: Yes Status: Acute - Summary of Assessment and Plan Summary of Assessment and Plan: Assessment Acute Trimalleolar Rt ankle fracture LEONEL Chronic HTN HLD CAD Afib DM Obesity Plan - s/p ORIF for Trimallelar fracture rt ankle on 10/30. Ortho following. Appreciate recommendations. PT/OT consulted. pain regimen with oxycodone and acetaminophen. Will uptitrate if needed. - Will resume home coumadin as okay with ortho. continue amiodarone, imdur and coreg. - LEONEL improved with IVF. f/u BMP. c/w IVF for now and started on diet. - Hold amlodipine, chlorthalidone , hydralazine and losartan given BP on lower end. - accuchecks and SSI. Not on diabetes meds at home. A1C of 6. c/w life style changes. Internal Medicine: Result - Labs CBC & Chem 7: 10/29/18 10:42 10/30/18 16:09 Labs: BMP 10/30/18 16:09 Sodium 136 Potassium 3.8 Chloride 102 Carbon Dioxide 28 BUN 29 H Creatinine 1.20 Glucose 98 Calcium 8.5 L - ABG Interpretation ABG results: PT/INR, D-dimer PT 16.0 Seconds (9.4-12.1) H 10/30/18 08:07 - Impressions Impressions Fluoroscopy 10/30/18 20:45 IMPRESSION: Intraprocedural fluoroscopic spot images as above. See separate procedure report for more information. D/ / Kobe Lawrence MD / Kobe Lawrence MD Interpreting Provider: Kobe Lawrence MD Consult Discharge Plan - Plan Referrals: NONE,PCP [Primary Care Provider] - (2) CAD (coronary artery disease) Qualifiers: Coronary Disease-Associated Artery/Lesion type: [place] artery [place] vs. transplanted heart: [place] heart Associated angina: without angina Qualified Code(s): I25.10 - Atherosclerotic heart disease of [place] coronary artery without angina pectoris (3) Diabetes Qualifiers: Diabetes mellitus type: type 2 Diabetes mellitus fdc insulin use: without termite control representative use Diabetes mellitus complication status: without complication Qualified Code(s): E11.9 - Type 2 diabetes mellitus without complications (7) Bimalleolar fracture of right ankle Qualifiers: Encounter type: initial encounter Fracture type: closed Qualified Code(s): S82.841A - Displaced bimalleolar fracture of right lower leg, initial encounter for closed fracture (8) HTN (hypertension) Qualifiers: Hypertension type: essential hypertension Qualified Code(s): I10 - Essential (primary) hypertension (9) HLD (hyperlipidemia) Qualifiers: Hyperlipidemia type: pure hypercholesterolemia Qualified Code(s): E78.00 - Pure hypercholesterolemia, unspecified; E78.0 - Pure hypercholesterolemia (10) Back pain Qualifiers: Back pain location: low back pain Chronicity: chronic Back pain laterality: bilateral Sciatica presence: unspecified whether sciatica present Qualified Code(s): M54.5 - Low back pain; G89.29 - Other chronic pain
[2018-10-31] MEDS: *HR* Amiodarone 200 MG TABLET PO SCH (08:03)
[2018-10-31] MEDS: Aspirin Enteric Coated 81 MG Tablet PO SCH (08:03)
[2018-10-31] MEDS: Fluticasone Propionate Nasal 50 MCG/SPRAY BOTTLE NS SCH (08:03)
[2018-10-31] MEDS: Isosorbide MONOnitrate (24 HR) 30 MG TAB.ER.24H PO SCH (08:03)
[2018-10-31] MEDS: Loratadine 10 MG TABLET PO SCH (08:03)
[2018-10-31] MEDS: Gabapentin 300 MG CAPSULE PO SCH ×3 (08:03→20:31)
[2018-10-31 08:24] LABS: INR 1.3; Prothrombin Time 14.2 Seconds (9.4-12.1)
[2018-10-31] MEDS: Insulin LISPRO 300 UNITS/3 ML VIAL SQ SCH ×4 (08:26→21:00)
[2018-10-31] MEDS ORDERED: Ringers Solution, Lactated 1,000 ML IVC SCH (10:51)
[2018-10-31 11:18] LABS: BUN/Creatinine Ratio 25 (6-26); Blood Urea Nitrogen 26 mg/dL (8-23); Carbon Dioxide 28 mEq/L (23-29); Chloride 99 mEq/L (98-107); Glucose 143 mg/dL (70-105); Osmolality,Calculated 291 (280-300); Potassium 4.2 mEq/L (3.5-5.1); Sodium 137 mEq/L (136-145); eGFR For African Americans > 60 (> 60); eGFR For Non-African Americans 53 (> 60)
[2018-10-31] MEDS: *HR* OxyCODONE Immed Rel 5 MG TABLET PO PRN (11:47)
[2018-10-31] MEDS ORDERED: *HR* Warfarin 3 MG TABLET PO ONE (18:00)
[2018-10-31] MEDS ORDERED: Warfarin perPT PO PRN (18:00)
--- NOTE | 2018-10-31 19:30 | Orthopedics Progress Note ---
Date of Encounter: 10/31/18 Time of Encounter: 19:28 Subjective Principal diagnosis: Right trimalleolar ankle fracture/dislocation Interval history: 10/29/2018. Patient is feeling well. Pain management adequate. Vital signs are stable. Patient is afebrile. Dressings remain intact. Hemoglobin 11.5. Pro time 18.2 with an INR of 1.6. Impression: Trimalleolar fracture/dislocation right ankle Plan: Anticipate proceeding with surgery tomorrow. Discuss his surgical procedure as well as potential risks and complications including but not limited to bleeding, infection, blood clots, nerve injury, stiffness, malunion and nonunion as well as the high risk for posttraumatic arthritic changes of the ankle. Patient understands and agrees. She has signed informed consent for surgery. Anticipate proceeding with surgery tomorrow when operating time is available. We will need to stop heparin at least 4 hours prior to surgery. Nothing by mouth after breakfast. 10/31/2018. Patient POD #1 from ORIF trimalleolar fracture right ankle. Patient is doing fairly well. Pain is well-controlled with medications. Denies neurovascular complaints. Vital signs are stable. Patient is afebrile. Dressings are clean dry and intact. Neurosensory exam is grossly intact. Impression: POD #1 ORIF trimalleolar fracture/dislocation right ankle, orthopedic status stable Recommendation: Orthopedic status is stable. Patient can be discharged at any time arrangements are made and medical status allows. We will need to maintain strict nonweightbearing on the right lower extremity and continue with elevation. Patient does not require any dressing changes. We will need to follow up with me in approximately 2-3 weeks' time or sooner should any problems arise. Continue with anticoagulation per medical service. I will not be available after today. Patient is aware. If any urgent orthopedic care is required please contact the on-call orthopedic surgeon. Objective Vital signs: Vital Signs Temp Pulse Resp BP Pulse Ox 10/31/18 19:00 98.9 F 59 14 112/58 93 10/31/18 16:18 98.4 F 54 16 105/64 93 10/31/18 10:43 98.6 F 53 12 118/71 96 10/31/18 08:19 94 10/31/18 07:30 98.2 F 58 18 135/77 94 10/31/18 04:12 98.7 F 67 14 114/68 94 10/31/18 03:31 98.2 F 60 19 104/63 94 10/31/18 02:10 98.4 F 66 14 118/70 10/31/18 01:10 98.5 F 59 14 114/68 94 10/31/18 00:09 98.7 F 64 16 95 10/30/18 23:38 98.6 F 62 16 126/72 95 10/30/18 23:08 98.4 F 62 16 121/70 94 10/30/18 22:45 98.9 F 67 16 125/56 97 10/30/18 22:35 67 16 121/54 94 10/30/18 22:25 66 16 125/54 94 10/30/18 22:15 97.3 F L 66 16 133/60 96 Intake and Output 10/31/18 10/31/18 10/31/18 07:59 15:59 23:59 Intake Total 100 / 1000 460 / 1000 440 / 1000 Output Total 200 / 200 0 / 200 Balance -100 / 800 460 / 800 440 / 800 Intake: IV Fluids 100 / 200 100 / 200 Ancef 2,000 MG In 0.9 % Sodium 100 / 200 100 / 200 Chloride 100 ML @ 200 mls/hr IVPB Q8HR [facility] Rx#:[id number] Oral 360 / 800 440 / 800 Output: Urine 200 / 200 0 / 200 Other: Meal Lunch Dinner Percent of Meal Consumed 75% 90% # Voids 1 1 Weight 93.6 kg Blood Glucose* 145 175 145 Patient Weight 10/31/18 23:59 Weight 93.6 kg - Labs CBC & BMP: 10/29/18 10:42 10/31/18 10:42 Labs: Abnormal lab results WBC 12.3 K/mcL (4.3-11.1) H 10/29/18 10:42 MCHC 31.3 g/dL (31.6-35.5) L 10/27/18 23:16 MPV 9.2 fL (9.4-12.4) L 10/27/18 23:16 Neutrophils # 9.5 K/mcL (1.6-8.9) H 10/27/18 23:16 PT 14.2 Seconds (9.4-12.1) H 10/31/18 08:05 APTT 41.7 Seconds (26.0-36.0) H 10/28/18 01:37 Heparin Anti-Xa, Unfract 0.05 IU/mL (0.30-0.70) L 10/28/18 01:37 BUN 26 mg/dL (8-23) H 10/31/18 10:42 Creatinine 1.46 mg/dL (0.60-1.20) H 10/29/18 10:42 Est GFR ( Amer) 53 (> 60) L 10/30/18 16:09 Est GFR (Non-Af Amer) 53 (> 60) L 10/31/18 10:42 Glucose 143 mg/dL (70-105) H 10/31/18 10:42 POC Glucose 145 mg/dL (70-99) H 10/31/18 16:17 Hemoglobin A1c 6.0 % (-5.6) H 10/29/18 10:42 Calcium 8.5 mg/dL (8.6-10.3) L 10/30/18 16:09 AST 94 Units/L (13-39) H 10/27/18 23:16 ALT 71 Units/L (7-52) H 10/27/18 23:16 Consult Discharge Plan - Plan Referrals: NONE,PCP [Primary Care Provider] -
[2018-11-01 04:55] LABS: INR 1.3; Prothrombin Time 14.6 Seconds (9.4-12.1)
[2018-11-01] MEDS: Insulin LISPRO 300 UNITS/3 ML VIAL SQ SCH ×4 (07:45→20:48)
[2018-11-01] MEDS: Gabapentin 300 MG CAPSULE PO SCH ×3 (07:54→20:48)
[2018-11-01] MEDS: Aspirin Enteric Coated 81 MG Tablet PO SCH (07:54)
[2018-11-01] MEDS: Loratadine 10 MG TABLET PO SCH (07:54)
[2018-11-01] MEDS: Isosorbide MONOnitrate (24 HR) 30 MG TAB.ER.24H PO SCH (07:54)
[2018-11-01] MEDS: *HR* Amiodarone 200 MG TABLET PO SCH (07:54)
[2018-11-01] MEDS: Fluticasone Propionate Nasal 50 MCG/SPRAY BOTTLE NS SCH (07:58)
--- NOTE | 2018-11-01 12:23 | Internal Med Progress Note ---
Hospitalist Progress Note - Encounter Date of Encounter: 11/01/18 Time of Encounter: 10:17 - Subjective Interval History: Patient seen and examined this morning at bedside. No acute overnight events. Denies new complaints. Pain is controlled slightly worsen after physical therapy. Denies any fever or chills nausea vomiting or diarrhea. Denies any l ightheadedness dizziness chest pain or difficulty breathing. - Exam Vitals: Temp Pulse Resp BP Pulse Ox 98.3 F 58 18 113/52 98 11/01/18 11:34 11/01/18 11:34 11/01/18 11:34 11/01/18 11:34 11/01/18 11:34 Exam: General: In no acute distress. Respiratory exam: CTAB. no accessory muscle use, rales, rhonchi, wheezes Cardiovascular exam: RRR, +S1, +S2. no murmur, gallop, rubs. GI/Abdominal exam: Non-tender, Non-distended, normal bowel sounds, soft, no peritoneal signs. Extremities exam: no pedal edema, no calf tenderness. Rt Leg with splint sensation intact Neurological exam: CN II-XII intact, AO X3, no focal deficits. Skin exam: No skin rash - Assessment and Plan (1) Paroxysmal atrial fibrillation Current Visit: Yes Status: Chronic (2) CAD (coronary artery disease) Current Visit: Yes Status: Chronic (3) Diabetes Current Visit: Yes Status: Chronic (4) Obesity (BMI 30-39.9) Current Visit: Yes Status: Chronic (5) LAUREL (obstructive sleep apnea) Current Visit: Yes Status: Chronic (6) DVT prophylaxis Current Visit: Yes Status: Acute (7) Bimalleolar fracture of right ankle Current Visit: Yes Status: Acute (8) HTN (hypertension) Current Visit: Yes Status: Chronic (9) HLD (hyperlipidemia) Current Visit: Yes Status: Chronic (10) Back pain Current Visit: Yes Status: Chronic (11) LEONEL (acute kidney injury) Current Visit: Yes Status: Acute - Summary of Assessment and Plan Summary of Assessment and Plan: Assessment Acute Trimalleolar Rt ankle fracture LEONEL-resolved Chronic HTN HLD CAD Afib DM Obesity Plan - s/p ORIF for Trimallelar fracture rt ankle on 10/30. Ortho following. Appreciate recommendations. PT/OT recommended SNF. pain regimen with oxycodone and acetaminophen. SW to help with placement. - c/w coumadin with [facility] to dose. Monitor INR. continue amiodarone, imdur and coreg. - LEONEL resolved. - Hold amlodipine, chlorthalidone , hydralazine and losartan given BP on lower end. Will reintroduce as BP tolerates. - accuchecks and SSI. Not on diabetes meds at home. A1C of 6. c/w life style changes. Internal Medicine: Result - Labs CBC & Chem 7: 10/29/18 10:42 10/31/18 10:42 - ABG Interpretation ABG results: PT/INR, D-dimer PT 14.6 Seconds (9.4-12.1) H 11/01/18 04:19 Consult Discharge Plan - Plan Referrals: NONE,PCP [Primary Care Provider] - __ (2) CAD (coronary artery disease) Qualifiers: Coronary Disease-Associated Artery/Lesion type: [place] artery [place] vs. transplanted heart: [place] heart Associated angina: without angina Qualified Code(s): I25.10 - Atherosclerotic heart disease of [place] coronary artery without angina pectoris (3) Diabetes Qualifiers: Diabetes mellitus type: type 2 Diabetes mellitus assisted insulin use: without terminal make up operator use Diabetes mellitus complication status: without complication Qualified Code(s): E11.9 - Type 2 diabetes mellitus without complications (7) Bimalleolar fracture of right ankle Qualifiers: Encounter type: initial encounter Fracture type: closed Qualified Code(s): S82.841A - Displaced bimalleolar fracture of right lower leg, initial encounter for closed fracture (8) HTN (hypertension) Qualifiers: Hypertension type: essential hypertension Qualified Code(s): I10 - Essential (primary) hypertension (9) HLD (hyperlipidemia) Qualifiers: Hyperlipidemia type: pure hypercholesterolemia Qualified Code(s): E78.00 - Pure hypercholesterolemia, unspecified; E78.0 - Pure hypercholesterolemia (10) Back pain Qualifiers: Back pain location: low back pain Chronicity: chronic Back pain laterality: bilateral Sciatica presence: unspecified whether sciatica present Qualified Code(s): M54.5 - Low back pain; G89.29 - Other chronic pain
[2018-11-01] MEDS: *HR* OxyCODONE Immed Rel 5 MG TABLET PO PRN (14:28)
[2018-11-01] MEDS: traMADol 50 MG TABLET PO PRN ×2 (16:34→22:40)
[2018-11-01] MEDS ORDERED: *HR* Warfarin 3 MG TABLET PO ONE (18:00)
[2018-11-02 06:07] LABS: INR 1.4; Prothrombin Time 16.4 Seconds (9.4-12.1)
[2018-11-02] MEDS: Insulin LISPRO 300 UNITS/3 ML VIAL SQ SCH ×4 (09:21→21:25)
[2018-11-02] MEDS: Isosorbide MONOnitrate (24 HR) 30 MG TAB.ER.24H PO SCH (09:26)
[2018-11-02] MEDS: Loratadine 10 MG TABLET PO SCH (09:26)
[2018-11-02] MEDS: Gabapentin 300 MG CAPSULE PO SCH ×3 (09:26→20:47)
[2018-11-02] MEDS: Fluticasone Propionate Nasal 50 MCG/SPRAY BOTTLE NS SCH (09:26)
[2018-11-02] MEDS: *HR* Amiodarone 200 MG TABLET PO SCH (09:26)
[2018-11-02] MEDS: Aspirin Enteric Coated 81 MG Tablet PO SCH (09:26)
--- NOTE | 2018-11-02 10:39 | Internal Med Progress Note ---
Hospitalist Progress Note - Encounter Date of Encounter: 11/02/18 Time of Encounter: 07:34 - Subjective Interval History: GEN and examined this morning and was admitted no acute overnight events. Denies new complaints. Pain is controlled. Denies any significant bleeding nausea vomiting or diarrhea. - Exam Vitals: Temp Pulse Resp BP Pulse Ox 99.3 F 63 16 123/71 90 11/02/18 06:45 11/02/18 06:45 11/02/18 06:45 11/02/18 06:45 11/02/18 10:10 Exam: General: In no acute distress. Respiratory exam: CTAB. no accessory muscle use, rales, rhonchi, wheezes Cardiovascular exam: RRR, +S1, +S2. no murmur, gallop, rubs. GI/Abdominal exam: Non-tender, Non-distended, normal bowel sounds, soft, no peritoneal signs. Extremities exam: no pedal edema, no calf tenderness. Rt Leg with splint sensation intact Neurological exam: CN II-XII intact, AO X3, no focal deficits. - Assessment and Plan (1) Paroxysmal atrial fibrillation Current Visit: Yes Status: Chronic (2) CAD (coronary artery disease) Current Visit: Yes Status: Chronic (3) Diabetes Current Visit: Yes Status: Chronic (4) Obesity (BMI 30-39.9) Current Visit: Yes Status: Chronic (5) LAUREL (obstructive sleep apnea) Current Visit: Yes Status: Chronic (6) DVT prophylaxis Current Visit: Yes Status: Acute (7) Bimalleolar fracture of right ankle Current Visit: Yes Status: Acute (8) HTN (hypertension) Current Visit: Yes Status: Chronic (9) HLD (hyperlipidemia) Current Visit: Yes Status: Chronic (10) Back pain Current Visit: Yes Status: Chronic (11) LEONEL (acute kidney injury) Current Visit: Yes Status: Acute - Summary of Assessment and Plan Summary of Assessment and Plan: Assessment Acute Trimalleolar Rt ankle fracture LEONEL-resolved Chronic HTN HLD CAD Afib DM Obesity Plan - s/p ORIF for Trimallelar fracture rt ankle on 10/30. Ortho following. Appreciate recommendations. PT/OT recommended SNF. pain regimen with oxycodone and acetaminophen. Awaiting placement. Likely on Sunday. - c/w coumadin with Pharmacy to dose. Monitor INR. continue amiodarone, imdur and coreg. - LEONEL resolved. - Hold amlodipine, chlorthalidone , hydralazine and losartan given BP on lower end. Will reintroduce as BP tolerates. - accuchecks and SSI. Not on diabetes meds at home. A1C of 6. c/w life style changes. Internal Medicine: Result - Labs CBC & Chem 7: 10/29/18 10:42 10/31/18 10:42 - ABG Interpretation ABG results: PT/INR, D-dimer PT 16.4 Seconds (9.4-12.1) H 11/02/18 05:34 Consult Discharge Plan - Plan Referrals: NONE,PCP [Primary Care Provider] - (2) CAD (coronary artery disease) Qualifiers: Coronary Disease-Associated Artery/Lesion type: [place] artery [place] vs. transplanted heart: [place] heart Associated angina: without angina Qualified Code(s): I25.10 - Atherosclerotic heart disease of [place] coronary artery without angina pectoris (3) Diabetes Qualifiers: Diabetes mellitus type: type 2 Diabetes mellitus keno terminal operator insulin use: without chcf use Diabetes mellitus complication status: without complication Qualified Code(s): E11.9 - Type 2 diabetes mellitus without complications (7) Bimalleolar fracture of right ankle Qualifiers: Encounter type: initial encounter Fracture type: closed Qualified Code(s): S82.841A - Displaced bimalleolar fracture of right lower leg, initial encounter for closed fracture (8) HTN (hypertension) Qualifiers: Hypertension type: essential hypertension Qualified Code(s): I10 - Essential (primary) hypertension (9) HLD (hyperlipidemia) Qualifiers: Hyperlipidemia type: pure hypercholesterolemia Qualified Code(s): E78.00 - Pure hypercholesterolemia, unspecified; E78.0 - Pure hypercholesterolemia (10) Back pain Qualifiers: Back pain location: low back pain Chronicity: chronic Back pain laterality: bilateral Sciatica presence: unspecified whether sciatica present Qualified Code(s): M54.5 - Low back pain; G89.29 - Other chronic pain
[2018-11-02] MEDS ORDERED: *HR* Warfarin 3 MG TABLET PO ONE (18:00)
[2018-11-02] MEDS: Baclofen 10 MG TABLET PO PRN (20:47)
[2018-11-03 07:40] LABS: INR 1.8; Prothrombin Time 20.2 Seconds (9.4-12.1)
[2018-11-03] MEDS: Insulin LISPRO 300 UNITS/3 ML VIAL SQ SCH ×4 (08:34→21:58)
--- NOTE | 2018-11-03 09:46 | Internal Med Progress Note ---
Hospitalist Progress Note - Encounter Date of Encounter: 11/03/18 Time of Encounter: 09:46 - Subjective Interval History: Patient seen and examined this morning and was admitted in no acute overnight events. Denies new complaints. Pain is controlled. No nausea vomiting or diarrhea. - Exam Vitals: Temp Pulse Resp BP Pulse Ox 98.4 F 63 94 148/67 94 11/03/18 07:11 11/03/18 07:11 11/03/18 07:11 11/03/18 07:11 11/03/18 07:11 Exam: General: In no acute distress. Respiratory exam: CTAB. no accessory muscle use, rales, rhonchi, wheezes Cardiovascular exam: RRR, +S1, +S2. no murmur, gallop, rubs. GI/Abdominal exam: Non-tender, Non-distended, normal bowel sounds, soft, no peritoneal signs. Extremities exam: no pedal edema, no calf tenderness. Rt Leg with splint sensation intact Neurological exam: CN II-XII intact, AO X3, no focal deficits. - Assessment and Plan (1) Paroxysmal atrial fibrillation Current Visit: Yes Status: Chronic (2) CAD (coronary artery disease) Current Visit: Yes Status: Chronic (3) Diabetes Current Visit: Yes Status: Chronic (4) Obesity (BMI 30-39.9) Current Visit: Yes Status: Chronic (5) LAUREL (obstructive sleep apnea) Current Visit: Yes Status: Chronic (6) DVT prophylaxis Current Visit: Yes Status: Acute (7) Bimalleolar fracture of right ankle Current Visit: Yes Status: Acute (8) HTN (hypertension) Current Visit: Yes Status: Chronic (9) HLD (hyperlipidemia) Current Visit: Yes Status: Chronic (10) Back pain Current Visit: Yes Status: Chronic (11) LEONEL (acute kidney injury) Current Visit: Yes Status: Acute - Summary of Assessment and Plan Summary of Assessment and Plan: Assessment Acute Trimalleolar Rt ankle fracture LEONEL-resolved Chronic HTN HLD CAD Afib DM Obesity Plan - s/p ORIF for Trimallelar fracture rt ankle on 10/30. NWB on Rt per orhto. PT/OT recommended SNF. pain controlled with with oxycodone and acetaminophen. Awaiting placement. Likely tomorrow. - c/w coumadin with Pharmacy to dose. Monitor INR. continue amiodarone, imdur and coreg. - LEONEL resolved. - Hold amlodipine, chlorthalidone , hydralazine and losartan given BP on lower end. Will reintroduce as BP tolerates. - accuchecks and SSI. Not on diabetes meds at home. A1C of 6. c/w life style changes. Internal Medicine: Result - Labs CBC & Chem 7: 10/29/18 10:42 10/31/18 10:42 - ABG Interpretation ABG results: PT/INR, D-dimer PT 20.2 Seconds (9.4-12.1) H 11/03/18 07:02 Consult Discharge Plan - Plan Referrals: NONE,PCP [Primary Care Provider] - (2) CAD (coronary artery disease) Qualifiers: Coronary Disease-Associated Artery/Lesion type: [place] artery [place] vs. transplanted heart: [place] heart Associated angina: without angina Qualified Code(s): I25.10 - Atherosclerotic heart disease of [place] coronary artery without angina pectoris (3) Diabetes Qualifiers: Diabetes mellitus type: type 2 Diabetes mellitus long term care phlebotomist insulin use: without long term care phlebotomist use Diabetes mellitus complication status: without complication Qualified Code(s): E11.9 - Type 2 diabetes mellitus without complications (7) Bimalleolar fracture of right ankle Qualifiers: Encounter type: initial encounter Fracture type: closed Qualified Code(s): S82.841A - Displaced bimalleolar fracture of right lower leg, initial encounter for closed fracture (8) HTN (hypertension) Qualifiers: Hypertension type: essential hypertension Qualified Code(s): I10 - Essential (primary) hypertension (9) HLD (hyperlipidemia) Qualifiers: Hyperlipidemia type: pure hypercholesterolemia Qualified Code(s): E78.00 - Pure hypercholesterolemia, unspecified; E78.0 - Pure hypercholesterolemia (10) Back pain Qualifiers: Back pain location: low back pain Chronicity: chronic Back pain laterality: bilateral Sciatica presence: unspecified whether sciatica present Qualified Code(s): M54.5 - Low back pain; G89.29 - Other chronic pain
[2018-11-03] MEDS: Isosorbide MONOnitrate (24 HR) 30 MG TAB.ER.24H PO SCH (10:08)
[2018-11-03] MEDS: *HR* Amiodarone 200 MG TABLET PO SCH (10:08)
[2018-11-03] MEDS: Loratadine 10 MG TABLET PO SCH (10:08)
[2018-11-03] MEDS: Gabapentin 300 MG CAPSULE PO SCH ×3 (10:08→20:34)
[2018-11-03] MEDS: Aspirin Enteric Coated 81 MG Tablet PO SCH (10:08)
[2018-11-03] MEDS: Fluticasone Propionate Nasal 50 MCG/SPRAY BOTTLE NS SCH (10:36)
[2018-11-03] MEDS ORDERED: *HR* Warfarin 2 MG TABLET PO ONE (18:00)
[2018-11-03] MEDS: Baclofen 10 MG TABLET PO PRN (20:34)
[2018-11-04 08:16] LABS: INR 2.2; Prothrombin Time 24.9 Seconds (9.4-12.1)
[2018-11-04] MEDS: Insulin LISPRO 300 UNITS/3 ML VIAL SQ SCH ×2 (08:28→11:56)
[2018-11-04] MEDS: Loratadine 10 MG TABLET PO SCH (09:29)
[2018-11-04] MEDS: Aspirin Enteric Coated 81 MG Tablet PO SCH (09:29)
[2018-11-04] MEDS: Gabapentin 300 MG CAPSULE PO SCH (09:29)
[2018-11-04] MEDS: Isosorbide MONOnitrate (24 HR) 30 MG TAB.ER.24H PO SCH (09:29)
[2018-11-04] MEDS: *HR* Amiodarone 200 MG TABLET PO SCH (09:29)
[2018-11-04] MEDS: Fluticasone Propionate Nasal 50 MCG/SPRAY BOTTLE NS SCH (09:30)
[2018-11-04 11:10] VITALS: BP 127/70
--- NOTE | 2018-11-04 11:18 | Discharge Summary ---
- NOTES TO OUTPATIENT PROVIDER Notes to Outpatient Provider: Patient's amlodipine, hydralazine and losartan currently stopped given her blood pressures on the lower end. Resume as needed. Patient discharged to SNF for rehabilitation. Patient will need follow-up for INR monitoring Date of Encounter: 11/04/18 Time of Encounter: 11:15 - Discharge Diagnosis (1) Paroxysmal atrial fibrillation Priority: Secondary Status: Chronic (2) CAD (coronary artery disease) Priority: Secondary Status: Chronic Qualifiers: Coronary Disease-Associated Artery/Lesion type: [place] artery [place] vs. transplanted heart: [place] heart Associated angina: without angina Qualified Code(s): I25.10 - Atherosclerotic heart disease of [place] coronary artery without angina pectoris (3) Diabetes Priority: Secondary Status: Chronic Qualifiers: Diabetes mellitus type: type 2 Diabetes mellitus half-way insulin use: w ithout terminal system operator use Diabetes mellitus complication status: without complication Qualified Code(s): E11.9 - Type 2 diabetes mellitus without compl ications (4) Obesity (BMI 30-39.9) Priority: Secondary Status: Chronic (5) LAUREL (obstructive sleep apnea) Priority: Secondary Status: Chronic (6) DVT prophylaxis Priority: Secondary Status: Acute (7) HTN (hypertension) Priority: Secondary Status: Chronic Qualifiers: Hypertension type: essential hypertension Qualified Code(s): I10 - Essential (primary) hypertension (8) HLD (hyperlipidemia) Priority: Secondary Status: Chronic Qualifiers: Hyperlipidemia type: pure hypercholesterolemia Qualified Code(s): E78.00 - Pure hypercholesterolemia, unspecified; E78.0 - Pure hypercholesterolemia (9) Back pain Priority: Secondary Status: Chronic Qualifiers: Back pain location: low back pain Chronicity: chronic Back pain laterality: bilateral Sciatica presence: unspecified whether sciatica present Qualified Code(s): M54.5 - Low back pain; G89.29 - Other chronic pain (10) LEONEL (acute kidney injury) Priority: Secondary Status: Acute (11) Trimalleolar fracture of right ankle Priority: Primary Status: Acute Qualifiers: Encounter type: initial encounter Fracture type: closed Qualified Code(s): S82.851A - Displaced trimalleolar fracture of right lower leg, initial encounter for closed fracture Hospital course: Ms. Amin is a 72 year old female with past medical history of CAD, diabetes, hypertension, LAUREL, atrial fibrillation, uterine cancer history came in with fall and was found to have right ankle fracture. Patient under went ORIF for Trimallelar fracture rt ankle on 10/30. NWB on Rt per orhto. PT/OT recommended SNF. Patient did develop LEONEL initially which corrected with IV fluids. Her blood pressure was on the lower and they have blood pressure medications were held and she was gradually resumed. She did have some constipation likely due to opiates and needed enema. Patient otherwise stable and to be discharged to SNF for further rehabilitation. Will need follow-up for INR monitoring and blood pressure monitoring. Patient stable to be discharged today. Discharge discussed with: patient, nurse, social work - Time Spent with Patient Total time spent providing and/or coordinating discharge services: Time spent: Greater than 30 minutes (35) - Discharge Medications Prescriptions: Continued Cholecalciferol (D-3) [Vitamin D] 2,000 unit PO QAM Aspirin Enteric Coated [Aspirin EC] 81 mg PO QAM [place]-3/Dha/Epa/Fish Oil [Fish Oil 1,000 mg Softgel] 300 mg PO QAM Cetirizine HCl [Zyrtec] 10 mg PO QAM Warfarin [Coumadin] 2 mg PO SUTUTHSA Warfarin [Coumadin] 1 mg PO MOWEFR Gabapentin 600 mg PO TID Carvedilol [Coreg] 6.25 mg PO BIDWM #60 tablet Baclofen [Lioresal] 10 mg PO Q8HR PRN PRN Reason: Muscle Spasm Chlorthalidone 25 mg PO QAM Amiodarone [Cordarone] 200 mg PO QAM Isosorbide MONOnitrate (24 HR) [Imdur] 30 mg PO QAM Clopidogrel [Plavix] 75 mg PO QAM Pravastatin Sodium [Pravachol] 40 mg PO HS Fluticasone Propionate Nasal [Flonase] 2 spray NS DAILY Discontinued Amlodipine Besylate 10 mg PO QAM Hydralazine HCl 50 mg PO TID Losartan [Cozaar] 100 mg PO QAM Home Medications: Aspirin Enteric Coated [Aspirin EC] 81 mg PO QAM 11/23/14 [History] Cholecalciferol (D-3) [Vitamin D] 2,000 unit PO QAM 11/23/14 [History] [place]-3/Dha/Epa/Fish Oil [Fish Oil 1,000 mg Softgel] 300 mg PO QAM 05/31/15 [History] Cetirizine HCl [Zyrtec] 10 mg PO QAM 05/30/16 [History] Warfarin [Coumadin] 1 mg PO MOWEFR 12/11/16 [History] Warfarin [Coumadin] 2 mg PO SUTUTHSA 12/11/16 [History] Gabapentin 600 mg PO TID 04/27/18 [History] Carvedilol [Coreg] 6.25 mg PO BIDWM #60 tablet 05/18/18 [Rx] Baclofen [Lioresal] 10 mg PO Q8HR PRN 07/05/18 [History] Chlorthalidone 25 mg PO QAM 07/07/18 [History] Amiodarone [Cordarone] 200 mg PO QAM 10/27/18 [History] Clopidogrel [Plavix] 75 mg PO QAM 10/27/18 [History] Fluticasone Propionate Nasal [Flonase] 2 spray NS DAILY 10/27/18 [History] Isosorbide MONOnitrate (24 HR) [Imdur] 30 mg PO QAM 10/27/18 [History] Pravastatin Sodium [Pravachol] 40 mg PO HS 10/27/18 [History] Allergies/Adverse Reactions: Allergy/AdvReac Type Severity Reaction Status Date / Time Erythromycin Base AdvReac Gastrointestinal Verified 07/07/18 10:21 [From Erythrocin] Upset Date of admission: 10/28/18 01:35 Primary care physician: PCP NONE Consults: 10/28/18 01:47 Consult to Assistant Credit Manager [CONS] Routine Reason for SW Consult: Please assess patient for possible home needs for post-discharge planning. 10/28/18 09:35 Consult to Orthopedic Surgery [CONS] Routine Consulting Provider: Delgado Casey Reason for Consult: ankle fracture Call Completed: Yes 10/30/18 22:58 Consult to Occupational Therapy [CONS] Routine Comment: Evaluate, develop and implement POC Reason for Consult: adl Does patient have active BEDREST order?: No Is patient medically & hemodynamically stable?: Yes Consult to Physical Therapy [CONS] Routine Comment: Evaluate, develop and implement POC Reason for Consult: Fx Does patient have active BEDREST order?: No Is patient medically & hemodynamically stable?: Yes Discharging clinician: Shari Craven - Constitutional Vitals: Temp Pulse Resp BP Pulse Ox 97.1 F L 56 12 127/70 98 11/04/18 11:09 11/04/18 11:09 11/04/18 11:09 11/04/18 11:09 11/04/18 11:09 Exam: General: In no acute distress. obese Respiratory exam: CTAB. no accessory muscle use, rales, rhonchi, wheezes Cardiovascular exam: RRR, +S1, +S2. no murmur, gallop, rubs. GI/Abdominal exam: Non-tender, Non-distended, normal bowel sounds, soft, no peritoneal signs. Extremities exam: no pedal edema, no calf tenderness. Rt Leg with splint sensation intact Neurological exam: CN II-XII intact, AO X3, no focal deficits. - Patient Status Disposition: Transfer SNF Condition: Fair - Discharge Instructions Follow Up With: NONE,PCP [Primary Care Provider] - - Diet and Activity Activity: as per physical therapy
--- NOTE | 2018-11-04 11:28 | Physician Discharge Referral ---
ExtendedCare Referral Info Institutional Level of Care: Skilled - Diagnosis (1) Paroxysmal atrial fibrillation Status: Chronic (2) CAD (coronary artery disease) Status: Chronic (3) Diabetes Status: Chronic (4) Obesity (BMI 30-39.9) Status: Chronic (5) LAUREL (obstructive sleep apnea) Status: Chronic (6) DVT prophylaxis Status: Acute (7) HTN (hypertension) Status: Chronic (8) HLD (hyperlipidemia) Status: Chronic (9) Back pain Status: Chronic (10) LEONEL (acute kidney injury) Status: Acute (11) Trimalleolar fracture of right ankle Status: Acute - Transfer Medications Home Medications: Aspirin Enteric Coated [Aspirin EC] 81 mg PO QAM 11/23/14 [History] Cholecalciferol (D-3) [Vitamin D] 2,000 unit PO QAM 11/23/14 [History] [place]-3/Dha/Epa/Fish Oil [Fish Oil 1,000 mg Softgel] 300 mg PO QAM 05/31/15 [History] Cetirizine HCl [Zyrtec] 10 mg PO QAM 05/30/16 [History] Warfarin [Coumadin] 1 mg PO MOWEFR 12/11/16 [History] Warfarin [Coumadin] 2 mg PO SUTUTHSA 12/11/16 [History] Gabapentin 600 mg PO TID 04/27/18 [History] Carvedilol [Coreg] 6.25 mg PO BIDWM #60 tablet 05/18/18 [Rx] Baclofen [Lioresal] 10 mg PO Q8HR PRN 07/05/18 [History] Chlorthalidone 25 mg PO QAM 07/07/18 [History] Amiodarone [Cordarone] 200 mg PO QAM 10/27/18 [History] Clopidogrel [Plavix] 75 mg PO QAM 10/27/18 [History] Fluticasone Propionate Nasal [Flonase] 2 spray NS DAILY 10/27/18 [History] Isosorbide MONOnitrate (24 HR) [Imdur] 30 mg PO QAM 10/27/18 [History] Pravastatin Sodium [Pravachol] 40 mg PO HS 10/27/18 [History] Allergies/Adverse Reactions: Allergy/AdvReac Type Severity Reaction Status Date / Time Erythromycin Base AdvReac Gastrointestinal Verified 07/07/18 10:21 [From Erythrocin] Upset - Respiratory Orders Smoking Cessation: Smoking cessation has been advised. For more information, call the [place] Tobacco Quit Line at 9-080-IDWO-NOW. CERTIFICATION: I certify that the transfer of the above named patient to an [facility] is necessary for the continuing treatment of the diagnosis listed. The above information is true and accurate reflection of patient's current condition. Confidential - Redisclosure prohibited without a patient's written consent.
[2018-11-04] MEDS ORDERED: *HR* Warfarin 1 MG TABLET PO ONE (18:00)
== END 2018-11-04 13:00 | DRG 493 ==
LOC: 3NENU → SUATTDRO 10-28 01:35
PROVIDERS: ADMIT Internal Medicine Nephrology; ATTEND Internal Medicine